=== PATIENT | female | born 1945 | race African-American/Black ===

== ENCOUNTER → 2016-11-14 | Outpatient (CLI) | payer MEDICARE, OTHER ==
--- NOTE | 2016-11-15 07:22 | MM ---
Reason for exam: screening (asymptomatic). Last mammogram was performed 7 years and 4 months ago. History: Patient is postmenopausal. Family history of breast cancer in paternal grandmother at age 30. Took estrogen for 3 months. Physical Findings: A clinical breast exam by your physician is recommended on an annual basis and results should be correlated with mammographic findings. MG 3D Screening Mammo W/Cad Bilateral CC and MLO view(s) were taken. Prior study comparison: July 24, 2009, bilateral digital screening mammogram. There is no discrete abnormality. No significant new findings when compared with previous films since 07/24/09. ASSESSMENT: Negative, BI-RAD 1 RECOMMENDATION: Routine screening mammogram of both breasts in 1 year.
== END | disposition home or self-care (01) ==
LOC: RADMAMWWP 16:46
PROVIDERS: ATTEND Family Medicine
DX: Z12.31 Encounter for screening mammogram for malignant neoplasm of breast (principal)
CPT/HCPCS: 77063; G0202

== ENCOUNTER 2017-01-18 22:24 | Inpatient (IN) | payer MEDICARE, OTHER ==
[2017-01-18] MEDS ORDERED: SODIUM CHLORIDE 0.9% 1,000 ML IV STA (22:46)
[2017-01-18] MEDS ORDERED: SODIUM CHLORIDE 0.9% 500 ML IV STA (22:46)
[2017-01-18] MEDS ORDERED: METOCLOPRAMIDE 5 MG/ML 2 ML VIAL IVP STA (22:47)
[2017-01-18 22:58] LABS: Glucose,Whole Blood 189 mg/dL (75-99)
--- NOTE | 2017-01-18 23:15 | ED ---
Dizziness HPI - General Chief Complaint: Dizziness Stated Complaint: Med reaction Time Seen by Provider: 01/18/17 22:38 Source: patient Mode of arrival: ambulatory Limitations: no limitations - History of Present Illness Initial Comments: Feeling dizzy since 10:30 AM also complaining about some chest floaters and her fever was noticed as well things are spinning around her and she has been nauseous and threw up quite a few times since morning or also complaining about the headache. Mesenteric has chest pain no shortness of breath no abdominal pain no diarrhea no constipation no UTI-like symptoms no symptoms like TIA or CVA - Related Data Home Medications Medication Instructions Recorded Confirmed Aspirin 81 mg PO DAILY 05/31/14 02/21/16 Triamterene-Hctz 37.5-25Mg 1 each PO DAILY 08/26/14 02/21/16 [Dyazide] Fenofibrate Nanocrystallized 145 mg PO DAILY 11/16/14 02/21/16 [Tricor] HYDROcodone/APAP 10-325MG [[place] 1 each PO Q8H PRN 11/16/14 02/21/16 10] glipiZIDE [Glucotrol] 5 mg PO BID 11/16/14 02/21/16 metFORMIN HCL [Glucophage] 500 mg PO BID 11/16/14 02/21/16 DULoxetine HCL [Cymbalta] 30 mg PO DAILY 02/20/16 02/21/16 Ferrous Sulfate [Feosol] 325 mg PO BID 02/20/16 02/21/16 Omeprazole [PriLOSEC] 20 mg PO BID 02/20/16 02/21/16 Promethazine 6.25MG/5Ml [Phenergan 2 tsp PO BID 02/20/16 02/21/16 Syrup] amLODIPine [Norvasc] 10 mg PO DAILY 02/20/16 02/21/16 Acetaminophen [Tylenol] 500 mg PO Q4-6H PRN 02/21/16 02/21/16 Previous Rx's Medication Instructions Recorded oxyCODONE-APAP 5-325MG [Percocet 1 tab PO Q6HR PRN #30 tab 02/21/16 5-325 mg] Allergies Allergy/AdvReac Type Severity Reaction Status Date / Time diflunisal [From Dolobid] Allergy Anaphylaxis Verified 02/21/16 06:25 hydrochlorothiazide Allergy Swelling Verified 02/21/16 06:25 [From Zestoretic] of face and throat ibuprofen [From Motrin] Allergy Rash/Hives Verified 02/21/16 06:25 Iodine and Iodide Containing Allergy Anaphylaxis Verified 02/21/16 06:25 Produc lisinopril Allergy Rash/Hives Verified 02/21/16 06:25 morphine Allergy Rash/Hives Verified 02/21/16 06:25 prednisone Allergy Rash/Hives Verified 02/21/16 06:25 sulfamethoxazole Allergy Anaphylaxis Verified 02/21/16 06:25 [From Bactrim] tramadol Allergy Rash/Hives Verified 02/21/16 06:25 trimethoprim [From Bactrim] Allergy Anaphylaxis Verified 02/21/16 06:25 ondansetron AdvReac Itching Verified 01/18/17 22:37 [From Zofran (as hydrochloride)] Review of Systems ROS Statement: Those systems with pertinent positive or pertinent negative responses have been documented in the HPI. ROS Other: All systems not noted in ROS Statement are negative. Past Medical History Past Medical History: Diabetes Mellitus, GERD/Reflux, Hyperlipidemia, Hypertension, Mitral Valve Prolapse (MVP) Additional Past Medical History / Comment(s): recent cough, hx migraines, varicose veins, History of Any Multi-Drug Resistant Organisms: None Reported Past Surgical History: Back Surgery, Hysterectomy, Tonsillectomy Additional Past Surgical History / Comment(s): 3 HERNIATED DISK REPAIRS, PLATE AT L4 AND L5, rt temporal artery removed, ovarian cysts removed, pilonidal cyst, Past Anesthesia/Blood Transfusion Reactions: Family Hisory of Malignant Hyperthermia Additional Past Anesthesia/Blood Transfusion Reaction / Comment(s): daughter had reaction to anesthesia age 7 with tonsilectomy called "chocolate anesthesia " per pt. "she had a rash and high fever of 105". daughter has had surgeries since with no problems. Past Psychological History: No Psychological Hx Reported Smoking Status: Former smoker Past Alcohol Use History: None Reported Past Drug Use History: None Reported - Past Family History Sister(s) Family Medical History: Deep Vein Thrombosis (DVT) Father Family Medical History: Cancer Additional Family Medical History / Comment(s): [employer]ADRUPLE [employer] Mother Family Medical History: Deep Vein Thrombosis (DVT) Additional Family Medical History / Comment(s): PACEMAKER General Exam - General Exam Comments Initial Comments: General: The patient is awake and alert, in no distress, and does not appear acutely ill. GCS is 15 Skin: Skin is warm and dry and no rashes or lesions are noted. Eye: Pupils are equal, round and reactive to light, extra-ocular movements are intact; there is normal conjunctiva bilaterally. Ears, nose, mouth and throat: There are moist mucous membranes and no oral lesions. Neck: The neck is supple, there is no tenderness or JVD. Cardiovascular: There is a regular rate and rhythm. No murmur, rub or gallop is appreciated. Respiratory: To auscultation bilateral, no wheezing no rhonchi no distress respiratory collado noticed Gastrointestinal: Soft, non-distended, non-tender abdomen without masses or organomegaly noted. There is no rebound or guarding present. Bowel sounds are unremarkable. Back: There is no tenderness to palpation in the midline. There is no obvious deformity. Musculoskeletal: Normal ROM, no tenderness, There is no pedal edema. There is no calf tenderness or swelling. No cords were appreciated. Neurological: CN II-XII intact, Cranial nerves III through XII are intact. There are no obvious motor or sensory deficits. Coordination appears grossly intact. Speech is normal. Psychiatric: Cooperative, appropriate mood & affect, normal judgment. Limitations: no limitations Course Vital Signs 01/18/17 01/18/17 01/19/17 22:34 23:53 00:51 Temperature 100.1 F H Pulse Rate 63 52 L Pulse Rate [ 84 Sitting] Pulse Rate [ 62 Standing] Pulse Rate [ 64 Supine] Respiratory 18 18 Rate Blood Pressure 170/74 188/90 Blood Pressure 171/74 [Sitting] Blood Pressure 188/77 [Standing] Blood Pressure 145/64 [Supine] O2 Sat by Pulse 100 99 Oximetry Was reassessed at 1 AM, she still dizzy, he reviewed her labs CBC, INR, creatinine, comprehensive metabolic panel urine and urinalysis were all within normal range creatinine is 1.[address] is pending at this point she will be admitted to Dr. Rod service EKG Findings - EKG Comments: EKG Findings:: EKG is sinus bradycardia ventricular rate is 59 WV interval is 140 QRS duration is 82 QT/QTc is 432/427 review of this EKG reveals T-wave inversion in lead [address] elevation or ST depression noticed any other EKG Medical Decision Making - Lab Data Result diagrams: 01/18/17 23:57 01/18/17 23:57 Lab Results 01/18/17 01/18/17 01/18/17 Range/Units 22:45 23:41 23:57 WBC 5.5 (3.8-10.6) k/uL RBC 3.42 L (3.80-5.40) m/uL Hgb 11.1 L (11.4-16.0) gm/dL Hct 34.8 (34.0-46.0) % MCV 101.7 H (80.0-100.0) fL MCH 32.5 (25.0-35.0) pg MCHC 32.0 (31.0-37.0) g/dL RDW 14.0 (11.5-15.5) % Plt Count 265 (150-450) k/uL Neutrophils % 63 % Lymphocytes % 26 % Monocytes % 6 % Eosinophils % 2 % Basophils % 0 % Neutrophils # 3.5 (1.3-7.7) k/uL Lymphocytes # 1.4 (1.0-4.8) k/uL Monocytes # 0.3 (0-1.0) k/uL Eosinophils # 0.1 (0-0.7) k/uL Basophils # 0.0 (0-0.2) k/uL Macrocytosis Slight PT (9.0-12.0) sec INR (<1.2) Sodium (137-145) mmol/L Potassium (3.5-5.1) mmol/L Chloride (98-107) mmol/L Carbon Dioxide (22-30) mmol/L Anion Gap mmol/L BUN (7-17) mg/dL Creatinine (0.52-1.04) mg/dL Est GFR (MDRD) Af Amer (>60 ml/min/1.73 sqM) Est GFR (MDRD) Non-Af (>60 ml/min/1.73 sqM) Glucose (74-99) mg/dL POC Glucose (mg/dL) 189 H (75-99) mg/dL POC Glu Lead Section Supervisor ID Antionette Carrillo Plasma Lactic Acid Epi (0.7-2.0) mmol/L Calcium (8.4-10.2) mg/dL Total Bilirubin (0.2-1.3) mg/dL AST (14-36) U/L ALT (9-52) U/L Alkaline Phosphatase (38-126) U/L Troponin I (0.000-0.034) ng/mL Total Protein (6.3-8.2) g/dL Albumin (3.5-5.0) g/dL Urine Color Light Yellow Urine Appearance Cloudy H (Clear) Urine pH 8.0 (5.0-8.0) Ur Specific [place] 1.010 (1.001-1.035) Urine Protein Negative (Negative) Urine Glucose (UA) Trace H (Negative) Urine Ketones Negative (Negative) Urine Blood Negative (Negative) Urine Nitrite Negative (Negative) Urine Bilirubin Negative (Negative) Urine Urobilinogen <2.0 (<2.0) mg/dL Ur Leukocyte Esterase Negative (Negative) Urine RBC 1 (0-5) /hpf Urine WBC 3 (0-5) /hpf Ur Squamous Epith Cells <1 (0-4) /hpf Urine Bacteria Rare H (None) /hpf Urine Mucus Rare H (None) /hpf 01/18/17 01/18/17 01/18/17 Range/Units 23:57 23:57 23:57 WBC (3.8-10.6) k/uL RBC (3.80-5.40) m/uL Hgb (11.4-16.0) gm/dL Hct (34.0-46.0) % MCV (80.0-100.0) fL MCH (25.0-35.0) pg MCHC (31.0-37.0) g/dL RDW (11.5-15.5) % Plt Count (150-450) k/uL Neutrophils % % Lymphocytes % % Monocytes % % Eosinophils % % Basophils % % Neutrophils # (1.3-7.7) k/uL Lymphocytes # (1.0-4.8) k/uL Monocytes # (0-1.0) k/uL Eosinophils # (0-0.7) k/uL Basophils # (0-0.2) k/uL Macrocytosis PT 10.3 (9.0-12.0) sec INR 1.0 (<1.2) Sodium 146 H (137-145) mmol/L Potassium 4.2 (3.5-5.1) mmol/L Chloride 110 H (98-107) mmol/L Carbon Dioxide 23 (22-30) mmol/L Anion Gap 13 mmol/L BUN 18 H (7-17) mg/dL Creatinine 1.40 H (0.52-1.04) mg/dL Est GFR (MDRD) Af Amer 45 (>60 ml/min/1.73 sqM) Est GFR (MDRD) Non-Af 37 (>60 ml/min/1.73 sqM) Glucose 161 H (74-99) mg/dL POC Glucose (mg/dL) (75-99) mg/dL POC Glu Lead Section Supervisor ID Plasma Lactic Acid Epi 1.2 (0.7-2.0) mmol/L Calcium 10.3 H (8.4-10.2) mg/dL Total Bilirubin 0.4 (0.2-1.3) mg/dL AST 22 (14-36) U/L ALT 38 (9-52) U/L Alkaline Phosphatase 59 (38-126) U/L Troponin I (0.000-0.034) ng/mL Total Protein 7.5 (6.3-8.2) g/dL Albumin 4.5 (3.5-5.0) g/dL Urine Color Urine Appearance (Clear) Urine pH (5.0-8.0) Ur Specific [place] (1.001-1.035) Urine Protein (Negative) Urine Glucose (UA) (Negative) Urine Ketones (Negative) Urine Blood (Negative) Urine Nitrite (Negative) Urine Bilirubin (Negative) Urine Urobilinogen (<2.0) mg/dL Ur Leukocyte Esterase (Negative) Urine RBC (0-5) /hpf Urine WBC (0-5) /hpf Ur Squamous Epith Cells (0-4) /hpf Urine Bacteria (None) /hpf Urine Mucus (None) /hpf 01/18/17 Range/Units 23:57 WBC (3.8-10.6) k/uL RBC (3.80-5.40) m/uL Hgb (11.4-16.0) gm/dL Hct (34.0-46.0) % MCV (80.0-100.0) fL MCH (25.0-35.0) pg MCHC (31.0-37.0) g/dL RDW (11.5-15.5) % Plt Count (150-450) k/uL Neutrophils % % Lymphocytes % % Monocytes % % Eosinophils % % Basophils % % Neutrophils # (1.3-7.7) k/uL Lymphocytes # (1.0-4.8) k/uL Monocytes # (0-1.0) k/uL Eosinophils # (0-0.7) k/uL Basophils # (0-0.2) k/uL Macrocytosis PT (9.0-12.0) sec INR (<1.2) Sodium (137-145) mmol/L Potassium (3.5-5.1) mmol/L Chloride (98-107) mmol/L Carbon Dioxide (22-30) mmol/L Anion Gap mmol/L BUN (7-17) mg/dL Creatinine (0.52-1.04) mg/dL Est GFR (MDRD) Af Amer (>60 ml/min/1.73 sqM) Est GFR (MDRD) Non-Af (>60 ml/min/1.73 sqM) Glucose (74-99) mg/dL POC Glucose (mg/dL) (75-99) mg/dL POC Glu Lead Section Supervisor ID Plasma Lactic Acid Epi (0.7-2.0) mmol/L Calcium (8.4-10.2) mg/dL Total Bilirubin (0.2-1.3) mg/dL AST (14-36) U/L ALT (9-52) U/L Alkaline Phosphatase (38-126) U/L Troponin I <0.012 (0.000-0.034) ng/mL Total Protein (6.3-8.2) g/dL Albumin (3.5-5.0) g/dL Urine Color Urine Appearance (Clear) Urine pH (5.0-8.0) Ur Specific [place] (1.001-1.035) Urine Protein (Negative) Urine Glucose (UA) (Negative) Urine Ketones (Negative) Urine Blood (Negative) Urine Nitrite (Negative) Urine Bilirubin (Negative) Urine Urobilinogen (<2.0) mg/dL Ur Leukocyte Esterase (Negative) Urine RBC (0-5) /hpf Urine WBC (0-5) /hpf Ur Squamous Epith Cells (0-4) /hpf Urine Bacteria (None) /hpf Urine Mucus (None) /hpf Disposition Clinical Impression: Chest pain, Dizziness, Headache Disposition: ADMITTED IP TO THIS [facility] Condition: Good Referrals: Sissy Starr DO [Primary Care Provider] - 1-2 days
[2017-01-19 00:05] LABS: Appearance,Urine Cloudy (Clear); Bacteria,Urine Rare /hpf; Bilirubin,Urine Negative (Negative); Glucose,Urine (UA) Trace (Negative); Ketones,Urine Negative (Negative); Leukocyte Esterase,Urine Negative (Negative); Mucus,Urine Rare /hpf; Nitrite,Urine Negative (Negative); Particle Count 6632; Protein,Urine Negative (Negative); RBC,Urine 1 /hpf (0-5); Squamous Epithelial Cell,Urine <1 /hpf (0-4); UA Billing (MACRO vs. MICRO) MICRO; Urobilinogen,Urine <2.0 mg/dL (<2.0); WBC,Urine 3 /hpf (0-5)
[2017-01-19 00:28] LABS: Basophils % (A) 0 %; CH 32.8; CHCM 32.5; Eosinophils # (A) 0.1 k/uL (0-0.7); Eosinophils % (A) 2 %; HCT 34.8 % (34.0-46.0); HDW 2.55; HGB 11.1 gm/dL (11.4-16.0); Luc # (Auto) 0.18; Luc % (Auto) 3; Lymphocytes # (A) 1.4 k/uL (1.0-4.8); Lymphocytes % (A) 26 %; MCH 32.5 pg (25.0-35.0); MCV 101.7 fL (80.0-100.0); Macrocytosis Slight; Mean Platelet Volume 8.2; Monocytes # (A) 0.3 k/uL (0-1.0); Monocytes % (A) 6 %; Neutrophils # (A) 3.5 k/uL (1.3-7.7); Neutrophils % (A) 63 %; RBC 3.42 m/uL (3.80-5.40); WBC 5.5 k/uL (3.8-10.6); WBC (Perox) 5.66
[2017-01-19 00:36] LABS: Prothrombin Time 10.3 sec (9.0-12.0)
[2017-01-19 00:39] LABS: Calcium 10.3 mg/dL (8.4-10.2); Potassium 4.2 mmol/L (3.5-5.1); Total Bilirubin 0.4 mg/dL (0.2-1.3); Total Protein 7.5 g/dL (6.3-8.2)
--- NOTE | 2017-01-19 01:03 | CT ---
EXAM: CT Head Without Intravenous Contrast CLINICAL HISTORY: Dizziness, nausea/vomiting TECHNIQUE: Axial computed tomography images of the head/brain without intravenous contrast. CTDI is 57.40 mGy and DLP is 961.00 mGy-cm. This CT exam was performed using one or more of the following dose reduction techniques: automated exposure control, adjustment of the mA and/or kV according to patient size, and/or use of iterative reconstruction technique. COMPARISON: CT of the head dated 08/26/2014. FINDINGS: Brain: No evidence of acute transcortical infarct or acute intracranial hemorrhage. Evidence of mild microangiopathy. No edema. Ventricles: Unremarkable. No ventriculomegaly. Bones/joints: Unremarkable. No acute fracture. Soft tissues: Unremarkable. Sinuses: Near complete opacification of the right sphenoid sinus. Partial opacification of the posterior bilateral ethmoid air cells, right greater the left. Findings are slightly more conspicuous on this study than the prior and are likely consistent with chronic sinusitis Mastoid air cells: Unremarkable as visualized. No mastoid effusion. IMPRESSION: 1. Near complete opacification of the right sphenoid sinus. Partial opacification of the posterior bilateral ethmoid air cells, right greater the left. Findings are slightly more conspicuous on this study than the prior and are likely consistent with chronic sinusitis. 2. Findings suggestive of mild microangiopathy.
--- NOTE | 2017-01-19 01:07 | XR ---
EXAM: XR Chest, 2 Views CLINICAL HISTORY: Reason: Fever TECHNIQUE: Frontal and lateral views of the chest. COMPARISON: 11/16/2014 FINDINGS: Lungs: Prominent lung volumes persist suggesting COPD. No evidence of consolidation.. Pleural space: Unremarkable. No pneumothorax. Heart: Unremarkable. No cardiomegaly. Mediastinum: Unremarkable. Bones/joints: Unremarkable. IMPRESSION: Stable exam suggesting COPD. No acute findings.
--- NOTE | 2017-01-19 01:10 | XR ---
EXAM: XR Abdomen, 1 View CLINICAL HISTORY: Reason: Pain TECHNIQUE: Frontal supine view of the abdomen/pelvis. COMPARISON: No relevant prior studies available. FINDINGS: Gastrointestinal tract: Stool seen throughout the proximal colon, which may represent constipation. No dilation. Bones/joints: Mild levoscoliosis of the lumbar spine. Degenerative changes are also noted. IMPRESSION: Normal abdominal x-ray.
[2017-01-19] MEDS ORDERED: ACETAMINOPHEN TAB 500 MG TAB PO PRN (01:15)
[2017-01-19] MEDS ORDERED: HYDROcodone/APAP 10-325MG 1 EACH TAB PO PRN (01:15)
[2017-01-19] MEDS: SODIUM CHLORIDE 0.9% 1,000 ML IV SCH ×3 (01:59→20:52)
[2017-01-19 02:19] VITALS: BMI 34.7
[2017-01-19] MEDS: PROMETHAZINE INJ 25 MG in SODIUM CHLORIDE 0.9% 50 ML IVPB PRN ×3 (02:39→18:51)
[2017-01-19 05:53] LABS: Glucose,Whole Blood 138 mg/dL (75-99)
[2017-01-19] MEDS: PANTOPRAZOLE 40 MG TABLET PO SCH ×2 (07:34→16:55)
[2017-01-19] MEDS: PROMETHAZINE 6.25MG/5ML 147.5 MG/118 ML BOTTLE PO SCH ×2 (07:43→23:14)
[2017-01-19] MEDS: FERROUS SULFATE 325 MG TAB PO SCH ×2 (07:46→20:51)
[2017-01-19] MEDS: FENOFIBRATE 160 MG TAB PO SCH (07:46)
[2017-01-19] MEDS: DULoxetine HCL 30 MG CAPSULE.DR PO SCH (07:47)
[2017-01-19] MEDS: ASPIRIN 81 MG CHEW PO SCH (07:47)
[2017-01-19] MEDS: amLODIPine 10 MG TAB PO SCH (07:47)
[2017-01-19] MEDS: TRIAMTERENE-HCTZ 37.5-25MG 1 EACH CAP PO SCH (07:47)
--- NOTE | 2017-01-19 09:04 | US ---
EXAMINATION TYPE: US carotid duplex BILAT DATE OF EXAM: 01/19/2017 COMPARISON: NONE CLINICAL HISTORY: 71-year-old female Stenosis. TECHNIQUE: Carotid duplex ultrasound examination. Indirect Doppler criteria was utilized. FINDINGS: Brooks scale images show tortuous bilateral ICAs. There are mild atherosclerotic changes at the right b ifurcation and moderate on the left. EXAM MEASUREMENTS: RIGHT: Peak Systolic Velocity (PSV) cm/sec ----- Right CCA: 70.3 ----- Right ICA: 79.4 ----- Right ECA: 86.0 ICA/CCA ratio: 1.1 RIGHT: End Diastole cm/sec ----- Right CCA: 11.6 ----- Right ICA: 24.7 ----- Right ECA: 10.3 LEFT: Peak Systolic Velocity (PSV) cm/sec ----- Left CCA: 65.8 ----- Left ICA: 99.1 ----- Left ECA: 65.8 ICA/CCA ratio: 1.5 LEFT: End Diastole cm/sec ----- Left CCA: 15.3 ----- Left ICA: 31.8 ----- Left ECA: 5.4 VERTEBRALS (direction of flow): Right Vertebral: antegrade Left Vertebral: antegrade IMPRESSION: No hemodynamically significant stenosis appreciated in either internal carotid artery. Criteria for Assigning % of Stenosis / Diameter reduction (Estimation based on the indirect measurements of the internal carotid artery velocities (ICA PSV). 1. Normal (no stenosis)=ICA PSV < 125 cm/s: ratio < 2.0: ICA EDV<40 cm/s. 2. Less than 50% stenosis=ICA PSV < 125 cm/s: ratio < 2.0: ICA EDV<40 cm/s. 3. 50 to 69% stenosis=ICA PSV of 125 to 230 cm/s: ration 2.0 ? 4.0: ICA EDV 40-100 cm/s. 4. Greater than 70% stenosis to near occlusion= ICA PSV > 230 cm/s: ratio > 4.0: ICA EDV > 100 cm/s. 5. Near occlusion= ICA PSV velocities may be low or undetectable: variable ratio and ICA EDV. 6. Total occlusion=unable to detect flow.
--- NOTE | 2017-01-19 11:25 | P.CRDCN ---
History of Present Illness Consult date: 01/19/17 Chief complaint: Presyncope History of present illness: This is a pleasant 71-year-old -F[place] female patient with diabetes, hypertension, and dyslipidemia, presented to the hospital with dizziness and lightheadedness. The patient was in her usual state of health until yesterday when she woke up from sleep not feeling well and experiencing the feeling of being dizzy and lightheaded. She did not have any syncope. She denies having any chest pain or discomfort. When she presented to the hospital she was in sinus bradycardia. The patient was not receiving any AV delmar kvng agents as an outpatient. She underwent carotid duplex study which showed no evidence of high-grade stenosis. She underwent one set of cardiac enzyme came in to be unremarkable. Past Medical History Past Medical History: Diabetes Mellitus, GERD/Reflux, Hyperlipidemia, Hypertension, Mitral Valve Prolapse (MVP) Additional Past Medical History / Comment(s): recent cough, hx migraines, varicose veins, History of Any Multi-Drug Resistant Organisms: None Reported Past Surgical History: Back Surgery, Hysterectomy, Tonsillectomy Additional Past Surgical History / Comment(s): 3 HERNIATED DISK REPAIRS, PLATE AT L4 AND L5, rt temporal artery removed, ovarian cysts removed, pilonidal cyst, Past Anesthesia/Blood Transfusion Reactions: Family Hisory of Malignant Hyperthermia Additional Past Anesthesia/Blood Transfusion Reaction / Comment(s): daughter had reaction to anesthesia age 7 with tonsilectomy called "chocolate anesthesia " per pt. "she had a rash and high fever of 105". daughter has had surgeries since with no problems. Past Psychological History: No Psychological Hx Reported Smoking Status: Former smoker Past Alcohol Use History: None Reported Additional Past Alcohol Use History / Comment(s): quit smoking 35 yrs ago, smoked for 3 yrs- < 1 PPD Past Drug Use History: None Reported - Past Family History Sister(s) Family Medical History: Deep Vein Thrombosis (DVT) Father Family Medical History: Cancer Additional Family Medical History / Comment(s): QUADRUPLE BYPASS Mother Family Medical History: Deep Vein Thrombosis (DVT) Additional Family Medical History / Comment(s): PACEMAKER Medications and Allergies Home Medications Medication Instructions Recorded Confirmed Type Triamterene-Hctz 37.5-25Mg 1 cap PO DAILY 08/26/14 01/19/17 History [Dyazide] Fenofibrate Nanocrystallized 145 mg PO DAILY 11/16/14 01/19/17 History [Tricor] HYDROcodone/APAP 10-325MG [[place] 1 tab PO TID PRN 11/16/14 01/19/17 History 10] metFORMIN HCL [Glucophage] 500 mg PO BID 11/16/14 01/19/17 History Ferrous Sulfate [Feosol] 325 mg PO DAILY 02/20/16 01/19/17 History amLODIPine [Norvasc] 10 mg PO DAILY 02/20/16 01/19/17 History Baclofen [Lioresal] 20 mg PO HS 01/19/17 01/19/17 History Cetirizine HCl [Zyrtec] 10 mg PO DAILY 01/19/17 01/19/17 History Famotidine [Pepcid] 40 mg PO HS 01/19/17 01/19/17 History glipiZIDE XL [Glucotrol Xl] 5 mg PO BID 01/19/17 01/19/17 History Allergies Allergy/AdvReac Type Severity Reaction Status Date / Time diflunisal [From Dolobid] Allergy Anaphylaxis Verified 01/19/17 10:36 hydrochlorothiazide Allergy Swelling Verified 01/19/17 10:36 [From Zestoretic] of face and throat ibuprofen [From Motrin] Allergy Rash/Hives Verified 01/19/17 10:36 Iodine and Iodide Containing Allergy Anaphylaxis Verified 01/19/17 10:36 Produc lisinopril Allergy Rash/Hives Verified 01/19/17 10:36 morphine Allergy Rash/Hives Verified 01/19/17 10:36 prednisone Allergy Rash/Hives Verified 01/19/17 10:36 sulfamethoxazole Allergy Anaphylaxis Verified 01/19/17 10:36 [From Bactrim] tramadol Allergy Rash/Hives Verified 01/19/17 10:36 trimethoprim [From Bactrim] Allergy Anaphylaxis Verified 01/19/17 10:36 ondansetron AdvReac Itching Verified 01/19/17 10:36 [From Zofran (as hydrochloride)] Physical Exam Vitals: Vital Signs Temp Pulse Pulse Pulse Pulse Pulse Resp 01/19/17 11:22 98.7 F 51 L 16 01/19/17 11:21 98.7 F 51 L 18 01/19/17 10:10 51 L 16 01/19/17 08:10 64 18 01/19/17 08:00 98.2 F 60 84 62 64 20 01/19/17 04:00 97.3 F L 51 L 18 01/19/17 01:50 97 F L 65 18 01/19/17 01:45 98.8 F 55 L 18 01/19/17 01:35 98.8 F 55 L 18 01/19/17 00:51 52 L 18 01/18/17 23:53 84 62 64 01/18/17 22:34 100.1 F H 63 18 BP BP BP BP Pulse Ox 01/19/17 11:22 138/73 96 01/19/17 11:21 138/73 96 01/19/17 10:10 138/73 96 01/19/17 08:10 130/80 95 01/19/17 08:00 129/82 96 01/19/17 04:00 116/67 98 01/19/17 01:50 161/68 98 01/19/17 01:45 157/70 98 01/19/17 01:35 157/70 98 01/19/17 00:51 188/90 99 01/18/17 23:53 171/74 188/77 145/64 01/18/17 22:34 170/74 100 Intake and Output 01/18/17 01/19/17 01/19/17 22:59 06:59 14:59 Intake Total 550 Balance 550 Intake: Intake, IV Titration 550 Amount Promethazine Inj 25 mg In 50 Sodium Chloride 0.9% 50 ml @ 200 mls/hr IVPB Q6HR PRN Rx#:[id number] Sodium Chloride 0.9% 1, 500 000 ml @ 100 mls/hr IV . Q10H JEANNA Rx#:[id number] Other: Weight 95.708 kg 94.6 kg - Constitutional General appearance: no acute distress - Respiratory Respiratory: bilateral: CTA - Cardiovascular Rhythm: regular Heart sounds: normal: S1, S2 Results 01/18/17 23:57 01/18/17 23:57 Cardiac Enzymes 01/18/17 01/18/17 Range/Units 23:57 23:57 AST 22 (14-36) U/L Troponin I <0.012 (0.000-0.034) ng/mL Coagulation 01/18/17 Range/Units 23:57 PT 10.3 (9.0-12.0) sec CBC 01/18/17 Range/Units 23:57 WBC 5.5 (3.8-10.6) k/uL RBC 3.42 L (3.80-5.40) m/uL Hgb 11.1 L (11.4-16.0) gm/dL Hct 34.8 (34.0-46.0) % Plt Count 265 (150-450) k/uL Comprehensive Metabolic Panel 01/18/17 Range/Units 23:57 Sodium 146 H (137-145) mmol/L Potassium 4.2 (3.5-5.1) mmol/L Chloride 110 H (98-107) mmol/L Carbon Dioxide 23 (22-30) mmol/L BUN 18 H (7-17) mg/dL Creatinine 1.40 H (0.52-1.04) mg/dL Glucose 161 H (74-99) mg/dL Calcium 10.3 H (8.4-10.2) mg/dL AST 22 (14-36) U/L ALT 38 (9-52) U/L Alkaline Phosphatase 59 (38-126) U/L Total Protein 7.5 (6.3-8.2) g/dL Albumin 4.5 (3.5-5.0) g/dL Current Medications Generic Name Dose Route Start Last Admin Trade Name Freq PRN Reason Stop Dose Admin Acetaminophen 500 mg 01/19/17 01:15 Tylenol Tab PO Q4-6H PRN Pain Hydrocodone Bitart/Acetaminophen 1 each 01/19/17 01:15 [place] 10 PO Q8H PRN Pain Amlodipine Besylate 10 mg 01/19/17 09:00 01/19/17 07:47 Norvasc PO 10 mg DAILY JEANNA Administration Aspirin 81 mg 01/19/17 09:00 01/19/17 07:47 Aspirin PO 81 mg DAILY JEANNA Administration Duloxetine HCl 30 mg 01/19/17 09:00 01/19/17 07:47 Cymbalta PO 30 mg DAILY JEANNA Administration Fenofibrate 160 mg 01/19/17 09:00 01/19/17 07:46 Lofibra PO 160 mg DAILY JEANNA Administration Ferrous Sulfate 325 mg 01/19/17 09:00 01/19/17 07:46 Feosol PO 325 mg BID JEANNA Administration Glipizide 5 mg 01/19/17 07:30 Glucotrol PO AC-BID JEANNA Sodium Chloride 1,000 mls @ 75 mls/hr 01/18/17 22:46 01/19/17 00:47 Saline 0.9% IV 01/19/17 12:05 75 mls/hr .[id number] STA Administration Sodium Chloride 1,000 mls @ 100 mls/hr 01/19/17 01:15 01/19/17 01:59 Saline 0.9% IV 100 mls/hr .Q10H JEANNA Administration Ceftriaxone Sodium 1,000 mg/ 50 mls @ 100 mls/hr 01/19/17 09:00 01/19/17 07: 43 Sodium Chloride IVPB 100 mls/hr Q24HR JEANNA Administration Promethazine HCl 25 mg/ Sodium 51 mls @ 200 mls/hr 01/19/17 01:17 01/19/17 02 :39 Chloride IVPB 200 mls/hr Q6HR PRN Administration Nausea Metformin HCl 500 mg 01/19/17 07:30 Glucophage PO AC-BID JEANNA Oxycodone/Acetaminophen 1 each 01/19/17 01:15 Percocet 5-325 PO Q6HR PRN Pain Pantoprazole Sodium 40 mg 01/19/17 07:30 01/19/17 07:34 Protonix PO 40 mg AC-BID JEANNA Administration Promethazine HCl 12.80102 mg 01/19/17 09:00 01/19/17 07:43 Phenergan Syrup PO 12.49 mg BID JEANNA Administration Triamterene/HCTZ 1 each 01/19/17 09:00 01/19/17 07:47 Dyazide PO 1 each DAILY JEANNA Administration Intake and Output 01/18/17 01/19/17 01/19/17 22:59 06:59 14:59 Intake Total 550 Balance 550 Intake: Intake, IV Titration 550 Amount Promethazine Inj 25 mg In 50 Sodium Chloride 0.9% 50 ml @ 200 mls/hr IVPB Q6HR PRN Rx#:[id number] Sodium Chloride 0.9% 1, 500 000 ml @ 100 mls/hr IV . Q10H JEANNA Rx#:[id number] Other: Weight 95.708 kg 94.6 kg 01/18/17 23:57 01/18/17 23:57 Assessment and Plan Plan: This is a pleasant 71-year-old -[place] female patient with diabetes, hypertension, and dyslipidemia who was admitted to the hospital was dizziness and lightheadedness and presyncope. Upon presenting to the hospital she was in sinus bradycardia but she was not receiving any AV delmar kvng agents. We will follow-up with the serial cardiac enzymes to rule out any acute coronary event. I will obtain a TSH as well as to rule out any hypothyroidism. I will obtain also an echocardiogram to evaluate the left ventricle systolic function. We'll continue following up with her.
[2017-01-19 11:51] LABS: Glucose,Whole Blood 138 mg/dL (75-99)
[2017-01-19] MEDS: glipiZIDE 5 MG TAB PO SCH ×2 (12:21→16:53)
[2017-01-19] MEDS: metFORMIN 500 MG TAB PO SCH ×2 (12:21→16:53)
--- NOTE | 2017-01-19 14:58 | P.HPIM ---
History of Present Illness H&P Date: 01/19/17 Chief Complaint: Dizziness and lightheadedness Gina Phan is a 71-year-old female patient with diabetes, hypertension, and hyperlipidemia, who presented to the hospital with dizziness and lightheadedness. The patient was in her usual state of health until yesterday when she woke up from sleep not feeling well and experiencing the feeling of being dizzy and lightheaded. She did not have any syncope. She denies having any chest pain or discomfort. When she presented to the hospital she was in sinus bradycardia. She underwent carotid duplex study on presentation She underwent one set of cardiac enzyme came in to be unremarkable. Echocardiogram was ordered results are still pending Patient states that she was recently started on baclofen a muscle relaxer by her primary care physician she took 1 pill on the day of admission and she slept till the afternoon she was feeling tired, she thinks that her symptoms may be related to baclofen. Past Medical History Past Medical History: Diabetes Mellitus, GERD/Reflux, Hyperlipidemia, Hypertension, Mitral Valve Prolapse (MVP) Additional Past Medical History / Comment(s): recent cough, hx migraines, varicose veins, History of Any Multi-Drug Resistant Organisms: None Reported Past Surgical History: Back Surgery, Hysterectomy, Tonsillectomy Additional Past Surgical History / Comment(s): 3 HERNIATED DISK REPAIRS, PLATE AT L4 AND L5, rt temporal artery removed, ovarian cysts removed, pilonidal cyst, Past Anesthesia/Blood Transfusion Reactions: Family Hisory of Malignant Hyperthermia Additional Past Anesthesia/Blood Transfusion Reaction / Comment(s): daughter had reaction to anesthesia age 7 with tonsilectomy called "chocolate anesthesia " per pt. "she had a rash and high fever of 105". daughter has had surgeries since with no problems. Past Psychological History: No Psychological Hx Reported Smoking Status: Former smoker Past Alcohol Use History: None Reported Additional Past Alcohol Use History / Comment(s): quit smoking 35 yrs ago, smoked for 3 yrs- < 1 PPD Past Drug Use History: None Reported - Past Family History Sister(s) Family Medical History: Deep Vein Thrombosis (DVT) Father Family Medical History: Cancer Additional Family Medical History / Comment(s): QUADRUPLE BYPASS Mother Family Medical History: Deep Vein Thrombosis (DVT) Additional Family Medical History / Comment(s): PACEMAKER Medications and Allergies Home Medications Medication Instructions Recorded Confirmed Type Triamterene-Hctz 37.5-25Mg 1 cap PO DAILY 08/26/14 01/19/17 History [Dyazide] Fenofibrate Nanocrystallized 145 mg PO DAILY 11/16/14 01/19/17 History [Tricor] HYDROcodone/APAP 10-325MG [[place] 1 tab PO TID PRN 11/16/14 01/19/17 History 10] metFORMIN HCL [Glucophage] 500 mg PO BID 11/16/14 01/19/17 History Ferrous Sulfate [Feosol] 325 mg PO DAILY 02/20/16 01/19/17 History amLODIPine [Norvasc] 10 mg PO DAILY 02/20/16 01/19/17 History Baclofen [Lioresal] 20 mg PO HS 01/19/17 01/19/17 History Cetirizine HCl [Zyrtec] 10 mg PO DAILY 01/19/17 01/19/17 History Famotidine [Pepcid] 40 mg PO HS 01/19/17 01/19/17 History glipiZIDE XL [Glucotrol Xl] 5 mg PO BID 01/19/17 01/19/17 History Allergies Allergy/AdvReac Type Severity Reaction Status Date / Time diflunisal [From Dolobid] Allergy Anaphylaxis Verified 01/19/17 10:36 hydrochlorothiazide Allergy Swelling Verified 01/19/17 10:36 [From Zestoretic] of face and throat ibuprofen [From Motrin] Allergy Rash/Hives Verified 01/19/17 10:36 Iodine and Iodide Containing Allergy Anaphylaxis Verified 01/19/17 10:36 Produc lisinopril Allergy Rash/Hives Verified 01/19/17 10:36 morphine Allergy Rash/Hives Verified 01/19/17 10:36 prednisone Allergy Rash/Hives Verified 01/19/17 10:36 sulfamethoxazole Allergy Anaphylaxis Verified 01/19/17 10:36 [From Bactrim] tramadol Allergy Rash/Hives Verified 01/19/17 10:36 trimethoprim [From Bactrim] Allergy Anaphylaxis Verified 01/19/17 10:36 ondansetron AdvReac Itching Verified 01/19/17 10:36 [From Zofran (as hydrochloride)] Physical Exam Vitals: Vital Signs Temp Pulse Pulse Pulse Pulse Pulse Resp 01/19/17 11:22 98.7 F 51 L 84 62 64 16 01/19/17 11:21 98.7 F 51 L 18 01/19/17 10:10 51 L 16 01/19/17 08:10 64 18 01/19/17 08:00 98.2 F 60 84 62 64 20 01/19/17 04:00 97.3 F L 51 L 18 01/19/17 01:50 97 F L 65 18 01/19/17 01:45 98.8 F 55 L 18 01/19/17 01:35 98.8 F 55 L 18 01/19/17 00:51 52 L 18 01/18/17 23:53 84 62 64 01/18/17 22:34 100.1 F H 63 18 BP BP BP BP Pulse Ox 01/19/17 11:22 138/73 96 01/19/17 11:21 138/73 96 01/19/17 10:10 138/73 96 01/19/17 08:10 130/80 95 01/19/17 08:00 129/82 96 01/19/17 04:00 116/67 98 01/19/17 01:50 161/68 98 01/19/17 01:45 157/70 98 01/19/17 01:35 157/70 98 01/19/17 00:51 188/90 99 01/18/17 23:53 171/74 188/77 145/64 01/18/17 22:34 170/74 100 Intake and Output 01/18/17 01/19/17 01/19/17 22:59 06:59 14:59 Intake Total 550 1000 Output Total 550 Balance 550 450 Intake: Intake, IV Titration 550 700 Amount Promethazine Inj 25 mg In 50 50 Sodium Chloride 0.9% 50 ml @ 200 mls/hr IVPB Q6HR PRN Rx#:[id number] Sodium Chloride 0.9% 1, 500 600 000 ml @ 100 mls/hr IV . Q10H JEANNA Rx#:[id number] cefTRIAXone 1,000 mg In 50 Sodium Chloride 0.9% 50 ml @ 100 mls/hr IVPB Q24HR JEANNA Rx#:[id number] Oral 300 Output: Urine 550 Other: # Voids 3 Weight 95.708 kg 94.6 kg In general patient is alert and oriented 3 in no apparent distress HEENT head normocephalic and atraumatic Neck is supple no JVD no goiter no lymphadenopathy Chest exam reveals a few scattered crackles no wheezing Cardiac exam reveals regular heart sounds S1 and S2 no gallops no murmurs Abdomen is soft nontender no organomegaly with normal bowel sounds Extremity exam reveals no edema no cyanosis or clubbing Results CBC & Chem 7: 01/18/17 23:57 01/18/17 23:57 Labs: Abnormal Lab Results - Last 24 Hours (Table) 01/18/17 01/18/17 01/18/17 Range/Units 22:45 23:41 23:57 RBC 3.42 L (3.80-5.40) m/uL Hgb 11.1 L (11.4-16.0) gm/dL MCV 101.7 H (80.0-100.0) fL Sodium (137-145) mmol/L Chloride (98-107) mmol/L BUN (7-17) mg/dL Creatinine (0.52-1.04) mg/dL Glucose (74-99) mg/dL POC Glucose (mg/dL) 189 H (75-99) mg/dL Calcium (8.4-10.2) mg/dL Urine Appearance Cloudy H (Clear) Urine Glucose (UA) Trace H (Negative) Urine Bacteria Rare H (None) /hpf Urine Mucus Rare H (None) /hpf 01/18/17 01/19/17 01/19/17 Range/Units 23:57 05:51 11:50 RBC (3.80-5.40) m/uL Hgb (11.4-16.0) gm/dL MCV (80.0-100.0) fL Sodium 146 H (137-145) mmol/L Chloride 110 H (98-107) mmol/L BUN 18 H (7-17) mg/dL Creatinine 1.40 H (0.52-1.04) mg/dL Glucose 161 H (74-99) mg/dL POC Glucose (mg/dL) 138 H 138 H (75-99) mg/dL Calcium 10.3 H (8.4-10.2) mg/dL Urine Appearance (Clear) Urine Glucose (UA) (Negative) Urine Bacteria (None) /hpf Urine Mucus (None) /hpf Thrombosis Risk Factor Assmnt - Choose All That Apply Any of the Below Risk Factors Present?: Yes Each Factor Represents 1 point: Obesity (BMI >25) Each Risk Factor Represents 2 Points: Age 61-74 years Each Risk Factor Represents 3 Points: Family history of DVT/PE Thrombosis Risk Factor Assessment Total Risk Factor Score: 6 Thrombosis Risk Factor Assessment Level: High Risk Assessment and Plan Plan: #1 dizziness and lightheadedness #2 underlying history of hypertension #3 underlying history of diabetes mellitus #4 underlying history of hyperlipidemia #5 no previous history of heart disease or seizure activity #6 bradycardia on presentation At this time will obtain echocardiogram and carotid Doppler will obtain thyroid function test Will monitor to rule out any cardiac arrhythmia Will follow in a.m. cardiology consult has been requested
--- NOTE | 2017-01-19 15:49 | P.CNNES ---
History of Present Illness Consult date: 01/19/17 Requesting physician: Nini Payton Reason for Consult: Dizziness History of Present Illness: Patient is a pleasant 71-year-old -Ang[place] female who is being evaluated by the neurology service on 01/19/2017 per the request of Dr. Payton for dizziness. Patient states she woke up yesterday feeling fine but as the day went on she felt more sleepy and dizzy. Patient does report having recently started baclofen and took a baclofen yesterday morning for the first time. Patient states he was placed on baclofen for muscle spasms in her back from prior back surgeries that she's had. Patient denies any syncopal episodes. She denies headache. Patient states dizziness is pretty much cleared but feels she is not quite back to baseline. Patient had carotid Dopplers done which showed no significant stenosis. CT of the brain showed no acute abnormality but did show small vessel ischemic disease. Cardiac enzymes were unremarkable. Her. Cardiology's been consulted for sinus bradycardia seen on the EKG strips. Vital signs on admission were temp 98.7, blood pressure 138/73, heart rate 51. Laboratory workup included hemoglobin of 11.1, RBCs 3.4, WBCs 5.5, platelets 265. Sodium is 146, potassium 4.2, chloride 110, carbon dioxide 23. BUN 18 with creatinine 1.4. At the time of my evaluation, patient's resting comfortably in bed and appears to be in no acute distress. Review of Systems REVIEW OF SYSTEMS: Otherwise unremarkable and noncontributory. Past Medical History Past Medical History: Diabetes Mellitus, GERD/Reflux, Hyperlipidemia, Hypertension, Mitral Valve Prolapse (MVP) Additional Past Medical History / Comment(s): recent cough, hx migraines, varicose veins, History of Any Multi-Drug Resistant Organisms: None Reported Past Surgical History: Back Surgery, Hysterectomy, Tonsillectomy Additional Past Surgical History / Comment(s): 3 HERNIATED DISK REPAIRS, PLATE AT L4 AND L5, rt temporal artery removed, ovarian cysts removed, pilonidal cyst, Past Anesthesia/Blood Transfusion Reactions: Family Hisory of Malignant Hyperthermia Additional Past Anesthesia/Blood Transfusion Reaction / Comment(s): daughter had reaction to anesthesia age 7 with tonsilectomy called "chocolate anesthesia " per pt. "she had a rash and high fever of 105". daughter has had surgeries since with no problems. Past Psychological History: No Psychological Hx Reported Smoking Status: Former smoker Past Alcohol Use History: None Reported Additional Past Alcohol Use History / Comment(s): quit smoking 35 yrs ago, smoked for 3 yrs- < 1 PPD Past Drug Use History: None Reported - Past Family History Sister(s) Family Medical History: Deep Vein Thrombosis (DVT) Father Family Medical History: Cancer Additional Family Medical History / Comment(s): QUADRUPLE BYPASS Mother Family Medical History: Deep Vein Thrombosis (DVT) Additional Family Medical History / Comment(s): PACEMAKER Medications and Allergies Home Medications Medication Instructions Recorded Confirmed Type Triamterene-Hctz 37.5-25Mg 1 cap PO DAILY 08/26/14 01/19/17 History [Dyazide] Fenofibrate Nanocrystallized 145 mg PO DAILY 11/16/14 01/19/17 History [Tricor] HYDROcodone/APAP 10-325MG [[place] 1 tab PO TID PRN 11/16/14 01/19/17 History 10] metFORMIN HCL [Glucophage] 500 mg PO BID 11/16/14 01/19/17 History Ferrous Sulfate [Feosol] 325 mg PO DAILY 02/20/16 01/19/17 History amLODIPine [Norvasc] 10 mg PO DAILY 02/20/16 01/19/17 History Baclofen [Lioresal] 20 mg PO HS 01/19/17 01/19/17 History Cetirizine HCl [Zyrtec] 10 mg PO DAILY 01/19/17 01/19/17 History Famotidine [Pepcid] 40 mg PO HS 01/19/17 01/19/17 History glipiZIDE XL [Glucotrol Xl] 5 mg PO BID 01/19/17 01/19/17 History Allergies Allergy/AdvReac Type Severity Reaction Status Date / Time diflunisal [From Dolobid] Allergy Anaphylaxis Verified 01/19/17 10:36 hydrochlorothiazide Allergy Swelling Verified 01/19/17 10:36 [From Zestoretic] of face and throat ibuprofen [From Motrin] Allergy Rash/Hives Verified 01/19/17 10:36 Iodine and Iodide Containing Allergy Anaphylaxis Verified 01/19/17 10:36 Produc lisinopril Allergy Rash/Hives Verified 01/19/17 10:36 morphine Allergy Rash/Hives Verified 01/19/17 10:36 prednisone Allergy Rash/Hives Verified 01/19/17 10:36 sulfamethoxazole Allergy Anaphylaxis Verified 01/19/17 10:36 [From Bactrim] tramadol Allergy Rash/Hives Verified 01/19/17 10:36 trimethoprim [From Bactrim] Allergy Anaphylaxis Verified 01/19/17 10:36 ondansetron AdvReac Itching Verified 01/19/17 10:36 [From Zofran (as hydrochloride)] Physical Examination - Vital Signs Vital Signs: Vital Signs Temp Pulse Pulse Pulse Pulse Pulse Resp 01/19/17 15:03 60 84 62 64 18 01/19/17 15:01 98.2 F 60 18 01/19/17 14:10 98.2 F 58 L 16 01/19/17 11:22 98.7 F 51 L 84 62 64 16 01/19/17 11:21 98.7 F 51 L 18 01/19/17 10:10 51 L 16 01/19/17 08:10 64 18 01/19/17 08:00 98.2 F 60 84 62 64 20 01/19/17 04:00 97.3 F L 51 L 18 01/19/17 01:50 97 F L 65 18 01/19/17 01:45 98.8 F 55 L 18 01/19/17 01:35 98.8 F 55 L 18 01/19/17 00:51 52 L 18 01/18/17 23:53 84 62 64 01/18/17 22:34 100.1 F H 63 18 BP BP BP BP Pulse Ox 01/19/17 15:03 01/19/17 15:01 126/70 96 01/19/17 14:10 121/63 96 01/19/17 11:22 138/73 96 01/19/17 11:21 138/73 96 01/19/17 10:10 138/73 96 01/19/17 08:10 130/80 95 01/19/17 08:00 129/82 96 01/19/17 04:00 116/67 98 01/19/17 01:50 161/68 98 01/19/17 01:45 157/70 98 01/19/17 01:35 157/70 98 01/19/17 00:51 188/90 99 01/18/17 23:53 171/74 188/77 145/64 01/18/17 22:34 170/74 100 Intake and Output 01/19/17 01/19/17 01/19/17 06:59 14:59 22:59 Intake Total 550 1000 Output Total 550 Balance 550 450 Intake: Intake, IV Titration 550 700 Amount Promethazine Inj 25 mg In 50 50 Sodium Chloride 0.9% 50 ml @ 200 mls/hr IVPB Q6HR PRN Rx#:[id number] Sodium Chloride 0.9% 1, 500 600 000 ml @ 100 mls/hr IV . Q10H JEANNA Rx#:[id number] cefTRIAXone 1,000 mg In 50 Sodium Chloride 0.9% 50 ml @ 100 mls/hr IVPB Q24HR JEANNA Rx#:[id number] Oral 300 Output: Urine 550 Other: # Voids 3 Weight 94.6 kg PHYSICAL EXAM: GENERAL APPEARANCE: Patient is a well-developed, -[place] female who appears to be in no acute distress. HEENT: Normocephalic, atraumatic, no facial asymmetry is seen. Neck is supple with no masses felt. CARDIOVASCULAR: Regular rate and rhythm. ABDOMEN: Nontender, nondistended. EXTREMITIES: Show no edema or clubbing. NEUROLOGICAL EXAM: Patient is awake, alert, and oriented 3. Speech and language are normal. Strength is full in all 4 extremities. Sensory exam to light touch is normal in all 4 extremities. No facial asymmetry is seen on cranial nerve testing. No tremors or seizure-like activity noted. Results - Laboratory Findings CBC and BMP: 01/18/17 23:57 01/18/17 23:57 Abnormal Lab Findings: Abnormal Labs 01/18/17 01/18/17 01/18/17 22:45 23:41 23:57 RBC 3.42 L Hgb 11.1 L MCV 101.7 H Sodium Chloride BUN Creatinine Glucose POC Glucose (mg/dL) 189 H Calcium Urine Appearance Cloudy H Urine Glucose (UA) Trace H Urine Bacteria Rare H Urine Mucus Rare H 01/18/17 01/19/17 01/19/17 23:57 05:51 11:50 RBC Hgb MCV Sodium 146 H Chloride 110 H BUN 18 H Creatinine 1.40 H Glucose 161 H POC Glucose (mg/dL) 138 H 138 H Calcium 10.3 H Urine Appearance Urine Glucose (UA) Urine Bacteria Urine Mucus Assessment and Plan Plan: Impression: 1. Dizziness, possibly medication reaction 2. Hypertension 3. History of lumbar surgery 4. Diabetes mellitus 5. History of CAD 6. Bradycardia Recommendation: Patient does describe episode of dizziness lasting all day yesterday. Patient states she took a baclofen in the morning and became dizzy and slept most of the day. I feel this is most likely a reaction to the baclofen. As you recall, carotid Doppler showed no hemodynamically significant stenosis. CT of the brain was negative for any acute abnormality. Cardiology is following for bradycardia. On exam, there are no neurological deficits. I feel there are no further neurological testings warranted. I will continue to follow with you on an as-needed basis. Feel free to call with any questions or concerns. Thank you for allowing me to participate in the care of your patient. Feel free to call with any questions or concerns. I performed an examination of the patient and discussed the management with the POSTAL SERVICE CLERK. I have reviewed the POSTAL SERVICE CLERK notes and agree with the findings and plan of care.
[2017-01-19 16:54] LABS: Glucose,Whole Blood 158 mg/dL (75-99)
[2017-01-19 21:15] LABS: Glucose,Whole Blood 185 mg/dL (75-99)
[2017-01-19] MEDS: oxyCODONE-APAP 5-325MG 1 EACH TAB PO PRN (23:20)
[2017-01-20 02:42] LABS: Cholesterol 191 mg/dL (<200); HDL Cholesterol 47 mg/dL (40-60)
[2017-01-20 05:43] LABS: Glucose,Whole Blood 100 mg/dL (75-99)
[2017-01-20] MEDS: PANTOPRAZOLE 40 MG TABLET PO SCH (06:39)
[2017-01-20] MEDS: glipiZIDE 5 MG TAB PO SCH (06:40)
[2017-01-20] MEDS: metFORMIN 500 MG TAB PO SCH (06:40)
[2017-01-20] MEDS: TRIAMTERENE-HCTZ 37.5-25MG 1 EACH CAP PO SCH (08:30)
[2017-01-20] MEDS: PROMETHAZINE 6.25MG/5ML 147.5 MG/118 ML BOTTLE PO SCH (08:30)
[2017-01-20] MEDS: amLODIPine 10 MG TAB PO SCH (08:30)
[2017-01-20] MEDS: FENOFIBRATE 160 MG TAB PO SCH (08:30)
[2017-01-20] MEDS: DULoxetine HCL 30 MG CAPSULE.DR PO SCH (08:30)
[2017-01-20] MEDS: ASPIRIN 81 MG CHEW PO SCH (08:30)
[2017-01-20] MEDS: FERROUS SULFATE 325 MG TAB PO SCH (08:30)
[2017-01-20] MEDS: SODIUM CHLORIDE 0.9% 1,000 ML IV SCH (08:34)
[2017-01-20] MEDS: oxyCODONE-APAP 5-325MG 1 EACH TAB PO PRN (08:45)
[2017-01-20 09:47] LABS: Basophils % (A) 0 %; CHCM 32.6; Eosinophils # (A) 0.2 k/uL (0-0.7); Eosinophils % (A) 3 %; HCT 34.4 % (34.0-46.0); HDW 2.66; HGB 11.6 gm/dL (11.4-16.0); Luc # (Auto) 0.21; Luc % (Auto) 4; Lymphocytes # (A) 2.4 k/uL (1.0-4.8); Lymphocytes % (A) 41 %; MCH 33.1 pg (25.0-35.0); MCHC 33.5 g/dL (31.0-37.0); MCV 98.5 fL (80.0-100.0); Mean Platelet Volume 8.5; Monocytes # (A) 0.3 k/uL (0-1.0); Monocytes % (A) 5 %; Neutrophils # (A) 2.8 k/uL (1.3-7.7); Neutrophils % (A) 47 %; RBC 3.49 m/uL (3.80-5.40); RDW 13.6 % (11.5-15.5); WBC 5.9 k/uL (3.8-10.6); WBC (Perox) 5.83
[2017-01-20 10:19] LABS: Calcium 9.4 mg/dL (8.4-10.2); Potassium 4.6 mmol/L (3.5-5.1); Total Bilirubin 0.4 mg/dL (0.2-1.3); Total Protein 7.1 g/dL (6.3-8.2)
[2017-01-20 11:19] LABS: Glucose,Whole Blood 149 mg/dL (75-99)
[2017-01-20 11:59] VITALS: BP 136/62; PULSE 50; RESP 16; TEMP 98.1
--- NOTE | 2017-01-20 12:32 | ECHOF ---
Referral Reason:syncope MEASUREMENTS -------- HEIGHT: 165.1 cm WEIGHT: 94.3 kg BP: 133/68 IVSd: 1.0 cm (0.6 - 1.1) LVIDd: 4.5 cm (3.9 - 5.3) LVPWd: 1.0 cm (0.6 - 1.1) IVSs: 1.5 cm LVIDs: 3.6 cm LVPWs: 1.0 cm LA Diam: 4.4 cm (2.7 - 3.8) LAESV Index (A-L): 47.68 ml/m Ao Diam: 3.1 cm (2.0 - 3.7) AV Cusp: 1.5 cm (1.5 - 2.6) LA Diam: 3.4 cm (2.7 - 3.8) MV EXCURSION: 16.659 mm (> 18.000) MV EF SLOPE: 95 mm/s (70 - 150) EPSS: 1.0 cm MV E Yvon: 0.96 m/s MV DecT: 393 ms MV A Yvon: 0.47 m/s MV E/A Ratio: 2.07 RAP: 5.00 mmHg RVSP: 30.25 mmHg FINDINGS -------- Sinus rhythm. This was a technically adequate study. There is mild concentric left ventricular hypertrophy. Overall left ventricular systolic function is normal with, an EF between 55 - 60 %. The right ventricle is normal in size. LA is severely dilated >40 ml/m2 The right atrial size is normal. The aortic valve is trileaflet, and appears structurally normal. No aortic stenosis or regurgitation. Mild mitral regurgitation is present. Mild tricuspid regurgitation present. There is no evidence of pulmonary hypertension. The right ventricular systolic pressure, as measured by Doppler, is 30.25mmHg. There is no pulmonic regurgitation present. The aortic root size is normal. There is no pericardial effusion. CONCLUSIONS -------- 1. There is mild concentric left ventricular hypertrophy. 2. Overall left ventricular systolic function is normal with, an EF between 55 - 60 %. 3. LA is severely dilated >40 ml/m2 4. Mild mitral regurgitation is present. 5. Mild tricuspid regurgitation present. 6. There is no evidence of pulmonary hypertension. 7. The right ventricular systolic pressure, as measured by Doppler, is 30.25mmHg. SCOW CAPTAIN: Ladan Justice RDCS
--- NOTE | 2017-01-20 13:27 | P.DS ---
Providers Date of admission: 01/19/17 01:20 Expected date of discharge: 01/20/17 Attending physician: Francisco Rod Consults: 01/19/17 01:11 Consult Physician Urgent Consulting Provider: Ovi Kaplan Consult Reason/Comments: Dizziness Do you want consulting provider notified?: Yes 01/19/17 07:12 Consult Physician Routine Consulting Provider: [facility] Consult Reason/Comments: Syncope Do you want consulting provider notified?: Yes, Notify in am Primary care physician: Sissy Satrr [facility] Course: Discharge diagnosis #1 dizziness and lightheadedness likely medication reaction from the baclofen. Symptoms have improved with the discontinuation of the baclofen. Carotid Doppler was negative for's any significant hemodynamic stenosis. Computed tomography scan of the brain showed no acute changes. Echocardiogram had shown an EF of 55-60% with no significant valvular abnormality. But did reveal a left atrium severely dilated. Orthostatics were negative. Patient seen evaluated by both cardiology and neurology. They have cleared patient for discharge. #2 underlying history of hypertension #3 underlying history of diabetes mellitus #4 underlying history of hyperlipidemia #5 no previous history of heart disease or seizure activity #6 bradycardia on presentation patient evaluated by cardiology. TSH within normal limits. Heart rate this morning was around 55. Cardiology has cleared patient for discharge. Hospital course Gina Phan is a 71-year-old female patient with diabetes, hypertension, and hyperlipidemia, who presented to the hospital with dizziness and lightheadedness. The patient was in her usual state of health until yesterday when she woke up from sleep not feeling well and experiencing the feeling of being dizzy and lightheaded. She did not have any syncope. She denies having any chest pain or discomfort. When she presented to the hospital she was in sinus bradycardia. She underwent carotid duplex study on presentation She underwent one set of cardiac enzyme came in to be unremarkable. Echocardiogram was ordered results are still pending Patient states that she was recently started on baclofen a muscle relaxer by her primary care physician she took 1 pill on the day of admission and she slept till the afternoon she was feeling tired, she thinks that her symptoms may be related to baclofen. It is felt likely patient's dizziness and lightheadedness were related to the baclofen. Ecotrin was discontinued during this admission and symptoms have improved. Orthostatics were negative. Carotid Dopplerand hemodynamic stenosis. Computed tomography scan of brain showed no acute changes. Patient was seen evaluated by cardiology and neurology. Patient will follow up with cardiology outpatient echo did show evidence of a left atrium severely dilated. Patient's symptoms have improved again it's likely medication induced baclofen discontinued. Heart rate is stable again may be medication induced. Patient is not on any beta blockers. Cardiology has cleared her for discharge and will follow-up with her in the office. Please refer to chart for any further details. I performed an examination of the patient and discussed their management with the physician Fha Underwriter. I have reviewed the Physician Fha Underwriter's notes and agree with the documented findings and plan of care Patient Condition at Discharge: Stable Plan - Discharge Summary New Discharge Prescriptions: New Aspirin 81 mg PO DAILY DULoxetine HCL [Cymbalta] 30 mg PO DAILY cap glipiZIDE [Glucotrol] 5 mg PO AC-BID tab oxyCODONE-APAP 5-325MG [Percocet 5-325 mg] 1 each PO Q6HR PRN tab PRN Reason: Pain Scale 6 To 10 Continue Triamterene-Hctz 37.5-25Mg [Dyazide 37.5-25 Capsule] 1 cap PO DAILY HYDROcodone/APAP 10-325MG [[place] 10-325] 1 tab PO TID PRN PRN Reason: Pain Fenofibrate Nanocrystallized [Tricor] 145 mg PO DAILY metFORMIN HCL [Glucophage] 500 mg PO BID amLODIPine [Norvasc] 10 mg PO DAILY Ferrous Sulfate [Feosol] 325 mg PO DAILY Famotidine [Pepcid] 40 mg PO HS Cetirizine HCl [Zyrtec] 10 mg PO DAILY Discontinued Baclofen [Lioresal] 20 mg PO HS glipiZIDE XL [Glucotrol Xl] 5 mg PO BID Discharge Medication List Triamterene-Hctz 37.5-25Mg [Dyazide 37.5-25 Capsule] 1 cap PO DAILY 08/26/14 [ History] Fenofibrate Nanocrystallized [Tricor] 145 mg PO DAILY 11/16/14 [History] HYDROcodone/APAP 10-325MG [[place] 10-325] 1 tab PO TID PRN 11/16/14 [History] metFORMIN HCL [Glucophage] 500 mg PO BID 11/16/14 [History] Ferrous Sulfate [Feosol] 325 mg PO DAILY 02/20/16 [History] amLODIPine [Norvasc] 10 mg PO DAILY 02/20/16 [History] Cetirizine HCl [Zyrtec] 10 mg PO DAILY 01/19/17 [History] Famotidine [Pepcid] 40 mg PO HS 01/19/17 [History] Aspirin 81 mg PO DAILY 01/20/17 [Rx] DULoxetine HCL [Cymbalta] 30 mg PO DAILY cap 01/20/17 [Rx] glipiZIDE [Glucotrol] 5 mg PO AC-BID tab 01/20/17 [Rx] oxyCODONE-APAP 5-325MG [Percocet 5-325 mg] 1 each PO Q6HR PRN tab 01/20/17 [Rx] Follow up Appointment(s)/Referral(s): Sissy Starr DO [Primary Care Provider] - 1 Week Noah Castillo MD [STAFF PHYSICIAN] - 1 Week Activity/Diet/Wound Care/Special Instructions: Diet: cardiac, diabetic Activity: as tolerated Discharge Disposition: HOME SELF-CARE
--- NOTE | 2017-01-20 14:49 | P.PN ---
Subjective Principal diagnosis: Dizziness This is a 71-year-old -Swedish female with history of hypertension, diabetes, hyperlipidemia, who initially presented to the hospital with symptoms of dizziness and lightheadedness. Patient was noted to be in sinus bradycardia on presentation here. She was not on any AV delmar blocking agents as an outpatient. Blood pressure this morning 136/60 with a heart rate high 50s to low 60s. Echocardiogram with Doppler study was performed which revealed an ejection fraction of 55-60% with a severely dilated left atrium. Patient did have one mild episode of dizziness earlier but at the time of my examination was feeling well. Objective - Vital Signs Vital signs: Vital Signs Temp 98.1 F 01/20/17 11:57 Pulse 61 01/20/17 11:57 Resp 16 01/20/17 11:57 BP 136/62 01/20/17 11:57 Pulse Ox 98 01/20/17 11:57 Intake & Output 01/19/17 01/20/17 01/20/17 18:59 06:59 18:59 Intake Total 1240 1050 240 Output Total 1250 850 Balance -10 200 240 Weight 94.5 kg Intake: Intake, IV Titration 700 750 Amount Promethazine Inj 25 mg In 50 50 Sodium Chloride 0.9% 50 ml @ 200 mls/hr IVPB Q6HR PRN Rx#:[id number] Sodium Chloride 0.9% 1, 600 700 000 ml @ 100 mls/hr IV . Q10H JEANNA Rx#:[id number] cefTRIAXone 1,000 mg In 50 Sodium Chloride 0.9% 50 ml @ 100 mls/hr IVPB Q24HR JEANNA Rx#:[id number] Oral 540 300 240 Output: Urine 1250 850 Other: # Voids 3 2 - Exam PHYSICAL EXAMINATION: HEENT: Head is atraumatic, normocephalic. Pupils equal, round. Neck is supple. There is no elevated jugular venous pressure. HEART EXAMINATION: Heart S1, S2 normal. No murmur or gallop heard. CHEST EXAMINATION: Lungs are clear to auscultation and precussion. No chest wall tenderness is noted on palpation or with deep breathing. ABDOMEN: Soft, nontender. Bowel sounds are heard. No organomegaly noted. EXTREMITIES: 2+ peripheral pulses with no evidence of peripheral edema and no calf tenderness noted. NEUROLOGIC patient is awake, alert and oriented -3. . - Labs CBC & Chem 7: 01/20/17 08:58 01/20/17 08:58 Labs: Abnormal Lab Results - Last 24 Hours (Table) 01/18/17 01/19/17 01/19/17 Range/Units 23:57 16:44 21:14 RBC (3.80-5.40) m/uL Chloride (98-107) mmol/L Carbon Dioxide (22-30) mmol/L Creatinine (0.52-1.04) mg/dL Glucose (74-99) mg/dL POC Glucose (mg/dL) 158 H 185 H (75-99) mg/dL Triglycerides 174 H (<150) mg/dL LDL Cholesterol, Calc 109 H (0-99) mg/dL 01/20/17 01/20/17 01/20/17 Range/Units 05:40 08:58 08:58 RBC 3.49 L (3.80-5.40) m/uL Chloride 115 H (98-107) mmol/L Carbon Dioxide 19 L (22-30) mmol/L Creatinine 1.19 H (0.52-1.04) mg/dL Glucose 171 H (74-99) mg/dL POC Glucose (mg/dL) 100 H (75-99) mg/dL Triglycerides (<150) mg/dL LDL Cholesterol, Calc (0-99) mg/dL 01/20/17 Range/Units 11:14 RBC (3.80-5.40) m/uL Chloride (98-107) mmol/L Carbon Dioxide (22-30) mmol/L Creatinine (0.52-1.04) mg/dL Glucose (74-99) mg/dL POC Glucose (mg/dL) 149 H (75-99) mg/dL Triglycerides (<150) mg/dL LDL Cholesterol, Calc (0-99) mg/dL Assessment and Plan (1) HTN (hypertension) Status: Acute (2) Diabetes Status: Acute (3) Hyperlipemia Status: Acute (4) Bradycardia Status: Acute (5) Dizziness Status: Acute Plan: From cardiology's perspective, patient may be able to be discharged home today. We will make her a follow-up appointment to see Dr. Mahmood in the office post discharge. DNP note has been reviewed, I agree with a documented findings and plan of care. Patient was seen and examined.
== END 2017-01-20 15:06 | disposition home or self-care (01) | DRG 149 ==
LOC: EC 22:24 → 6SEL 01-19 01:20
PROVIDERS: ADMIT Internal Medicine; ATTEND Internal Medicine
DX: R42 Dizziness and giddiness (principal); I11.9 Hypertensive heart disease without heart failure; R00.1 Bradycardia, unspecified; T42.8X5A Adverse effect of antiparkinsonism drugs and other central muscle-tone depressants, initial encounter; E11.9 Type 2 diabetes mellitus without complications; I25.10 Atherosclerotic heart disease of native coronary artery without angina pectoris; M62.838 Other muscle spasm; I34.1 Nonrheumatic mitral (valve) prolapse; R11.0 Nausea; R07.9 Chest pain, unspecified; E78.5 Hyperlipidemia, unspecified; K21.9 Gastro-esophageal reflux disease without esophagitis; R53.83 Other fatigue; G43.909 Migraine, unspecified, not intractable, without status migrainosus; E66.9 Obesity, unspecified; Z82.49 Family history of ischemic heart disease and other diseases of the circulatory system; Z80.9 Family history of malignant neoplasm, unspecified; Z84.89 Family history of other specified conditions; Z90.710 Acquired absence of both cervix and uterus; Z87.891 Personal history of nicotine dependence; Z79.891 Long term (current) use of opiate analgesic; Z79.84 Long term (current) use of oral hypoglycemic drugs; Z79.899 Other long term (current) drug therapy; Z86.79 Personal history of other diseases of the circulatory system; Z88.5 Allergy status to narcotic agent; Z88.2 Allergy status to sulfonamides; Z88.8 Allergy status to other drugs, medicaments and biological substances; Z86.19 Personal history of other infectious and parasitic diseases; Z88.6 Allergy status to analgesic agent; Z91.041 Radiographic dye allergy status; Z87.42 Personal history of other diseases of the female genital tract; Z98.1 Arthrodesis status
CPT/HCPCS: 36415; 70450; 71020; 74000; 80053; 80061; 81001; 83605; 84443; 84484; 85025; 85610; 93005; 93306; 93880

== ENCOUNTER 2017-06-09 23:49 | Emergency (ER) | payer MEDICARE, OTHER ==
[2017-06-10] MEDS ORDERED: ALBUTEROL NEBULIZED 2.5 MG/3 ML INHALATION STA (00:26)
[2017-06-10] MEDS ORDERED: IPRATROPIUM 0.5 MG/2.5 ML NEBU INHALATION STA (00:26)
[2017-06-10] MEDS ORDERED: ACETAMINOPHEN TAB 500 MG TAB PO STA (00:27)
--- NOTE | 2017-06-10 00:39 | ED ---
General Adult HPI - General Chief complaint: Shortness of Breath Stated complaint: cough/fever Time Seen by Provider: 06/10/17 00:12 Source: patient, RN notes reviewed Mode of arrival: ambulatory - History of Present Illness Initial comments: 71-year-old female with history of hypertension diabetes and hypercholesterolemia presenting with 2 days of worsening cough and dyspnea. Cough is productive of clear sputum. Patient is also had fever. Denies chest pain. Denies lower extremity swelling. Denies abdominal pain or nausea vomiting. Patient has no known sick contacts. She also complains of some nasal congestion. No history of CAD. No history of heart failure or COPD - Related Data Home Medications Medication Instructions Recorded Confirmed Triamterene-Hctz 37.5-25Mg 1 cap PO DAILY 08/26/14 06/06/17 [Dyazide 37.5-25 Capsule] Fenofibrate Nanocrystallized 145 mg PO DAILY 11/16/14 06/06/17 [Tricor] HYDROcodone/APAP 10-325MG [[place] 1 tab PO TID PRN 11/16/14 06/06/17 10-325] metFORMIN HCL [Glucophage] 500 mg PO BID 11/16/14 06/06/17 Ferrous Sulfate [Feosol] 325 mg PO Q48H 02/20/16 06/06/17 amLODIPine [Norvasc] 10 mg PO DAILY 02/20/16 06/06/17 Famotidine [Pepcid] 40 mg PO DAILY PRN 01/19/17 06/06/17 Aspirin/Sod Bicarb/Citric Acid 1 each PO DAILY PRN 06/06/17 06/06/17 [[place]y Original Tab Eff] Cyanocobalamin [Vitamin B-12] 500 mcg PO DAILY 06/06/17 06/06/17 Gabapentin [Neurontin] 100 mg PO BID 06/06/17 06/06/17 glipiZIDE [Glucotrol] 5 mg PO DAILY 06/06/17 06/06/17 Previous Rx's Medication Instructions Recorded Aspirin 81 mg PO DAILY 01/20/17 Albuterol Inhaler [Ventolin Hfa 1 - 2 puff INHALATION Q4HR PRN #1 06/10/17 Inhaler] inhaler Allergies Allergy/AdvReac Type Severity Reaction Status Date / Time diflunisal [From Dolobid] Allergy Anaphylaxis Verified 06/06/17 10:58 hydrochlorothiazide Allergy Swelling Verified 06/06/17 10:58 [From Zestoretic] of face and throat ibuprofen [From Motrin] Allergy Abdominal Verified 06/06/17 10:58 Pain Iodine and Iodide Containing Allergy Anaphylaxis Verified 06/06/17 10:58 Produc lisinopril Allergy Rash/Hives Verified 06/06/17 10:58 morphine Allergy Rash/Hives Verified 06/06/17 10:58 prednisone Allergy Rash/Hives Verified 06/06/17 10:58 sulfamethoxazole Allergy Anaphylaxis Verified 06/06/17 10:58 [From Bactrim] tramadol Allergy Rash/Hives Verified 06/06/17 10:58 trimethoprim [From Bactrim] Allergy Anaphylaxis Verified 06/06/17 10:58 baclofen AdvReac Unknown LOW HEART Verified 06/06/17 11:23 RATE NSAIDS (Non-Steroidal AdvReac Unknown TOLD TO Verified 06/06/17 11:24 Anti-Inflamma AVOID NSAIDS DUE TO ABDOMINAL PAIN ondansetron AdvReac Itching Verified 06/06/17 10:58 [From Zofran (as hydrochloride)] Review of Systems ROS Statement: Those systems with pertinent positive or pertinent negative responses have been documented in the HPI. ROS Other: All systems not noted in ROS Statement are negative. Past Medical History Past Medical History: Diabetes Mellitus, GERD/Reflux, Hyperlipidemia, Hypertension, Mitral Valve Prolapse (MVP), Osteoarthritis (OA) Additional Past Medical History / Comment(s): migraines, anemia, varicose veins , arthritis knees, back pain, recent blood in stool., States History of Any Multi-Drug Resistant Organisms: None Reported Past Surgical History: Back Surgery, Hysterectomy, Tonsillectomy Additional Past Surgical History / Comment(s): 3 HERNIATED DISK REPAIRS, PLATE AT L4 AND L5, rt temporal artery removed, ovarian cysts removed, pilonidal cyst, Past Anesthesia/Blood Transfusion Reactions: Family Hisory of Malignant Hyperthermia Additional Past Anesthesia/Blood Transfusion Reaction / Comment(s): daughter had reaction to anesthesia age 7 with tonsilectomy called "chocolate anesthesia " per pt. "she had a rash and high fever of 105". daughter has had surgeries since with no problems. Past Psychological History: No Psychological Hx Reported Smoking Status: Former smoker Past Alcohol Use History: None Reported Past Drug Use History: None Reported - Past Family History Sister(s) Family Medical History: Deep Vein Thrombosis (DVT) Brother(s) Family Medical History: Deep Vein Thrombosis (DVT) Father Family Medical History: Cancer, Deep Vein Thrombosis (DVT) Additional Family Medical History / Comment(s): QUADRUPLE BYPASS Mother Family Medical History: Deep Vein Thrombosis (DVT) Additional Family Medical History / Comment(s): PACEMAKER General Exam General appearance: alert, in no apparent distress Head exam: Present: atraumatic, normocephalic Eye exam: Present: normal appearance, PERRL ENT exam: Present: normal exam Neck exam: Present: normal inspection. Absent: tenderness, meningismus Respiratory exam: Present: respiratory distress, wheezes Cardiovascular Exam: Present: regular rate, normal rhythm GI/Abdominal exam: Present: soft. Absent: distended, tenderness Extremities exam: Present: normal inspection, normal capillary refill. Absent: pedal edema Back exam: Present: normal inspection. Absent: full ROM, tenderness Neurological exam: Present: alert, oriented X3, CN II-XII intact. Absent: motor sensory deficit Psychiatric exam: Present: normal affect, normal mood Skin exam: Present: warm, dry, intact. Absent: cyanosis, diaphoretic Course Vital Signs 06/09/17 06/10/17 06/10/17 23:54 00:24 00:29 Temperature 101.8 F H 102.1 F H Pulse Rate 90 98 Respiratory 20 30 H Rate Blood Pressure 217/95 207/94 O2 Sat by Pulse 100 98 Oximetry 06/10/17 06/10/17 06/10/17 00:58 01:05 01:19 Temperature Pulse Rate 104 H 120 H 135 H Respiratory Rate Blood Pressure O2 Sat by Pulse Oximetry 06/10/17 06/10/17 01:30 02:29 Temperature Pulse Rate 112 H 110 H Respiratory 20 22 Rate Blood Pressure 163/77 141/66 O2 Sat by Pulse 99 100 Oximetry EKG Findings - EKG Comments: EKG Findings:: EKG shows normal sinus rhythm ventricular rate 88, DE interval 138, castration 74, QTC 433 no signs of ischemia Medical Decision Making - Medical Decision Making 71-year-old female presenting with cough and dyspnea URI symptoms. No history of heart failure or COPD. Chest x-ray obtained, negative for focal pneumonia or edema. White blood cell count normal 5.9 hemoglobin stable at 10.9, creatinine 1.4 which is patient's baseline lactic acid 1.2, troponin negative, BNP negative. Influenza A positive. This is consistent with patient's symptoms. She is given albuterol in the emergency department as well as IV fluids on reevaluation she is feeling better. She would prefer to be discharged home. She will return with any worsening symptoms. Her sister is a nurse and she is at bedside. Patient does not live alone. She will return with any change or worsening of her symptoms. Patient and family members are agreeable. - Lab Data Result diagrams: 06/10/17 00:20 06/10/17 00:20 Lab Results 06/10/17 06/10/17 06/10/17 Range/Units 00:20 00:20 00:20 WBC 5.9 (3.8-10.6) k/uL RBC 3.47 L (3.80-5.40) m/uL Hgb 10.9 L (11.4-16.0) gm/dL Hct 35.2 (34.0-46.0) % MCV 101.5 H (80.0-100.0) fL MCH 31.4 (25.0-35.0) pg MCHC 30.9 L (31.0-37.0) g/dL RDW 14.4 (11.5-15.5) % Plt Count 205 (150-450) k/uL Neutrophils % 82 % Lymphocytes % 11 % Monocytes % 5 % Eosinophils % 1 % Basophils % 0 % Neutrophils # 4.8 (1.3-7.7) k/uL Lymphocytes # 0.7 L (1.0-4.8) k/uL Monocytes # 0.3 (0-1.0) k/uL Eosinophils # 0.0 (0-0.7) k/uL Basophils # 0.0 (0-0.2) k/uL Macrocytosis Slight PT (9.0-12.0) sec INR (<1.2) APTT (22.0-30.0) sec VBG pH (7.31-7.41) VBG pCO2 (37-51) mmHg VBG HCO3 (24-28) mmol/L Sodium 144 (137-145) mmol/L Potassium 4.5 (3.5-5.1) mmol/L Chloride 107 (98-107) mmol/L Carbon Dioxide 25 (22-30) mmol/L Anion Gap 12 mmol/L BUN 23 H (7-17) mg/dL Creatinine 1.40 H (0.52-1.04) mg/dL Est GFR (MDRD) Af Amer 45 (>60 ml/min/1.73 sqM) Est GFR (MDRD) Non-Af 37 (>60 ml/min/1.73 sqM) Glucose 186 H (74-99) mg/dL Plasma Lactic Acid Epi (0.7-2.0) mmol/L Calcium 10.3 H (8.4-10.2) mg/dL Magnesium 1.6 (1.6-2.3) mg/dL Total Bilirubin 0.3 (0.2-1.3) mg/dL AST 64 H (14-36) U/L ALT 54 H (9-52) U/L Alkaline Phosphatase 56 (38-126) U/L Total Creatine Kinase 92 (30-135) U/L CK-MB (CK-2) 0.5 (0.0-2.4) ng/mL CK-MB (CK-2) Rel Index 0.5 Troponin I <0.012 (0.000-0.034) ng/mL NT-Pro-B Natriuret Pep pg/mL Total Protein 7.9 (6.3-8.2) g/dL Albumin 4.5 (3.5-5.0) g/dL Influenza Type A RNA (Not Detectd) Influenza Type B (PCR) (Not Detectd) 06/10/17 06/10/17 06/10/17 Range/Units 00:20 00:20 00:20 WBC (3.8-10.6) k/uL RBC (3.80-5.40) m/uL Hgb (11.4-16.0) gm/dL Hct (34.0-46.0) % MCV (80.0-100.0) fL MCH (25.0-35.0) pg MCHC (31.0-37.0) g/dL RDW (11.5-15.5) % Plt Count (150-450) k/uL Neutrophils % % Lymphocytes % % Monocytes % % Eosinophils % % Basophils % % Neutrophils # (1.3-7.7) k/uL Lymphocytes # (1.0-4.8) k/uL Monocytes # (0-1.0) k/uL Eosinophils # (0-0.7) k/uL Basophils # (0-0.2) k/uL Macrocytosis PT (9.0-12.0) sec INR (<1.2) APTT (22.0-30.0) sec VBG pH (7.31-7.41) VBG pCO2 (37-51) mmHg VBG HCO3 (24-28) mmol/L Sodium (137-145) mmol/L Potassium (3.5-5.1) mmol/L Chloride (98-107) mmol/L Carbon Dioxide (22-30) mmol/L Anion Gap mmol/L BUN (7-17) mg/dL Creatinine (0.52-1.04) mg/dL Est GFR (MDRD) Af Amer (>60 ml/min/1.73 sqM) Est GFR (MDRD) Non-Af (>60 ml/min/1.73 sqM) Glucose (74-99) mg/dL Plasma Lactic Acid Epi 1.2 (0.7-2.0) mmol/L Calcium (8.4-10.2) mg/dL Magnesium (1.6-2.3) mg/dL Total Bilirubin (0.2-1.3) mg/dL AST (14-36) U/L ALT (9-52) U/L Alkaline Phosphatase (38-126) U/L Total Creatine Kinase (30-135) U/L CK-MB (CK-2) (0.0-2.4) ng/mL CK-MB (CK-2) Rel Index Troponin I (0.000-0.034) ng/mL NT-Pro-B Natriuret Pep 178 pg/mL Total Protein (6.3-8.2) g/dL Albumin (3.5-5.0) g/dL Influenza Type A RNA Detected H (Not Detectd) Influenza Type B (PCR) Not Detected (Not Detectd) 06/10/17 06/10/17 Range/Units 00:20 00:20 WBC (3.8-10.6) k/uL RBC (3.80-5.40) m/uL Hgb (11.4-16.0) gm/dL Hct (34.0-46.0) % MCV (80.0-100.0) fL MCH (25.0-35.0) pg MCHC (31.0-37.0) g/dL RDW (11.5-15.5) % Plt Count (150-450) k/uL Neutrophils % % Lymphocytes % % Monocytes % % Eosinophils % % Basophils % % Neutrophils # (1.3-7.7) k/uL Lymphocytes # (1.0-4.8) k/uL Monocytes # (0-1.0) k/uL Eosinophils # (0-0.7) k/uL Basophils # (0-0.2) k/uL Macrocytosis PT 10.0 (9.0-12.0) sec INR 1.0 (<1.2) APTT 21.4 L (22.0-30.0) sec VBG pH 7.33 (7.31-7.41) VBG pCO2 48 (37-51) mmHg VBG HCO3 24 (24-28) mmol/L Sodium (137-145) mmol/L Potassium (3.5-5.1) mmol/L Chloride (98-107) mmol/L Carbon Dioxide (22-30) mmol/L Anion Gap mmol/L BUN (7-17) mg/dL Creatinine (0.52-1.04) mg/dL Est GFR (MDRD) Af Amer (>60 ml/min/1.73 sqM) Est GFR (MDRD) Non-Af (>60 ml/min/1.73 sqM) Glucose (74-99) mg/dL Plasma Lactic Acid Epi (0.7-2.0) mmol/L Calcium (8.4-10.2) mg/dL Magnesium (1.6-2.3) mg/dL Total Bilirubin (0.2-1.3) mg/dL AST (14-36) U/L ALT (9-52) U/L Alkaline Phosphatase (38-126) U/L Total Creatine Kinase (30-135) U/L CK-MB (CK-2) (0.0-2.4) ng/mL CK-MB (CK-2) Rel Index Troponin I (0.000-0.034) ng/mL NT-Pro-B Natriuret Pep pg/mL Total Protein (6.3-8.2) g/dL Albumin (3.5-5.0) g/dL Influenza Type A RNA (Not Detectd) Influenza Type B (PCR) (Not Detectd) Disposition Clinical Impression: Influenza A Disposition: HOME SELF-CARE Condition: Good Instructions: Influenza (ED) Prescriptions: Albuterol Inhaler [Ventolin Hfa Inhaler] 1 - 2 puff INHALATION Q4HR PRN #1 inhaler PRN Reason: Shortness Of Breath Referrals: Sissy Starr DO [Primary Care Provider] - 1-2 days Decision to Admit Reason: Admit from EC Decision Date: 06/10/17 Decision Time: 03:08
[2017-06-10 01:04] LABS: Basophils % (A) 0 %; Eosinophils % (A) 1 %; HCT 35.2 % (34.0-46.0); HGB 10.9 gm/dL (11.4-16.0); Lymphocytes # (A) 0.7 k/uL (1.0-4.8); Lymphocytes % (A) 11 %; MCH 31.4 pg (25.0-35.0); MCHC 30.9 g/dL (31.0-37.0); MCV 101.5 fL (80.0-100.0); Macrocytosis Slight; Mean Platelet Volume 8.1; Monocytes # (A) 0.3 k/uL (0-1.0); Monocytes % (A) 5 %; Neutrophils # (A) 4.8 k/uL (1.3-7.7); Neutrophils % (A) 82 %; Platelet Count 205 k/uL (150-450); RBC 3.47 m/uL (3.80-5.40); RDW 14.4 % (11.5-15.5); WBC 5.9 k/uL (3.8-10.6)
[2017-06-10 01:05] LABS: VBG PH 7.33 (7.31-7.41)
[2017-06-10] MEDS ORDERED: HYDROmorphone 1 MG/ML 1 ML SYRINGE IVP STA ×2 (01:10→02:20)
[2017-06-10 01:14] LABS: Albumin 4.5 g/dL (3.5-5.0); Calcium 10.3 mg/dL (8.4-10.2); Magnesium 1.6 mg/dL (1.6-2.3); Potassium 4.5 mmol/L (3.5-5.1); Total Bilirubin 0.3 mg/dL (0.2-1.3); Total Protein 7.9 g/dL (6.3-8.2)
[2017-06-10 01:23] LABS: Creatine Kinase 92 U/L (30-135)
[2017-06-10 01:36] LABS: Creatine Kinase MB 0.5 ng/mL (0.0-2.4); Troponin I <0.012 ng/mL (0.000-0.034)
[2017-06-10 01:39] LABS: Partial Thromboplastin Time 21.4 sec (22.0-30.0)
--- NOTE | 2017-06-10 01:43 | XR ---
EXAM: XR Chest, 2 Views CLINICAL HISTORY: Reason: difficulty breathing TECHNIQUE: Frontal and lateral views of the chest. COMPARISON: 01/19/17 FINDINGS: Lungs: Low lung volume. No evidence for consolidation. Pleural space: Unremarkable. No pneumothorax. Heart: Borderline cardiomegaly. Mediastinum: Unremarkable. Bones/joints: Minimal degenerative disc changes of the thoracic spine. IMPRESSION: Borderline cardiomegaly.
[2017-06-11 22:53] VITALS: BP 143/73; PULSE 111; RESP 20; TEMP 101.4
== END 2017-06-10 03:35 | disposition home or self-care (01) ==
LOC: EC 23:49
DX: J10.1 Influenza due to other identified influenza virus with other respiratory manifestations (principal); E11.9 Type 2 diabetes mellitus without complications; I10 Essential (primary) hypertension; D64.9 Anemia, unspecified; Z90.89 Acquired absence of other organs; Z87.891 Personal history of nicotine dependence; Z88.6 Allergy status to analgesic agent; Z91.048 Other nonmedicinal substance allergy status; Z88.5 Allergy status to narcotic agent; Z88.2 Allergy status to sulfonamides; Z88.8 Allergy status to other drugs, medicaments and biological substances; Z79.84 Long term (current) use of oral hypoglycemic drugs; Z79.899 Other long term (current) drug therapy
CPT/HCPCS: 99285; 96374; 96376; 36415; 94640 ×2; 93005; 83880; 80053; 82550; 82553; 82803; 83605; 83735; 84484; 85025; 85610; 85730; 87502; 71046; J1170

== ENCOUNTER 2017-06-29 21:40 | Emergency (ER) | payer MEDICARE, OTHER ==
[2017-06-29 21:52] VITALS: RESP 18
[2017-06-29] MEDS ORDERED: SODIUM CHLORIDE 0.9% 1,000 ML IV STA (22:12)
[2017-06-29] MEDS ORDERED: HYDROmorphone 2 MG/ML 1 ML SYRINGE IVP STA (22:12)
--- NOTE | 2017-06-29 22:20 | ED ---
Abdominal Pain HPI - General Chief Complaint: Abdominal Pain Stated Complaint: Right flank pain Time Seen by Provider: 06/29/17 21:58 Source: patient, RN notes reviewed, old records reviewed Mode of arrival: wheelchair Limitations: no limitations - History of Present Illness Initial Comments: 71-year-old female presents with 2 days of right-sided flank pain radiating towards her groin and down her leg. She reports is worse with certain movements. She reports that occasionally will go towards his front of her abdomen. She denies any urinary symptoms. Said history of 3 back surgeries. She denies any specific chest pain or shortness of breath. Denies any fevers or chills nausea or vomiting. - Related Data Home Medications Medication Instructions Recorded Confirmed Triamterene-Hctz 37.5-25Mg 1 cap PO DAILY 08/26/14 06/29/17 [Dyazide 37.5-25 Capsule] Fenofibrate Nanocrystallized 145 mg PO DAILY 11/16/14 06/29/17 [Tricor] HYDROcodone/APAP 10-325MG [[place] 1 tab PO TID PRN 11/16/14 06/29/17 10-325] metFORMIN HCL [Glucophage] 500 mg PO BID 11/16/14 06/29/17 Ferrous Sulfate [Feosol] 325 mg PO BID 02/20/16 06/29/17 amLODIPine [Norvasc] 10 mg PO DAILY 02/20/16 06/29/17 glipiZIDE [Glucotrol] 5 mg PO BID 06/06/17 06/29/17 Famotidine [Pepcid] 20 mg PO DAILY 06/29/17 06/29/17 Previous Rx's Medication Instructions Recorded Aspirin 81 mg PO DAILY 01/20/17 Cyclobenzaprine [Flexeril] 10 mg PO TID #15 tab 06/30/17 Dexamethasone 0.75 mg PO DAILY #12 tab 06/30/17 Allergies Allergy/AdvReac Type Severity Reaction Status Date / Time diflunisal [From Dolobid] Allergy Anaphylaxis Verified 06/29/17 22:02 hydrochlorothiazide Allergy Swelling Verified 06/29/17 22:02 [From Zestoretic] of face and throat ibuprofen [From Motrin] Allergy Abdominal Verified 06/29/17 22:02 Pain Iodine and Iodide Containing Allergy Anaphylaxis Verified 06/29/17 22:02 Produc lisinopril Allergy Rash/Hives Verified 06/29/17 22:02 morphine Allergy Rash/Hives Verified 06/29/17 22:02 prednisone Allergy Rash/Hives Verified 06/29/17 22:02 sulfamethoxazole Allergy Anaphylaxis Verified 06/29/17 22:02 [From Bactrim] tramadol Allergy Rash/Hives Verified 06/29/17 22:02 trimethoprim [From Bactrim] Allergy Anaphylaxis Verified 06/29/17 22:02 baclofen AdvReac Unknown LOW HEART Verified 06/29/17 22:02 RATE NSAIDS (Non-Steroidal AdvReac Unknown TOLD TO Verified 06/29/17 22:02 Anti-Inflamma AVOID NSAIDS DUE TO ABDOMINAL PAIN ondansetron AdvReac Itching Verified 06/29/17 22:02 [From Zofran (as hydrochloride)] Review of Systems ROS Statement: Those systems with pertinent positive or pertinent negative responses have been documented in the HPI. ROS Other: All systems not noted in ROS Statement are negative. Past Medical History Past Medical History: Diabetes Mellitus, GERD/Reflux, Hyperlipidemia, Hypertension, Mitral Valve Prolapse (MVP), Osteoarthritis (OA) Additional Past Medical History / Comment(s): migraines, anemia, varicose veins , arthritis knees, back pain History of Any Multi-Drug Resistant Organisms: None Reported Past Surgical History: Back Surgery, Hysterectomy, Tonsillectomy Additional Past Surgical History / Comment(s): 3 HERNIATED DISK REPAIRS, PLATE AT L4 AND L5, rt temporal artery removed, ovarian cysts removed, pilonidal cyst, Past Anesthesia/Blood Transfusion Reactions: Family Hisory of Malignant Hyperthermia Additional Past Anesthesia/Blood Transfusion Reaction / Comment(s): daughter had reaction to anesthesia age 7 with tonsilectomy called "chocolate anesthesia " per pt. "she had a rash and high fever of 105". daughter has had surgeries since with no problems. Past Psychological History: No Psychological Hx Reported Smoking Status: Former smoker Past Alcohol Use History: None Reported Past Drug Use History: None Reported - Past Family History Sister(s) Family Medical History: Deep Vein Thrombosis (DVT) Brother(s) Family Medical History: Deep Vein Thrombosis (DVT) Father Family Medical History: Cancer, Deep Vein Thrombosis (DVT) Additional Family Medical History / Comment(s): QUADRUPLE BYPASS Mother Family Medical History: Deep Vein Thrombosis (DVT) Additional Family Medical History / Comment(s): PACEMAKER General Exam - General Exam Comments Initial Comments: 71-year-old female. Limitations: no limitations General appearance: alert, in no apparent distress Head exam: Present: atraumatic, normocephalic, normal inspection Eye exam: Present: normal appearance, PERRL, EOMI. Absent: scleral icterus, conjunctival injection, periorbital swelling ENT exam: Present: normal exam, mucous membranes moist Neck exam: Present: normal inspection. Absent: tenderness, meningismus, lymphadenopathy Respiratory exam: Present: normal lung sounds bilaterally. Absent: respiratory distress, wheezes, rales, rhonchi, stridor Cardiovascular Exam: Present: regular rate, normal rhythm, normal heart sounds. Absent: systolic murmur, diastolic murmur, rubs, gallop, clicks GI/Abdominal exam: Present: soft, tenderness (RLQ and pelvic pain. ), normal bowel sounds. Absent: distended, guarding, rebound, rigid Extremities exam: Present: normal inspection, full ROM, normal capillary refill. Absent: tenderness, pedal edema, joint swelling, calf tenderness Back exam: Present: normal inspection, tenderness, CVA tenderness (R) (Right lumbar paraspinal and verterbal tenderness. ), paraspinal tenderness Neurological exam: Present: alert, oriented X3, CN II-XII intact Psychiatric exam: Present: normal affect, normal mood Skin exam: Present: warm, dry, intact, normal color. Absent: rash Course Vital Signs 06/29/17 06/30/17 21:50 00:38 Temperature 98.5 F 98.9 F Pulse Rate 65 74 Respiratory 18 18 Rate Blood Pressure 128/59 166/74 O2 Sat by Pulse 100 100 Oximetry Medical Decision Making - Medical Decision Making This patient is a 71 year old female with severe back and right flank pain to groin for 2 days. Worsens with movement. No fever, chills, nausea, vomitng, or change in bowel habits. Patient does have tenderness within RLQ. Lab work obtained and CT abdomen and pelvis completed without contrast to check for kidney sotne. Patient Labs and urine are unremarkable. Ct shows no significant changes for patient symptoms. 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 She has had 3 disc herniation surgery in the past. Patient will be given referral to ortho unemployment specialist and muscle relaxer. She is on pain contract with pcp. Return parameters discussed. Discussed return for saddle anesthesias. - Lab Data Result diagrams: 06/29/17 22:30 06/29/17 22:30 Lab Results 06/29/17 06/29/17 06/29/17 Range/Units 22:30 22:30 22:43 WBC 6.4 (3.8-10.6) k/uL RBC 3.54 L (3.80-5.40) m/uL Hgb 11.3 L (11.4-16.0) gm/dL Hct 35.8 (34.0-46.0) % MCV 101.1 H (80.0-100.0) fL MCH 31.8 (25.0-35.0) pg MCHC 31.4 (31.0-37.0) g/dL RDW 14.9 (11.5-15.5) % Plt Count 252 (150-450) k/uL Neutrophils % 51 % Lymphocytes % 34 % Monocytes % 9 % Eosinophils % 2 % Basophils % 0 % Neutrophils # 3.3 (1.3-7.7) k/uL Lymphocytes # 2.2 (1.0-4.8) k/uL Monocytes # 0.6 (0-1.0) k/uL Eosinophils # 0.1 (0-0.7) k/uL Basophils # 0.0 (0-0.2) k/uL Manual Slide Review Performed Macrocytosis Slight Sodium 140 (137-145) mmol/L Potassium 4.2 (3.5-5.1) mmol/L Chloride 104 (98-107) mmol/L Carbon Dioxide 22 (22-30) mmol/L Anion Gap 14 mmol/L BUN 28 H (7-17) mg/dL Creatinine 1.40 H (0.52-1.04) mg/dL Est GFR (MDRD) Af Amer 45 (>60 ml/min/1.73 sqM) Est GFR (MDRD) Non-Af 37 (>60 ml/min/1.73 sqM) Glucose 211 H (74-99) mg/dL Calcium 10.2 (8.4-10.2) mg/dL Total Bilirubin 0.4 (0.2-1.3) mg/dL AST 23 (14-36) U/L ALT 29 (9-52) U/L Alkaline Phosphatase 63 (38-126) U/L Total Protein 8.1 (6.3-8.2) g/dL Albumin 4.5 (3.5-5.0) g/dL Amylase 87 (30-110) U/L Lipase 115 (23-300) U/L Urine Color Yellow Urine Appearance Clear (Clear) Urine pH 6.5 (5.0-8.0) Ur Specific [place] 1.020 (1.001-1.035) Urine Protein Negative (Negative) Urine Glucose (UA) Negative (Negative) Urine Ketones Negative (Negative) Urine Blood Negative (Negative) Urine Nitrite Negative (Negative) Urine Bilirubin Negative (Negative) Urine Urobilinogen 3.0 (<2.0) mg/dL Ur Leukocyte Esterase Moderate H (Negative) Urine RBC 1 (0-5) /hpf Urine WBC 3 (0-5) /hpf Ur Squamous Epith Cells 1 (0-4) /hpf Urine Bacteria Rare H (None) /hpf - Radiology Data Radiology results: report reviewed extensvie diverticulosis, no sign of diverticulitis. No renal stone or obstruction. Mulitlevlel spondylotiic changes noted. No acute abdomen or pelvis changes. Disposition Clinical Impression: Lumbar back pain, Radiculopathy, lumbar region Disposition: HOME SELF-CARE Condition: Good Instructions: Lumbar Radiculopathy (ED) Additional Instructions: Patient advised to take at home pain medication as well as muscle relaxers and anti-inflammatory medication. Patient should follow-up with primary care provider and orthopedic back specialist. Return to emergency department if any alarming signs or symptoms occur. Prescriptions: Cyclobenzaprine [Flexeril] 10 mg PO TID #15 tab Dexamethasone 0.75 mg PO DAILY #12 tab Referrals: Sissy Starr DO [Primary Care Provider] - 1-2 days Time of Disposition: 00:11
[2017-06-29 22:41] LABS: Basophils % (A) 0 %; Eosinophils # (A) 0.1 k/uL (0-0.7); Eosinophils % (A) 2 %; HCT 35.8 % (34.0-46.0); HGB 11.3 gm/dL (11.4-16.0); Lymphocytes # (A) 2.2 k/uL (1.0-4.8); Lymphocytes % (A) 34 %; MCH 31.8 pg (25.0-35.0); MCHC 31.4 g/dL (31.0-37.0); MCV 101.1 fL (80.0-100.0); Macrocytosis Slight; Mean Platelet Volume 8.7; Monocytes # (A) 0.6 k/uL (0-1.0); Monocytes % (A) 9 %; Neutrophils # (A) 3.3 k/uL (1.3-7.7); Neutrophils % (A) 51 %; Platelet Count 252 k/uL (150-450); RBC 3.54 m/uL (3.80-5.40); RDW 14.9 % (11.5-15.5); WBC 6.4 k/uL (3.8-10.6)
[2017-06-29 22:53] LABS: Albumin 4.5 g/dL (3.5-5.0); Calcium 10.2 mg/dL (8.4-10.2); Total Bilirubin 0.4 mg/dL (0.2-1.3); Total Protein 8.1 g/dL (6.3-8.2)
[2017-06-29 22:56] LABS: Potassium 4.2 mmol/L (3.5-5.1)
[2017-06-29 23:04] LABS: Appearance,Urine Clear (Clear); Bacteria,Urine Rare /hpf; Bilirubin,Urine Negative (Negative); Blood,Urine Negative (Negative); Color,Urine Yellow; Glucose,Urine (UA) Negative (Negative); Ketones,Urine Negative (Negative); Leukocyte Esterase,Urine Moderate (Negative); Nitrite,Urine Negative (Negative); PH, Urine 6.5 (5.0-8.0); Protein,Urine Negative (Negative); RBC,Urine 1 /hpf (0-5); Squamous Epithelial Cell,Urine 1 /hpf (0-4); WBC,Urine 3 /hpf (0-5)
--- NOTE | 2017-06-29 23:39 | CT ---
EXAMINATION TYPE: CT abdomen pelvis wo con DATE OF EXAM: 06/29/2017 COMPARISON: 06/01/2014 HISTORY: Right flank pain, back pain CT DLP: 917.50 mGycm Automated exposure control for dose reduction was used. TECHNIQUE: Helical acquisition of images was performed from the lung bases through the pelvis. FINDINGS: Lung bases are clear. There is no pleural effusion. There is no pericardial effusion. Liver spleen pancreas gallbladder appear normal. Bile ducts are not dilated. There is no adrenal mass . Kidneys show normal size and contour. There is no hydronephrosis. There is no retroperitoneal adenopa thy. There is no ascites. There is no intestinal wall thickening. There are no dilated loops. There a re numerous diverticula in the sigmoid colon. The bladder distends smoothly. There is no evidence of a pelvic mass. There is some fatty infiltration of the pancreas. There are spondylotic changes in the lumbar spine. Appendix is not seen. There is no sign of appendicitis. There is a 5 mm calcification in the retroperitoneum on axial image 91 that is unchanged compared to old exam and consistent with a phlebolith. This is adjacent or very close to the right ureter. The ri ght ureter is not dilated. IMPRESSION: THERE IS EXTENSIVE SIGMOID DIVERTICULOSIS WITHOUT SIGN OF DIVERTICULITIS. THIS IS SIMILAR TO OLD EXAM . NO EVIDENCE OF RENAL STONE OR OBSTRUCTION. MULTILEVEL LUMBAR SPONDYLOTIC CHANGES NOTED. NO SIGN OF ACUTE ABDOMEN AND PELVIS.
[2017-06-30] MEDS ORDERED: HYDROmorphone 2 MG/ML 1 ML SYRINGE IVP STA (00:11)
[2017-06-30] MEDS ORDERED: ORPHENADRINE 30 MG/ML 2 ML VIAL IVP STA (00:11)
[2017-06-30] MEDS ORDERED: CYCLOBENZAPRINE 10MG STARTER 3 TAB BTL PO STA (00:13)
[2017-06-30 00:39] VITALS: BP 166/74; PULSE 74; TEMP 98.9
== END 2017-06-30 01:02 | disposition home or self-care (01) ==
LOC: EC 21:40
DX: M54.16 Radiculopathy, lumbar region (principal); R10.31 Right lower quadrant pain; E11.9 Type 2 diabetes mellitus without complications; K21.9 Gastro-esophageal reflux disease without esophagitis; E78.5 Hyperlipidemia, unspecified; I10 Essential (primary) hypertension; Z86.2 Personal history of diseases of the blood and blood-forming organs and certain disorders involving the immune mechanism; Z87.891 Personal history of nicotine dependence; Z79.84 Long term (current) use of oral hypoglycemic drugs; Z79.899 Other long term (current) drug therapy; Z88.6 Allergy status to analgesic agent; Z88.8 Allergy status to other drugs, medicaments and biological substances; Z91.048 Other nonmedicinal substance allergy status; Z88.5 Allergy status to narcotic agent; Z88.2 Allergy status to sulfonamides
CPT/HCPCS: 36415; 80053; 82150; 83690; 85025; 81001; 74176; 99285; 96374; 96376; 96375; 96361; J1170 ×2; J2360

== ENCOUNTER 2017-09-16 21:33 | Emergency (ER) | payer MEDICARE, OTHER ==
[2017-09-16] MEDS ORDERED: HYDROcodone/APAP 5-325MG 1 EACH TAB PO STA (23:36)
--- NOTE | 2017-09-16 23:38 | ED ---
Lower Extremity Injury HPI - General Chief Complaint: Extremity Injury, Lower Stated Complaint: leg swelling Time Seen by Provider: 09/16/17 23:05 Source: patient, RN notes reviewed Mode of arrival: wheelchair Limitations: physical limitation - History of Present Illness Initial Comments: This a 71-year-old female presents emergency Department chief complaint of left leg pain. Patient states that she's been having some discomfort last couple weeks once orthopedic doctor told her that she has severe arthritis, bone-on- bone of her left knee. She states she is able to ambulate at time but now her leg is so painful and swollen that she hurts to ambulate. She did admit that she had to drive back and forth from [place] for emergency. Patient states that she has no history of blood clot she denies any chest pain or shortness of breath. - Related Data Home Medications Medication Instructions Recorded Confirmed Triamterene-Hctz 37.5-25Mg 1 cap PO DAILY 08/26/14 06/29/17 [Dyazide 37.5-25 Capsule] Fenofibrate Nanocrystallized 145 mg PO DAILY 11/16/14 06/29/17 [Tricor] HYDROcodone/APAP 10-325MG [[place] 1 tab PO TID PRN 11/16/14 06/29/17 10-325] metFORMIN HCL [Glucophage] 500 mg PO BID 11/16/14 06/29/17 Ferrous Sulfate [Feosol] 325 mg PO BID 02/20/16 06/29/17 amLODIPine [Norvasc] 10 mg PO DAILY 02/20/16 06/29/17 glipiZIDE [Glucotrol] 5 mg PO BID 06/06/17 06/29/17 Famotidine [Pepcid] 20 mg PO DAILY 06/29/17 06/29/17 Previous Rx's Medication Instructions Recorded Aspirin 81 mg PO DAILY 01/20/17 Cyclobenzaprine [Flexeril] 10 mg PO TID #15 tab 06/30/17 Dexamethasone 0.75 mg PO DAILY #12 tab 06/30/17 Hydrocodone/Acetaminophen [[place] 1 tab PO Q6HR PRN #20 tab 09/17/17 5-325] Allergies Allergy/AdvReac Type Severity Reaction Status Date / Time diflunisal [From Dolobid] Allergy Anaphylaxis Verified 09/16/17 22:06 hydrochlorothiazide Allergy Swelling Verified 09/16/17 22:06 [From Zestoretic] of face and throat ibuprofen [From Motrin] Allergy Abdominal Verified 09/16/17 22:06 Pain Iodine and Iodide Containing Allergy Anaphylaxis Verified 09/16/17 22:06 Produc lisinopril Allergy Rash/Hives Verified 09/16/17 22:06 morphine Allergy Rash/Hives Verified 09/16/17 22:06 prednisone Allergy Rash/Hives Verified 09/16/17 22:06 sulfamethoxazole Allergy Anaphylaxis Verified 09/16/17 22:06 [From Bactrim] tramadol Allergy Rash/Hives Verified 09/16/17 22:06 trimethoprim [From Bactrim] Allergy Anaphylaxis Verified 09/16/17 22:06 baclofen AdvReac Unknown LOW HEART Verified 09/16/17 22:06 RATE NSAIDS (Non-Steroidal AdvReac Unknown TOLD TO Verified 09/16/17 22:06 Anti-Inflamma AVOID NSAIDS DUE TO ABDOMINAL PAIN ondansetron AdvReac Itching Verified 09/16/17 22:06 [From Zofran (as hydrochloride)] Review of Systems ROS Statement: Those systems with pertinent positive or pertinent negative responses have been documented in the HPI. ROS Other: All systems not noted in ROS Statement are negative. Past Medical History Past Medical History: Diabetes Mellitus, GERD/Reflux, Hyperlipidemia, Hypertension, Mitral Valve Prolapse (MVP), Osteoarthritis (OA) Additional Past Medical History / Comment(s): migraines, anemia, varicose veins , arthritis knees, back pain History of Any Multi-Drug Resistant Organisms: None Reported Past Surgical History: Back Surgery, Hysterectomy, Tonsillectomy Additional Past Surgical History / Comment(s): 3 HERNIATED DISK REPAIRS, PLATE AT L4 AND L5, rt temporal artery removed, ovarian cysts removed, pilonidal cyst, Past Anesthesia/Blood Transfusion Reactions: Family Hisory of Malignant Hyperthermia Additional Past Anesthesia/Blood Transfusion Reaction / Comment(s): daughter had reaction to anesthesia age 7 with tonsilectomy called "chocolate anesthesia " per pt. "she had a rash and high fever of 105". daughter has had surgeries since with no problems. Past Psychological History: No Psychological Hx Reported Smoking Status: Former smoker Past Alcohol Use History: None Reported Past Drug Use History: None Reported - Past Family History Sister(s) Family Medical History: Deep Vein Thrombosis (DVT) Brother(s) Family Medical History: Deep Vein Thrombosis (DVT) Father Family Medical History: Cancer, Deep Vein Thrombosis (DVT) Additional Family Medical History / Comment(s): QUADRUPLE BYPASS Mother Family Medical History: Deep Vein Thrombosis (DVT) Additional Family Medical History / Comment(s): PACEMAKER General Exam Limitations: physical limitation General appearance: alert, in no apparent distress Head exam: Present: atraumatic, normocephalic, normal inspection Respiratory exam: Present: normal lung sounds bilaterally. Absent: respiratory distress, wheezes, rales, rhonchi, stridor Cardiovascular Exam: Present: regular rate, normal rhythm, normal heart sounds. Absent: systolic murmur, diastolic murmur, rubs, gallop, clicks Extremities exam: Present: other (Left leg there is moderate swelling no localized swelling there is no warmth over the joint of her left knee or left ankle. There is diffuse tenderness of the left calf and left thigh. Pedal pulses are equal bilaterally) Skin exam: Present: warm, dry, intact, normal color. Absent: rash Course Vital Signs 09/16/17 22:03 Temperature 97.6 F Pulse Rate 80 Respiratory 15 Rate Blood Pressure 157/75 O2 Sat by Pulse 99 Oximetry Medical Decision Making - Medical Decision Making 71-year-old female presented for left leg pain. Patient had an ultrasound concerns for DVT patient has a Tran's cyst. Patient has seen orthopedic doctor has been diagnosed with arthritic changes. Patient we treated for pain at this time. Patient we discharged. Return parameters were discussed. Disposition Clinical Impression: Bakers cyst, Left leg pain Disposition: HOME SELF-CARE Condition: Stable Instructions: Bakers Cyst (ED) Additional Instructions: Please return to the Emergency Department if symptoms worsen or any other concerns. Prescriptions: Hydrocodone/Acetaminophen [[place] 5-325] 1 tab PO Q6HR PRN #20 tab PRN Reason: Pain Referrals: Sissy Starr DO [REFERRING] - 1-2 days Time of Disposition: 00:06
--- NOTE | 2017-09-16 23:39 | US ---
EXAMINATION TYPE: US venous doppler duplex LE LT DATE OF EXAM: 09/16/2017 11:18 PM COMPARISON: NONE CLINICAL HISTORY: Pain. Left leg pain SIDE PERFORMED: Left TECHNIQUE: The lower extremity deep venous system is examined utilizing real time linear array sonog candida with graded compression, doppler sonography and color-flow sonography. VESSELS IMAGED: External Iliac Vein (EIV) Common Femoral Vein Deep Femoral Vein Greater Saphenous Vein * Femoral Vein Popliteal Vein Small Saphenous Vein * Proximal Calf Veins (* superficial vessels) Left Leg: Negative for DVT No evidence of DVT seen left leg. Suggestive of bakers cyst seen measuring 2.1 x .8 x 1.3cm. IMPRESSION: No evidence of deep venous thrombosis in the left leg. 2 x 1 cm popliteal cyst.
[2017-09-17 00:17] VITALS: BP 139/65; PULSE 63; RESP 18; TEMP 97.7
== END 2017-09-17 00:15 | disposition home or self-care (01) ==
LOC: EC 21:33
DX: M71.22 Synovial cyst of popliteal space [Baker], left knee (principal); I10 Essential (primary) hypertension; E11.9 Type 2 diabetes mellitus without complications; K21.9 Gastro-esophageal reflux disease without esophagitis; E78.5 Hyperlipidemia, unspecified; Z87.891 Personal history of nicotine dependence; Z98.890 Other specified postprocedural states; Z79.84 Long term (current) use of oral hypoglycemic drugs; Z79.899 Other long term (current) drug therapy; Z88.1 Allergy status to other antibiotic agents; Z88.2 Allergy status to sulfonamides; Z88.5 Allergy status to narcotic agent; Z88.6 Allergy status to analgesic agent; Z88.8 Allergy status to other drugs, medicaments and biological substances; Z91.048 Other nonmedicinal substance allergy status
CPT/HCPCS: 99284

== ENCOUNTER → 2018-02-05 | Outpatient (CLI) | payer MEDICARE, OTHER | END | disposition home or self-care (01) | LOC: LABPAT 06:36 | PROVIDERS: ATTEND Orthopaedic Surgery | DX: Z01.812 Encounter for preprocedural laboratory examination (principal) | CPT/HCPCS: 87070 ==

== ENCOUNTER 2018-02-16 05:33 | Inpatient (IN) | payer MEDICARE, OTHER ==
[2018-02-05 16:18] VITALS: BMI 39.6
--- NOTE | 2018-02-15 14:31 | HP ---
HISTORY AND PHYSICAL Surgery scheduled for 02/16/2018. Gina Phan is a 72-year-old patient seen with progressive left knee pain. Treatment options were discussed with her. She elected to proceed with left total knee arthroplasty. Consent regarding the procedure was obtained. Medical clearance was provided by Dr. Starr's office. PAST MEDICAL HISTORY: Hypertension, [id number] diabetes. SURGICAL HISTORY: Tonsillectomy. DAILY MEDICATIONS: Glipizide, metformin, triamterene, [place]. ALLERGIES: Iodine, prednisone, Lopid, Zestoretic, morphine sulfate. SOCIAL HISTORY: The patient denies current tobacco use. PHYSICAL EXAMINATION: Evaluation of the left knee: Range of motion is -1/2 to 120 degrees. Tenderness along the medial joint line with a positive medial Amy's. Crepitus medial patellofemoral compartments with range of motion. Pain with patellofemoral compression. Ligaments stable. Hip rotation without pain. Distal neurovascular exam intact. RADIOGRAPHS: Radiographs of the left knee reveal severe medial moderate to severe patellofemoral compartment osteoarthritis. IMPRESSION: 1. Left knee osteoarthritis. 2. Hypertension. 3. [id number] diabetes. PLAN: Left total knee arthroplasty. MMODL / IJN: [id number] /
[~2018-02-16 05:33] MED LIST: ACETAMINOPHEN TAB 500 MG TAB PO ONE; DEXAMETHASONE SOD PHOSPHATE 10 MG/ML 1 ML VIAL IV ONE; LIDOCAINE 1% 20 ML VIAL (10MG/ML) FOR IV START INTRADERMA PRN; MIDAZOLAM 2 MG/2 ML VIAL IV PRN; ONDANSETRON 4 MG/2 ML VIAL IVP ONE; SCOPOLAMINE 1.5MG/72HR PATCH TRANSDERM ONE; TRANEXAMIC ACID 1,000 MG in SODIUM CHLORIDE 0.9% 50 ML IVPB ONE; ceFAZolin IN SWFI 2 GM/20 ML SYRINGE IVP ONE
[2018-02-16] MEDS: LACTATED RINGERS 1,000 ML IV SCH (06:47)
[2018-02-16 07:01] LABS: Glucose,Whole Blood 100 mg/dL (75-99)
[2018-02-16] MEDS ORDERED: PROPOFOL 10 MG/ML 20 ML VIAL IV ONE (07:39)
[2018-02-16] MEDS ORDERED: MORPHINE SULFATE 10 MG/ML SYRINGE ONE (07:39)
[2018-02-16] MEDS ORDERED: HYDROmorphone (PF) 1 MG/ML ONE (07:39)
[2018-02-16] MEDS ORDERED: LIDOCAINE 1% INJ 10MG/ML (20 ML MDV) ONE (07:39)
[2018-02-16] MEDS ORDERED: fentaNYL (PF) 50 MCG/ML 2 ML AMP ONE (07:39)
[2018-02-16] MEDS ORDERED: NEOSTIGMINE 1 MG/ML 10 ML VIAL ONE (07:39)
[2018-02-16] MEDS ORDERED: SODIUM CHLORIDE 0.9% 100 ML BAG ONE (07:39)
[2018-02-16] MEDS ORDERED: MIDAZOLAM 2 MG/2 ML VIAL ONE (07:39)
[2018-02-16] MEDS ORDERED: GLYCOPYRROLATE 0.2 MG/ML 2 ML VIAL ONE (07:39)
[2018-02-16] MEDS ORDERED: ROCURONIUM BROMIDE 10 MG/ML 10 ML VIAL IV ONE (07:39)
[2018-02-16] MEDS ORDERED: TRANEXAMIC ACID 1,000 MG/10 ML VIAL ONE (07:39)
[2018-02-16] MEDS ORDERED: ROPIVACAINE 246.25 MG, EPINEPHrine 0.5 MG, KETOROLAC 30 MG, cloNIDine HCL/PF 80 MCG, WA... MISCELLANE ONE ×5 (07:45)
[2018-02-16] MEDS ORDERED: ceFAZolin 3,000 MG in SODIUM CHLORIDE 0.9% IRRIGATIO 3,000 ML IRRIGATION ONE (08:15)
[2018-02-16] MEDS ORDERED: ROPIVACAINE 246.25 MG, EPINEPHrine 0.5 MG, cloNIDine HCL/PF 80 MCG, WATER FOR INJECTION... MISCELLANE ONE ×4 (08:45)
[2018-02-16] MEDS ORDERED: HYDROmorphone 1 MG/ML 1 ML SYRINGE IVP PRN ×2 (09:45)
[2018-02-16] MEDS ORDERED: HYDROcodone/APAP 5-325MG 1 EACH TAB PO PRN (09:45)
[2018-02-16] MEDS ORDERED: LACTATED RINGERS 1,000 ML IV ONE (09:45)
[2018-02-16] MEDS ORDERED: NALOXONE 0.4 MG/ML 1 ML VIAL IV PRN (09:45)
--- NOTE | 2018-02-16 09:45 | P.OP ---
Date of Procedure: 02/16/18 Preoperative Diagnosis: Left knee osteoarthritis Postoperative Diagnosis: Left knee osteoarthritis Procedure(s) Performed: Left total knee arthroplasty Implants: 1. Microport evolution size 4 left CTS/CR cemented femur 2. Microport evolution size 4 left MP cemented tibial baseplate 3. Microport size 4 left CS 14 mm polyethylene tibial insert 4. Microport advanced all polyethylene 32 mm cemented patella Anesthesia: GETA, regional (Adductor canal block), local Surgeon: Zay Williamson Disability Specialist #1: John Rawls Estimated Blood Loss (ml): 50 Pathology: none sent (Bone) Condition: stable Disposition: PACU Indications for Procedure: 72-year-old patient seen with symptomatic left knee osteoarthritis. After having treatment options discussed, she elected to proceed with total knee arthroplasty. Operative Findings: See description of procedure Description of Procedure: Patient was taken to the operative suite after having an adductor canal catheter placed by the department of anesthesia for postoperative pain control. Patient underwent a spinal anesthetic by the department of anesthesia. Patient was given preoperative IV intake antibiotics and TXA. A well-padded tourniquet was placed about the left lower extremity. The lower extremity was then prepped and draped in the normal sterile orthopedic fashion. The extremity was elevated, a tourniquet was insufflated to 300. A standard anterior incision was made sharply through skin. Dissection was taken down through the subcutaneous soft tissues down to the extensor mechanism. A medial arthrotomy was performed, patella was everted and knee was flexed. There was advanced osteoarthritis noted. I introduced my distal intramedullary femoral drill. I then introduced the distal femoral cutting jig. Nate YI secured the cutting jig with 2 pins. I held retractors in position while Nate YI performed the distal femoral resection through the guide area we now removed her distal femoral cutting guide. We now placed our 4-in-1 femoral cutting block and positioned and it was secured with 2 pins by Nate YI while I held the block in position. The distal femoral finishing was now completed. A proximal tibial cutting guide was positioned. I held the guide in the appropriate position with both hands well Nate YI inserted stabilizing pins into the guide. Proximal tibial cut was made. We now placed a trial femoral component into position, along with an appropriate size tibial tray and insert. We now took the knee through range of motion and had full extension good flexion and good overall soft tissue balance noted. The patella was everted and stabilized with 2 towel clips held by Nate YI while I performed a flush with patellar quad tendon utilizing a fresh sawblade. We templated the patella, appropriate drill holes were made. An appropriate trial patella was positioned, knee was taken through full range of motion with the patella tracking very nicely. The trial patella was removed. Drill holes were made through the femoral component. All trial components were removed after marking off the appropriate rotation of the tibia. Retractors were now positioned along the proximal tibia. An appropriate keel punch was made with the appropriate size tibial guide by myself on Nate YI assisted by holding retractors. At this point appropriate size implants were chosen and opened. The joint was irrigated copiously with pulse lavage mechanical irrigation. The posterior capsule was infiltrated with local analgesic. The wound was irrigated with pulse lavage mechanical irrigation. We mixed antibiotic methylmethacrylate. We placed the knee into flexion. We placed multiple retractors assisted by Nate YI to expose the proximal tibia. Once the methyl methacrylate was ready, the tibial component was cemented into place removing any excess methylmethacrylate form by both myself and Nate YI. The femoral component was cemented into place removing the removing any excess methylmethacrylate performed by both myself and Nate YI. We then inserted the appropriate size polyethylene tibial insert. We made sure that it was locked into position. We took the knee into full extension, and then back in a flexion making sure we had removed any excess methylmethacrylate. The patellar component was then cemented down and secured with clamp. Excess methylmethacrylate removed. We kept the knee in full extension, patellar clamp in position until methylmethacrylate had hardened. Once it had hardened the patellar clamp was removed. The knee was taken through full range of motion. The patella tracked nicely. There was good soft tissue balancing. The tourniquet was now released. Additional hemostasis was achieved via electrocautery. A second gram of TXA was given. The wound again was irrigated with pulse lavage mechanical irrigation. The superficial soft tissues were infiltrated local analgesic. The extensor mechanism was repaired with Vicryl. We checked the repair with range of motion and it was stable. The subcutaneous soft tissues were repaired with Vicryl in layers. The skin was approximated with pernio/Dermabond. Sterile dressings were applied followed by loose web roll and Doron bandage. The patient was transferred to a bed, and taken to recovery in stable and satisfactory condition. Nate YI assisted with this complex procedure.
[2018-02-16] MEDS ORDERED: ROPIVACAINE 1,100 MG, SODIUM CHLORIDE 0.9% 330 ML MISCELLANE PRN ×2 (09:48)
--- NOTE | 2018-02-16 09:50 | P.ONQ ---
Anesthesiology Proc Note - PNB - Peripheral Nerve Block Performed Left Adductor Canal Procedure Start Time: 07:17 Procedure Stop Time: 07:31 Indication: Acute Post-Operative Pain, Requested by physician (Dr Williamson) Sedation Type: Sedate with meaningful contact maintained Preparation: Sterile Dressing Position: Supine Catheter: Indwelling Needle Types: Other (see comment) (Naldo) Needle Size: 50mm (2") Needle Gauge: 21 Technique: Ultrasound Injectate: 0.5% Ropivacaine (see comment for volume) (22cc) Blood Aspirated: No Pain Paresthesia on Injection Noted: No Resistance on Injection: Normal Events: Uneventful and Well Tolerated
[2018-02-16] MEDS: HYDROmorphone 0.5 MG/0.5 ML SYRINGE IVP PRN ×4 (10:03→10:45)
[2018-02-16 10:46] LABS: Glucose,Whole Blood 169 mg/dL (75-99)
[2018-02-16 11:30] LABS: Glucose,Whole Blood 182 mg/dL (75-99)
[2018-02-16] MEDS: HYDROmorphone 1 MG/ML 1 ML SYRINGE IVP PRN ×3 (12:09→23:41)
--- NOTE | 2018-02-16 13:49 | P.CONS ---
History of Present Illness - Reason for Consult Consult date: 02/16/18 Medical management Requesting physician: Zay Williamson - Chief Complaint Status post left total knee arthroplasty - History of Present Illness This is a 72-year-old female, patient of [facility]. She has a known past medical history of hypertension, diabetes mellitus, hyperlipidemia and iron deficiency anemia. Patient underwent a left total knee arthroplasty today for her left knee arthritis. Estimated blood loss 50 mL. No complications. She is reporting pain in that left knee. She just received pain medication and does have a pain pump. Prior to admission patient was treated for a small abscess on the right shoulder she been undergoing antibiotic treatment with Keflex. She had received 2 out of 10 days of the antibiotic. She is on here for postop antibiotics. We'll continue those and then restart Keflex by mouth tomorrow. Patient denies any chest pain or shortness of breath. Denies any nausea or vomiting. Denies any bowel movement changes or urinary symptoms. Review of Systems Please refer to HPI otherwise unremarkable Past Medical History Past Medical History: Blood Disorder, Diabetes Mellitus, GERD/Reflux, Hyperlipidemia, Hypertension, Mitral Valve Prolapse (MVP), Osteoarthritis (OA) Additional Past Medical History / Comment(s): Migraines. Anemia. Varicose Veins. CHRONIC Back Pain History of Any Multi-Drug Resistant Organisms: None Reported Past Surgical History: Appendectomy, Back Surgery, Hysterectomy, Tonsillectomy Additional Past Surgical History / Comment(s): 3 HERNIATED DISK REPAIRS, PLATE AT L4 AND L5. Rt temporal artery removed. Ovarian cysts removed, Pilonidal cyst X2. Past Anesthesia/Blood Transfusion Reactions: Family Hisory of Malignant Hyperthermia Additional Past Anesthesia/Blood Transfusion Reaction / Comm: Daughter had reaction to anesthesia age 7 with tonsilectomy called "chocolate anesthesia" per pt. "she had a rash and high fever of 105". daughter has had surgeries since with no problems. Past Psychological History: No Psychological Hx Reported Smoking Status: Former smoker Past Alcohol Use History: None Reported Additional Past Alcohol Use History / Comment(s): Quit smoking 1982, Smoked for 3 yrs, < 1 PPD Past Drug Use History: None Reported - Past Family History Sister(s) Family Medical History: Cancer, Deep Vein Thrombosis (DVT) Brother(s) Family Medical History: Deep Vein Thrombosis (DVT) Father Family Medical History: Cancer, Deep Vein Thrombosis (DVT) Additional Family Medical History / Comment(s): QUADRUPLE BYPASS Mother Family Medical History: Deep Vein Thrombosis (DVT) Additional Family Medical History / Comment(s): PACEMAKER Medications and Allergies Home Medications Medication Instructions Recorded Confirmed Type Fenofibrate Nanocrystallized 145 mg PO DAILY 11/16/14 02/16/18 History [Tricor] metFORMIN HCL [Glucophage] 500 mg PO BID 11/16/14 02/16/18 History Ferrous Sulfate [Feosol] 325 mg PO BID 02/20/16 02/16/18 History amLODIPine [Norvasc] 10 mg PO DAILY 02/20/16 02/16/18 History Aspirin 81 mg PO DAILY 01/20/17 02/16/18 Rx glipiZIDE [Glucotrol] 5 mg PO BID 06/06/17 02/16/18 History Hydrocodone/Acetaminophen [[place] 1 tab PO Q6HR PRN #20 tab 09/17/17 02/16/18 Rx 5-325] Acetaminophen [Tylenol] 650 mg PO Q4H PRN 02/05/18 02/16/18 History Cephalexin [Keflex] 1,000 mg PO Q12HR 02/16/18 02/16/18 History Famotidine 40 mg PO DAILY 02/16/18 02/16/18 History hydrALAZINE HCL 25 mg PO DAILY 02/16/18 02/16/18 History Allergies Allergy/AdvReac Type Severity Reaction Status Date / Time diflunisal [From Dolobid] Allergy Anaphylaxis Verified 02/16/18 12:24 hydrochlorothiazide Allergy Swelling Verified 02/16/18 12:24 [From Zestoretic] of face and throat ibuprofen [From Motrin] Allergy Abdominal Verified 02/16/18 12:24 Pain Iodine and Iodide Containing Allergy Anaphylaxis Verified 02/16/18 12:24 Produc lisinopril Allergy Rash/Hives Verified 02/16/18 12:24 morphine Allergy Rash/Hives Verified 02/16/18 12:24 prednisone Allergy Rash/Hives Verified 02/16/18 12:24 sulfamethoxazole Allergy Anaphylaxis Verified 02/16/18 12:24 [From Bactrim] tramadol Allergy Rash/Hives Verified 02/16/18 12:24 trimethoprim [From Bactrim] Allergy Anaphylaxis Verified 09/10/18 12:24 baclofen AdvReac Unknown LOW HEART Verified 02/16/18 12:24 RATE NSAIDS (Non-Steroidal AdvReac Unknown TOLD TO Verified 02/16/18 12:24 Anti-Inflamma AVOID NSAIDS DUE TO ABDOMINAL PAIN ondansetron AdvReac Itching Verified 02/16/18 12:24 [From Zofran (as hydrochloride)] Physical Exam Vitals: Vital Signs Temp Pulse Resp BP Pulse Ox 02/16/18 11:33 18 02/16/18 10:57 71 14 138/69 96 02/16/18 10:45 72 14 138/68 96 02/16/18 10:30 65 14 142/67 96 02/16/18 10:15 74 11 L 144/75 98 02/16/18 09:59 97.1 F L 81 11 L 116/55 98 02/16/18 06:47 97.3 F L 66 16 193/91 100 Intake and Output 02/15/18 02/16/18 02/16/18 22:59 06:59 14:59 Intake Total 1001 Output Total 50 Balance 951 Intake: IV 1001 Output: Estimated Blood Loss 50 Other: Voiding Method Bedpan Head normocephalic Neck supple Lungs clear to auscultation bilaterally no wheezing or crackles Heart regular rate and rhythm S1-S2, no rub or gallop Abdomen is soft nontender nondistended positive bowel sounds no hepatosplenomegaly Extremities no edema. Left knee Doron wrapped. Pain pump in place Neuro alert and orientated to 3 Results Labs: Abnormal Lab Results - Last 24 Hours (Table) 02/16/18 02/16/18 02/16/18 Range/Units 06:49 10:43 11:28 POC Glucose (mg/dL) 100 H 169 H 182 H (75-99) mg/dL Assessment and Plan Assessment: 1. Osteoarthritis of the left knee: Status post left total knee arthroplasty. Continue Lovenox for DVT prophylaxis. Continue pain medication per orthopedic protocol. She does have pain pump. 2. Small abscess right arm: Resume Keflex tomorrow. Patient is receiving Kefzol postop antibiotics for her knee. This will cover her small abscess. 3. Essential hypertension 4. Hyperlipidemia 5. Iron deficiency anemia continue iron supplement 6. Diabetes mellitus type 2 resume glipizide and metformin and sliding scale coverage. Check A1c GI prophylaxis Pepcid Thank you for this consultation. We will continue to follow along during patient's hospitalization. Check CBC and CMP in a.m. Time with Patient: Greater than 30 (Greater than 60% of the total time spent in counseling and coordination of care.I performed an examination of the patient and discussed their management with the physician [employer] [address] [employer]. I have reviewed the Physician [employer] [address] Vendor's notes and agree with the documented findings and plan of care)
[2018-02-16] MEDS: HYDROcodone/APAP 5-325MG 1 EACH TAB PO PRN ×2 (14:01→21:31)
--- NOTE | 2018-02-16 15:56 | XR ---
Left knee HISTORY: Postop 2 views of the left knee Patient is status post left knee arthroplasty. Lucency in the soft tissues compatible with postop sta te. 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 Ther e is anatomic alignment. IMPRESSION: Orthopedic follow-up.
[2018-02-16] MEDS: SODIUM CHLORIDE 0.9% 1,000 ML IV SCH ×2 (16:44→16:45)
[2018-02-16] MEDS: ceFAZolin IN SWFI 2 GM/20 ML SYRINGE IVP SCH ×2 (16:44→23:37)
[2018-02-16] MEDS: glipiZIDE 5 MG TAB PO SCH (16:47)
[2018-02-16] MEDS: metFORMIN 500 MG TAB PO SCH (16:47)
[2018-02-16 16:55] LABS: Glucose,Whole Blood 224 mg/dL (75-99)
[2018-02-16] MEDS: INSULIN ASPART 100 UNIT/ML 1 ML 10 ML VIAL SQ SCH ×2 (16:58→21:32)
[2018-02-16] MEDS: FERROUS SULFATE 325 MG TAB PO SCH (16:59)
[2018-02-16 20:03] LABS: Glucose,Whole Blood 143 mg/dL (75-99)
[2018-02-16] MEDS: SENNOSIDES-DOCUSATE SODIUM 1 EACH TAB PO SCH (21:31)
[2018-02-16] MEDS: ENOXAPARIN 30 MG/0.3 ML SYRINGE SQ SCH (23:38)
[2018-02-17] MEDS: HYDROcodone/APAP 5-325MG 1 EACH TAB PO PRN ×2 (03:24→09:51)
[2018-02-17] MEDS: HYDROmorphone 1 MG/ML 1 ML SYRINGE IVP PRN ×3 (05:17→12:50)
[2018-02-17] MEDS: ONDANSETRON 4 MG/2 ML VIAL IVP PRN (05:19)
[2018-02-17] MEDS: LACTATED RINGERS 1,000 ML IV SCH (05:51)
[2018-02-17 07:18] LABS: Glucose,Whole Blood 130 mg/dL (75-99)
[2018-02-17] MEDS: SODIUM CHLORIDE 0.9% 1,000 ML IV SCH ×2 (08:38→14:01)
[2018-02-17] MEDS: INSULIN ASPART 100 UNIT/ML 1 ML 10 ML VIAL SQ SCH ×4 (08:39→21:22)
[2018-02-17 08:50] LABS: Calcium 9.4 mg/dL (8.4-10.2); Total Bilirubin 0.7 mg/dL (0.2-1.3); Total Protein 7.3 g/dL (6.3-8.2)
[2018-02-17] MEDS: hydrALAZINE HCL 25 MG TAB PO SCH (08:50)
[2018-02-17] MEDS: FENOFIBRATE 160 MG TAB PO SCH (08:50)
[2018-02-17] MEDS: FERROUS SULFATE 325 MG TAB PO SCH ×2 (08:50→17:47)
[2018-02-17] MEDS: amLODIPine 10 MG TAB PO SCH (08:50)
[2018-02-17] MEDS: glipiZIDE 5 MG TAB PO SCH ×2 (08:50→17:47)
[2018-02-17] MEDS: metFORMIN 500 MG TAB PO SCH ×2 (08:50→17:47)
[2018-02-17] MEDS: ENOXAPARIN 30 MG/0.3 ML SYRINGE SQ SCH ×2 (08:52→21:27)
--- NOTE | 2018-02-17 08:53 | P.PN ---
Progress Note - Text The patient is status post left adductor canal catheter placement. The catheter was placed for postoperative pain control, status post total left arthroplasty. Ropivacaine 0.2% is infusing at 10 mLs per hour. The patient has no complaints of left lower extremity numbness or weakness. Patient's VAS score is 4 -10. Assessment: Patient's adductor canal catheter is in place and working appropriately. The patient is requiring some supplemental IV and oral pain medicine. Plan: continue infusion and adjust it as needed.
[2018-02-17 08:54] LABS: Basophils % (A) 0 %; Eosinophils # (A) 0.1 k/uL (0-0.7); Eosinophils % (A) 1 %; HCT 33.3 % (34.0-46.0); HGB 10.6 gm/dL (11.4-16.0); Lymphocytes # (A) 1.1 k/uL (1.0-4.8); Lymphocytes % (A) 12 %; MCH 31.8 pg (25.0-35.0); MCHC 31.7 g/dL (31.0-37.0); MCV 100.2 fL (80.0-100.0); Monocytes # (A) 0.6 k/uL (0-1.0); Monocytes % (A) 7 %; Neutrophils # (A) 6.9 k/uL (1.3-7.7); Neutrophils % (A) 79 %; Platelet Count 222 k/uL (150-450); RBC 3.33 m/uL (3.80-5.40); RDW 13.6 % (11.5-15.5); WBC 8.8 k/uL (3.8-10.6)
[2018-02-17] MEDS: CEPHALEXIN 500 MG CAP PO SCH ×2 (08:57→21:27)
[2018-02-17] MEDS: FAMOTIDINE 20 MG TAB PO SCH (08:57)
[2018-02-17] MEDS ORDERED: HYDROcodone/APAP 7.5-325MG 1 EACH TAB PO PRN (11:27)
--- NOTE | 2018-02-17 11:27 | P.PN ---
Subjective Progress Note Date: 02/17/18 Principal diagnosis: Status post left total knee arthroplasty Patient seen today resting in her hospital bed. She does note some increase in pain since yesterday. She has ambulated minimally. She denies any headaches, lightheadedness, chest pain or shortness of breath. Objective - Vital Signs Vital signs: Vital Signs Temp 99.6 F 02/17/18 07:15 Pulse 89 02/17/18 07:15 Resp 18 02/17/18 07:15 BP 150/74 02/17/18 07:15 Pulse Ox 95 02/17/18 09:01 Intake & Output 02/16/18 02/17/18 02/17/18 18:59 06:59 18:59 Intake Total 2701 800 Output Total 530 Balance 2171 800 Intake: IV 1001 Intake, IV Titration 500 800 Amount Lactated Ringers 1,000 ml 500 @ 0 mls/hr IV .STK-MED ONE Rx#:[id number] Sodium Chloride 0.9% 1, 800 000 ml @ 100 mls/hr IV . Q10H [facility], [facility]–1983 Rx#:[id number] Oral 1200 Output: Urine 480 Estimated Blood Loss 50 Other: Voiding Method Bedside Commode Bedside Commode Bedpan # Voids 3 2 # Bowel Movements 0 - Exam Left lower extremity: Incision is clean, dry, and intact. The prineo tape is in good condition. There is minimal soft tissue swelling and ecchymosis surrounding the medial and lateral aspects of the incision. Calf is soft, no tenderness with palpation. Plantar flexion, dorsiflexion, EHL, FHL are intact. Sensory exam to light touch throughout the extremity is intact, dorsal pedis pulses 2+. - Labs CBC & Chem 7: 02/17/18 07:40 02/17/18 07:40 Labs: Abnormal Lab Results - Last 24 Hours (Table) 02/16/18 02/16/18 02/16/18 Range/Units 11:28 16:53 20:00 RBC (3.80-5.40) m/uL Hgb (11.4-16.0) gm/dL Hct (34.0-46.0) % MCV (80.0-100.0) fL Chloride (98-107) mmol/L Creatinine (0.52-1.04) mg/dL Glucose (74-99) mg/dL POC Glucose (mg/dL) 182 H 224 H 143 H (75-99) mg/dL Alkaline Phosphatase (38-126) U/L 02/17/18 02/17/18 02/17/18 Range/Units 07:06 07:40 07:40 RBC 3.33 L (3.80-5.40) m/uL Hgb 10.6 L (11.4-16.0) gm/dL Hct 33.3 L (34.0-46.0) % MCV 100.2 H (80.0-100.0) fL Chloride 108 H (98-107) mmol/L Creatinine 1.06 H (0.52-1.04) mg/dL Glucose 131 H (74-99) mg/dL POC Glucose (mg/dL) 130 H (75-99) mg/dL Alkaline Phosphatase 35 L (38-126) U/L Assessment and Plan Plan: Assessment: Post op day #1 status post left total knee arthroplasty Plan: Pain control, will increase oral [place] dose at this time GI and DVT prophylaxis, continue current medication Daily dressing changes/ice and elevate Continue work with physical therapy and use of the CPM machine Medical recommendations Encouraged incentive spirometer Discharge planning: Patient likely will be discharged home tomorrow Time with Patient: Less than 30
[2018-02-17 11:45] LABS: Glucose,Whole Blood 153 mg/dL (75-99)
[2018-02-17] MEDS: MULTIVITAMINS, THERA 1 EACH TAB PO SCH (12:50)
--- NOTE | 2018-02-17 13:53 | P.PN ---
Subjective Progress Note Date: 02/17/18 This is a 72-year-old female, patient of [facility]. She has a known past medical history of hypertension, diabetes mellitus, hyperlipidemia and iron deficiency anemia. Patient underwent a left total knee arthroplasty today for her left knee arthritis. Estimated blood loss 50 mL. No complications. She is reporting pain in that left knee. She just received pain medication and does have a pain pump. Prior to admission patient was treated for a small abscess on the right shoulder she been undergoing antibiotic treatment with Keflex. She had received 2 out of 10 days of the antibiotic. She is on here for postop antibiotics. We'll continue those and then restart Keflex by mouth tomorrow. Patient denies any chest pain or shortness of breath. Denies any nausea or vomiting. Denies any bowel movement changes or urinary symptoms. 02/17/2018 patient reporting left knee pain. She has been receiving pain medication. The planning discharge home tomorrow. Hemoglobin 10.6. She denies any chest pain or shortness breath. Did report some nausea earlier this morning now resolved. Denies any bowel movement changes or urinary symptoms Objective - Vital Signs Vital signs: Vital Signs Temp 99.6 F 02/17/18 07:15 Pulse 89 02/17/18 07:15 Resp 18 02/17/18 07:15 BP 150/74 02/17/18 07:15 Pulse Ox 95 02/17/18 09:01 Intake & Output 02/16/18 02/17/18 02/17/18 18:59 06:59 18:59 Intake Total 2701 800 Output Total 530 Balance 2171 800 Intake: IV 1001 Intake, IV Titration 500 800 Amount Lactated Ringers 1,000 ml 500 @ 0 mls/hr IV .STK-MED ONE Rx#:[id number] Sodium Chloride 0.9% 1, 800 000 ml @ 100 mls/hr IV . Q10H [facility] Rx#:[id number] Oral 1200 Output: Urine 480 Estimated Blood Loss 50 Other: Voiding Method Bedside Commode Bedside Commode Bedpan # Voids 3 2 # Bowel Movements 0 - Exam Head normocephalic Neck supple Lungs clear to auscultation bilaterally no wheezing or crackles Heart regular rate and rhythm S1-S2, no rub or gallop Abdomen is soft nontender nondistended positive bowel sounds no hepatosplenomegaly Extremities no edema Neuro alert and orientated to 3 - Labs CBC & Chem 7: 02/17/18 07:40 02/17/18 07:40 Labs: Abnormal Lab Results - Last 24 Hours (Table) 02/16/18 02/16/18 02/17/18 Range/Units 16:53 20:00 07:06 RBC (3.80-5.40) m/uL Hgb (11.4-16.0) gm/dL Hct (34.0-46.0) % MCV (80.0-100.0) fL Chloride (98-107) mmol/L Creatinine (0.52-1.04) mg/dL Glucose (74-99) mg/dL POC Glucose (mg/dL) 224 H 143 H 130 H (75-99) mg/dL Alkaline Phosphatase (38-126) U/L 02/17/18 02/17/18 02/17/18 Range/Units 07:40 07:40 11:42 RBC 3.33 L (3.80-5.40) m/uL Hgb 10.6 L (11.4-16.0) gm/dL Hct 33.3 L (34.0-46.0) % MCV 100.2 H (80.0-100.0) fL Chloride 108 H (98-107) mmol/L Creatinine 1.06 H (0.52-1.04) mg/dL Glucose 131 H (74-99) mg/dL POC Glucose (mg/dL) 153 H (75-99) mg/dL Alkaline Phosphatase 35 L (38-126) U/L Assessment and Plan Assessment: 1. Osteoarthritis of the left knee: Status post left total knee arthroplasty. Continue Lovenox for DVT prophylaxis. Continue pain medication per orthopedic protocol. She does have pain pump. 2. Small abscess right arm: Continue Keflex. This was started outpatient.. 3. Essential hypertension 4. Hyperlipidemia 5. Iron deficiency anemia continue iron supplement. Possibly some expected acute blood loss anemia due to surgery. Hemoglobin 10.6 6. Diabetes mellitus type 2 resume glipizide and metformin and sliding scale coverage. A1c pending 7. Chronic kidney disease, stage II. Baseline creatinine 1.4 GI prophylaxis Pepcid Anticipate discharge home tomorrow I performed an examination of the patient and discussed their management with the physician Utility Tractor Operator. I have reviewed the Physician Utility Tractor Operator's notes and agree with the documented findings and plan of care
[2018-02-17 16:33] LABS: Glucose,Whole Blood 170 mg/dL (75-99)
[2018-02-17 17:15] LABS: Hemoglobin A1C 6.4 % (4.0-6.0)
[2018-02-17] MEDS: HYDROcodone/APAP 7.5-325MG 1 EACH TAB PO PRN (17:47)
[2018-02-17 19:39] LABS: Glucose,Whole Blood 131 mg/dL (75-99)
[2018-02-17] MEDS: SENNOSIDES-DOCUSATE SODIUM 1 EACH TAB PO SCH (21:27)
[2018-02-18] MEDS: HYDROcodone/APAP 7.5-325MG 1 EACH TAB PO PRN ×3 (00:07→14:16)
[2018-02-18] MEDS: SODIUM CHLORIDE 0.9% 1,000 ML IV SCH ×2 (02:37→09:41)
[2018-02-18] MEDS: HYDROmorphone 1 MG/ML 1 ML SYRINGE IVP PRN ×2 (03:54→10:43)
[2018-02-18] MEDS: LACTATED RINGERS 1,000 ML IV SCH (04:45)
--- NOTE | 2018-02-18 05:48 | P.PN ---
Progress Note - Text Progress Note Date: 02/18/18 The patient is doing well status post total knee replacement. Pain is well controlled by a combination of local anesthetic infusion through the adductor canal catheter and oral analgesics. There are no signs of infection around the catheter skin entry site. The local anesthetic infusion will be continued as per protocol.
[2018-02-18 07:09] LABS: Glucose,Whole Blood 70 mg/dL (75-99)
[2018-02-18 07:24] LABS: Glucose,Whole Blood 78 mg/dL (75-99)
[2018-02-18 07:38] VITALS: RESP 16
[2018-02-18] MEDS: INSULIN ASPART 100 UNIT/ML 1 ML 10 ML VIAL SQ SCH ×2 (07:38→13:12)
[2018-02-18] MEDS: glipiZIDE 5 MG TAB PO SCH (07:38)
[2018-02-18] MEDS: metFORMIN 500 MG TAB PO SCH (07:38)
[2018-02-18 07:45] LABS: Basophils % (A) 0 %; Eosinophils # (A) 0.1 k/uL (0-0.7); Eosinophils % (A) 1 %; HCT 33.6 % (34.0-46.0); HGB 10.3 gm/dL (11.4-16.0); Lymphocytes # (A) 1.4 k/uL (1.0-4.8); Lymphocytes % (A) 17 %; MCH 30.9 pg (25.0-35.0); MCHC 30.7 g/dL (31.0-37.0); MCV 100.7 fL (80.0-100.0); Mean Platelet Volume 7.2; Monocytes # (A) 0.6 k/uL (0-1.0); Monocytes % (A) 8 %; Neutrophils % (A) 73 %; Platelet Count 262 k/uL (150-450); RBC 3.34 m/uL (3.80-5.40); RDW 13.5 % (11.5-15.5); WBC 8.3 k/uL (3.8-10.6)
[2018-02-18 07:56] LABS: Albumin 3.8 g/dL (3.5-5.0); Calcium 9.8 mg/dL (8.4-10.2); Potassium 4.6 mmol/L (3.5-5.1); Total Bilirubin 0.8 mg/dL (0.2-1.3); Total Protein 6.9 g/dL (6.3-8.2)
[2018-02-18] MEDS: hydrALAZINE HCL 25 MG TAB PO SCH (08:04)
[2018-02-18] MEDS: FAMOTIDINE 20 MG TAB PO SCH (08:04)
[2018-02-18] MEDS: ENOXAPARIN 30 MG/0.3 ML SYRINGE SQ SCH (08:04)
[2018-02-18] MEDS: FERROUS SULFATE 325 MG TAB PO SCH (08:04)
[2018-02-18] MEDS: FENOFIBRATE 160 MG TAB PO SCH (08:05)
[2018-02-18] MEDS: amLODIPine 10 MG TAB PO SCH (08:05)
[2018-02-18] MEDS: CEPHALEXIN 500 MG CAP PO SCH (08:05)
--- NOTE | 2018-02-18 10:42 | P.PN ---
Subjective Progress Note Date: 02/18/18 Principal diagnosis: Status post left total knee arthroplasty Patient seen today resting in her hospital bed. Pain is improved with increasing oral pain medication. She is walking more therapy. She denies any headaches, lightheadedness, chest pain or shortness of breath. Objective - Vital Signs Vital signs: Vital Signs Temp 100 F H 02/18/18 07:00 Pulse 97 02/18/18 07:00 Resp 16 02/18/18 07:00 BP 157/83 02/18/18 07:00 Pulse Ox 97 02/18/18 07:00 Intake & Output 02/17/18 02/18/18 02/18/18 18:59 06:59 18:59 Intake Total 540 Balance 540 Intake: Oral 540 Other: Voiding Method Bedside Commode # Voids 2 2 # Bowel Movements 0 - Exam Left lower extremity: Incision is clean, dry, and intact. The prineo tape is in good condition. There is minimal soft tissue swelling and ecchymosis surrounding the medial and lateral aspects of the incision. Calf is soft, no tenderness with palpation. Plantar flexion, dorsiflexion, EHL, FHL are intact. Sensory exam to light touch throughout the extremity is intact, dorsal pedis pulses 2+. - Labs CBC & Chem 7: 02/18/18 07:05 02/18/18 07:05 Labs: Abnormal Lab Results - Last 24 Hours (Table) 02/17/18 02/17/18 02/17/18 Range/Units 07:40 11:42 16:28 RBC (3.80-5.40) m/uL Hgb (11.4-16.0) gm/dL Hct (34.0-46.0) % MCV (80.0-100.0) fL MCHC (31.0-37.0) g/dL POC Glucose (mg/dL) 153 H 170 H (75-99) mg/dL Hemoglobin A1c 6.4 H (4.0-6.0) % AST (14-36) U/L 02/17/18 02/18/18 02/18/18 Range/Units 19:37 07:05 07:05 RBC 3.34 L (3.80-5.40) m/uL Hgb 10.3 L (11.4-16.0) gm/dL Hct 33.6 L (34.0-46.0) % MCV 100.7 H (80.0-100.0) fL MCHC 30.7 L (31.0-37.0) g/dL POC Glucose (mg/dL) 131 H (75-99) mg/dL Hemoglobin A1c (4.0-6.0) % AST 37 H (14-36) U/L 02/18/18 Range/Units 07:05 RBC (3.80-5.40) m/uL Hgb (11.4-16.0) gm/dL Hct (34.0-46.0) % MCV (80.0-100.0) fL MCHC (31.0-37.0) g/dL POC Glucose (mg/dL) 70 L (75-99) mg/dL Hemoglobin A1c (4.0-6.0) % AST (14-36) U/L Assessment and Plan Plan: Assessment: Post op day #2 status post left total knee arthroplasty Plan: Pain control, plan for discharge on [place] 7.5 mg/325 mg GI and DVT prophylaxis, aspirin 325 mg twice a day at discharge Daily dressing changes/ice and elevate Continue work with physical therapy and use of the CPM machine Medical recommendations Encouraged incentive spirometer Discharge planning: Discharged home today Time with Patient: Less than 30
--- NOTE | 2018-02-18 10:46 | P.DS ---
Providers Date of admission: 02/16/18 05:33 Expected date of discharge: 02/18/18 Attending physician: Zay Williamson Consults: 02/16/18 09:45 Consult Physician Routine Consulting Provider: Nini Payton Consult Reason/Comments: Medical management Do you want consulting provider notified?: Yes Primary care physician: Sissy Starr Hospital Course: Date of admission: 02/16/2018 Date of discharge: 02/18/2018 Admission diagnosis: Status post left total knee arthroplasty Discharge diagnosis: Same Attending physician: Dr. Williamson Surgical procedures: Left total knee arthroplasty Brief history: Patient is a 72-year-old female with a history of progressive primary left knee osteoarthritis. At this point patient has failed conservative treatment measures and has opted to proceed with a elective left total knee arthroplasty. Hospital course: Details of patient's surgery can be found in operative report. Patient tolerated the procedure well and was subsequently transported to orthopedic floor. Patient's orthopeidc and medical care was provided daily. Patient had daily laboratory tests performed for evaluation of overall blood counts. Patient had daily physical therapy to include strengthening range of motion as well as education with walker ambulation. Patient had daily CPM usage as part of their physical therapy program. Patient was treated with Lovenox for their postoperative DVT prophylaxis during their inpatient stay. Patient was noted to have a relatively uneventful postoperative course. Patient reported satisfactory pain control with oral pain medications by postoperative day 0. Patient showed satisfactory progress with physical therapy. Patient moved steadily through the program and had no difficulty meeting the goals by postoperative day 2. Given patient's otherwise satisfactory course and having met physical therapy goals, plan is to discharge patient home on postoperative day 2. Discharge condition/disposition: Patient will be discharged home in stable condition. Discharge medications: Instructions are given on resumption of patient's normal daily medications per primary care recommendation, in addition patient will be prescribed [place] 7.5 mg/325 mg, aspirin 325 mg. Discharge instructions: 1. Wound care and infection precautions, keep incision dry and covered while showering, no lotions, creams, moisturizers. No soaking, tubs, pools, hottubs. Do not scrub over the incision. 2. Weight-bear as tolerated with walker / cane until follow-up. 3. Ice and elevate when necessary. Do not exceed 20 minutes per hour with ice pack. 4. Utilize compression sleeve until seen at first follow up appointment. 5. Visiting nursing care. 6. Home physical therapy including home CPM. 7. Pain meds and anticoagulants per prescription. 8. Pain medication has potential to cause constipation. Increase oral fluid and fiber intake. Contact primary care provider if you have not had a bowel movement within 48 hours after discharge 9. No anti-inflammatory medication until discussed at first post operative visit, this including Motrin, Aleve, Mobic, Diclofenac. 10. Follow up in office at 2 weeks postop with Nate Rawls PA-C 11. Follow up with your primary care doctor 7-10 days after discharge. 12. Contact [facility] with any questions, . Procedures: Left total knee arthroplasty Patient Condition at Discharge: Good Plan - Discharge Summary Discharge Rx Participant: Yes New Discharge Prescriptions: New Aspirin 325 mg PO BID #60 tab HYDROcodone/APAP 7.5-325MG [[place] 7.5] 1 - 2 each PO Q6HR PRN #56 tab PRN Reason: Pain No Action Fenofibrate Nanocrystallized [Tricor] 145 mg PO DAILY metFORMIN HCL [Glucophage] 500 mg PO BID amLODIPine [Norvasc] 10 mg PO DAILY Ferrous Sulfate [Feosol] 325 mg PO BID glipiZIDE [Glucotrol] 5 mg PO BID Acetaminophen [Tylenol] 650 mg PO Q4H PRN PRN Reason: Pain Cephalexin [Keflex] 1,000 mg PO Q12HR hydrALAZINE HCL 25 mg PO DAILY Famotidine 40 mg PO DAILY Discharge Medication List Fenofibrate Nanocrystallized [Tricor] 145 mg PO DAILY 11/16/14 [History] metFORMIN HCL [Glucophage] 500 mg PO BID 11/16/14 [History] Ferrous Sulfate [Feosol] 325 mg PO BID 02/20/16 [History] amLODIPine [Norvasc] 10 mg PO DAILY 02/20/16 [History] glipiZIDE [Glucotrol] 5 mg PO BID 06/06/17 [History] Acetaminophen [Tylenol] 650 mg PO Q4H PRN 02/05/18 [History] Cephalexin [Keflex] 1,000 mg PO Q12HR 02/16/18 [History] Famotidine 40 mg PO DAILY 02/16/18 [History] hydrALAZINE HCL 25 mg PO DAILY 02/16/18 [History] Aspirin 325 mg PO BID #60 tab 02/18/18 [Rx] HYDROcodone/APAP 7.5-325MG [[place] 7.5] 1 - 2 each PO Q6HR PRN #56 tab 02/18/18 [ Rx] Follow up Appointment(s)/Referral(s): [facility], [NON-STAFF] - John Rawls PAC [PHYSICIAN SCIENTIFIC RESEARCH ASSOCIATE] - 2 Weeks Activity/Diet/Wound Care/Special Instructions: Orthopedic Discharge Instructions: 1. Wound care and infection precautions, keep incision dry and covered while showering, no lotions, creams, moisturizers. No soaking, pools, hot tubs. Do not scrub over incision. 2. Weight-bear as tolerated with walker / cane until follow-up. 3. Ice and elevate when necessary. Do not exceed 20 minutes per hour with ice pack. 4. Utilize compression sleeve until seen at first follow up appointment. 5. Pain meds and anticoagulants per prescription. 6. Pain medication has potential to cause constipation. Increase oral fluid and fiber intake. Contact primary care provider if you have not had a bowel movement within 48 hours after discharge. 7. No anti-inflammatory medication until discussed at first post operative visit, this including Motrin, Aleve, Mobic, Diclofenac. 8. Follow up in office at 2 weeks postop with Nate Rawls PA-C 9. Follow up with your primary care doctor 7-10 days after discharge. 10. Contact [facility] with any questions, [phone]. 11. Please call [facility] once home to arrange delivery of CPM and commode: [phone], walker will be delivered to bedside. Discharge Disposition: HOME WITH HOME HEALTH SERVICES
[2018-02-18 11:38] LABS: Glucose,Whole Blood 157 mg/dL (75-99)
[2018-02-18] MEDS: MULTIVITAMINS, THERA 1 EACH TAB PO SCH (13:12)
[2018-02-18] MEDS ORDERED: HYDROmorphone 2 MG TAB PO PRN ×3 (13:24→13:25)
[2018-02-18 14:26] VITALS: BP 146/75; PULSE 94; TEMP 99.4
--- NOTE | 2018-02-18 14:32 | P.PN ---
Subjective Progress Note Date: 02/18/18 This is a 72-year-old female, patient of [facility]. She has a known past medical history of hypertension, diabetes mellitus, hyperlipidemia and iron deficiency anemia. Patient underwent a left total knee arthroplasty today for her left knee arthritis. Estimated blood loss 50 mL. No complications. She is reporting pain in that left knee. She just received pain medication and does have a pain pump. Prior to admission patient was treated for a small abscess on the right shoulder she been undergoing antibiotic treatment with Keflex. She had received 2 out of 10 days of the antibiotic. She is on here for postop antibiotics. We'll continue those and then restart Keflex by mouth tomorrow. Patient denies any chest pain or shortness of breath. Denies any nausea or vomiting. Denies any bowel movement changes or urinary symptoms. 02/17/2018 patient reporting left knee pain. She has been receiving pain medication. The planning discharge home tomorrow. Hemoglobin 10.6. She denies any chest pain or shortness breath. Did report some nausea earlier this morning now resolved. Denies any bowel movement changes or urinary symptoms On 02/18/2018 patient states pain is improving. Patient planning to be discharged home today. Patient has been cleared for discharge from orthopedic services. Patient having temperature of 100.2 this a.m. Patient was getting treated outpatient for small abscess on right upper arm . Left knee incision site is clean dry and intact with no signs of infection. Patient denies any shortness of breath or cough. Patient denies any upper respiratory symptoms. Patient denies nausea vomiting or diarrhea. Patient denies any urinary burning or frequency. Will obtain urinary analysis prior to discharge. We'll give patient 1 dose of Rocephin prior to discharge patient to finish home Keflex antibiotic. Patient instructed to check temperature at home and is elevated to notify primary care provider immediately. Objective - Vital Signs Vital signs: Vital Signs Temp 100 F H 02/18/18 07:00 Pulse 97 02/18/18 07:00 Resp 16 02/18/18 07:00 BP 157/83 02/18/18 07:00 Pulse Ox 97 02/18/18 07:00 Intake & Output 02/17/18 02/18/18 02/18/18 18:59 06:59 18:59 Intake Total 540 540 Balance 540 540 Intake: Oral 540 540 Other: Voiding Method Bedside Commode # Voids 2 2 2 # Bowel Movements 0 - Exam Head normocephalic Neck supple Lungs clear to auscultation bilaterally no wheezing or crackles Heart regular rate and rhythm S1-S2, no rub or gallop Abdomen is soft nontender nondistended positive bowel sounds no hepatosplenomegaly Extremities no edema Neuro alert and orientated to 3 - Labs CBC & Chem 7: 02/18/18 07:05 02/18/18 07:05 Labs: Abnormal Lab Results - Last 24 Hours (Table) 02/17/18 02/17/18 02/17/18 Range/Units 07:40 16:28 19:37 RBC (3.80-5.40) m/uL Hgb (11.4-16.0) gm/dL Hct (34.0-46.0) % MCV (80.0-100.0) fL MCHC (31.0-37.0) g/dL POC Glucose (mg/dL) 170 H 131 H (75-99) mg/dL Hemoglobin A1c 6.4 H (4.0-6.0) % AST (14-36) U/L 02/18/18 02/18/18 02/18/18 Range/Units 07:05 07:05 07:05 RBC 3.34 L (3.80-5.40) m/uL Hgb 10.3 L (11.4-16.0) gm/dL Hct 33.6 L (34.0-46.0) % MCV 100.7 H (80.0-100.0) fL MCHC 30.7 L (31.0-37.0) g/dL POC Glucose (mg/dL) 70 L (75-99) mg/dL Hemoglobin A1c (4.0-6.0) % AST 37 H (14-36) U/L 02/18/18 Range/Units 11:36 RBC (3.80-5.40) m/uL Hgb (11.4-16.0) gm/dL Hct (34.0-46.0) % MCV (80.0-100.0) fL MCHC (31.0-37.0) g/dL POC Glucose (mg/dL) 157 H (75-99) mg/dL Hemoglobin A1c (4.0-6.0) % AST (14-36) U/L Assessment and Plan Assessment: 1. Osteoarthritis of the left knee: Status post left total knee arthroplasty. Continue Lovenox for DVT prophylaxis. Continue pain medication per orthopedic protocol. She does have pain pump. 2. Small abscess right arm: Continue Keflex. This was started outpatient.. 3. Essential hypertension 4. Hyperlipidemia 5. Iron deficiency anemia continue iron supplement. Possibly some expected acute blood loss anemia due to surgery. Hemoglobin 10.6. Continue for ferrous sulfate 6. Diabetes mellitus type 2 resume glipizide and metformin and sliding scale coverage. A1c pending 7. Chronic kidney disease, stage II. Baseline creatinine 1.4 8. Febrile. Patient having temp 100.2. White Blood cell 8.3 Left knee incision site is clean dry and intact with no signs of infection. Patient reports no other complaints at this time. Will administer 1 dose of Rocephin prior to discharge. We'll obtain urinary analysis. Patient educated on checking temp and if temp is elevated patient to report to primary care provider immediately. Patient will have ELIE visiting nurses to monitor temp and incision site I performed an examination of the patient and discussed their management with the Nurse Practitioner. I have reviewed the Nurse Practitioner's notes and agree with the documented findings and plan of care
[2018-02-18] MEDS: ONDANSETRON 4 MG/2 ML VIAL IVP PRN (15:29)
[2018-02-18 16:19] LABS: Appearance,Urine Clear (Clear); Bilirubin,Urine Negative (Negative); Blood,Urine Negative (Negative); Color,Urine Yellow; Glucose,Urine (UA) Negative (Negative); Ketones,Urine Trace (Negative); Leukocyte Esterase,Urine Negative (Negative); Nitrite,Urine Negative (Negative); PH, Urine 5.5 (5.0-8.0); Protein,Urine Trace (Negative); Specific Gravity,Urine 1.017 (1.001-1.035)
== END 2018-02-18 16:48 | disposition home health service (06) | DRG 470 ==
LOC: 2ORMAIN 05:33 → 3SUR 09:59
PROVIDERS: ADMIT Orthopaedic Surgery; ATTEND Orthopaedic Surgery
PROC: 0SRD0J9 Replacement of Left Knee Joint with Synthetic Substitute, Cemented, Open Approach (ICD-10-PCS; principal; 2018-02-16 07:30)
DX: M17.12 Unilateral primary osteoarthritis, left knee (principal); E11.22 Type 2 diabetes mellitus with diabetic chronic kidney disease; I34.1 Nonrheumatic mitral (valve) prolapse; I12.9 Hypertensive chronic kidney disease with stage 1 through stage 4 chronic kidney disease, or unspecified chronic kidney disease; N18.2 Chronic kidney disease, stage 2 (mild); E78.5 Hyperlipidemia, unspecified; D50.9 Iron deficiency anemia, unspecified; K21.9 Gastro-esophageal reflux disease without esophagitis; G43.909 Migraine, unspecified, not intractable, without status migrainosus; I83.90 Asymptomatic varicose veins of unspecified lower extremity; M54.9 Dorsalgia, unspecified; G89.29 Other chronic pain; Z79.82 Long term (current) use of aspirin; Z79.84 Long term (current) use of oral hypoglycemic drugs; Z79.899 Other long term (current) drug therapy; Z90.710 Acquired absence of both cervix and uterus; Z87.891 Personal history of nicotine dependence; Z88.5 Allergy status to narcotic agent; Z88.8 Allergy status to other drugs, medicaments and biological substances; Z84.89 Family history of other specified conditions; Z83.2 Family history of diseases of the blood and blood-forming organs and certain disorders involving the immune mechanism; Z82.49 Family history of ischemic heart disease and other diseases of the circulatory system; Z80.9 Family history of malignant neoplasm, unspecified
CPT/HCPCS: 80053; 81003; 83036; 85025; 88300; 94760

== ENCOUNTER → 2018-02-25 | Outpatient (CLI) | payer MEDICARE, OTHER ==
--- NOTE | 2018-02-25 12:04 | US ---
EXAMINATION TYPE: US venous doppler duplex LE LT DATE OF EXAM: 02/25/2018 11:16 AM COMPARISON: US 09/16/2017 CLINICAL HISTORY: R60.9 edema of left lower extremity. Hx left knee surgery 2 weeks ago. SIDE PERFORMED: Left TECHNIQUE: The lower extremity deep venous system is examined utilizing real time linear array sonog candida with graded compression, doppler sonography and color-flow sonography. VESSELS IMAGED: External Iliac Vein (EIV) Common Femoral Vein Deep Femoral Vein Greater Saphenous Vein * Femoral Vein Popliteal Vein Small Saphenous Vein * Proximal Calf Veins (* superficial vessels) Left Leg: Negative for DVT Left popliteal space shows complex fluid collection = 2.2 x 1.3 x 1.3 cm. May be previous bakers cyst . This appears complex which appeared more simple on previous exam IMPRESSION: 1. Left lower extremity ultrasound negative for deep venous thrombosis. 2. Left popliteal cyst complex appears currently but similar in size to previous exam.
== END | disposition home or self-care (01) ==
LOC: RADUSWWP 10:46
PROVIDERS: ATTEND Family Medicine
DX: M71.22 Synovial cyst of popliteal space [Baker], left knee (principal); M79.89 Other specified soft tissue disorders

== ENCOUNTER 2018-07-12 11:05 | Inpatient (IN) | payer MEDICARE, OTHER ==
[2018-07-12] MEDS ORDERED: SODIUM CHLORIDE 0.9% 1,000 ML IV ONE (11:14)
[2018-07-12] MEDS ORDERED: ACETAMINOPHEN TAB 500 MG TAB PO STA (11:23)
[2018-07-12] MEDS ORDERED: IPRATROPIUM-ALBUTEROL 3 ML NEB INHALATION STA ×2 (11:25→13:13)
[2018-07-12 12:44] LABS: Basophils % (A) 0 %; Eosinophils # (A) 0.1 k/uL (0-0.7); Eosinophils % (A) 2 %; HCT 33.9 % (34.0-46.0); HGB 11.1 gm/dL (11.4-16.0); Lymphocytes # (A) 0.9 k/uL (1.0-4.8); Lymphocytes % (A) 14 %; MCHC 32.8 g/dL (31.0-37.0); MCV 94.3 fL (80.0-100.0); Mean Platelet Volume 7.2; Monocytes # (A) 0.3 k/uL (0-1.0); Monocytes % (A) 5 %; Neutrophils # (A) 4.7 k/uL (1.3-7.7); Neutrophils % (A) 76 %; Platelet Count 253 k/uL (150-450); RBC 3.59 m/uL (3.80-5.40); WBC 6.1 k/uL (3.8-10.6)
--- NOTE | 2018-07-12 12:50 | XR ---
EXAMINATION TYPE: XR chest 2V DATE OF EXAM: 07/12/2018 COMPARISON: 06/10/2017 HISTORY: Shortness of breath TECHNIQUE: Frontal and lateral views of the chest are obtained. FINDINGS: Scattered senescent parenchymal changes noted. Hyperinflation compatible with COPD. There is peribronchial cuffing which can be seen in patients with asthma. Mild patchy density right i nfrahilar region may reflect developing infiltrate. Correlate clinically. Heart size is stable. Mediastinal structures are stable and grossly unremarkable. No evidence for hilar prominence. Degenerative changes dorsal spine. IMPRESSION: 1. There is peribronchial cuffing which can be seen in patients with asthma. Mild patchy density righ t infrahilar region may reflect developing infiltrate. Correlate clinically.
[2018-07-12 12:55] LABS: Albumin 4.5 g/dL (3.5-5.0); Calcium 9.9 mg/dL (8.4-10.2); Potassium 4.8 mmol/L (3.5-5.1); Total Bilirubin 0.6 mg/dL (0.2-1.3); Total Protein 7.9 g/dL (6.3-8.2)
--- NOTE | 2018-07-12 13:02 | ED ---
General Adult HPI - General Chief complaint: Shortness of Breath Stated complaint: Cough,vomiting Time Seen by Provider: 07/12/18 11:13 Source: patient Mode of arrival: wheelchair Limitations: no limitations - History of Present Illness Initial comments: 72-year-old female past medical history of hypertension hyperlipidemia presenting today for chief complaint of cough, fever, shortness of breath. Patient states the past week she has had a dry cough and some mild shortness of breath. She states she began to develop a fever over the past week and has been taking Tylenol for treatment. Patient states she is also had chills and rigors. She states she has increased phlegm production for the past week that is white. Patient states she has pain in the center her chest that increases with cough, or deep breaths. Patient denies hemoptysis. Pt does admit to left LE edema, that seems to have increased over the past few weeks, but was present after her left knee surgery 5 months ago. Patient states that she was seen by her primary care provider last week and was prescribed monteleukast as well as Tessalon Perles. Patient states this has not helped alleviate symptoms. Patient states when symptoms persisted today she presented for evaluation, including worsening SOB. Patient denies any recent back pain, abdominal pain, nausea , numbness or tingling, dysuria or hematuria, constipation or diarrhea, headaches or visual changes, or any other complaints. - Related Data Home Medications Medication Instructions Recorded Confirmed Fenofibrate Nanocrystallized 145 mg PO DAILY 11/16/14 07/12/18 [Tricor] metFORMIN HCL [Glucophage] 500 mg PO BID 11/16/14 07/12/18 Ferrous Sulfate [Feosol] 325 mg PO BID 02/20/16 07/12/18 amLODIPine [Norvasc] 10 mg PO DAILY 02/20/16 07/12/18 glipiZIDE [Glucotrol] 5 mg PO BID 06/06/17 07/12/18 Famotidine 40 mg PO DAILY 02/16/18 07/12/18 hydrALAZINE HCL 25 mg PO DAILY 02/16/18 07/12/18 Aspirin EC [Ecotrin Low Dose] 81 mg PO DAILY 07/12/18 07/12/18 Benzonatate [Tessalon Perles] 100 mg PO Q6H PRN 07/12/18 07/12/18 Montelukast [Singulair] 10 mg PO HS 07/12/18 07/12/18 Allergies Allergy/AdvReac Type Severity Reaction Status Date / Time diflunisal [From Dolobid] Allergy Anaphylaxis Verified 07/12/18 11:29 hydrochlorothiazide Allergy Swelling Verified 07/12/18 11:29 [From Zestoretic] of face and throat ibuprofen [From Motrin] Allergy Abdominal Verified 07/12/18 11:29 Pain Iodine and Iodide Containing Allergy Anaphylaxis Verified 07/12/18 11:29 Produc lisinopril Allergy Rash/Hives Verified 07/12/18 11:29 morphine Allergy Rash/Hives Verified 07/12/18 11:29 prednisone Allergy Rash/Hives Verified 07/12/18 11:29 sulfamethoxazole Allergy Anaphylaxis Verified 07/12/18 11:29 [From Bactrim] tramadol Allergy Rash/Hives Verified 07/12/18 11:29 trimethoprim [From Bactrim] Allergy Anaphylaxis Verified 07/12/18 11:29 baclofen AdvReac Unknown LOW HEART Verified 07/12/18 11:29 RATE NSAIDS (Non-Steroidal AdvReac Unknown TOLD TO Verified 07/12/18 11:29 Anti-Inflamma AVOID NSAIDS DUE TO ABDOMINAL PAIN ondansetron AdvReac Itching Verified 07/12/18 11:29 [From Zofran (as hydrochloride)] Review of Systems ROS Statement: Those systems with pertinent positive or pertinent negative responses have been documented in the HPI. ROS Other: All systems not noted in ROS Statement are negative. Past Medical History Past Medical History: Diabetes Mellitus, GERD/Reflux, Hyperlipidemia, Hypertension, Mitral Valve Prolapse (MVP), Osteoarthritis (OA) Additional Past Medical History / Comment(s): Migraines. Anemia. Varicose Veins. CHRONIC Back Pain History of Any Multi-Drug Resistant Organisms: None Reported Past Surgical History: Back Surgery, Hysterectomy, Tonsillectomy Additional Past Surgical History / Comment(s): 3 HERNIATED DISK REPAIRS, PLATE AT L4 AND L5, rt temporal artery removed, ovarian cysts removed, pilonidal cyst, Past Anesthesia/Blood Transfusion Reactions: Family Hisory of Malignant Hyperthermia Additional Past Anesthesia/Blood Transfusion Reaction / Comment(s): daughter had reaction to anesthesia age 7 with tonsilectomy called "chocolate anesthesia " per pt. "she had a rash and high fever of 105". daughter has had surgeries since with no problems. Past Psychological History: No Psychological Hx Reported Smoking Status: Former smoker Past Alcohol Use History: None Reported Past Drug Use History: None Reported - Past Family History Sister(s) Family Medical History: Cancer, Deep Vein Thrombosis (DVT) Brother(s) Family Medical History: Deep Vein Thrombosis (DVT) Father Family Medical History: Cancer, Deep Vein Thrombosis (DVT) Additional Family Medical History / Comment(s): [employer] Mother Family Medical History: Deep Vein Thrombosis (DVT) Additional Family Medical History / Comment(s): PACEMAKER General Exam - General Exam Comments Initial Comments: General: The patient is awake and alert, in no distress. Pt appears mildly SOB , no respiratory distress. Eye: Pupils are equal, round and reactive to light, extra-ocular movements are intact. No nystagmus. There is normal conjunctiva bilaterally. No signs of icterus. Ears, nose, mouth and throat: There are moist mucous membranes and no oral lesions. Neck: The neck is supple, there is no tenderness or JVD. Cardiovascular: There is a regular rate and rhythm. No murmur, rub or gallop is appreciated. Respiratory: Respirations are non-labored, breath sounds are equal. Moderate wheeze, some rhonchi. Clear lung bases. Cough on exam. Gastrointestinal: Soft, non-distended, non-tender abdomen without masses or organomegaly noted. There is no rebound or guarding present. No CVA tenderness. Bowel sounds are unremarkable. Musculoskeletal: Normal ROM, no tenderness. Strength 5/5. Sensation intact. DP and radial pulses equal bilaterally 2+. Neurological: A&O x 3. CN II-XII intact, There are no obvious motor or sensory deficits. Coordination appears grossly intact. Speech is normal. Skin: Skin is warm and dry and no rashes or lesions are noted. LE edema L>R. Tenderness to palpation of left calf. Incisional scar left anterior knee midline , healed. (-) Homans right. Psychiatric: Cooperative, appropriate mood & affect, normal judgment. Limitations: no limitations Course Vital Signs 07/12/18 07/12/18 07/12/18 11:09 11:53 11:57 Temperature 101.1 F H Pulse Rate 71 77 81 Respiratory 22 22 Rate Blood Pressure 144/71 O2 Sat by Pulse 98 98 Oximetry 07/12/18 07/12/18 07/12/18 12:00 12:08 12:14 Temperature Pulse Rate 72 89 98 Respiratory 11 L 20 Rate Blood Pressure 156/75 156/75 O2 Sat by Pulse 100 98 Oximetry 07/12/18 07/12/18 07/12/18 12:30 13:00 13:11 Temperature 99.6 F Pulse Rate 92 86 93 Respiratory 27 H 20 20 Rate Blood Pressure 156/75 156/75 139/78 O2 Sat by Pulse 99 94 L 98 Oximetry 07/12/18 07/12/18 07/12/18 13:30 14:00 14:09 Temperature Pulse Rate 96 85 87 Respiratory 18 20 Rate Blood Pressure 139/78 133/74 O2 Sat by Pulse 94 L 100 Oximetry 07/12/18 07/12/18 07/12/18 14:30 15:00 16:09 Temperature Pulse Rate 100 105 H 105 H Respiratory 19 22 20 Rate Blood Pressure 142/65 166/83 152/86 O2 Sat by Pulse 96 96 99 Oximetry - Reevaluation(s) Reevaluation #1: Continued wheeze following initial duoneb will repeat Reevaluation #2: Pt complaining of chest pressure, EKG repeats, redrawn Troponin, occult blood obtained. Discussed case with attending provider. 07/12/18 14:30 Reevaluation #3: Pt evaluated by attending provider Dr. French. Pt given morphine, placed on maintenance fluids. 07/12/18 15:20 EKG Findings - EKG Comments: EKG Findings:: Initial EKG: A 12-lead EKG was performed and shows the following : Rate is 65bpm, and rhythm is normal sinus. There are normal QRS complexes and normal R-wave progression. ST segments have no elevation or depression, and OK segments appear normal. Repeat EKG 14:44 Revaled rate 110bpm, OK 152, QRS 76, with normal QT/QTc. Nonspecfic T wave abnormalties noted. Both EKG reviewed by attending Dr. French and compared. Medical Decision Making - Medical Decision Making 72yo female presenting for fever, cough, chest pain with inspiration. CXR revealed infiltrates concerning for pneumonia. Pt lung defect of her wheezing and rhonchi on examination. Pt complaining of chest pain. Given RF ACS w/u initiated denied back pain. Pulses equal. No acute distress. Initial EKG nonspp EKG changes. Pt Troponin (-), symptoms ongoing for 2 week, do no appear consistent with typical angina. Pt did have some noted LE edema, awaiting duplex US. Dimer elevated, although low suspicion for PE. Pt VS remain stable. Pt heme occult blood (+) awaiting VQ scan, as pt has low GFR. Will hold high dose for VQ scan with heme occult (+) and more likely source of SOB being CAP. Pt has received 1g ceftriaxone. IV fluid bolus and began on maintenance fluids. 2nd troponin pending. Pt admitted to [facility] for SOB, CAP, chest pain. No further orders at this time. Pt sent to the floor VQ scan was pending, I did review results. Will continue treatment of CAP, most likely pt source of SOB. - Lab Data Result diagrams: 07/12/18 12:15 07/12/18 12:15 Lab Results 07/12/18 07/12/18 07/12/18 Range/Units 12:15 12:15 12:15 WBC 6.1 (3.8-10.6) k/uL RBC 3.59 L (3.80-5.40) m/uL Hgb 11.1 L (11.4-16.0) gm/dL Hct 33.9 L (34.0-46.0) % MCV 94.3 (80.0-100.0) fL MCH 31.0 (25.0-35.0) pg MCHC 32.8 (31.0-37.0) g/dL RDW 15.0 (11.5-15.5) % Plt Count 253 (150-450) k/uL Neutrophils % 76 % Lymphocytes % 14 % Monocytes % 5 % Eosinophils % 2 % Basophils % 0 % Neutrophils # 4.7 (1.3-7.7) k/uL Lymphocytes # 0.9 L (1.0-4.8) k/uL Monocytes # 0.3 (0-1.0) k/uL Eosinophils # 0.1 (0-0.7) k/uL Basophils # 0.0 (0-0.2) k/uL PT (9.0-12.0) sec INR (<1.2) APTT (22.0-30.0) sec D-Dimer (<0.60) mg/L FEU Sodium 140 (137-145) mmol/L Potassium 4.8 (3.5-5.1) mmol/L Chloride 109 H (98-107) mmol/L Carbon Dioxide 21 L (22-30) mmol/L Anion Gap 10 mmol/L BUN 25 H (7-17) mg/dL Creatinine 1.32 H (0.52-1.04) mg/dL Est GFR (CKD-EPI)AfAm 47 (>60 ml/min/1.73 sqM) Est GFR (CKD-EPI)NonAf 40 (>60 ml/min/1.73 sqM) Glucose 119 H (74-99) mg/dL Plasma Lactic Acid Epi (0.7-2.0) mmol/L Calcium 9.9 (8.4-10.2) mg/dL Total Bilirubin 0.6 (0.2-1.3) mg/dL AST 23 (14-36) U/L ALT 28 (9-52) U/L Alkaline Phosphatase 57 (38-126) U/L Troponin I (0.000-0.034) ng/mL NT-Pro-B Natriuret Pep pg/mL Total Protein 7.9 (6.3-8.2) g/dL Albumin 4.5 (3.5-5.0) g/dL Stool Occult Blood (Negative) Influenza Type A RNA Not Detected (Not Detectd) Influenza Type B (PCR) Not Detected (Not Detectd) 07/12/18 07/12/18 07/12/18 Range/Units 12:15 12:15 12:15 WBC (3.8-10.6) k/uL RBC (3.80-5.40) m/uL Hgb (11.4-16.0) gm/dL Hct (34.0-46.0) % MCV (80.0-100.0) fL MCH (25.0-35.0) pg MCHC (31.0-37.0) g/dL RDW (11.5-15.5) % Plt Count (150-450) k/uL Neutrophils % % Lymphocytes % % Monocytes % % Eosinophils % % Basophils % % Neutrophils # (1.3-7.7) k/uL Lymphocytes # (1.0-4.8) k/uL Monocytes # (0-1.0) k/uL Eosinophils # (0-0.7) k/uL Basophils # (0-0.2) k/uL PT (9.0-12.0) sec INR (<1.2) APTT (22.0-30.0) sec D-Dimer 2.29 H (<0.60) mg/L FEU Sodium (137-145) mmol/L Potassium (3.5-5.1) mmol/L Chloride (98-107) mmol/L Carbon Dioxide (22-30) mmol/L Anion Gap mmol/L BUN (7-17) mg/dL Creatinine (0.52-1.04) mg/dL Est GFR (CKD-EPI)AfAm (>60 ml/min/1.73 sqM) Est GFR (CKD-EPI)NonAf (>60 ml/min/1.73 sqM) Glucose (74-99) mg/dL Plasma Lactic Acid Epi 1.2 (0.7-2.0) mmol/L Calcium (8.4-10.2) mg/dL Total Bilirubin (0.2-1.3) mg/dL AST (14-36) U/L ALT (9-52) U/L Alkaline Phosphatase (38-126) U/L Troponin I <0.012 (0.000-0.034) ng/mL NT-Pro-B Natriuret Pep pg/mL Total Protein (6.3-8.2) g/dL Albumin (3.5-5.0) g/dL Stool Occult Blood (Negative) Influenza Type A RNA (Not Detectd) Influenza Type B (PCR) (Not Detectd) 07/12/18 07/12/18 07/12/18 Range/Units 12:15 12:15 15:00 WBC (3.8-10.6) k/uL RBC (3.80-5.40) m/uL Hgb (11.4-16.0) gm/dL Hct (34.0-46.0) % MCV (80.0-100.0) fL MCH (25.0-35.0) pg MCHC (31.0-37.0) g/dL RDW (11.5-15.5) % Plt Count (150-450) k/uL Neutrophils % % Lymphocytes % % Monocytes % % Eosinophils % % Basophils % % Neutrophils # (1.3-7.7) k/uL Lymphocytes # (1.0-4.8) k/uL Monocytes # (0-1.0) k/uL Eosinophils # (0-0.7) k/uL Basophils # (0-0.2) k/uL PT 9.8 (9.0-12.0) sec INR 0.9 (<1.2) APTT 22.2 (22.0-30.0) sec D-Dimer (<0.60) mg/L FEU Sodium (137-145) mmol/L Potassium (3.5-5.1) mmol/L Chloride (98-107) mmol/L Carbon Dioxide (22-30) mmol/L Anion Gap mmol/L BUN (7-17) mg/dL Creatinine (0.52-1.04) mg/dL Est GFR (CKD-EPI)AfAm (>60 ml/min/1.73 sqM) Est GFR (CKD-EPI)NonAf (>60 ml/min/1.73 sqM) Glucose (74-99) mg/dL Plasma Lactic Acid Epi (0.7-2.0) mmol/L Calcium (8.4-10.2) mg/dL Total Bilirubin (0.2-1.3) mg/dL AST (14-36) U/L ALT (9-52) U/L Alkaline Phosphatase (38-126) U/L Troponin I (0.000-0.034) ng/mL NT-Pro-B Natriuret Pep 238 pg/mL Total Protein (6.3-8.2) g/dL Albumin (3.5-5.0) g/dL Stool Occult Blood Positive H (Negative) Influenza Type A RNA (Not Detectd) Influenza Type B (PCR) (Not Detectd) 07/12/18 Range/Units 15:05 WBC (3.8-10.6) k/uL RBC (3.80-5.40) m/uL Hgb (11.4-16.0) gm/dL Hct (34.0-46.0) % MCV (80.0-100.0) fL MCH (25.0-35.0) pg MCHC (31.0-37.0) g/dL RDW (11.5-15.5) % Plt Count (150-450) k/uL Neutrophils % % Lymphocytes % % Monocytes % % Eosinophils % % Basophils % % Neutrophils # (1.3-7.7) k/uL Lymphocytes # (1.0-4.8) k/uL Monocytes # (0-1.0) k/uL Eosinophils # (0-0.7) k/uL Basophils # (0-0.2) k/uL PT (9.0-12.0) sec INR (<1.2) APTT (22.0-30.0) sec D-Dimer (<0.60) mg/L FEU Sodium (137-145) mmol/L Potassium (3.5-5.1) mmol/L Chloride (98-107) mmol/L Carbon Dioxide (22-30) mmol/L Anion Gap mmol/L BUN (7-17) mg/dL Creatinine (0.52-1.04) mg/dL Est GFR (CKD-EPI)AfAm (>60 ml/min/1.73 sqM) Est GFR (CKD-EPI)NonAf (>60 ml/min/1.73 sqM) Glucose (74-99) mg/dL Plasma Lactic Acid Epi (0.7-2.0) mmol/L Calcium (8.4-10.2) mg/dL Total Bilirubin (0.2-1.3) mg/dL AST (14-36) U/L ALT (9-52) U/L Alkaline Phosphatase (38-126) U/L Troponin I <0.012 (0.000-0.034) ng/mL NT-Pro-B Natriuret Pep pg/mL Total Protein (6.3-8.2) g/dL Albumin (3.5-5.0) g/dL Stool Occult Blood (Negative) Influenza Type A RNA (Not Detectd) Influenza Type B (PCR) (Not Detectd) Disposition Clinical Impression: Shortness of breath, Elevated d-dimer, Pneumonia, Chest pain Disposition: ADMITTED IP TO THIS [facility] Condition: Stable Is patient prescribed a controlled substance at d/c from ED?: No Time of Disposition: 15:06 Decision to Admit Reason: Admit from EC Decision Date: 07/12/18 Decision Time: 15:06
[2018-07-12] MEDS ORDERED: FAMOTIDINE 20 MG/2 ML VIAL IV STA (13:25)
[2018-07-12] MEDS ORDERED: diphenhydrAMINE 50 MG/ML 1 ML VIAL IVP STA (13:25)
[2018-07-12] MEDS ORDERED: methylPREDNISolone SOD SUCCI 125 MG/2 ML VIAL IV STA (13:32)
[2018-07-12 15:14] LABS: INR 0.9 (<1.2); Partial Thromboplastin Time 22.2 sec (22.0-30.0); Prothrombin Time 9.8 sec (9.0-12.0)
[2018-07-12] MEDS ORDERED: MORPHINE SULFATE 4 MG/ML SYRINGE IVP STA (15:19)
[2018-07-12] MEDS ORDERED: HYDROcodone/APAP 7.5-325MG 1 EACH TAB PO ONE (15:30)
[2018-07-12] MEDS: SODIUM CHLORIDE 0.9% 1,000 ML IV SCH (15:37)
--- NOTE | 2018-07-12 15:41 | US ---
EXAMINATION TYPE: US venous doppler duplex LE LT DATE OF EXAM: 07/12/2018 2:45 PM COMPARISON: US's CLINICAL HISTORY: Pain. left leg pain and swelling SIDE PERFORMED: Left TECHNIQUE: The lower extremity deep venous system is examined utilizing real time linear array sonog candida with graded compression, doppler sonography and color-flow sonography. VESSELS IMAGED: External Iliac Vein (EIV) Common Femoral Vein Deep Femoral Vein Greater Saphenous Vein * Femoral Vein Popliteal Vein Small Saphenous Vein * Proximal Calf Veins (* superficial vessels) Left Leg: Negative for DVT IMPRESSION: Normal exam.
--- NOTE | 2018-07-12 17:10 | NM ---
EXAMINATION TYPE: NM pul vent and perfuse DATE OF EXAM: 07/12/2018 COMPARISON: NONE HISTORY: TECHNIQUE: Utilizing inhalation of 65.5 mCi Tc 99m DTPA aerosol and intravenous injection of 4.89 mC i of Tc 99m MAA, ventilation and perfusion images are acquired post injection in multiple projections . FINDINGS: There is fairly uniform normal ventilation and perfusion of both lungs. There is no segmental or subs egmental defect. IMPRESSION: Normal exam. There is a very low probability of pulmonary embolism.
[2018-07-12 17:12] LABS: Glucose,Whole Blood 203 mg/dL (75-99)
[2018-07-12] MEDS: BENZONATATE 100 MG CAP PO PRN (18:07)
[2018-07-12] MEDS: FERROUS SULFATE 325 MG TAB PO SCH (18:08)
[2018-07-12] MEDS: metFORMIN 500 MG TAB PO SCH (18:08)
[2018-07-12] MEDS: glipiZIDE 5 MG TAB PO SCH (18:08)
[2018-07-12] MEDS: AZITHROMYCIN 500 MG in SODIUM CHLORIDE 0.9% 250 ML IVPB SCH (18:24)
[2018-07-12 20:54] LABS: Glucose,Whole Blood 311 mg/dL (75-99)
[2018-07-13] MEDS: MONTELUKAST 10 MG TAB PO SCH ×2 (00:28→20:01)
[2018-07-13] MEDS: BENZONATATE 100 MG CAP PO PRN ×2 (00:28→20:00)
[2018-07-13] MEDS: HEPARIN SODIUM,PORCINE 5,000 UNIT/ML 1 ML VIAL SQ SCH ×3 (00:29→20:01)
[2018-07-13] MEDS: hydrALAZINE HCL 25 MG TAB PO SCH (05:20)
[2018-07-13] MEDS ORDERED: SODIUM CHLORIDE 0.65% NASAL SPRAY 44 ML BTL NASAL PRN (05:54)
[2018-07-13] MEDS: HYDROmorphone 0.5 MG/0.5 ML SYRINGE IVP PRN ×3 (06:42→16:41)
[2018-07-13] MEDS: METOPROLOL TARTRATE 25 MG TAB PO SCH (06:43)
[2018-07-13] MEDS: SODIUM CHLORIDE 0.9% 1,000 ML IV SCH ×2 (07:16→17:54)
--- NOTE | 2018-07-13 07:18 | XR ---
EXAMINATION TYPE: XR chest 2V DATE OF EXAM: 07/13/2018 COMPARISON: Chest x-ray from yesterday. HISTORY: Cough and shortness of breath. TECHNIQUE: Frontal and lateral views of the chest are obtained. FINDINGS: There is chronic parenchymal change without suspicious focal air space opacity, pleural ef fusion, or pneumothorax seen. The cardiac silhouette size is stable and enlarged with atherotic aort a. The osseous structures are intact. IMPRESSION: Chronic changes and cardiomegaly without suspicious acute infiltrate on current study.
[2018-07-13 07:20] LABS: Glucose,Whole Blood 144 mg/dL (75-99)
[2018-07-13] MEDS: IPRATROPIUM-ALBUTEROL 3 ML NEB INHALATION PRN ×3 (07:32→15:20)
[2018-07-13] MEDS: glipiZIDE 5 MG TAB PO SCH ×2 (08:04→17:53)
[2018-07-13] MEDS: FERROUS SULFATE 325 MG TAB PO SCH ×2 (08:04→17:53)
[2018-07-13] MEDS: FENOFIBRATE 160 MG TAB PO SCH (08:04)
[2018-07-13] MEDS: ASPIRIN 81 MG PO SCH (08:04)
[2018-07-13] MEDS: metFORMIN 500 MG TAB PO SCH ×2 (08:04→17:53)
[2018-07-13] MEDS: amLODIPine 10 MG TAB PO SCH (08:04)
[2018-07-13] MEDS ORDERED: FAMOTIDINE 20 MG TAB PO SCH (09:00)
[2018-07-13 10:11] LABS: Basophils % (A) 0 %; Eosinophils # (A) 0.1 k/uL (0-0.7); Eosinophils % (A) 1 %; HCT 35.2 % (34.0-46.0); Hypochromasia Slight; Lymphocytes # (A) 0.8 k/uL (1.0-4.8); Lymphocytes % (A) 10 %; MCH 30.5 pg (25.0-35.0); MCHC 31.3 g/dL (31.0-37.0); MCV 97.4 fL (80.0-100.0); Mean Platelet Volume 8.3; Monocytes # (A) 0.4 k/uL (0-1.0); Monocytes % (A) 5 %; Neutrophils # (A) 6.5 k/uL (1.3-7.7); Neutrophils % (A) 83 %; Platelet Count 230 k/uL (150-450); RBC 3.61 m/uL (3.80-5.40); RDW 15.2 % (11.5-15.5); WBC 7.9 k/uL (3.8-10.6)
[2018-07-13 10:14] LABS: Albumin 4.7 g/dL (3.5-5.0); Calcium 10.4 mg/dL (8.4-10.2); Potassium 4.3 mmol/L (3.5-5.1); Total Bilirubin 0.5 mg/dL (0.2-1.3); Total Protein 8.1 g/dL (6.3-8.2)
[2018-07-13 12:14] LABS: Glucose,Whole Blood 302 mg/dL (75-99)
--- NOTE | 2018-07-13 12:28 | P.HPIM ---
History of Present Illness H&P Date: 07/13/18 Chief Complaint: Cough with shortness of breath This is a 72-year-old female with a known past medical history of hypertension, hyperlipidemia, diabetes, chronic kidney disease stage II, iron deficiency anemia and mitral valve prolapse. Patient presents to the emergency room with complaints of productive cough, shortness of breath and fever. Cough that started about 2 weeks ago. Patient reports less couple a days she had increase in chills sweats and fevers. She had a temp of 101.1 on admission. Their concerns of possible pneumonia on chest x-ray she was started on Rocephin and azithromycin. Started on DuoNeb updrafts for wheezing and shortness of breath. Patient does report a prior history of smoking during college. Patient also is having chest pains. Troponins are negative 3. Patient had EKG showing a normal sinus rhythm with sinus arrhythmia and also 1 sinus tachycardia heart rate of 110 and PACs. Patient has been seen evaluated by cardiology. D-dimer was elevated at 2.29. Doppler of the left lower leg was negative for DVT and VQ scan was normal with a low probability of PE. Influenza screen was negative lactic acid is 1.2 and WBC is within normal range. She did have a stool positive for occult blood she is on iron supplements at home. She is had no recent blood in her stools. Last colonoscopy was 3 years ago was reported normal she does report having a history of diverticulosis and peptic ulcer disease. Patient denies any significant bowel movement changes urinary symptoms. She did have one episode of vomiting with her significant cough. She is complaining of a frontal headache and sinus pressure. Review of Systems Please refer to HPI otherwise unremarkable Past Medical History Past Medical History: Diabetes Mellitus, GERD/Reflux, Hyperlipidemia, Hypertension, Mitral Valve Prolapse (MVP), Osteoarthritis (OA) Additional Past Medical History / Comment(s): Migraines. Anemia. Varicose Veins. Chronic Back Pain History of Any Multi-Drug Resistant Organisms: None Reported Past Surgical History: Back Surgery, Hysterectomy, Tonsillectomy Additional Past Surgical History / Comment(s): 3 HERNIATED DISK REPAIRS, PLATE AT L4 AND L5, rt temporal artery removed, ovarian cysts removed, pilonidal cyst , left knee replacement Past Anesthesia/Blood Transfusion Reactions: Family Hisory of Malignant Hyperthermia Additional Past Anesthesia/Blood Transfusion Reaction / Comment(s): daughter had reaction to anesthesia age 7 with tonsilectomy called "chocolate anesthesia " per pt. "she had a rash and high fever of 105". daughter has had surgeries since with no problems. Past Psychological History: No Psychological Hx Reported Smoking Status: Former smoker Past Alcohol Use History: None Reported Additional Past Alcohol Use History / Comment(s): quit smoking 35 yrs ago, smoked for 3 yrs- < 1 PPD Past Drug Use History: None Reported - Past Family History Sister(s) Family Medical History: Cancer, Deep Vein Thrombosis (DVT) Brother(s) Family Medical History: Deep Vein Thrombosis (DVT) Father Family Medical History: Cancer, Deep Vein Thrombosis (DVT) Additional Family Medical History / Comment(s): [employer] Mother Family Medical History: Deep Vein Thrombosis (DVT) Additional Family Medical History / Comment(s): PACEMAKER Medications and Allergies Home Medications Medication Instructions Recorded Confirmed Type Fenofibrate Nanocrystallized 145 mg PO DAILY 11/16/14 07/12/18 History [Tricor] metFORMIN HCL [Glucophage] 500 mg PO BID 11/16/14 07/12/18 History Ferrous Sulfate [Feosol] 325 mg PO BID 02/20/16 07/12/18 History amLODIPine [Norvasc] 10 mg PO DAILY 02/20/16 07/12/18 History glipiZIDE [Glucotrol] 5 mg PO BID 06/06/17 07/12/18 History Famotidine 40 mg PO DAILY 02/16/18 07/12/18 History hydrALAZINE HCL 25 mg PO DAILY 02/16/18 07/12/18 History Aspirin EC [Ecotrin Low Dose] 81 mg PO DAILY 07/12/18 07/12/18 History Benzonatate [Tessalon Perles] 100 mg PO Q6H PRN 07/12/18 07/12/18 History Montelukast [Singulair] 10 mg PO HS 07/12/18 07/12/18 History Allergies Allergy/AdvReac Type Severity Reaction Status Date / Time diflunisal [From Dolobid] Allergy Anaphylaxis Verified 07/12/18 11:29 hydrochlorothiazide Allergy Swelling Verified 07/12/18 11:29 [From Zestoretic] of face and throat ibuprofen [From Motrin] Allergy Abdominal Verified 07/12/18 11:29 Pain Iodine and Iodide Containing Allergy Anaphylaxis Verified 07/12/18 11:29 Produc lisinopril Allergy Rash/Hives Verified 07/12/18 11:29 morphine Allergy Rash/Hives Verified 07/12/18 11:29 prednisone Allergy Rash/Hives Verified 07/12/18 11:29 sulfamethoxazole Allergy Anaphylaxis Verified 07/12/18 11:29 [From Bactrim] tramadol Allergy Rash/Hives Verified 07/12/18 11:29 trimethoprim [From Bactrim] Allergy Anaphylaxis Verified 07/12/18 11:29 baclofen AdvReac Unknown LOW HEART Verified 07/12/18 11:29 RATE NSAIDS (Non-Steroidal AdvReac Unknown TOLD TO Verified 07/12/18 11:29 Anti-Inflamma AVOID NSAIDS DUE TO ABDOMINAL PAIN ondansetron AdvReac Itching Verified 07/12/18 11:29 [From Zofran (as hydrochloride)] Physical Exam Vitals: Vital Signs Temp Pulse Pulse Resp BP BP Pulse Ox 07/13/18 11:48 82 07/13/18 11:36 82 07/13/18 08:00 20 07/13/18 07:46 81 07/13/18 07:36 81 98 07/13/18 06:10 98.7 F 107 H 24 157/83 99 07/13/18 05:30 99.2 F 97 24 194/89 97 07/13/18 00:00 107 H 24 07/12/18 22:54 99.2 F 98 24 161/80 98 07/12/18 17:33 18 97 07/12/18 17:22 18 07/12/18 16:09 105 H 20 152/86 99 07/12/18 15:00 105 H 22 166/83 96 07/12/18 14:30 100 19 142/65 96 07/12/18 14:09 87 07/12/18 14:00 85 20 133/74 100 07/12/18 13:30 96 18 139/78 94 L 07/12/18 13:11 99.6 F 93 20 139/78 98 07/12/18 13:00 86 20 156/75 94 L 07/12/18 12:30 92 27 H 156/75 99 Intake and Output 07/12/18 07/13/18 07/13/18 22:59 06:59 14:59 Other: Voiding Method Toilet Toilet # Voids 1 2 Head normocephalic Neck supple Lungs few coarse breath sounds with expiratory wheezing noted on the left and anteriorly Heart regular rate and rhythm S1-S2, no rub or gallop Abdomen is soft nontender nondistended positive bowel sounds no hepatosplenomegaly Extremities no edema Neuro alert and orientated to 3 Results CBC & Chem 7: 07/13/18 06:52 07/13/18 06:52 Labs: Abnormal Lab Results - Last 24 Hours (Table) 07/12/18 07/12/18 07/12/18 Range/Units 12:15 12:15 12:15 RBC 3.59 L (3.80-5.40) m/uL Hgb 11.1 L (11.4-16.0) gm/dL Hct 33.9 L (34.0-46.0) % Lymphocytes # 0.9 L (1.0-4.8) k/uL D-Dimer 2.29 H (<0.60) mg/L FEU Chloride 109 H (98-107) mmol/L Carbon Dioxide 21 L (22-30) mmol/L BUN 25 H (7-17) mg/dL Creatinine 1.32 H (0.52-1.04) mg/dL Glucose 119 H (74-99) mg/dL POC Glucose (mg/dL) (75-99) mg/dL Calcium (8.4-10.2) mg/dL Stool Occult Blood (Negative) 07/12/18 07/12/18 07/12/18 Range/Units 15:00 17:11 20:53 RBC (3.80-5.40) m/uL Hgb (11.4-16.0) gm/dL Hct (34.0-46.0) % Lymphocytes # (1.0-4.8) k/uL D-Dimer (<0.60) mg/L FEU Chloride (98-107) mmol/L Carbon Dioxide (22-30) mmol/L BUN (7-17) mg/dL Creatinine (0.52-1.04) mg/dL Glucose (74-99) mg/dL POC Glucose (mg/dL) 203 H 311 H (75-99) mg/dL Calcium (8.4-10.2) mg/dL Stool Occult Blood Positive H (Negative) 07/13/18 07/13/18 07/13/18 Range/Units 06:52 06:52 07:16 RBC 3.61 L (3.80-5.40) m/uL Hgb 11.0 L (11.4-16.0) gm/dL Hct (34.0-46.0) % Lymphocytes # 0.8 L (1.0-4.8) k/uL D-Dimer (<0.60) mg/L FEU Chloride 112 H (98-107) mmol/L Carbon Dioxide 19 L (22-30) mmol/L BUN 18 H (7-17) mg/dL Creatinine 1.09 H (0.52-1.04) mg/dL Glucose 153 H (74-99) mg/dL POC Glucose (mg/dL) 144 H (75-99) mg/dL Calcium 10.4 H (8.4-10.2) mg/dL Stool Occult Blood (Negative) 07/13/18 Range/Units 12:11 RBC (3.80-5.40) m/uL Hgb (11.4-16.0) gm/dL Hct (34.0-46.0) % Lymphocytes # (1.0-4.8) k/uL D-Dimer (<0.60) mg/L FEU Chloride (98-107) mmol/L Carbon Dioxide (22-30) mmol/L BUN (7-17) mg/dL Creatinine (0.52-1.04) mg/dL Glucose (74-99) mg/dL POC Glucose (mg/dL) 302 H (75-99) mg/dL Calcium (8.4-10.2) mg/dL Stool Occult Blood (Negative) Thrombosis Risk Factor Assmnt - Choose All That Apply Each Risk Factor Represents 2 Points: Age 61-74 years Each Risk Factor Represents 3 Points: Family history of DVT/PE Thrombosis Risk Factor Assessment Total Risk Factor Score: 5 Thrombosis Risk Factor Assessment Level: High Risk Assessment and Plan Assessment: 1. Possible pneumonia: Check sputum culture. Continue Rocephin and azithromycin. Influenza screen negative. 2. Chest pain: Troponins 3 sets. Patient has been seen and evaluated by cardiology. 3. Elevated d-dimer VQ scan low probability of PE venous Doppler of the left leg negative for DVT 4. Stool positive for occult blood possibly related to patient's iron supplement. Hemoglobin is stable at 11. Per patient last colonoscopy 3 years ago and was normal she does report history of diverticulosis. Last EGD was over 20 years ago at that time was diagnosed with peptic ulcer disease. Patient denies any abdominal pain 5. Chronic kidney disease stage II. Creatinine 1.32 on admission down to 1.09 6. Diabetes mellitus type 2 resume metformin and glipizide. Add sliding scale coverage 7. Essential hypertension 8. Possible mild COPD exacerbation: Continue nebulizer treatment. Patient does report a prior history of smoking during her college years 9. Recent left total knee arthroplasty about 5 months ago GI prophylaxis Pepcid and DVT prophylaxis subcu heparin Time with Patient: Greater than 30 (Greater than 50% of the total time spent in counseling and coordination of care.I performed an examination of the patient and discussed their management with the physician [employer] Instructor. I have reviewed the Physician A[employer] Instructor's notes and agree with the documented findings and plan of care)
--- NOTE | 2018-07-13 12:37 | ECHOF ---
Referral Reason:cp MEASUREMENTS -------- HEIGHT: 165.1 cm WEIGHT: 98.4 kg BP: 157/83 RVIDd: 3.0 cm (< 3.3) IVSd: 1.1 cm (0.6 - 1.1) LVIDd: 4.3 cm (3.9 - 5.3) LVPWd: 1.3 cm (0.6 - 1.1) IVSs: 1.7 cm LVIDs: 1.6 cm LVPWs: 1.8 cm LAESV Index (A-L): 22.81 ml/m Ao Diam: 2.6 cm (2.0 - 3.7) AV Cusp: 2.0 cm (1.5 - 2.6) LA Diam: 3.5 cm (2.7 - 3.8) MV EXCURSION: 16.659 mm (> 18.000) MV EF SLOPE: 69 mm/s (70 - 150) EPSS: 1.1 cm MV E Yvon: 1.02 m/s MV DecT: 194 ms MV A Yvon: 1.15 m/s MV E/A Ratio: 0.89 AV maxP.70 mmHg AV meanP.06 mmHg RAP: 15.00 mmHg RVSP: 45.91 mmHg FINDINGS -------- Sinus rhythm. This was a technically good study. The left ventricular size is normal. Left ventricular wall thickness is normal. Overall left vent ricular systolic function is normal with, an EF between 55 - 60 %. The right ventricle is normal in size and function. Normal LA size by volume 22+/-6 ml/m2. The right atrium is normal in size. Aortic valve is trileaflet and is mildly thickened. There is mild aortic valve sclerosis. Peak/me an gradient across the Aortic Valve is 19.70mmHg / 11.06mmHg. Mild mitral regurgitation is present. Mild tricuspid regurgitation present. There is mild pulmonary hypertension. The right ventricular systolic pressure, as measured by Doppler, is 45.91mmHg. Pulmonic valve appears structurally normal. The aortic root size is normal. The inferior vena cava is mildly dilated but does collapse. The pericardium is normal. CONCLUSIONS -------- 1. Sinus rhythm. 2. This was a technically good study. 3. The left ventricular size is normal. 4. Left ventricular wall thickness is normal. 5. Overall left ventricular systolic function is normal with, an EF between 55 - 60 %. 6. The right ventricle is normal in size and function. 7. Normal LA size by volume 22+/-6 ml/m2. 8. The right atrium is normal in size. 9. Aortic valve is trileaflet and is mildly thickened. 10. There is mild aortic valve sclerosis. 11. Peak/mean gradient across the Aortic Valve is 19.70mmHg / 11.06mmHg. 12. Mild mitral regurgitation is present. 13. Mild tricuspid regurgitation present. 14. There is mild pulmonary hypertension. 15. The right ventricular systolic pressure, as measured by Doppler, is 45.91mmHg. 16. Pulmonic valve appears structurally normal. 17. The aortic root size is normal. 18. The inferior vena cava is mildly dilated but does collapse. 19. The pericardium is normal. MANAGER ANALYTICAL: Maria E Fry RDCS
[2018-07-13] MEDS: INSULIN ASPART 100 UNIT/ML 1 ML 10 ML VIAL SQ SCH ×3 (12:56→21:45)
[2018-07-13] MEDS: FLUTICASONE 50MCG/SPRAY NASAL 16GM EA NOSTRIL SCH (13:32)
[2018-07-13] MEDS: guaiFENesin 600 MG TABLET.ER PO SCH ×2 (13:32→21:44)
[2018-07-13] MEDS: HYDROcodone/APAP 7.5-325MG 1 EACH TAB PO PRN ×2 (13:35→20:01)
[2018-07-13 13:49] LABS: Hemoglobin A1C 6.6 % (4.0-6.0)
--- NOTE | 2018-07-13 14:16 | P.CRDCN ---
History of Present Illness History of present illness: This is a pleasant 72-year-old female past medical history significant for hypertension, dyslipidemia, diabetes mellitus, mitral valve prolapse and chronic kidney disease. She denies prior history of coronary artery disease. She states she has been coughing for the last 2 weeks. The first week it was dry nagging cough with no other associated symptoms. The second week she started producing a white thick phlegm and was developing pain in her chest whenever she coughed or tried taking a deep breath. She has been diagnosed with pneumonia and started on antibiotics. She continues to cough and feel pain in her chest with cough or deep inspiration. Initial EKG on admit reveals sinus mechanism with no acute ST or T-wave abnormalities. Repeat EKG reveals minimal ST depression laterally suggestive of LVH. Third EKG is sinus mechanism with no ST changes. She is seen and examined laying flat in bed in no acute distress. Chest x-ray on admission reveals peribronchial cuffing, mild patchy density right infrahilar region suggestive of developing infiltrate. Repeat chest x- ray today with no suspicious infiltrate. VQ scan revealed low probability of PE. Left lower extremity Doppler negative for DVT. Laboratory data reviewed, WBC 7.9, hemoglobin 11, platelets 2:30, d-dimer 2.29, sodium 143, potassium 4.3, creatinine 1.09, cardiac enzymes negative 3, occult blood positive in the stool. Current cardiac medications include amlodipine 10 mg daily, aspirin 81 mg daily , fenofibrate 160 mg daily, hydralazine 25 mg daily, Lopressor 25 mg daily. Most recent echocardiogram obtained 2017 reveals preserved left ventricular systolic function with ejection fraction 55-60%, severely dilated left atrium, mild MR, mild TR. At the time of my exam: CONSTITUTIONAL: Denies fever. Denies chills. EYES: Denies blurred vision. Denies vision changes. Denies eye pain. EARS, NOSE, MOUTH & THROAT: Denies headache. Denies sore throat. Denies ear pain. CARDIOVASCULAR: Denies chest pain. Denies shortness of breath. Denies orthopnea. Denies PND. Denies palpitations. RESPIRATORY: Denies cough. GASTROINTESTINAL: Denies abdominal pain. Denies diarrhea. Denies constipation. Denies nausea. Denies vomiting. MUSCULOSKELETAL: Denies myalgias. INTEGUMENTARY: Denies pruitis. Denies rash. NEUROLOGIC: Denies numbness. Denies tingling. Denies weakness. PSYCHIATRIC: Denies anxiety. Denies depression. ENDOCRINE: Denies fatigue. Denies weight change. Denies polydipsia. Denies polyurina. GENITOURINARY: Denies burning, hematuria or urgency with micturation. HEMATOLOGIC: Denies history of anemia. Denies bleeding. Blood pressure 157/83 heart rate 107 afebrile maintaining oxygen saturation on nasal cannula GENERAL: This is a 72-year-old -Turkmen female in no apparent distress at the time of my examination. HEENT: Head is atraumatic, normocephalic. Pupils are equal, round. Sclerae anicteric. Conjunctivae are clear. Mucous membranes of the mouth are moist. Neck is supple. There is no jugular venous distention. No carotid bruit is heard. LUNGS: Clear to auscultation no wheezes, rales or rhonchi. No chest wall tenderness is noted on palpation or with deep breathing. HEART: Regular rate and rhythm with systolic ejection murmur at the base, no rubs or gallops. S1 and S2 heard. ABDOMEN: Soft, nontender. Bowel sounds are heard. No organomegaly noted. EXTREMITIES: Trace edema to left lower extremity, non-pitting. No swelling to the right. No calf tenderness noted. VASCULAR: Radial and dorsalis pedis pulses palpated, no evidence of clubbing. NEUROLOGIC: Patient is awake, alert and oriented x3. ASSESSMENT Pleuritic chest pain, atypical for angina. Acute coronary event has been ruled out. Pneumonia on IV antibiotics Febrile illness Hypertension Dyslipidemia Diabetes mellitus Chronic kidney disease PLAN An acute coronary event has been ruled out. Obtain 2D echocardiogram and doppler study to assess cardiac structure and function. Obtain report of heart catheterization performed in the last 5-6 years. Chest pain is pleuritc in nature and likely related to underlying pneumonia. Ongoing medical management. Thank you kindly for this consultation. Nurse Practitioner note has been reviewed, I agree with a documented findings and plan of care. Patient was seen and examined. Past Medical History Past Medical History: Diabetes Mellitus, GERD/Reflux, Hyperlipidemia, Hypertension, Mitral Valve Prolapse (MVP), Osteoarthritis (OA) Additional Past Medical History / Comment(s): Migraines. Anemia. Varicose Veins. Chronic Back Pain History of Any Multi-Drug Resistant Organisms: None Reported Past Surgical History: Back Surgery, Hysterectomy, Tonsillectomy Additional Past Surgical History / Comment(s): 3 HERNIATED DISK REPAIRS, PLATE AT L4 AND L5, rt temporal artery removed, ovarian cysts removed, pilonidal cyst , left knee replacement Past Anesthesia/Blood Transfusion Reactions: Family Hisory of Malignant Hyperthermia Additional Past Anesthesia/Blood Transfusion Reaction / Comment(s): daughter had reaction to anesthesia age 7 with tonsilectomy called "chocolate anesthesia " per pt. "she had a rash and high fever of 105". daughter has had surgeries since with no problems. Past Psychological History: No Psychological Hx Reported Smoking Status: Former smoker Past Alcohol Use History: None Reported Additional Past Alcohol Use History / Comment(s): quit smoking 35 yrs ago, smoked for 3 yrs- < 1 PPD Past Drug Use History: None Reported - Past Family History Sister(s) Family Medical History: Cancer, Deep Vein Thrombosis (DVT) Brother(s) Family Medical History: Deep Vein Thrombosis (DVT) Father Family Medical History: Cancer, Deep Vein Thrombosis (DVT) Additional Family Medical History / Comment(s): QUADRUPLE BYPASS Mother Family Medical History: Deep Vein Thrombosis (DVT) Additional Family Medical History / Comment(s): PACEMAKER Medications and Allergies Home Medications Medication Instructions Recorded Confirmed Type Fenofibrate Nanocrystallized 145 mg PO DAILY 11/16/14 07/12/18 History [Tricor] metFORMIN HCL [Glucophage] 500 mg PO BID 11/16/14 07/12/18 History Ferrous Sulfate [Feosol] 325 mg PO BID 02/20/16 07/12/18 History amLODIPine [Norvasc] 10 mg PO DAILY 02/20/16 07/12/18 History glipiZIDE [Glucotrol] 5 mg PO BID 06/06/17 07/12/18 History Famotidine 40 mg PO DAILY 02/16/18 07/12/18 History hydrALAZINE HCL 25 mg PO DAILY 02/16/18 07/12/18 History Aspirin EC [Ecotrin Low Dose] 81 mg PO DAILY 07/12/18 07/12/18 History Benzonatate [Tessalon Perles] 100 mg PO Q6H PRN 07/12/18 07/12/18 History Montelukast [Singulair] 10 mg PO HS 07/12/18 07/12/18 History Allergies Allergy/AdvReac Type Severity Reaction Status Date / Time diflunisal [From Dolobid] Allergy Anaphylaxis Verified 07/12/18 11:29 hydrochlorothiazide Allergy Swelling Verified 07/12/18 11:29 [From Zestoretic] of face and throat ibuprofen [From Motrin] Allergy Abdominal Verified 07/12/18 11:29 Pain Iodine and Iodide Containing Allergy Anaphylaxis Verified 07/12/18 11:29 Produc lisinopril Allergy Rash/Hives Verified 07/12/18 11:29 morphine Allergy Rash/Hives Verified 07/12/18 11:29 prednisone Allergy Rash/Hives Verified 07/12/18 11:29 sulfamethoxazole Allergy Anaphylaxis Verified 07/12/18 11:29 [From Bactrim] tramadol Allergy Rash/Hives Verified 07/12/18 11:29 trimethoprim [From Bactrim] Allergy Anaphylaxis Verified 07/12/18 11:29 baclofen AdvReac Unknown LOW HEART Verified 07/12/18 11:29 RATE NSAIDS (Non-Steroidal AdvReac Unknown TOLD TO Verified 07/12/18 11:29 Anti-Inflamma AVOID NSAIDS DUE TO ABDOMINAL PAIN ondansetron AdvReac Itching Verified 07/12/18 11:29 [From Zofran (as hydrochloride)] Physical Exam Vitals: Vital Signs Temp Pulse Pulse Resp BP BP Pulse Ox 07/13/18 11:48 82 07/13/18 11:36 82 07/13/18 08:00 20 07/13/18 07:46 81 07/13/18 07:36 81 98 07/13/18 06:10 98.7 F 107 H 24 157/83 99 07/13/18 05:30 99.2 F 97 24 194/89 97 07/13/18 00:00 107 H 24 07/12/18 22:54 99.2 F 98 24 161/80 98 07/12/18 17:33 18 97 07/12/18 17:22 18 07/12/18 16:09 105 H 20 152/86 99 07/12/18 15:00 105 H 22 166/83 96 07/12/18 14:30 100 19 142/65 96 07/12/18 14:09 87 07/12/18 14:00 85 20 133/74 100 07/12/18 13:30 96 18 139/78 94 L 07/12/18 13:11 99.6 F 93 20 139/78 98 07/12/18 13:00 86 20 156/75 94 L Intake and Output 07/12/18 07/13/18 07/13/18 22:59 06:59 14:59 Other: Voiding Method Toilet Toilet # Voids 1 2 Results 07/13/18 06:52 07/13/18 06:52 Cardiac Enzymes 07/12/18 07/12/18 07/12/18 Range/Units 12:15 12:15 15:05 AST 23 (14-36) U/L Troponin I <0.012 <0.012 (0.000-0.034) ng/mL 07/13/18 07/13/18 Range/Units 06:52 06:52 AST 24 (14-36) U/L Troponin I <0.012 (0.000-0.034) ng/mL Coagulation 07/12/18 Range/Units 12:15 PT 9.8 (9.0-12.0) sec APTT 22.2 (22.0-30.0) sec CBC 07/12/18 07/13/18 Range/Units 12:15 06:52 WBC 6.1 7.9 (3.8-10.6) k/uL RBC 3.59 L 3.61 L (3.80-5.40) m/uL Hgb 11.1 L 11.0 L (11.4-16.0) gm/dL Hct 33.9 L 35.2 (34.0-46.0) % Plt Count 253 230 (150-450) k/uL Comprehensive Metabolic Panel 07/12/18 07/13/18 Range/Units 12:15 06:52 Sodium 140 143 (137-145) mmol/L Potassium 4.8 4.3 (3.5-5.1) mmol/L Chloride 109 H 112 H (98-107) mmol/L Carbon Dioxide 21 L 19 L (22-30) mmol/L BUN 25 H 18 H (7-17) mg/dL Creatinine 1.32 H 1.09 H (0.52-1.04) mg/dL Glucose 119 H 153 H (74-99) mg/dL Calcium 9.9 10.4 H (8.4-10.2) mg/dL AST 23 24 (14-36) U/L ALT 28 17 (9-52) U/L Alkaline Phosphatase 57 61 (38-126) U/L Total Protein 7.9 8.1 (6.3-8.2) g/dL Albumin 4.5 4.7 (3.5-5.0) g/dL Current Medications Generic Name Dose Route Start Last Admin Trade Name Freq PRN Reason Stop Dose Admin Hydrocodone Bitart/Acetaminophen 1 each 07/13/18 12:16 [place] 7.5-325 PO Q6H PRN Pain Albuterol/Ipratropium 3 ml 07/13/18 06:28 07/13/18 11:36 Duoneb 0.5 Mg-3 Mg/3 Ml Soln INHALATION 3 ml RT-Q4H PRN Administration Shortness Of Breath Amlodipine Besylate 10 mg 07/13/18 09:00 07/13/18 08:04 Norvasc PO 10 mg DAILY JEANNA Administration Aspirin 81 mg 07/13/18 09:00 07/13/18 08:04 Aspirin PO 81 mg DAILY [facility] Administration Benzonatate 100 mg 07/12/18 17:30 07/13/18 00:28 Tessalon Perles PO 100 mg Q6H PRN Administration Cough Famotidine 20 mg 07/14/18 09:00 Pepcid PO DAILY [facility] Fenofibrate 160 mg 07/13/18 09:00 07/13/18 08:04 Lofibra PO 160 mg DAILY [facility] Administration Ferrous Sulfate 325 mg 07/12/18 18:00 07/13/18 08:04 Feosol PO 325 mg BID-W/MEALS [facility] Administration Fluticasone Propionate 2 spray 07/13/18 12:30 Flonase Nasal Morning Sun EA NOSTRIL DAILY [facility] Glipizide 5 mg 07/12/18 18:00 07/13/18 08:04 Glucotrol PO 5 mg BID-W/MEALS JEANNA Administration Guaifenesin 1,200 mg 07/13/18 12:30 Mucinex PO Q12HR [facility] Heparin Sodium (Porcine) 5,000 unit 07/12/18 21:00 07/13/18 08:04 Heparin SQ 5,000 unit Q12HR JEANNA Administration Hydralazine HCl 25 mg 07/13/18 09:00 07/13/18 05:20 Apresoline PO 25 mg DAILY JEANNA Administration Hydromorphone HCl 0.5 mg 07/13/18 06:14 07/13/18 10:00 Dilaudid IVP 0.5 mg Q3HR PRN Administration Pain Sodium Chloride 1,000 mls @ 75 mls/hr 07/12/18 15:30 07/13/18 07:16 Saline 0.9% IV Not Given .[id number] JEANNA Azithromycin 500 mg/ Sodium 250 mls @ 250 mls/hr 07/12/18 18:00 07/12/18 18: 24 Chloride IVPB 250 mls/hr Q24H JEANNA Administration Ceftriaxone Sodium 1,000 mg/ 50 mls @ 100 mls/hr 07/13/18 09:00 07/13/18 07: 27 Sodium Chloride IVPB 100 mls/hr Q24HR JEANNA Administration Insulin Aspart 0 unit 07/13/18 12:30 Novolog SQ ACHS JEANNA Protocol Metformin HCl 500 mg 07/12/18 18:00 07/13/18 08:04 Glucophage PO 500 mg BID-W/MEALS JEANNA Administration Metoprolol Tartrate 25 mg 07/13/18 09:00 07/13/18 06:43 Lopressor PO 25 mg DAILY JEANNA Administration Montelukast Sodium 10 mg 07/12/18 21:00 07/13/18 00:28 Singulair PO 10 mg HS JEANNA Administration Sodium Chloride 2 spray 07/13/18 05:54 [place] NASAL QID PRN Congestion Intake and Output 07/12/18 07/13/18 07/13/18 22:59 06:59 14:59 Other: Voiding Method Toilet Toilet # Voids 1 2 07/13/18 06:52 07/13/18 06:52
[2018-07-13 17:02] LABS: Glucose,Whole Blood 205 mg/dL (75-99)
[2018-07-13] MEDS: AZITHROMYCIN 500 MG in SODIUM CHLORIDE 0.9% 250 ML IVPB SCH (17:54)
--- NOTE | 2018-07-13 18:25 | P.CNPUL ---
History of Present Illness Consult date: 07/13/18 Reason for consult: dyspnea History of present illness: 70-year-old female patient presented emergency department because of increased cough chest congestion and shortness of breath and fever. Her symptoms started approximately 2 weeks ago. Patient reported that her symptoms got worse and she was having increased chills and sweats. She came with a temperature of 11.1 on admission. Chest x-ray was done and the patient was started on empiric antibiotic coverage with a combination of Rocephin and Zithromax. She was also started on DuoNeb nebulized treatments around the clock. D-dimer was at 2.29. Doppler of the lower extremity was negative. VQ scan was of a low probability. Influenza screen was negative. Lactic acid level was at 1.2. White cell count was nonelevated. The chest x-ray showed chronic changes and cardiac megaly without any suspicious acute pulmonary infiltrates. The echocardiac Dennis showed a preserved LV function with an ejection fraction of 55-60%. There was mild to moderate pulmonary hypertension with a PA pressure of 45. Rest of the Structures were all within normal limits. Review of Systems Constitutional: Reports fatigue, Reports fever Eyes: denies as per HPI, denies blurred vision, denies bulging eye, denies decreased vision, denies diplopia, denies discharge, denies dry eye, denies irritation, denies itching, denies pain, denies photophobia, denies loss of peripheral vision, denies loss of vision, denies tunnel vision/blind spots Ears: deny: decreased hearing, ear discharge, earache, tinnitus Ears, nose, mouth and throat: Denies headache, Denies sore throat Cardiovascular: Reports decreased exercise tolerance, Reports dyspnea on exertion Respiratory: Reports cough, Reports cough with sputum, Reports dyspnea Gastrointestinal: Denies abdominal pain, Denies diarrhea, Denies nausea, Denies vomiting Genitourinary: Reports as per HPI Menstruation: Reports as per HPI Musculoskeletal: Reports as per HPI Musculoskeletal: absent: ankle pain, ankle stiffness, ankle swelling, as per HPI , elbow pain, elbow stiffness, elbow swelling, foot pain, foot stiffness, foot swelling, hand pain, hand stiffness, hand swelling, hip pain, hip stiffness, hip swelling, knee pain, knee stiffness, knee swelling, shoulder pain, shoulder stiffness, shoulder swelling, wrist pain, wrist stiffness, wrist swelling Integumentary: Denies pruritus, Denies rash Neurological: Reports as per HPI Psychiatric: Reports as per HPI Endocrine: Reports as per HPI Hematologic/Lymphatic: Reports as per HPI Allergic/Immunologic: Reports as per HPI Past Medical History Past Medical History: Diabetes Mellitus, GERD/Reflux, Hyperlipidemia, Hypertension, Mitral Valve Prolapse (MVP), Osteoarthritis (OA) Additional Past Medical History / Comment(s): Hypertension, hyperlipidemia, diabetes mellitus, mitral valve prolapse, chronic back pain, varicose veins, migraines, chronic stage II kidney disease, iron deficiency anemia, lumbar disc disease with previous history of L4-L5 degenerative disc disease of the lumbar spine, osteoarthritis History of Any Multi-Drug Resistant Organisms: None Reported Past Surgical History: Back Surgery, Hysterectomy, Tonsillectomy Additional Past Surgical History / Comment(s): Spine surgery involving the lumbar spine related to herniated disc at the level of L4-L5, right temporal artery biopsy, ovarian cyst removal, pilonidal cyst, left knee replacement, tonsillectomy, hysterectomy Past Anesthesia/Blood Transfusion Reactions: Family Hisory of Malignant Hyperthermia Additional Past Anesthesia/Blood Transfusion Reaction / Comment(s): daughter had reaction to anesthesia age 7 with tonsilectomy called "chocolate anesthesia " per pt. "she had a rash and high fever of 105". daughter has had surgeries since with no problems. Past Psychological History: No Psychological Hx Reported Smoking Status: Former smoker Past Alcohol Use History: None Reported Additional Past Alcohol Use History / Comment(s): quit smoking 35 yrs ago, smoked for 3 yrs- < 1 PPD Past Drug Use History: None Reported - Past Family History Sister(s) Family Medical History: Cancer, Deep Vein Thrombosis (DVT) Brother(s) Family Medical History: Deep Vein Thrombosis (DVT) Father Family Medical History: Cancer, Deep Vein Thrombosis (DVT) Additional Family Medical History / Comment(s): QUADRUPLE BYPASS Mother Family Medical History: Deep Vein Thrombosis (DVT) Additional Family Medical History / Comment(s): PACEMAKER Medications and Allergies Home Medications Medication Instructions Recorded Confirmed Type Fenofibrate Nanocrystallized 145 mg PO DAILY 11/16/14 07/12/18 History [Tricor] metFORMIN HCL [Glucophage] 500 mg PO BID 11/16/14 07/12/18 History Ferrous Sulfate [Feosol] 325 mg PO BID 02/20/16 07/12/18 History amLODIPine [Norvasc] 10 mg PO DAILY 02/20/16 07/12/18 History glipiZIDE [Glucotrol] 5 mg PO BID 06/06/17 07/12/18 History Famotidine 40 mg PO DAILY 02/16/18 07/12/18 History hydrALAZINE HCL 25 mg PO DAILY 02/16/18 07/12/18 History Aspirin EC [Ecotrin Low Dose] 81 mg PO DAILY 07/12/18 07/12/18 History Benzonatate [Tessalon Perles] 100 mg PO Q6H PRN 07/12/18 07/12/18 History Montelukast [Singulair] 10 mg PO HS 07/12/18 07/12/18 History Allergies Allergy/AdvReac Type Severity Reaction Status Date / Time diflunisal [From Dolobid] Allergy Anaphylaxis Verified 07/12/18 11:29 hydrochlorothiazide Allergy Swelling Verified 07/12/18 11:29 [From Zestoretic] of face and throat ibuprofen [From Motrin] Allergy Abdominal Verified 07/12/18 11:29 Pain Iodine and Iodide Containing Allergy Anaphylaxis Verified 07/12/18 11:29 Produc lisinopril Allergy Rash/Hives Verified 07/12/18 11:29 morphine Allergy Rash/Hives Verified 07/12/18 11:29 prednisone Allergy Rash/Hives Verified 07/12/18 11:29 sulfamethoxazole Allergy Anaphylaxis Verified 07/12/18 11:29 [From Bactrim] tramadol Allergy Rash/Hives Verified 07/12/18 11:29 trimethoprim [From Bactrim] Allergy Anaphylaxis Verified 07/12/18 11:29 baclofen AdvReac Unknown LOW HEART Verified 07/12/18 11:29 RATE NSAIDS (Non-Steroidal AdvReac Unknown TOLD TO Verified 07/12/18 11:29 Anti-Inflamma AVOID NSAIDS DUE TO ABDOMINAL PAIN ondansetron AdvReac Itching Verified 07/12/18 11:29 [From Zofran (as hydrochloride)] Physical Exam Vitals: Vital Signs Temp Pulse Pulse Resp BP Pulse Ox 07/13/18 15:30 98 07/13/18 15:20 98 07/13/18 14:51 98.8 F 107 H 16 152/76 97 07/13/18 11:48 82 07/13/18 11:36 82 07/13/18 08:00 20 07/13/18 07:46 81 07/13/18 07:36 81 98 07/13/18 06:10 98.7 F 107 H 24 157/83 99 07/13/18 05:30 99.2 F 97 24 194/89 97 07/13/18 00:00 107 H 24 07/12/18 22:54 99.2 F 98 24 161/80 98 07/12/18 17:33 18 97 07/12/18 17:22 18 Intake and Output 07/13/18 07/13/18 07/13/18 06:59 14:59 22:59 Other: Voiding Method Toilet # Voids 2 2 Blood pressure 157/83 heart rate 107 afebrile maintaining oxygen saturation on nasal cannula GENERAL: This is a 72-year-old -English female in no apparent distress at the time of my examination. HEENT: Head is atraumatic, normocephalic. Pupils are equal, round. Sclerae anicteric. Conjunctivae are clear. Mucous membranes of the mouth are moist. Neck is supple. There is no jugular venous distention. No carotid bruit is heard. LUNGS: Clear to auscultation wheezes bilaterally , rales or rhonchi. No chest wall tenderness is noted on palpation or with deep breathing. HEART: Regular rate and rhythm with systolic ejection murmur at the base, no rubs or gallops. S1 and S2 heard. ABDOMEN: Soft, nontender. Bowel sounds are heard. No organomegaly noted. EXTREMITIES: Trace edema to left lower extremity, non-pitting. No swelling to the right. No calf tenderness noted. VASCULAR: Radial and dorsalis pedis pulses palpated, no evidence of clubbing. NEUROLOGIC: Patient is awake, alert and oriented x3. Results - Laboratory Findings CBC and BMP: 07/13/18 06:52 07/13/18 06:52 PT/INR, D-dimer PT 9.8 sec (9.0-12.0) 07/12/18 12:15 INR 0.9 (<1.2) 07/12/18 12:15 D-Dimer 2.29 mg/L FEU (<0.60) H 07/12/18 12:15 Abnormal lab findings: Abnormal Labs 07/12/18 07/12/18 07/12/18 12:15 12:15 12:15 RBC 3.59 L Hgb 11.1 L Hct 33.9 L Lymphocytes # 0.9 L D-Dimer 2.29 H Chloride 109 H Carbon Dioxide 21 L BUN 25 H Creatinine 1.32 H Glucose 119 H POC Glucose (mg/dL) Hemoglobin A1c Calcium Stool Occult Blood 07/12/18 07/12/18 07/12/18 12:15 15:00 17:11 RBC Hgb Hct Lymphocytes # D-Dimer Chloride Carbon Dioxide BUN Creatinine Glucose POC Glucose (mg/dL) 203 H Hemoglobin A1c 6.6 H Calcium Stool Occult Blood Positive H 07/12/18 07/13/18 07/13/18 20:53 06:52 06:52 RBC 3.61 L Hgb 11.0 L Hct Lymphocytes # 0.8 L D-Dimer Chloride 112 H Carbon Dioxide 19 L BUN 18 H Creatinine 1.09 H Glucose 153 H POC Glucose (mg/dL) 311 H Hemoglobin A1c Calcium 10.4 H Stool Occult Blood 07/13/18 07/13/18 07/13/18 07:16 12:11 16:57 RBC Hgb Hct Lymphocytes # D-Dimer Chloride Carbon Dioxide BUN Creatinine Glucose POC Glucose (mg/dL) 144 H 302 H 205 H Hemoglobin A1c Calcium Stool Occult Blood - Diagnostic Findings Chest x-ray: image reviewed Assessment and Plan Plan: Assessment 1 acute bronchitis/early pneumonia, influenza screen is negative and the patient is currently covered with broad-spectrum antibiotics, the patient is bronchospastic and wheezy for now. 2 chest pain with negative cardiac enzymes and normal echocardiogram, cardiology is on the case 3 diabetes mellitus type 2 4 chronic stage II kidney disease, creatinine is improved since admission 5 hypertension 6 osteoarthritis 7 chronic back pain 8 chronic migraines 9 positive Hemoccult stool Plan Continue current antibiotic coverage with a combination of Rocephin and Zithromax. Continue bronchodilators [id number] with DuoNeb nebulized treatments. Start the patient IV Solu-Medrol. Mucinex for cough and congestion. Outpatient medication of been ordered resume. We'll continue to follow.
[2018-07-13] MEDS: methylPREDNISolone SOD SUCCI 125 MG/2 ML VIAL IV SCH ×2 (18:41→23:22)
[2018-07-13 21:17] LABS: Glucose,Whole Blood 137 mg/dL (75-99)
[2018-07-14] MEDS: HYDROmorphone 0.5 MG/0.5 ML SYRINGE IVP PRN ×3 (03:29→23:03)
[2018-07-14] MEDS: BENZONATATE 100 MG CAP PO PRN ×2 (05:52→17:18)
[2018-07-14] MEDS: methylPREDNISolone SOD SUCCI 125 MG/2 ML VIAL IV SCH ×4 (05:52→23:00)
[2018-07-14 07:20] LABS: Glucose,Whole Blood 188 mg/dL (75-99)
[2018-07-14] MEDS: FERROUS SULFATE 325 MG TAB PO SCH ×2 (07:50→17:17)
[2018-07-14] MEDS: glipiZIDE 5 MG TAB PO SCH ×2 (07:51→17:17)
[2018-07-14] MEDS: metFORMIN 500 MG TAB PO SCH ×2 (07:51→17:17)
[2018-07-14] MEDS: INSULIN ASPART 100 UNIT/ML 1 ML 10 ML VIAL SQ SCH ×4 (07:51→21:42)
[2018-07-14] MEDS: amLODIPine 10 MG TAB PO SCH (07:52)
[2018-07-14] MEDS: ASPIRIN 81 MG PO SCH (07:52)
[2018-07-14] MEDS: FENOFIBRATE 160 MG TAB PO SCH (07:53)
[2018-07-14] MEDS: HEPARIN SODIUM,PORCINE 5,000 UNIT/ML 1 ML VIAL SQ SCH ×2 (07:53→20:17)
[2018-07-14] MEDS: FLUTICASONE 50MCG/SPRAY NASAL 16GM EA NOSTRIL SCH (07:53)
[2018-07-14] MEDS: FAMOTIDINE 20 MG TAB PO SCH (07:53)
[2018-07-14] MEDS: guaiFENesin 600 MG TABLET.ER PO SCH ×2 (07:53→20:16)
[2018-07-14] MEDS: hydrALAZINE HCL 25 MG TAB PO SCH (07:54)
[2018-07-14] MEDS: METOPROLOL TARTRATE 25 MG TAB PO SCH (07:54)
[2018-07-14] MEDS: IPRATROPIUM-ALBUTEROL 3 ML NEB INHALATION PRN ×3 (08:38→16:48)
[2018-07-14 09:55] LABS: Basophils % (A) 0 %; Eosinophils # (A) 0.1 k/uL (0-0.7); Eosinophils % (A) 1 %; HCT 32.9 % (34.0-46.0); HGB 10.2 gm/dL (11.4-16.0); Hypochromasia Slight; Lymphocytes # (A) 0.9 k/uL (1.0-4.8); Lymphocytes % (A) 15 %; MCH 30.4 pg (25.0-35.0); MCV 98.2 fL (80.0-100.0); Mean Platelet Volume 7.7; Monocytes # (A) 0.2 k/uL (0-1.0); Monocytes % (A) 3 %; Neutrophils # (A) 4.7 k/uL (1.3-7.7); Neutrophils % (A) 80 %; Platelet Count 237 k/uL (150-450); RBC 3.35 m/uL (3.80-5.40); RDW 15.1 % (11.5-15.5); WBC 5.9 k/uL (3.8-10.6)
[2018-07-14 10:09] LABS: Albumin 4.3 g/dL (3.5-5.0); Calcium 10.2 mg/dL (8.4-10.2); Potassium 4.9 mmol/L (3.5-5.1); Total Bilirubin 0.4 mg/dL (0.2-1.3); Total Protein 7.7 g/dL (6.3-8.2)
[2018-07-14 11:28] LABS: Glucose,Whole Blood 198 mg/dL (75-99)
--- NOTE | 2018-07-14 11:52 | P.PN ---
Subjective Progress Note Date: 07/14/18 This is a 72-year-old female with a known past medical history of hypertension, hyperlipidemia, diabetes, chronic kidney disease stage II, iron deficiency anemia and mitral valve prolapse. Patient presents to the emergency room with complaints of productive cough, shortness of breath and fever. Cough that started about 2 weeks ago. Patient reports less couple a days she had increase in chills sweats and fevers. She had a temp of 101.1 on admission. Their concerns of possible pneumonia on chest x-ray she was started on Rocephin and azithromycin. Started on DuoNeb updrafts for wheezing and shortness of breath. Patient does report a prior history of smoking during college. Patient also is having chest pains. Troponins are negative 3. Patient had EKG showing a normal sinus rhythm with sinus arrhythmia and also 1 sinus tachycardia heart rate of 110 and PACs. Patient has been seen evaluated by cardiology. D-dimer was elevated at 2.29. Doppler of the left lower leg was negative for DVT and VQ scan was normal with a low probability of PE. Influenza screen was negative lactic acid is 1.2 and WBC is within normal range. She did have a stool positive for occult blood she is on iron supplements at home. She is had no recent blood in her stools. Last colonoscopy was 3 years ago was reported normal she does report having a history of diverticulosis and peptic ulcer disease. Patient denies any significant bowel movement changes urinary symptoms. She did have one episode of vomiting with her significant cough. She is complaining of a frontal headache and sinus pressure. 07/14/2018 patient still reporting cough that is more productive today. Son some shortness of breath and chest pains. She is evaluated by cardiology 0 point chest pain is pleuritic in nature from her pneumonia. She remains on antibiotics. Pulmonary service evaluated patient and added Solu-Medrol. Echo completed showing an EF of 55-60% with mild mitral regurgitation and mild tricuspid regurgitation and mild pulmonary hypertension. Patient denies any nausea or vomiting. Reports having bowel movements. Denies any difficulty urinating. She is still complaining of some headache. She has required IV Dilaudid for her chest discomfort and headache. Reporting that the [place] is not strong enough for lasting long enough. The [place] be increased to 10 mg every 6 hours for pain Objective - Vital Signs Vital signs: Vital Signs Temp 98.3 F 07/14/18 05:25 Pulse 96 07/14/18 08:49 Resp 18 07/14/18 05:25 BP 158/73 07/14/18 05:25 Pulse Ox 95 07/14/18 05:25 Intake & Output 07/13/18 07/14/18 07/14/18 18:59 06:59 18:59 Other: Voiding Method Toilet # Voids 2 1 - Exam Head normocephalic Neck supple Lungs diminished with a few expiratory wheezes Heart regular rate and rhythm S1-S2, no rub or gallop Abdomen is soft nontender nondistended positive bowel sounds no hepatosplenomegaly Extremities no edema Neuro alert and orientated to 3 - Labs CBC & Chem 7: 07/14/18 09:24 07/14/18 09:24 Labs: Abnormal Lab Results - Last 24 Hours (Table) 07/12/18 07/13/18 07/13/18 Range/Units 12:15 12:11 16:57 RBC (3.80-5.40) m/uL Hgb (11.4-16.0) gm/dL Hct (34.0-46.0) % Lymphocytes # (1.0-4.8) k/uL Chloride (98-107) mmol/L Carbon Dioxide (22-30) mmol/L BUN (7-17) mg/dL Creatinine (0.52-1.04) mg/dL Glucose (74-99) mg/dL POC Glucose (mg/dL) 302 H 205 H (75-99) mg/dL Hemoglobin A1c 6.6 H (4.0-6.0) % 07/13/18 07/14/18 07/14/18 Range/Units 21:09 07:16 09:24 RBC 3.35 L (3.80-5.40) m/uL Hgb 10.2 L (11.4-16.0) gm/dL Hct 32.9 L (34.0-46.0) % Lymphocytes # 0.9 L (1.0-4.8) k/uL Chloride (98-107) mmol/L Carbon Dioxide (22-30) mmol/L BUN (7-17) mg/dL Creatinine (0.52-1.04) mg/dL Glucose (74-99) mg/dL POC Glucose (mg/dL) 137 H 188 H (75-99) mg/dL Hemoglobin A1c (4.0-6.0) % 07/14/18 07/14/18 Range/Units 09:24 11:19 RBC (3.80-5.40) m/uL Hgb (11.4-16.0) gm/dL Hct (34.0-46.0) % Lymphocytes # (1.0-4.8) k/uL Chloride 110 H (98-107) mmol/L Carbon Dioxide 21 L (22-30) mmol/L BUN 26 H (7-17) mg/dL Creatinine 1.07 H (0.52-1.04) mg/dL Glucose 212 H (74-99) mg/dL POC Glucose (mg/dL) 198 H (75-99) mg/dL Hemoglobin A1c (4.0-6.0) % Microbiology - Last 24 Hours (Table) 07/12/18 12:15 Blood Culture - Preliminary Blood No Growth after 24 hours Assessment and Plan Assessment: 1. Acute tracheobronchitis or possible early pneumonia. Continue Rocephin and azithromycin. Influenza screen negative. Chest x-ray from yesterday was negative for infiltrate. Continue Mucinex for cough and congestion. 2. Pleuritic Chest pain secondary to patient's cough from her possible pneumonia. Troponins 3 sets. Patient has been seen and evaluated by cardiology. Acute coronary syndrome ruled out 3. Elevated d-dimer VQ scan low probability of PE venous Doppler of the left leg negative for DVT 4. Stool positive for occult blood possibly related to patient's iron supplement. Hemoglobin is stable at 11. Per patient last colonoscopy 3 years ago and was normal she does report history of diverticulosis. Last EGD was over 20 years ago at that time was diagnosed with peptic ulcer disease. Patient denies any abdominal pain 5. Chronic kidney disease stage II. Creatinine 1.32 on admission down to 1.09 6. Diabetes mellitus type 2 resume metformin and glipizide. Add sliding scale coverage 7. Essential hypertension 8. Bronchospasm from her bronchitis and possible pneumonia. Seen by pulmonary service. They've added IV Solu-Medrol. Continue bronchodilators. Patient does report a prior history of smoking during her college years 9. Recent left total knee arthroplasty about 5 months ago. Patient still reporting some pain and requiring her [place]. The pain is not new. Also will consult physical therapy. 10. Sinus congestion and headache. Continue Flonase, Mucinex and [place] for pain GI prophylaxis Pepcid and DVT prophylaxis subcu heparin I performed an examination of the patient and discussed their management with the physician Cut Pressman. I have reviewed the Physician Cut Pressman's notes and agree with the documented findings and plan of care
[2018-07-14] MEDS: HYDROcodone/APAP 10-325MG 1 EACH TAB PO PRN ×2 (12:56→20:17)
[2018-07-14] MEDS: SODIUM CHLORIDE 0.9% 1,000 ML IV SCH (12:57)
--- NOTE | 2018-07-14 13:05 | P.PN ---
Subjective This is a pleasant 72-year-old female past medical history significant for hypertension, dyslipidemia, diabetes mellitus, mitral valve prolapse and chronic kidney disease. Cath report was obtained and reviewed. Revealed that in 2009 she had a 60% lesion in the proximal LAD and no disease in any other arteries. Echo obtained reveals preserved LV systolic function with EF 55-60%, mild aortic valve stenosis with mean gradient 11 mmHg, mild MR, mild TR and mild pulmonary hypertension with RVSP 45 mmHg. She is seen and examined laying flat in bed in no acute distress. She states she is not feeling any better and thinks her breathing is becoming worse. Lungs do sound worse than yesterday and she is actively wheezing during my exam. She continues with pleuritic chest pain with deep inspiration and cough which is persistent. She denies exertional chest pain. Blood pressure 158/73 herat rate 94 afebrile maintaining oxygen saturation on room air. GENERAL: This is a 72-year-old -[place] female in no apparent distress at the time of my examination. HEENT: Head is atraumatic, normocephalic. Pupils are equal, round. Sclerae anicteric. Conjunctivae are clear. Mucous membranes of the mouth are moist. Neck is supple. There is no jugular venous distention. No carotid bruit is heard. LUNGS: Course rhonchi and wheezeing. No rales. No chest wall tenderness is noted on palpation or with deep breathing. HEART: Regular rate and rhythm with systolic ejection murmur at the base, no rubs or gallops. S1 and S2 heard. EXTREMITIES: Trace edema to left lower extremity, non-pitting. No swelling to the right. No calf tenderness noted. ASSESSMENT Pleuritic chest pain, atypical for angina. Acute coronary event has been ruled out. Pneumonia on IV antibiotics Febrile illness Hypertension Dyslipidemia Diabetes mellitus Chronic kidney disease PLAN An acute coronary event has been ruled out. Stable from a cardiac perspective. Follow up with Dr. Palmer upon discharge for outpatient stress testing once her respiratory status has improved. We will continue to follow as needed. Nurse Practitioner note has been reviewed, I agree with a documented findings and plan of care. Patient was seen and examined. Objective - Vital Signs Vital signs: Vital Signs Temp 98.3 F 07/14/18 05:25 Pulse 94 07/14/18 12:16 Resp 18 07/14/18 05:25 BP 158/73 07/14/18 05:25 Pulse Ox 95 07/14/18 05:25 Intake & Output 07/13/18 07/14/18 07/14/18 18:59 06:59 18:59 Other: Voiding Method Toilet # Voids 2 1 - Labs CBC & Chem 7: 07/14/18 09:24 07/14/18 09:24 Labs: Abnormal Lab Results - Last 24 Hours (Table) 07/12/18 07/13/18 07/13/18 Range/Units 12:15 16:57 21:09 RBC (3.80-5.40) m/uL Hgb (11.4-16.0) gm/dL Hct (34.0-46.0) % Lymphocytes # (1.0-4.8) k/uL Chloride (98-107) mmol/L Carbon Dioxide (22-30) mmol/L BUN (7-17) mg/dL Creatinine (0.52-1.04) mg/dL Glucose (74-99) mg/dL POC Glucose (mg/dL) 205 H 137 H (75-99) mg/dL Hemoglobin A1c 6.6 H (4.0-6.0) % 07/14/18 07/14/18 07/14/18 Range/Units 07:16 09:24 09:24 RBC 3.35 L (3.80-5.40) m/uL Hgb 10.2 L (11.4-16.0) gm/dL Hct 32.9 L (34.0-46.0) % Lymphocytes # 0.9 L (1.0-4.8) k/uL Chloride 110 H (98-107) mmol/L Carbon Dioxide 21 L (22-30) mmol/L BUN 26 H (7-17) mg/dL Creatinine 1.07 H (0.52-1.04) mg/dL Glucose 212 H (74-99) mg/dL POC Glucose (mg/dL) 188 H (75-99) mg/dL Hemoglobin A1c (4.0-6.0) % 07/14/18 Range/Units 11:19 RBC (3.80-5.40) m/uL Hgb (11.4-16.0) gm/dL Hct (34.0-46.0) % Lymphocytes # (1.0-4.8) k/uL Chloride (98-107) mmol/L Carbon Dioxide (22-30) mmol/L BUN (7-17) mg/dL Creatinine (0.52-1.04) mg/dL Glucose (74-99) mg/dL POC Glucose (mg/dL) 198 H (75-99) mg/dL Hemoglobin A1c (4.0-6.0) % Microbiology - Last 24 Hours (Table) 07/12/18 12:15 Blood Culture - Preliminary Blood No Growth after 24 hours
[2018-07-14 17:06] LABS: Glucose,Whole Blood 274 mg/dL (75-99)
[2018-07-14] MEDS: AZITHROMYCIN 500 MG TAB PO SCH (17:17)
[2018-07-14] MEDS: MONTELUKAST 10 MG TAB PO SCH (20:17)
[2018-07-14 20:28] LABS: Glucose,Whole Blood 256 mg/dL (75-99)
[2018-07-14] MEDS ORDERED: IPRATROPIUM 0.5 MG/2.5 ML NEBU INHALATION PRN (21:31)
--- NOTE | 2018-07-14 21:41 | P.PN ---
Subjective Progress Note Date: 07/14/18 Principal diagnosis: Acute bronchitis/early pneumonia 70-year-old female patient presented emergency department because of increased cough chest congestion and shortness of breath and fever. Her symptoms started approximately 2 weeks ago. Patient reported that her symptoms got worse and she was having increased chills and sweats. She came with a temperature of 11.1 on admission. Chest x-ray was done and the patient was started on empiric antibiotic coverage with a combination of Rocephin and Zithromax. She was also started on DuoNeb nebulized treatments around the clock. D-dimer was at 2.29. Doppler of the lower extremity was negative. VQ scan was of a low probability. Influenza screen was negative. Lactic acid level was at 1.2. White cell count was nonelevated. The chest x-ray showed chronic changes and cardiac megaly without any suspicious acute pulmonary infiltrates. The echocardiac Dennis showed a preserved LV function with an ejection fraction of 55-60%. There was mild to moderate pulmonary hypertension with a PA pressure of 45. Rest of the Structures were all within normal limits. The patient is seen today 07/14/2018 in follow-up on the regular medical floor. She is awake and alert in no acute distress. She is improved today as compared to yesterday but not still back to her baseline. Still somewhat bronchospastic and wheezy. She had been refusing some of her breathing treatments due to tremors and palpitations. She is currently maintaining good O2 saturations in the 90s on room air. She's been afebrile. Hemodynamically stable. Blood culture reveals no growth. White count 5.9. Hemoglobin 10.2. Creatinine 1.07. Pro-calcitonin 0.16. Objective - Vital Signs Vital signs: Vital Signs Temp 97.5 F L 07/14/18 15:00 Pulse 96 07/14/18 15:00 Resp 20 07/14/18 15:00 BP 151/53 07/14/18 15:00 Pulse Ox 97 07/14/18 15:00 Intake & Output 07/14/18 07/14/18 07/15/18 06:59 18:59 06:59 Other: Voiding Method Toilet # Voids 1 3 # Bowel Movements 1 - Exam GENERAL EXAM: Alert, active, comfortable in no apparent distress. On room air. HEAD: Normocephalic. EYES: Normal reaction of pupils, equal size. NOSE: Clear with pink turbinates. THROAT: No erythema or exudates. NECK: No masses, no JVD. CHEST: No chest wall deformity. LUNGS: Equal air entry with bilateral end expiratory wheeze. CVS: S1 and S2 normal with no audible murmur, regular rhythm. ABDOMEN: No hepatosplenomegaly, normal bowel sounds, no guarding or rigidity. SPINE: No scoliosis or deformity SKIN: No rashes CENTRAL NERVOUS SYSTEM: No focal deficits, tone is normal in all 4 extremities. EXTREMITIES: There is no peripheral edema. No clubbing, no cyanosis. Peripheral pulses are intact. - Labs CBC & Chem 7: 07/14/18 09:24 07/14/18 09:24 Labs: Abnormal Lab Results - Last 24 Hours (Table) 07/14/18 07/14/18 07/14/18 Range/Units 07:16 09:24 09:24 RBC 3.35 L (3.80-5.40) m/uL Hgb 10.2 L (11.4-16.0) gm/dL Hct 32.9 L (34.0-46.0) % Lymphocytes # 0.9 L (1.0-4.8) k/uL Chloride 110 H (98-107) mmol/L Carbon Dioxide 21 L (22-30) mmol/L BUN 26 H (7-17) mg/dL Creatinine 1.07 H (0.52-1.04) mg/dL Glucose 212 H (74-99) mg/dL POC Glucose (mg/dL) 188 H (75-99) mg/dL Procalcitonin (0.02-0.09) ng/mL 07/14/18 07/14/18 07/14/18 Range/Units 09:24 11:19 17:04 RBC (3.80-5.40) m/uL Hgb (11.4-16.0) gm/dL Hct (34.0-46.0) % Lymphocytes # (1.0-4.8) k/uL Chloride (98-107) mmol/L Carbon Dioxide (22-30) mmol/L BUN (7-17) mg/dL Creatinine (0.52-1.04) mg/dL Glucose (74-99) mg/dL POC Glucose (mg/dL) 198 H 274 H (75-99) mg/dL Procalcitonin 0.16 H (0.02-0.09) ng/mL 07/14/18 Range/Units 20:27 RBC (3.80-5.40) m/uL Hgb (11.4-16.0) gm/dL Hct (34.0-46.0) % Lymphocytes # (1.0-4.8) k/uL Chloride (98-107) mmol/L Carbon Dioxide (22-30) mmol/L BUN (7-17) mg/dL Creatinine (0.52-1.04) mg/dL Glucose (74-99) mg/dL POC Glucose (mg/dL) 256 H (75-99) mg/dL Procalcitonin (0.02-0.09) ng/mL Microbiology - Last 24 Hours (Table) 07/12/18 12:15 Blood Culture - Preliminary Blood No Growth after 48 hours Assessment and Plan Assessment: Assessment 1 acute bronchitis/early pneumonia, influenza screen is negative and the patient is currently covered with broad-spectrum antibiotics, the patient is bronchospastic and wheezy for now. 2 chest pain with negative cardiac enzymes and normal echocardiogram, cardiology is on the case 3 diabetes mellitus type 2 4 chronic stage II kidney disease, creatinine is improved since admission 5 hypertension 6 osteoarthritis 7 chronic back pain 8 chronic migraines 9 positive Hemoccult stool Plan The patient was seen and evaluated by Dr. Reddy. She is improved today as compared to yesterday but not quite back to her baseline. We'll discontinue her DuoNeb inhalations and use just ipratropium. We'll add Pulmicort and Perforomist. Continue IV Solu-Medrol. Continue Mucinex. Will increase activity as tolerated. We'll continue to follow. I, the cosigning physician, performed a history & physical examination of the patient. Lungs sounds have bilateral end expiratory wheeze. Maintaining good O2 saturations in the 90s on room air. I discussed the assessment and plan of care with my nurse practitioner, Rae Danielson. I attest to the above note as dictated by her.
[2018-07-15] MEDS: HYDROcodone/APAP 10-325MG 1 EACH TAB PO PRN ×3 (02:31→14:22)
[2018-07-15] MEDS: methylPREDNISolone SOD SUCCI 125 MG/2 ML VIAL IV SCH ×5 (05:24→23:47)
[2018-07-15 07:06] LABS: Glucose,Whole Blood 227 mg/dL (75-99)
[2018-07-15] MEDS: FORMOTEROL FUMARATE 20 MCG/2 ML NEBU INHALATION SCH ×2 (07:26→19:29)
[2018-07-15] MEDS: BUDESONIDE 1 MG/2 ML NEBU INHALATION SCH ×2 (07:26→19:29)
[2018-07-15] MEDS: IPRATROPIUM 0.5 MG/2.5 ML NEBU INHALATION SCH ×4 (07:26→19:30)
[2018-07-15] MEDS: INSULIN ASPART 100 UNIT/ML 1 ML 10 ML VIAL SQ SCH ×4 (07:45→21:54)
[2018-07-15] MEDS: FERROUS SULFATE 325 MG TAB PO SCH ×2 (07:45→17:51)
[2018-07-15] MEDS: glipiZIDE 5 MG TAB PO SCH ×2 (07:45→17:51)
[2018-07-15] MEDS: metFORMIN 500 MG TAB PO SCH ×2 (07:46→17:52)
[2018-07-15] MEDS: ASPIRIN 81 MG PO SCH (07:46)
[2018-07-15] MEDS: amLODIPine 10 MG TAB PO SCH (07:46)
[2018-07-15] MEDS: HEPARIN SODIUM,PORCINE 5,000 UNIT/ML 1 ML VIAL SQ SCH ×2 (07:47→21:55)
[2018-07-15] MEDS: FENOFIBRATE 160 MG TAB PO SCH (07:47)
[2018-07-15] MEDS: FAMOTIDINE 20 MG TAB PO SCH (07:47)
[2018-07-15] MEDS: FLUTICASONE 50MCG/SPRAY NASAL 16GM EA NOSTRIL SCH (07:47)
[2018-07-15] MEDS: guaiFENesin 600 MG TABLET.ER PO SCH ×2 (07:47→21:53)
[2018-07-15] MEDS: METOPROLOL TARTRATE 25 MG TAB PO SCH (07:48)
[2018-07-15] MEDS: hydrALAZINE HCL 25 MG TAB PO SCH (07:48)
[2018-07-15] MEDS: BENZONATATE 100 MG CAP PO PRN (07:50)
[2018-07-15 08:21] LABS: Basophils % (A) 0 %; Eosinophils # (A) 0.1 k/uL (0-0.7); Eosinophils % (A) 2 %; HCT 31.9 % (34.0-46.0); HGB 10.6 gm/dL (11.4-16.0); Lymphocytes % (A) 15 %; MCH 31.5 pg (25.0-35.0); MCHC 33.2 g/dL (31.0-37.0); Mean Platelet Volume 7.6; Monocytes # (A) 0.1 k/uL (0-1.0); Monocytes % (A) 2 %; Neutrophils # (A) 5.1 k/uL (1.3-7.7); Neutrophils % (A) 79 %; Platelet Count 248 k/uL (150-450); RBC 3.36 m/uL (3.80-5.40); RDW 15.1 % (11.5-15.5); WBC 6.5 k/uL (3.8-10.6)
[2018-07-15] MEDS: SODIUM CHLORIDE 0.9% 1,000 ML IV SCH (09:07)
[2018-07-15 09:14] LABS: Albumin 4.1 g/dL (3.5-5.0); Calcium 10.3 mg/dL (8.4-10.2); Potassium 5.3 mmol/L (3.5-5.1); Total Bilirubin 0.4 mg/dL (0.2-1.3); Total Protein 7.2 g/dL (6.3-8.2)
[2018-07-15 11:42] LABS: Glucose,Whole Blood 379 mg/dL (75-99)
[2018-07-15] MEDS ORDERED: SODIUM POLYSTYRENE SULFONATE 15 GM/60 ML BOTTLE PO STA (15:03)
--- NOTE | 2018-07-15 15:05 | P.PN ---
Subjective Progress Note Date: 07/15/18 This is a 72-year-old female with a known past medical history of hypertension, hyperlipidemia, diabetes, chronic kidney disease stage II, iron deficiency anemia and mitral valve prolapse. Patient presents to the emergency room with complaints of productive cough, shortness of breath and fever. Cough that started about 2 weeks ago. Patient reports less couple a days she had increase in chills sweats and fevers. She had a temp of 101.1 on admission. Their concerns of possible pneumonia on chest x-ray she was started on Rocephin and azithromycin. Started on DuoNeb updrafts for wheezing and shortness of breath. Patient does report a prior history of smoking during college. Patient also is having chest pains. Troponins are negative 3. Patient had EKG showing a normal sinus rhythm with sinus arrhythmia and also 1 sinus tachycardia heart rate of 110 and PACs. Patient has been seen evaluated by cardiology. D-dimer was elevated at 2.29. Doppler of the left lower leg was negative for DVT and VQ scan was normal with a low probability of PE. Influenza screen was negative lactic acid is 1.2 and WBC is within normal range. She did have a stool positive for occult blood she is on iron supplements at home. She is had no recent blood in her stools. Last colonoscopy was 3 years ago was reported normal she does report having a history of diverticulosis and peptic ulcer disease. Patient denies any significant bowel movement changes urinary symptoms. She did have one episode of vomiting with her significant cough. She is complaining of a frontal headache and sinus pressure. 07/14/2018 patient still reporting cough that is more productive today. Son some shortness of breath and chest pains. She is evaluated by cardiology 0 point chest pain is pleuritic in nature from her pneumonia. She remains on antibiotics. Pulmonary service evaluated patient and added Solu-Medrol. Echo completed showing an EF of 55-60% with mild mitral regurgitation and mild tricuspid regurgitation and mild pulmonary hypertension. Patient denies any nausea or vomiting. Reports having bowel movements. Denies any difficulty urinating. She is still complaining of some headache. She has required IV Dilaudid for her chest discomfort and headache. Reporting that the [place] is not strong enough for lasting long enough. The [place] be increased to 10 mg every 6 hours for pain On 07/15/2018 patient is alert and oriented 3. Patient has been up ambulating more frequently today. Patient also worked with physical therapy. Patient remains on IV Solu-Medrol along with antibiotics and DuoNeb breathing treatments. Discussed with pulmonary service is likely to be discharged safely 24-48 hours. At this time patient denies chest pain or shortness of breath. Patient denies nausea vomiting or diarrhea. Patient denies any urinary burning or frequency Objective - Vital Signs Vital signs: Vital Signs Temp 97.0 F L 07/15/18 06:05 Pulse 79 07/15/18 12:00 Resp 18 07/15/18 06:05 BP 185/70 07/15/18 06:05 Pulse Ox 97 07/15/18 06:05 Intake & Output 07/14/18 07/15/18 07/15/18 18:59 06:59 18:59 Other: Voiding Method Toilet # Voids 3 2 # Bowel Movements 1 - Exam Head normocephalic Neck supple Lungs diminished with a few expiratory wheezes Heart regular rate and rhythm S1-S2, no rub or gallop Abdomen is soft nontender nondistended positive bowel sounds no hepatosplenomegaly Extremities no edema Neuro alert and orientated to 3 - Labs CBC & Chem 7: 07/15/18 07:54 07/15/18 07:54 Labs: Abnormal Lab Results - Last 24 Hours (Table) 07/14/18 07/14/18 07/14/18 Range/Units 09:24 17:04 20:27 RBC (3.80-5.40) m/uL Hgb (11.4-16.0) gm/dL Hct (34.0-46.0) % Potassium (3.5-5.1) mmol/L Chloride (98-107) mmol/L Carbon Dioxide (22-30) mmol/L BUN (7-17) mg/dL Glucose (74-99) mg/dL POC Glucose (mg/dL) 274 H 256 H (75-99) mg/dL Calcium (8.4-10.2) mg/dL Procalcitonin 0.16 H (0.02-0.09) ng/mL 07/15/18 07/15/18 07/15/18 Range/Units 06:58 07:54 07:54 RBC 3.36 L (3.80-5.40) m/uL Hgb 10.6 L (11.4-16.0) gm/dL Hct 31.9 L (34.0-46.0) % Potassium 5.3 H (3.5-5.1) mmol/L Chloride 111 H (98-107) mmol/L Carbon Dioxide 20 L (22-30) mmol/L BUN 32 H (7-17) mg/dL Glucose 236 H (74-99) mg/dL POC Glucose (mg/dL) 227 H (75-99) mg/dL Calcium 10.3 H (8.4-10.2) mg/dL Procalcitonin (0.02-0.09) ng/mL 07/15/18 Range/Units 11:39 RBC (3.80-5.40) m/uL Hgb (11.4-16.0) gm/dL Hct (34.0-46.0) % Potassium (3.5-5.1) mmol/L Chloride (98-107) mmol/L Carbon Dioxide (22-30) mmol/L BUN (7-17) mg/dL Glucose (74-99) mg/dL POC Glucose (mg/dL) 379 H (75-99) mg/dL Calcium (8.4-10.2) mg/dL Procalcitonin (0.02-0.09) ng/mL Microbiology - Last 24 Hours (Table) 07/12/18 12:15 Blood Culture - Preliminary Blood No Growth after 72 hours Assessment and Plan Assessment: 1. Acute tracheobronchitis or possible early pneumonia. Continue Rocephin and azithromycin. Influenza screen negative. Chest x-ray from yesterday was negative for infiltrate. Continue Mucinex for cough and congestion. Per pulmonary services continue current treatment anticipate possible discharge in the next 24-48 hours 2. Pleuritic Chest pain secondary to patient's cough from her possible pneumonia. Troponins 3 sets. Patient has been seen and evaluated by cardiology. Acute coronary syndrome ruled out 3. Elevated d-dimer VQ scan low probability of PE venous Doppler of the left leg negative for DVT 4. Stool positive for occult blood possibly related to patient's iron supplement. Hemoglobin is stable at 11. Per patient last colonoscopy 3 years ago and was normal she does report history of diverticulosis. Last EGD was over 20 years ago at that time was diagnosed with peptic ulcer disease. Patient denies any abdominal pain 5. Chronic kidney disease stage II. Creatinine 1.32 on admission down to 1.09 6. Diabetes mellitus type 2 resume metformin and glipizide. Add sliding scale coverage 7. Essential hypertension 8. Bronchospasm from her bronchitis and possible pneumonia. Seen by pulmonary service. They've added IV Solu-Medrol. Continue bronchodilators. Patient does report a prior history of smoking during her college years 9. Recent left total knee arthroplasty about 5 months ago. Patient still reporting some pain and requiring her [place]. The pain is not new. Also will consult physical therapy. Patient states some improvement with left knee pain with working with physical therapy 10. Sinus congestion and headache. Continue Flonase, Mucinex and [place] for pain 11. Hyperkalemia. Potassium 5.3. We'll give 1 dose of Kayexalate and patient to be placed on low potassium diet will recheck in a.m. DVT prophylaxis heparin. GI prophylaxis Protonix I performed an examination of the patient and discussed their management with the Nurse Practitioner. I have reviewed the Nurse Practitioner's notes and agree with the documented findings and plan of care
[2018-07-15 17:16] LABS: Glucose,Whole Blood 129 mg/dL (75-99)
[2018-07-15] MEDS: AZITHROMYCIN 500 MG TAB PO SCH (17:52)
--- NOTE | 2018-07-15 18:11 | P.PN ---
Subjective Progress Note Date: 07/15/18 Principal diagnosis: Acute bronchitis/early pneumonia 70-year-old female patient presented emergency department because of increased cough chest congestion and shortness of breath and fever. Her symptoms started approximately 2 weeks ago. Patient reported that her symptoms got worse and she was having increased chills and sweats. She came with a temperature of 11.1 on admission. Chest x-ray was done and the patient was started on empiric antibiotic coverage with a combination of Rocephin and Zithromax. She was also started on DuoNeb nebulized treatments around the clock. D-dimer was at 2.29. Doppler of the lower extremity was negative. VQ scan was of a low probability. Influenza screen was negative. Lactic acid level was at 1.2. White cell count was nonelevated. The chest x-ray showed chronic changes and cardiac megaly without any suspicious acute pulmonary infiltrates. The echocardiac Dennis showed a preserved LV function with an ejection fraction of 55-60%. There was mild to moderate pulmonary hypertension with a PA pressure of 45. Rest of the Structures were all within normal limits. The patient is seen today 07/14/2018 in follow-up on the regular medical floor. She is awake and alert in no acute distress. She is improved today as compared to yesterday but not still back to her baseline. Still somewhat bronchospastic and wheezy. She had been refusing some of her breathing treatments due to tremors and palpitations. She is currently maintaining good O2 saturations in the 90s on room air. She's been afebrile. Hemodynamically stable. Blood culture reveals no growth. White count 5.9. Hemoglobin 10.2. Creatinine 1.07. Pro-calcitonin 0.16. On 07/15/2018 patient seen in follow-up on medical surgical floor. She is sitting up on the edge of the bed, in no acute distress, her breathing is improving, room air pulse ox is 98%, patient is afebrile, influenza screen was negative, chest x-ray did not show any evidence of infiltrate. Lung sounds are diminished with few expiratory wheezes, overall patient is improving, less congested, denies any chest pain or shortness of breath, no nausea, vomiting or diarrhea. She is on antibiotics and IV steroids along with breathing treatments. His labs have been reviewed, white blood cell count 6.5, hemoglobin is 10.6, sodium is 139, potassium is 5.3, chloride is 111, CO2 is 20 , B1 is 32 and creatinine 0.96. Continue current medical treatment. Objective - Vital Signs Vital signs: Vital Signs Temp 98.2 F 07/15/18 13:57 Pulse 78 07/15/18 15:58 Resp 16 07/15/18 13:57 BP 132/69 07/15/18 13:57 Pulse Ox 98 07/15/18 13:57 Intake & Output 07/14/18 07/15/18 07/15/18 18:59 06:59 18:59 Intake Total 600 Balance 600 Intake: Oral 600 Other: Voiding Method Toilet # Voids 3 2 3 # Bowel Movements 1 - Exam GENERAL EXAM: Alert, pleasant, 72-year-old female, comfortable in no apparent distress. HEAD: Normocephalic/atraumatic. EYES: Normal reaction of pupils, equal size. Conjunctiva pink, sclera white. NOSE: Clear with pink turbinates. THROAT: No erythema or exudates. NECK: No masses, no JVD, no thyroid enlargement, no adenopathy. CHEST: No chest wall deformity. Symmetrical expansion. LUNGS: Equal air entry scattered wheezes CVS: Regular rate and rhythm, normal S1 and S2, no gallops, no murmurs, no rubs ABDOMEN: Soft, nontender. No hepatosplenomegaly, normal bowel sounds, no guarding or rigidity. EXTREMITIES: No clubbing, no edema, no cyanosis, 2+ pulses and upper and lower extremities. MUSCULOSKELETAL: Muscle strength and tone normal. SPINE: No scoliosis or deformity SKIN: No rashes CENTRAL NERVOUS SYSTEM: Alert and oriented -3. No focal deficits, tone is normal in all 4 extremities. PSYCHIATRIC: Alert and oriented -3. Appropriate affect. Intact judgment and insight. - Labs CBC & Chem 7: 07/15/18 07:54 07/15/18 07:54 Labs: Abnormal Lab Results - Last 24 Hours (Table) 07/14/18 07/15/18 07/15/18 Range/Units 20:27 06:58 07:54 RBC 3.36 L (3.80-5.40) m/uL Hgb 10.6 L (11.4-16.0) gm/dL Hct 31.9 L (34.0-46.0) % Potassium (3.5-5.1) mmol/L Chloride (98-107) mmol/L Carbon Dioxide (22-30) mmol/L BUN (7-17) mg/dL Glucose (74-99) mg/dL POC Glucose (mg/dL) 256 H 227 H (75-99) mg/dL Calcium (8.4-10.2) mg/dL 07/15/18 07/15/18 07/15/18 Range/Units 07:54 11:39 17:12 RBC (3.80-5.40) m/uL Hgb (11.4-16.0) gm/dL Hct (34.0-46.0) % Potassium 5.3 H (3.5-5.1) mmol/L Chloride 111 H (98-107) mmol/L Carbon Dioxide 20 L (22-30) mmol/L BUN 32 H (7-17) mg/dL Glucose 236 H (74-99) mg/dL POC Glucose (mg/dL) 379 H 129 H (75-99) mg/dL Calcium 10.3 H (8.4-10.2) mg/dL Microbiology - Last 24 Hours (Table) 07/12/18 12:15 Blood Culture - Preliminary Blood No Growth after 72 hours Assessment and Plan Plan: 1 acute bronchitis/early pneumonia, influenza screen is negative and the patient is currently covered with broad-spectrum antibiotics, the patient is bronchospastic and wheezy for now. 2 chest pain with negative cardiac enzymes and normal echocardiogram, cardiology is on the case 3 diabetes mellitus type 2 4 chronic stage II kidney disease, creatinine is improved since admission 5 hypertension 6 osteoarthritis 7 chronic back pain 8 chronic migraines 9 positive Hemoccult stool Plan: We'll continue current medical treatment, antibiotics, IV steroids, nebulized bronchodilators, continue Pulmicort and Perforomist, patient is improving, less dyspneic, less congested and wheezy. Dyspneic discharge in next 24 hours if patient continues to improve I performed a history & physical examination of the patient and discussed their management with my nurse practitioner, Kaylah Collins. I reviewed the nurse practitioner's note and agree with the documented findings and plan of care. Lung sounds are positive for diminished breath sounds with end expiratory wheezes. The findings and the impression was discussed with the patient. I attest to the documentation by the nurse practitioner. Time with Patient: Less than 30
[2018-07-15 19:51] LABS: Glucose,Whole Blood 229 mg/dL (75-99)
[2018-07-15] MEDS: HYDROmorphone 0.5 MG/0.5 ML SYRINGE IVP PRN (21:52)
[2018-07-15] MEDS: MONTELUKAST 10 MG TAB PO SCH (21:54)
[2018-07-16] MEDS ORDERED: hydrALAZINE HCL 20 MG/ML 1 ML VIAL IVP PRN (04:40)
[2018-07-16 04:48] LABS: Basophils % (A) 0 %; Eosinophils % (A) 1 %; HCT 33.5 % (34.0-46.0); HGB 10.2 gm/dL (11.4-16.0); Lymphocytes # (A) 0.8 k/uL (1.0-4.8); Lymphocytes % (A) 14 %; MCH 29.8 pg (25.0-35.0); MCHC 30.5 g/dL (31.0-37.0); MCV 97.7 fL (80.0-100.0); Monocytes # (A) 0.2 k/uL (0-1.0); Monocytes % (A) 3 %; Neutrophils # (A) 4.4 k/uL (1.3-7.7); Neutrophils % (A) 79 %; Platelet Count 249 k/uL (150-450); RBC 3.43 m/uL (3.80-5.40); RDW 14.8 % (11.5-15.5); WBC 5.6 k/uL (3.8-10.6)
[2018-07-16 05:04] LABS: Albumin 3.9 g/dL (3.5-5.0); Calcium 10.1 mg/dL (8.4-10.2); Potassium 4.6 mmol/L (3.5-5.1); Total Bilirubin 0.4 mg/dL (0.2-1.3)
[2018-07-16] MEDS: SODIUM CHLORIDE 0.9% 1,000 ML IV SCH (05:51)
[2018-07-16 05:55] LABS: Glucose,Whole Blood 211 mg/dL (75-99)
[2018-07-16] MEDS: HYDROcodone/APAP 10-325MG 1 EACH TAB PO PRN ×2 (05:55→15:57)
[2018-07-16] MEDS: INSULIN ASPART 100 UNIT/ML 1 ML 10 ML VIAL SQ SCH ×4 (06:00→22:10)
[2018-07-16] MEDS: FORMOTEROL FUMARATE 20 MCG/2 ML NEBU INHALATION SCH ×2 (08:15→20:17)
[2018-07-16] MEDS: IPRATROPIUM 0.5 MG/2.5 ML NEBU INHALATION SCH ×4 (08:15→20:17)
[2018-07-16] MEDS: BUDESONIDE 1 MG/2 ML NEBU INHALATION SCH ×2 (08:15→20:17)
[2018-07-16] MEDS: ASPIRIN 81 MG PO SCH (08:54)
[2018-07-16] MEDS: FAMOTIDINE 20 MG TAB PO SCH (08:54)
[2018-07-16] MEDS: amLODIPine 10 MG TAB PO SCH (08:54)
[2018-07-16] MEDS: FENOFIBRATE 160 MG TAB PO SCH (08:54)
[2018-07-16] MEDS: hydrALAZINE HCL 25 MG TAB PO SCH (08:55)
[2018-07-16] MEDS: METOPROLOL TARTRATE 25 MG TAB PO SCH (08:55)
[2018-07-16] MEDS: HEPARIN SODIUM,PORCINE 5,000 UNIT/ML 1 ML VIAL SQ SCH ×2 (08:55→21:33)
[2018-07-16] MEDS: guaiFENesin 600 MG TABLET.ER PO SCH ×2 (08:55→21:33)
[2018-07-16] MEDS: FLUTICASONE 50MCG/SPRAY NASAL 16GM EA NOSTRIL SCH (08:55)
[2018-07-16] MEDS: FERROUS SULFATE 325 MG TAB PO SCH ×2 (08:56→18:23)
[2018-07-16] MEDS: glipiZIDE 5 MG TAB PO SCH ×2 (10:23→18:23)
[2018-07-16] MEDS: BENZONATATE 100 MG CAP PO PRN (10:23)
[2018-07-16] MEDS: metFORMIN 500 MG TAB PO SCH ×2 (10:23→18:23)
[2018-07-16] MEDS: HYDROmorphone 0.5 MG/0.5 ML SYRINGE IVP PRN ×2 (10:23→19:54)
[2018-07-16] MEDS ORDERED: SODIUM CHLORIDE 0.9% 50 ML BAG ONE (10:29)
[2018-07-16] MEDS ORDERED: cefTRIAXone 1 GM VIAL ONE (10:29)
[2018-07-16 12:26] LABS: Glucose,Whole Blood 178 mg/dL (75-99)
[2018-07-16] MEDS: methylPREDNISolone SOD SUCCI 125 MG/2 ML VIAL IV SCH ×3 (12:30→23:10)
--- NOTE | 2018-07-16 12:41 | P.PN ---
Subjective Progress Note Date: 07/16/18 This is a pleasant 72-year-old female past medical history significant for hypertension, dyslipidemia, diabetes mellitus, mitral valve prolapse and chronic kidney disease. She denies prior history of coronary artery disease. She states she has been coughing for the last 2 weeks. The first week it was dry nagging cough with no other associated symptoms. The second week she started producing a white thick phlegm and was developing pain in her chest whenever she coughed or tried taking a deep breath. She has been diagnosed with pneumonia and started on antibiotics. She continues to cough and feel pain in her chest with cough or deep inspiration. Initial EKG on admit reveals sinus mechanism with no acute ST or T-wave abnormalities. Repeat EKG reveals minimal ST depression laterally suggestive of LVH. Third EKG is sinus mechanism with no ST changes. She is seen and examined laying flat in bed in no acute distress. 07/16/2018 Patient had an episode of chest discomfort through the night last night, blood pressure was also elevated and for this reason she was transferred to the cardiac unit and every visit from cardiology was requested. Patient's pain is very pleuritic in nature, worse with coughing and deep breathing. She does have pneumonia for which she is being treated. Let pressure today 128/60, heart rate in the 60s. Objective - Vital Signs Vital signs: Vital Signs Temp 98.0 F 07/16/18 08:00 Pulse 64 07/16/18 11:32 Resp 18 07/16/18 11:32 BP 128/60 07/16/18 11:23 Pulse Ox 98 07/16/18 11:23 Intake & Output 07/15/18 07/16/18 07/16/18 18:59 06:59 18:59 Intake Total 1200 0 Balance 1200 0 Intake: Oral 1200 0 Other: Voiding Method Toilet # Voids 3 1 - Exam GENERAL: This is a 72-year-old -[place] female in no apparent distress at the time of my examination. HEENT: Head is atraumatic, normocephalic. Pupils are equal, round. Sclerae anicteric. Conjunctivae are clear. Mucous membranes of the mouth are moist. Neck is supple. There is no jugular venous distention. No carotid bruit is heard. LUNGS: Clear to auscultation with fine crackles to the bases , chest wall tenderness is noted on palpation and with deep breathing. HEART: Regular rate and rhythm with systolic ejection murmur at the base, no rubs or gallops. S1 and S2 heard. ABDOMEN: Soft, nontender. Bowel sounds are heard. No organomegaly noted. EXTREMITIES: Trace edema to left lower extremity, non-pitting. No swelling to the right. No calf tenderness noted. VASCULAR: Radial and dorsalis pedis pulses palpated, no evidence of clubbing. NEUROLOGIC: Patient is awake, alert and oriented x3. - Labs CBC & Chem 7: 07/16/18 04:37 07/16/18 04:37 Labs: Abnormal Lab Results - Last 24 Hours (Table) 07/15/18 07/15/18 07/16/18 Range/Units 17:12 19:49 04:37 RBC 3.43 L (3.80-5.40) m/uL Hgb 10.2 L (11.4-16.0) gm/dL Hct 33.5 L (34.0-46.0) % MCHC 30.5 L (31.0-37.0) g/dL Lymphocytes # 0.8 L (1.0-4.8) k/uL Chloride (98-107) mmol/L Carbon Dioxide (22-30) mmol/L BUN (7-17) mg/dL Glucose (74-99) mg/dL POC Glucose (mg/dL) 129 H 229 H (75-99) mg/dL 07/16/18 07/16/18 07/16/18 Range/Units 04:37 05:53 12:24 RBC (3.80-5.40) m/uL Hgb (11.4-16.0) gm/dL Hct (34.0-46.0) % MCHC (31.0-37.0) g/dL Lymphocytes # (1.0-4.8) k/uL Chloride 109 H (98-107) mmol/L Carbon Dioxide 21 L (22-30) mmol/L BUN 31 H (7-17) mg/dL Glucose 212 H (74-99) mg/dL POC Glucose (mg/dL) 211 H 178 H (75-99) mg/dL Microbiology - Last 24 Hours (Table) 07/12/18 12:15 Blood Culture - Preliminary Blood No Growth after 72 hours Assessment and Plan Plan: ASSESSMENT and plan #1 Pleuritic chest pain, atypical for angina. Acute coronary event has been ruled out. #2 Pneumonia on IV antibiotics #3 Febrile illness #4 Hypertension #5 Dyslipidemia #6 Diabetes mellitus #7 Chronic kidney disease Plan From cardiology's perspective, patient may be able to be discharged home once cleared by primary. We will schedule her for an office visit with Dr. VC Palmer , outpatient stress test will be performed once the pneumonia clears. Discussed with the patient in detail as well. DNP note has been reviewed, I agree with a documented findings and plan of care. Patient was seen and examined.
--- NOTE | 2018-07-16 13:27 | P.PN ---
Subjective Progress Note Date: 07/16/18 This is a 72-year-old female with a known past medical history of hypertension, hyperlipidemia, diabetes, chronic kidney disease stage II, iron deficiency anemia and mitral valve prolapse. Patient presents to the emergency room with complaints of productive cough, shortness of breath and fever. Cough that started about 2 weeks ago. Patient reports less couple a days she had increase in chills sweats and fevers. She had a temp of 101.1 on admission. Their concerns of possible pneumonia on chest x-ray she was started on Rocephin and azithromycin. Started on DuoNeb updrafts for wheezing and shortness of breath. Patient does report a prior history of smoking during college. Patient also is having chest pains. Troponins are negative 3. Patient had EKG showing a normal sinus rhythm with sinus arrhythmia and also 1 sinus tachycardia heart rate of 110 and PACs. Patient has been seen evaluated by cardiology. D-dimer was elevated at 2.29. Doppler of the left lower leg was negative for DVT and VQ scan was normal with a low probability of PE. Influenza screen was negative lactic acid is 1.2 and WBC is within normal range. She did have a stool positive for occult blood she is on iron supplements at home. She is had no recent blood in her stools. Last colonoscopy was 3 years ago was reported normal she does report having a history of diverticulosis and peptic ulcer disease. Patient denies any significant bowel movement changes urinary symptoms. She did have one episode of vomiting with her significant cough. She is complaining of a frontal headache and sinus pressure. 07/14/2018 patient still reporting cough that is more productive today. Son some shortness of breath and chest pains. She is evaluated by cardiology 0 point chest pain is pleuritic in nature from her pneumonia. She remains on antibiotics. Pulmonary service evaluated patient and added Solu-Medrol. Echo completed showing an EF of 55-60% with mild mitral regurgitation and mild tricuspid regurgitation and mild pulmonary hypertension. Patient denies any nausea or vomiting. Reports having bowel movements. Denies any difficulty urinating. She is still complaining of some headache. She has required IV Dilaudid for her chest discomfort and headache. Reporting that the L[place]leton is not strong enough for lasting long enough. The L[place]leton be increased to 10 mg every 6 hours for pain On 07/15/2018 patient is alert and oriented 3. Patient has been up ambulating more frequently today. Patient also worked with physical therapy. Patient remains on IV Solu-Medrol along with antibiotics and DuoNeb breathing treatments. Discussed with pulmonary service is likely to be discharged safely 24-48 hours. At this time patient denies chest pain or shortness of breath. Patient denies nausea vomiting or diarrhea. Patient denies any urinary burning or frequency 07/16/2018 last night patient had chest pain and elevated blood pressure in the 200s. IV hydralazine ordered. Troponin negative. Cardiology on consult she was transferred to the telemetry floor. Patient currently chest pain-free. She has been evaluated by cardiology. Pickrell that her symptoms were due to pleuritic chest pain due to her cough and pneumonia. The recommending stress test as outpatient. Patient is hesitant for discharge. She is still feel slightly short of breath with congested cough and wheeze. Objective - Vital Signs Vital signs: Vital Signs Temp 98.0 F 07/16/18 08:00 Pulse 64 07/16/18 11:32 Resp 18 07/16/18 11:32 BP 128/60 07/16/18 11:23 Pulse Ox 98 07/16/18 11:23 Intake & Output 07/15/18 07/16/18 07/16/18 18:59 06:59 18:59 Intake Total 1200 0 Balance 1200 0 Intake: Oral 1200 0 Other: Voiding Method Toilet # Voids 3 1 - Exam Head normocephalic Neck supple Lungs diminished with a few expiratory wheezes Heart regular rate and rhythm S1-S2, no rub or gallop Abdomen is soft nontender nondistended positive bowel sounds no hepatosplenomegaly Extremities no edema Neuro alert and orientated to 3 - Labs CBC & Chem 7: 07/16/18 04:37 07/16/18 04:37 Labs: Abnormal Lab Results - Last 24 Hours (Table) 07/15/18 07/15/18 07/16/18 Range/Units 17:12 19:49 04:37 RBC 3.43 L (3.80-5.40) m/uL Hgb 10.2 L (11.4-16.0) gm/dL Hct 33.5 L (34.0-46.0) % MCHC 30.5 L (31.0-37.0) g/dL Lymphocytes # 0.8 L (1.0-4.8) k/uL Chloride (98-107) mmol/L Carbon Dioxide (22-30) mmol/L BUN (7-17) mg/dL Glucose (74-99) mg/dL POC Glucose (mg/dL) 129 H 229 H (75-99) mg/dL 07/16/18 07/16/18 07/16/18 Range/Units 04:37 05:53 12:24 RBC (3.80-5.40) m/uL Hgb (11.4-16.0) gm/dL Hct (34.0-46.0) % MCHC (31.0-37.0) g/dL Lymphocytes # (1.0-4.8) k/uL Chloride 109 H (98-107) mmol/L Carbon Dioxide 21 L (22-30) mmol/L BUN 31 H (7-17) mg/dL Glucose 212 H (74-99) mg/dL POC Glucose (mg/dL) 211 H 178 H (75-99) mg/dL Microbiology - Last 24 Hours (Table) 07/12/18 12:15 Blood Culture - Preliminary Blood No Growth after 72 hours Assessment and Plan Assessment: 1. Acute tracheobronchitis or possible early pneumonia. Continue Rocephin and azithromycin. Influenza screen negative. Chest x-ray from yesterday was negative for infiltrate. Continue Mucinex for cough and congestion. 2. Pleuritic Chest pain secondary to patient's cough from her possible pneumonia. Troponins 3 sets. Patient has been seen and evaluated by cardiology. Acute coronary syndrome ruled out. Patient seen evaluated by cardiology again for recurrent chest pain. Troponin negative. Recommending stress test outpatient 3. Elevated d-dimer VQ scan low probability of PE venous Doppler of the left leg negative for DVT 4. Stool positive for occult blood possibly related to patient's iron supplement. Hemoglobin is stable at 11. Per patient last colonoscopy 3 years ago and was normal she does report history of diverticulosis. Last EGD was over 20 years ago at that time was diagnosed with peptic ulcer disease. Patient denies any abdominal pain 5. Chronic kidney disease stage II. Creatinine 1.32 on admission down to 1.09 6. Diabetes mellitus type 2 resume metformin and glipizide. Add sliding scale coverage 7. Essential hypertension 8. Bronchospasm from her bronchitis and possible pneumonia. Seen by pulmonary service. They've added IV Solu-Medrol. Continue bronchodilators. Patient does report a prior history of smoking during her college years 9. Recent left total knee arthroplasty about 5 months ago. Patient still reporting some pain and requiring her L[place]. The pain is not new. Also will consult physical therapy. 10. Sinus congestion and headache. Continue Flonase, Mucinex and L[place] for pain Encouraged patient to increase activity. Anticipate discharge possibly tomorrow GI prophylaxis Pepcid and DVT prophylaxis subcu heparin I performed an examination of the patient and discussed their management with the physician Venereal Disease Investigator. I have reviewed the Physician Venereal Disease Investigator's notes and agree with the documented findings and plan of care
--- NOTE | 2018-07-16 15:09 | XR ---
EXAMINATION TYPE: XR chest 2V DATE OF EXAM: 07/16/2018 COMPARISON: 07/13/2018 TECHNIQUE: PA and lateral views submitted. HISTORY: Shortness of breath FINDINGS: Heart is enlarged. No pleural effusion or pneumothorax. There is a coarsened interstitium. Arthropath y of the shoulders. No consolidation. Hypertrophic and degenerative change of the spine. IMPRESSION: 1. Cardiomegaly with coarsened interstitium correlate for chronic interstitial lung disease or conges tion.
--- NOTE | 2018-07-16 15:49 | P.PN ---
Subjective Progress Note Date: 07/16/18 Principal diagnosis: Acute bronchitis/early pneumonia 70-year-old female patient presented emergency department because of increased cough chest congestion and shortness of breath and fever. Her symptoms started approximately 2 weeks ago. Patient reported that her symptoms got worse and she was having increased chills and sweats. She came with a temperature of 11.1 on admission. Chest x-ray was done and the patient was started on empiric antibiotic coverage with a combination of Rocephin and Zithromax. She was also started on DuoNeb nebulized treatments around the clock. D-dimer was at 2.29. Doppler of the lower extremity was negative. VQ scan was of a low probability. Influenza screen was negative. Lactic acid level was at 1.2. White cell count was nonelevated. The chest x-ray showed chronic changes and cardiac megaly without any suspicious acute pulmonary infiltrates. The echocardiac Dennis showed a preserved LV function with an ejection fraction of 55-60%. There was mild to moderate pulmonary hypertension with a PA pressure of 45. Rest of the Structures were all within normal limits. The patient is seen today 07/14/2018 in follow-up on the regular medical floor. She is awake and alert in no acute distress. She is improved today as compared to yesterday but not still back to her baseline. Still somewhat bronchospastic and wheezy. She had been refusing some of her breathing treatments due to tremors and palpitations. She is currently maintaining good O2 saturations in the 90s on room air. She's been afebrile. Hemodynamically stable. Blood culture reveals no growth. White count 5.9. Hemoglobin 10.2. Creatinine 1.07. Pro-calcitonin 0.16. On 07/15/2018 patient seen in follow-up on medical surgical floor. She is sitting up on the edge of the bed, in no acute distress, her breathing is improving, room air pulse ox is 98%, patient is afebrile, influenza screen was negative, chest x-ray did not show any evidence of infiltrate. Lung sounds are diminished with few expiratory wheezes, overall patient is improving, less congested, denies any chest pain or shortness of breath, no nausea, vomiting or diarrhea. She is on antibiotics and IV steroids along with breathing treatments. His labs have been reviewed, white blood cell count 6.5, hemoglobin is 10.6, sodium is 139, potassium is 5.3, chloride is 111, CO2 is 20 , B1 is 32 and creatinine 0.96. Continue current medical treatment. On 07/16/2018 patient seen in follow-up on selective care unit. Currently early this morning patient is up to the bathroom, had a severe coughing spell and then developed some chest wall pain anteriorly and posteriorly. Patient thinks it was related to the coughing, the pain is worse with taking deep breaths and coughing. She was transferred to selective care unit. No diaphoresis, no nausea, no vomiting. She had additional 2 sets of troponins this morning and again at 11:00 today, and both were negative. Chest x-ray showed cardiomegaly with coarsened interstitium, mild fluid overload. Patient has been getting IV hydration her renal profile has been improving. Blood pressure was elevated as well last night with systolic in the 200s. Patient is currently chest pain-free. On sounds are diminished with a few expiratory wheezes. No fever or chills. She is on empiric antibiotics in the form of Zithromax and Rocephin, today's labs have been reviewed, showed white blood cell count of 5.6, hemoglobin of 10.2, sodium is 138, potassium is 4.6, chloride is 109, CO2 is 21, BUN is 31 and creatinine is 1.02. Objective - Vital Signs Vital signs: Vital Signs Temp 97.2 F L 07/16/18 15:25 Pulse 68 07/16/18 15:29 Resp 16 07/16/18 15:29 BP 143/70 07/16/18 15:25 Pulse Ox 98 07/16/18 15:25 Intake & Output 07/15/18 07/16/18 07/16/18 18:59 06:59 18:59 Intake Total 1200 0 Balance 1200 0 Intake: Oral 1200 0 Other: Voiding Method Toilet # Voids 3 1 1 - Exam GENERAL EXAM: Alert, pleasant, 72-year-old female, comfortable in no apparent distress. HEAD: Normocephalic/atraumatic. EYES: Normal reaction of pupils, equal size. Conjunctiva pink, sclera white. NOSE: Clear with pink turbinates. THROAT: No erythema or exudates. NECK: No masses, no JVD, no thyroid enlargement, no adenopathy. CHEST: No chest wall deformity. Symmetrical expansion. LUNGS: Equal air entry with minimal expiratory wheezing CVS: Regular rate and rhythm, normal S1 and S2, no gallops, no murmurs, no rubs ABDOMEN: Soft, nontender. No hepatosplenomegaly, normal bowel sounds, no guarding or rigidity. EXTREMITIES: No clubbing, no edema, no cyanosis, 2+ pulses and upper and lower extremities. MUSCULOSKELETAL: Muscle strength and tone normal. SPINE: No scoliosis or deformity SKIN: No rashes CENTRAL NERVOUS SYSTEM: Alert and oriented -3. No focal deficits, tone is normal in all 4 extremities. PSYCHIATRIC: Alert and oriented -3. Appropriate affect. Intact judgment and insight. - Labs CBC & Chem 7: 07/16/18 04:37 07/16/18 04:37 Labs: Abnormal Lab Results - Last 24 Hours (Table) 07/15/18 07/15/18 07/16/18 Range/Units 17:12 19:49 04:37 RBC 3.43 L (3.80-5.40) m/uL Hgb 10.2 L (11.4-16.0) gm/dL Hct 33.5 L (34.0-46.0) % MCHC 30.5 L (31.0-37.0) g/dL Lymphocytes # 0.8 L (1.0-4.8) k/uL Chloride (98-107) mmol/L Carbon Dioxide (22-30) mmol/L BUN (7-17) mg/dL Glucose (74-99) mg/dL POC Glucose (mg/dL) 129 H 229 H (75-99) mg/dL 07/16/18 07/16/18 07/16/18 Range/Units 04:37 05:53 12:24 RBC (3.80-5.40) m/uL Hgb (11.4-16.0) gm/dL Hct (34.0-46.0) % MCHC (31.0-37.0) g/dL Lymphocytes # (1.0-4.8) k/uL Chloride 109 H (98-107) mmol/L Carbon Dioxide 21 L (22-30) mmol/L BUN 31 H (7-17) mg/dL Glucose 212 H (74-99) mg/dL POC Glucose (mg/dL) 211 H 178 H (75-99) mg/dL Microbiology - Last 24 Hours (Table) 07/12/18 12:15 Blood Culture - Preliminary Blood No Growth after 96 hours Assessment and Plan Plan: 1 acute bronchitis/early pneumonia, influenza screen is negative and the patient is currently covered with broad-spectrum antibiotics, the patient is bronchospastic and wheezy for now. 2 chest pain with negative cardiac enzymes and normal echocardiogram, cardiology is on the case 3 diabetes mellitus type 2 4 chronic stage II kidney disease, creatinine is improved since admission 5 hypertension 6 osteoarthritis 7 chronic back pain 8 chronic migraines 9 positive Hemoccult stool Plan: Continue IV steroids, nebulized bronchodilators, patient has been unable to tolerate Pulmicort and Perforomist related to palpitations, but overall patient is improving from pulmonary perspective, less bronchospastic and congested. No fever or chills, continue with current antibiotic coverage, patient has been treated for influenza infection. Chest x-ray has been reviewed with Dr. Reddy, and suggest mild fluid overload with mild interstitial prominence. We 'll discontinue the IV fluids. Her renal profile has improved. We'll continue to follow, patient should be able to discharge home in the next 24 hours. I performed a history & physical examination of the patient and discussed their management with my nurse practitioner, Kaylah Collins. I reviewed the nurse practitioner's note and agree with the documented findings and plan of care. Lung sounds are positive for diminished breath sounds with end expiratory wheezes. The findings and the impression was discussed with the patient. I attest to the documentation by the nurse practitioner. Time with Patient: Less than 30
[2018-07-16 16:39] LABS: Glucose,Whole Blood 247 mg/dL (75-99)
[2018-07-16] MEDS: AZITHROMYCIN 500 MG TAB PO SCH (18:23)
[2018-07-16 20:29] LABS: Glucose,Whole Blood 233 mg/dL (75-99)
[2018-07-16] MEDS: MONTELUKAST 10 MG TAB PO SCH (21:33)
[2018-07-17 05:55] LABS: Glucose,Whole Blood 235 mg/dL (75-99)
[2018-07-17] MEDS: HYDROcodone/APAP 10-325MG 1 EACH TAB PO PRN ×2 (06:01→13:18)
[2018-07-17 06:40] LABS: Basophils % (A) 0 %; Eosinophils % (A) 1 %; HCT 33.8 % (34.0-46.0); HGB 10.8 gm/dL (11.4-16.0); Lymphocytes # (A) 1.2 k/uL (1.0-4.8); Lymphocytes % (A) 19 %; MCH 30.4 pg (25.0-35.0); MCHC 31.9 g/dL (31.0-37.0); MCV 95.2 fL (80.0-100.0); Mean Platelet Volume 7.2; Monocytes # (A) 0.2 k/uL (0-1.0); Monocytes % (A) 4 %; Neutrophils # (A) 4.6 k/uL (1.3-7.7); Neutrophils % (A) 75 %; Platelet Count 277 k/uL (150-450); RBC 3.56 m/uL (3.80-5.40); RDW 14.8 % (11.5-15.5); WBC 6.1 k/uL (3.8-10.6)
[2018-07-17] MEDS: glipiZIDE 5 MG TAB PO SCH (06:41)
[2018-07-17] MEDS: metFORMIN 500 MG TAB PO SCH (06:41)
[2018-07-17] MEDS: FERROUS SULFATE 325 MG TAB PO SCH (06:41)
[2018-07-17] MEDS: methylPREDNISolone SOD SUCCI 125 MG/2 ML VIAL IV SCH ×2 (06:41→12:16)
[2018-07-17] MEDS: INSULIN ASPART 100 UNIT/ML 1 ML 10 ML VIAL SQ SCH ×2 (06:43→12:07)
[2018-07-17 07:08] LABS: Calcium 10.1 mg/dL (8.4-10.2); Potassium 4.4 mmol/L (3.5-5.1); Total Bilirubin 0.4 mg/dL (0.2-1.3); Total Protein 7.1 g/dL (6.3-8.2)
[2018-07-17] MEDS: BUDESONIDE 1 MG/2 ML NEBU INHALATION SCH (08:10)
[2018-07-17] MEDS: FORMOTEROL FUMARATE 20 MCG/2 ML NEBU INHALATION SCH (08:10)
[2018-07-17] MEDS: IPRATROPIUM 0.5 MG/2.5 ML NEBU INHALATION SCH ×2 (08:11→12:10)
[2018-07-17 09:11] VITALS: RESP 16; TEMP 97.5
[2018-07-17] MEDS: guaiFENesin 600 MG TABLET.ER PO SCH (09:18)
[2018-07-17] MEDS: amLODIPine 10 MG TAB PO SCH (09:18)
[2018-07-17] MEDS: ASPIRIN 81 MG PO SCH (09:18)
[2018-07-17] MEDS: METOPROLOL TARTRATE 25 MG TAB PO SCH (09:18)
[2018-07-17] MEDS: FENOFIBRATE 160 MG TAB PO SCH (09:18)
[2018-07-17] MEDS: FAMOTIDINE 20 MG TAB PO SCH (09:18)
[2018-07-17] MEDS: FLUTICASONE 50MCG/SPRAY NASAL 16GM EA NOSTRIL SCH (09:19)
[2018-07-17] MEDS: HEPARIN SODIUM,PORCINE 5,000 UNIT/ML 1 ML VIAL SQ SCH (09:19)
[2018-07-17] MEDS: hydrALAZINE HCL 25 MG TAB PO SCH (09:20)
[2018-07-17] MEDS ORDERED: cefTRIAXone 1 GM VIAL ONE (09:20)
[2018-07-17] MEDS ORDERED: SODIUM CHLORIDE 0.9% 50 ML BAG ONE (09:20)
[2018-07-17] MEDS: BENZONATATE 100 MG CAP PO PRN (09:24)
[2018-07-17 11:24] VITALS: BP 155/93
[2018-07-17 12:05] LABS: Glucose,Whole Blood 99 mg/dL (75-99)
[2018-07-17 12:23] VITALS: PULSE 68
--- NOTE | 2018-07-17 12:38 | P.DS ---
Providers Date of admission: 07/12/18 15:32 Expected date of discharge: 07/17/18 Attending physician: Nini Payton Consults: 07/13/18 06:19 Consult Physician Routine Consulting Provider: Arabella Palmer Consult Reason/Comments: chest pain & sob Do you want consulting provider notified?: Yes, Notify in am 07/13/18 14:40 Consult Physician Routine Consulting Provider: Tom Reddy Consult Reason/Comments: COPD exacerbation, pneumonia Do you want consulting provider notified?: Yes 07/16/18 04:03 Consult Physician Routine Consulting Provider: Sofía Martinez Consult Reason/Comments: chest pain elevated blood pressure Do you want consulting provider notified?: Yes, Notify in am Primary care physician: Sissy Starr Hospital Course: Discharge diagnosis 1. Acute tracheobronchitis or possible early pneumonia. Influenza screen negative. Continue Mucinex for cough and congestion. 2. Pleuritic Chest pain secondary to patient's cough from her possible pneumonia. Troponins 3 sets. Patient has been seen and evaluated by cardiology. Acute coronary syndrome ruled out. Patient seen evaluated by cardiology again for recurrent chest pain. Troponin negative. Recommending stress test outpatient 3. Elevated d-dimer VQ scan low probability of PE venous Doppler of the left leg negative for DVT 4. Stool positive for occult blood possibly related to patient's iron supplement. Hemoglobin is stable at 11. Per patient last colonoscopy 3 years ago and was normal she does report history of diverticulosis. Last EGD was over 20 years ago at that time was diagnosed with peptic ulcer disease. Patient denies any abdominal pain 5. Chronic kidney disease stage II. Creatinine 1.32 on admission down to 0.96 6. Diabetes mellitus type 2 resume metformin and glipizide. Add sliding scale coverage 7. Essential hypertension 8. Bronchospasm from her bronchitis and possible pneumonia. Continue prednisone taper. We'll discharge patient home with an albuterol inhaler 9. Recent left total knee arthroplasty about 5 months ago. Patient still reporting some pain and requiring her Doss. The pain is not new. Also will consult physical therapy. 10. Sinus congestion and headache. Improved Hospital course This is a 72-year-old female with a known past medical history of hypertension, hyperlipidemia, diabetes, chronic kidney disease stage II, iron deficiency anemia and mitral valve prolapse. Patient presents to the emergency room with complaints of productive cough, shortness of breath and fever. Cough that started about 2 weeks ago. Patient reports less couple a days she had increase in chills sweats and fevers. She had a temp of 101.1 on admission. Their concerns of possible pneumonia on chest x-ray she was started on Rocephin and azithromycin. Started on DuoNeb updrafts for wheezing and shortness of breath. Patient does report a prior history of smoking during college. Patient also is having chest pains. Troponins are negative 3. Patient had EKG showing a normal sinus rhythm with sinus arrhythmia and also 1 sinus tachycardia heart rate of 110 and PACs. Patient has been seen evaluated by cardiology. D-dimer was elevated at 2.29. Doppler of the left lower leg was negative for DVT and VQ scan was normal with a low probability of PE. Influenza screen was negative lactic acid is 1.2 and WBC is within normal range. She did have a stool positive for occult blood she is on iron supplements at home. She is had no recent blood in her stools. Last colonoscopy was 3 years ago was reported normal she does report having a history of diverticulosis and peptic ulcer disease. Patient denies any significant bowel movement changes urinary symptoms. She did have one episode of vomiting with her significant cough. She is complaining of a frontal headache and sinus pressure. 07/14/2018 patient still reporting cough that is more productive today. Son some shortness of breath and chest pains. She is evaluated by cardiology 0 point chest pain is pleuritic in nature from her pneumonia. She remains on antibiotics. Pulmonary service evaluated patient and added Solu-Medrol. Echo completed showing an EF of 55-60% with mild mitral regurgitation and mild tricuspid regurgitation and mild pulmonary hypertension. Patient denies any nausea or vomiting. Reports having bowel movements. Denies any difficulty urinating. She is still complaining of some headache. She has required IV Dilaudid for her chest discomfort and headache. Reporting that the Doss is not strong enough for lasting long enough. The Doss be increased to 10 mg every 6 hours for pain On 07/15/2018 patient is alert and oriented 3. Patient has been up ambulating more frequently today. Patient also worked with physical therapy. Patient remains on IV Solu-Medrol along with antibiotics and DuoNeb breathing treatments. Discussed with pulmonary service is likely to be discharged safely 24-48 hours. At this time patient denies chest pain or shortness of breath. Patient denies nausea vomiting or diarrhea. Patient denies any urinary burning or frequency 07/16/2018 last night patient had chest pain and elevated blood pressure in the 200s. IV hydralazine ordered. Troponin negative. Cardiology on consult she was transferred to the telemetry floor. Patient currently chest pain-free. She has been evaluated by cardiology. Jesse that her symptoms were due to pleuritic chest pain due to her cough and pneumonia. The recommending stress test as outpatient. Patient is hesitant for discharge. She is still feel slightly short of breath with congested cough and wheeze. 07/17/2018 patient reporting improvement in her breathing and cough. She does state she feels ready for discharge. She has been cleared by cardiology and pulmonary services. We'll continue 5 more days of Ceftin and prednisone taper and Mucinex for her pneumonia and bronchospasm. Patient also be given albuterol inhaler to use as needed for shortness of breath and wheezing. Patient has had no further episodes of chest pain. She was seen evaluated by cardiology during this admission troponins have remained negative. They are recommending a stress test outpatient setting when the pneumonia has cleared. Patient has been up and ambulating without shortness of breath or chest pain. Patient is medical stable for discharge. Please refer to chart for any further details. Also note that during this admission patient did have some elevated blood pressures again they have improved. Metoprolol was added during this admission. Patient will follow-up with her PCP in 1 week and cardiology as scheduled. I performed an examination of the patient and discussed their management with the physician Diagnostic Radiologist. I have reviewed the Physician Diagnostic Radiologist's notes and agree with the documented findings and plan of care Patient Condition at Discharge: Stable Plan - Discharge Summary Discharge Rx Participant: Yes New Discharge Prescriptions: New Albuterol Inhaler [Ventolin Hfa Inhaler] 2 puff INHALATION RT-Q6H PRN #1 inhaler PRN Reason: Shortness Of Breath Cefuroxime Axetil [Ceftin] 500 mg PO BID #10 tab guaiFENesin [Mucinex] 1,200 mg PO Q12HR #10 tablet.er Metoprolol Tartrate [Lopressor] 25 mg PO DAILY #30 tab predniSONE 10 mg PO DIRECTED #30 tab HYDROcodone/APAP 10-325MG [Doss 10-325] 1 each PO Q8H PRN #9 tab PRN Reason: Moderate Pain Continue Fenofibrate Nanocrystallized [Tricor] 145 mg PO DAILY metFORMIN HCL [Glucophage] 500 mg PO BID amLODIPine [Norvasc] 10 mg PO DAILY Ferrous Sulfate [Feosol] 325 mg PO BID glipiZIDE [Glucotrol] 5 mg PO BID hydrALAZINE HCL 25 mg PO DAILY Famotidine 40 mg PO DAILY Montelukast [Singulair] 10 mg PO HS Benzonatate [Tessalon Perles] 100 mg PO Q6H PRN PRN Reason: Cough Aspirin EC [Ecotrin Low Dose] 81 mg PO DAILY Discharge Medication List Fenofibrate Nanocrystallized [Tricor] 145 mg PO DAILY 11/16/14 [History] metFORMIN HCL [Glucophage] 500 mg PO BID 11/16/14 [History] Ferrous Sulfate [Feosol] 325 mg PO BID 02/20/16 [History] amLODIPine [Norvasc] 10 mg PO DAILY 02/20/16 [History] glipiZIDE [Glucotrol] 5 mg PO BID 06/06/17 [History] Famotidine 40 mg PO DAILY 02/16/18 [History] hydrALAZINE HCL 25 mg PO DAILY 02/16/18 [History] Aspirin EC [Ecotrin Low Dose] 81 mg PO DAILY 07/12/18 [History] Benzonatate [Tessalon Perles] 100 mg PO Q6H PRN 07/12/18 [History] Montelukast [Singulair] 10 mg PO HS 07/12/18 [History] Albuterol Inhaler [Ventolin Hfa Inhaler] 2 puff INHALATION RT-Q6H PRN #1 inhaler 07/17/18 [Rx] Cefuroxime Axetil [Ceftin] 500 mg PO BID #10 tab 07/17/18 [Rx] HYDROcodone/APAP 10-325MG [Doss 10-325] 1 each PO Q8H PRN #9 tab 07/17/18 [Rx] Metoprolol Tartrate [Lopressor] 25 mg PO DAILY #30 tab 07/17/18 [Rx] guaiFENesin [Mucinex] 1,200 mg PO Q12HR #10 tablet.er 07/17/18 [Rx] predniSONE 10 mg PO DIRECTED #30 tab 07/17/18 [Rx] Follow up Appointment(s)/Referral(s): Sofía Martinez MD [STAFF PHYSICIAN] - 2 Weeks Sissy Starr DO [Primary Care Provider] - 07/24/18 11:00 am (Friday) Activity/Diet/Wound Care/Special Instructions: Wants D/C Rx. Diet: cardiac Activity: as tolerated Discharge Disposition: HOME SELF-CARE
--- NOTE | 2018-07-17 17:10 | P.PN ---
Subjective Progress Note Date: 07/17/18 Principal diagnosis: Acute bronchitis/early pneumonia 70-year-old female patient presented emergency department because of increased cough chest congestion and shortness of breath and fever. Her symptoms started approximately 2 weeks ago. Patient reported that her symptoms got worse and she was having increased chills and sweats. She came with a temperature of 11.1 on admission. Chest x-ray was done and the patient was started on empiric antibiotic coverage with a combination of Rocephin and Zithromax. She was also started on DuoNeb nebulized treatments around the clock. D-dimer was at 2.29. Doppler of the lower extremity was negative. VQ scan was of a low probability. Influenza screen was negative. Lactic acid level was at 1.2. White cell count was nonelevated. The chest x-ray showed chronic changes and cardiac megaly without any suspicious acute pulmonary infiltrates. The echocardiac Dennis showed a preserved LV function with an ejection fraction of 55-60%. There was mild to moderate pulmonary hypertension with a PA pressure of 45. Rest of the Structures were all within normal limits. The patient is seen today 07/14/2018 in follow-up on the regular medical floor. She is awake and alert in no acute distress. She is improved today as compared to yesterday but not still back to her baseline. Still somewhat bronchospastic and wheezy. She had been refusing some of her breathing treatments due to tremors and palpitations. She is currently maintaining good O2 saturations in the 90s on room air. She's been afebrile. Hemodynamically stable. Blood culture reveals no growth. White count 5.9. Hemoglobin 10.2. Creatinine 1.07. Pro-calcitonin 0.16. On 07/16/2018 patient seen in follow-up on selective care unit. Currently early this morning patient is up to the bathroom, had a severe coughing spell and then developed some chest wall pain anteriorly and posteriorly. Patient thinks it was related to the coughing, the pain is worse with taking deep breaths and coughing. She was transferred to selective care unit. No diaphoresis, no nausea, no vomiting. She had additional 2 sets of troponins this morning and again at 11:00 today, and both were negative. Chest x-ray showed cardiomegaly with coarsened interstitium, mild fluid overload. Patient has been getting IV hydration her renal profile has been improving. Blood pressure was elevated as well last night with systolic in the 200s. Patient is currently chest pain-free. On sounds are diminished with a few expiratory wheezes. No fever or chills. She is on empiric antibiotics in the form of Zithromax and Rocephin, today's labs have been reviewed, showed white blood cell count of 5.6, hemoglobin of 10.2, sodium is 138, potassium is 4.6, chloride is 109, CO2 is 21, BUN is 31 and creatinine is 1.02. Patient is seen today 07/17/2017 in follow-up on the selective care unit. She is awake and alert in no acute distress. Maintaining good O2 saturations up to 100% on room air. She's been afebrile. Hemodynamically stable. Culture reveals no growth. Count 6.1. Hemoglobin 10.8. Creatinine 0.96. Objective - Vital Signs Vital signs: Vital Signs Temp 97.5 F L 07/17/18 08:00 Pulse 68 07/17/18 12:22 Resp 16 07/17/18 11:24 BP 155/93 07/17/18 11:24 Pulse Ox 100 07/17/18 11:24 Intake & Output 07/16/18 07/17/18 07/17/18 18:59 06:59 18:59 Intake Total 180 230 Balance 180 230 Weight 97.7 kg Intake: Oral 180 230 Other: Voiding Method Toilet # Voids 1 1 1 - Exam GENERAL EXAM: Alert, active, comfortable in no apparent distress. On room air. HEAD: Normocephalic. EYES: Normal reaction of pupils, equal size. NOSE: Clear with pink turbinates. THROAT: No erythema or exudates. NECK: No masses, no JVD. CHEST: No chest wall deformity. LUNGS: Equal air entry with bilateral end expiratory wheeze. CVS: S1 and S2 normal with no audible murmur, regular rhythm. ABDOMEN: No hepatosplenomegaly, normal bowel sounds, no guarding or rigidity. SPINE: No scoliosis or deformity SKIN: No rashes CENTRAL NERVOUS SYSTEM: No focal deficits, tone is normal in all 4 extremities. EXTREMITIES: There is no peripheral edema. No clubbing, no cyanosis. Peripheral pulses are intact. - Labs CBC & Chem 7: 07/17/18 05:45 07/17/18 05:45 Labs: Abnormal Lab Results - Last 24 Hours (Table) 07/16/18 07/17/18 07/17/18 Range/Units 20:27 05:45 05:45 RBC 3.56 L (3.80-5.40) m/uL Hgb 10.8 L (11.4-16.0) gm/dL Hct 33.8 L (34.0-46.0) % BUN 29 H (7-17) mg/dL Glucose 234 H (74-99) mg/dL POC Glucose (mg/dL) 233 H (75-99) mg/dL AST 13 L (14-36) U/L 07/17/18 Range/Units 05:53 RBC (3.80-5.40) m/uL Hgb (11.4-16.0) gm/dL Hct (34.0-46.0) % BUN (7-17) mg/dL Glucose (74-99) mg/dL POC Glucose (mg/dL) 235 H (75-99) mg/dL AST (14-36) U/L Microbiology - Last 24 Hours (Table) 07/12/18 12:15 Blood Culture - Preliminary Blood No Growth after 120 hours Assessment and Plan Assessment: Assessment 1 acute bronchitis/early pneumonia, influenza screen is negative and the patient is currently covered with broad-spectrum antibiotics, Recovered and on room air. 2 chest pain with negative cardiac enzymes and normal echocardiogram, cardiology is on the case 3 diabetes mellitus type 2 4 chronic stage II kidney disease, creatinine is improved since admission 5 hypertension 6 osteoarthritis 7 chronic back pain 8 chronic migraines 9 positive Hemoccult stool Plan The patient was seen and evaluated by Dr. Reddy. She is stable from the pulmonary standpoint. Complete her course of antibiotics. Complete a prednisone taper. Follow-up in our office in 1-2 weeks' time. She is encouraged to call sooner with any recurrence of symptoms or other questions or concerns. I, the cosigning physician, performed a history & physical examination of the patient. Lungs sounds have bilateral end expiratory wheeze. Maintaining good O2 saturations in the 90s on room air. I discussed the assessment and plan of care with my nurse practitioner, aRe Danielson. I attest to the above note as dictated by her.
== END 2018-07-17 14:59 | disposition home or self-care (01) | DRG 195 ==
LOC: EC 11:05 → 4MS4W 15:32 → 3SCARD 07-16 04:59
PROVIDERS: ADMIT Internal Medicine; ATTEND Internal Medicine
DX: J18.9 Pneumonia, unspecified organism (principal); E11.22 Type 2 diabetes mellitus with diabetic chronic kidney disease; E87.5 Hyperkalemia; E87.70 Fluid overload, unspecified; I27.20 Pulmonary hypertension, unspecified; I08.1 Rheumatic disorders of both mitral and tricuspid valves; I13.10 Hypertensive heart and chronic kidney disease without heart failure, with stage 1 through stage 4 chronic kidney disease, or unspecified chronic kidney disease; J20.9 Acute bronchitis, unspecified; E78.5 Hyperlipidemia, unspecified; N18.2 Chronic kidney disease, stage 2 (mild); G43.909 Migraine, unspecified, not intractable, without status migrainosus; G89.29 Other chronic pain; I25.10 Atherosclerotic heart disease of native coronary artery without angina pectoris; K21.9 Gastro-esophageal reflux disease without esophagitis; M19.90 Unspecified osteoarthritis, unspecified site; R79.1 Abnormal coagulation profile; D50.9 Iron deficiency anemia, unspecified; I83.90 Asymptomatic varicose veins of unspecified lower extremity; K57.90 Diverticulosis of intestine, part unspecified, without perforation or abscess without bleeding; R09.81 Nasal congestion; M54.9 Dorsalgia, unspecified; R07.89 Other chest pain; Z79.82 Long term (current) use of aspirin; Z79.84 Long term (current) use of oral hypoglycemic drugs; Z79.899 Other long term (current) drug therapy; Z88.8 Allergy status to other drugs, medicaments and biological substances; Z88.6 Allergy status to analgesic agent; Z88.1 Allergy status to other antibiotic agents; Z91.041 Radiographic dye allergy status; Z96.652 Presence of left artificial knee joint; Z90.710 Acquired absence of both cervix and uterus; Z87.891 Personal history of nicotine dependence; Z87.11 Personal history of peptic ulcer disease; Z80.9 Family history of malignant neoplasm, unspecified; Z82.49 Family history of ischemic heart disease and other diseases of the circulatory system
CPT/HCPCS: 36415; 71046; 78582; 80053; 82272; 83036; 83605; 83880; 84145; 84484; 85025; 85379; 85610; 85730; 87040; 87449; 87502; 93005; 93306; 94640; 94760; 96361; 96365; 96375; 99285

== ENCOUNTER 2018-12-04 00:01 | Emergency (ER) | payer MEDICARE, OTHER ==
[2018-12-04 00:14] VITALS: BP 154/89; PULSE 84; RESP 16; TEMP 98.4
[2018-12-04] MEDS ORDERED: ACET/COD 300 MG/30 MG STARTER PACK 6 TAB BTL PO STA (00:32)
[2018-12-04] MEDS ORDERED: KETOROLAC 30 MG/ML 1 ML VIAL IM STA (00:32)
[2018-12-04] MEDS ORDERED: PENICILLIN VK 500MG STARTER 4 TAB BTL PO STA (00:32)
--- NOTE | 2018-12-04 00:34 | ED ---
ENT HPI - General Chief complaint: Dental/Oral Stated complaint: Dental Abscess Time Seen by Provider: 12/04/18 00:16 Source: patient Mode of arrival: ambulatory Limitations: no limitations - History of Present Illness Initial comments: 73-year-old female patient presented to the emergency department today for evaluation of dental pain and facial swelling to the right upper dentition. Patient states that she started having discomfort 2-3 days ago but noticed the swelling tonight. Patient denies any drainage inside the mouth. States she has taken Tylenol for discomfort but has not helped. She denies any fever or chills. Denies any nausea or vomiting. Denies any trismus or difficulty swallowing. Patient states that she does have dental insurance but does not have a dentist. Patient denies any recent rash, shortness breath, chest pain, abdominal pain, diarrhea, constipation, back pain, numbness, tingling, dizziness, weakness, hematuria, dysuria, urinary urgency, urinary frequency, headache, visual changes, or any other complaints. - Related Data Home Medications Medication Instructions Recorded Confirmed Fenofibrate Nanocrystallized 145 mg PO DAILY 11/16/14 07/12/18 [Tricor] metFORMIN HCL [Glucophage] 500 mg PO BID 11/16/14 07/12/18 Ferrous Sulfate [Feosol] 325 mg PO BID 02/20/16 07/12/18 amLODIPine [Norvasc] 10 mg PO DAILY 02/20/16 07/12/18 glipiZIDE [Glucotrol] 5 mg PO BID 06/06/17 07/12/18 Famotidine 40 mg PO DAILY 02/16/18 07/12/18 hydrALAZINE HCL 25 mg PO DAILY 02/16/18 07/12/18 Aspirin EC [Ecotrin Low Dose] 81 mg PO DAILY 07/12/18 07/12/18 Benzonatate [Tessalon Perles] 100 mg PO Q6H PRN 07/12/18 07/12/18 Montelukast [Singulair] 10 mg PO HS 07/12/18 07/12/18 Previous Rx's Medication Instructions Recorded Albuterol Inhaler [Ventolin Hfa 2 puff INHALATION RT-Q6H PRN #1 07/17/18 Inhaler] inhaler Cefuroxime Axetil [Ceftin] 500 mg PO BID #10 tab 07/17/18 HYDROcodone/APAP 10-325MG [Mason 1 each PO Q8H PRN #9 tab 07/17/18 10-325] Metoprolol Tartrate [Lopressor] 25 mg PO DAILY #30 tab 07/17/18 guaiFENesin [Mucinex] 1,200 mg PO Q12HR #10 tablet.er 07/17/18 predniSONE 10 mg PO DIRECTED #30 tab 07/17/18 Acetaminophen-Codeine 300-30mg 1 tab PO Q6H PRN #12 tablet 12/04/18 [Tylenol #3] Penicillin V Potassium [Pen Vee K] 500 mg PO Q6H #40 tablet 12/04/18 Allergies Allergy/AdvReac Type Severity Reaction Status Date / Time diflunisal [From Dolobid] Allergy Anaphylaxis Verified 12/04/18 00:15 hydrochlorothiazide Allergy Swelling Verified 12/04/18 00:15 [From Zestoretic] of face and throat ibuprofen [From Motrin] Allergy Abdominal Verified 12/04/18 00:15 Pain Iodine and Iodide Containing Allergy Anaphylaxis Verified 12/04/18 00:15 Produc lisinopril Allergy Rash/Hives Verified 12/04/18 00:15 morphine Allergy Rash/Hives Verified 12/04/18 00:15 prednisone Allergy Rash/Hives Verified 12/04/18 00:15 sulfamethoxazole Allergy Anaphylaxis Verified 12/04/18 00:15 [From Bactrim] tramadol Allergy Rash/Hives Verified 12/04/18 00:15 trimethoprim [From Bactrim] Allergy Anaphylaxis Verified 12/04/18 00:15 baclofen AdvReac Unknown LOW HEART Verified 12/04/18 00:15 RATE NSAIDS (Non-Steroidal AdvReac Unknown TOLD TO Verified 12/04/18 00:15 Anti-Inflamma AVOID NSAIDS DUE TO ABDOMINAL PAIN ondansetron AdvReac Itching Verified 12/04/18 00:15 [From Zofran (as hydrochloride)] Review of Systems ROS Statement: Those systems with pertinent positive or pertinent negative responses have been documented in the HPI. ROS Other: All systems not noted in ROS Statement are negative. Past Medical History Past Medical History: Diabetes Mellitus, GERD/Reflux, Hyperlipidemia, Hypertension, Mitral Valve Prolapse (MVP), Osteoarthritis (OA) Additional Past Medical History / Comment(s): Hypertension, hyperlipidemia, diabetes mellitus, mitral valve prolapse, chronic back pain, varicose veins, migraines, chronic stage II kidney disease, iron deficiency anemia, lumbar disc disease with previous history of L4-L5 degenerative disc disease of the lumbar spine, osteoarthritis History of Any Multi-Drug Resistant Organisms: None Reported Past Surgical History: Back Surgery, Hysterectomy, Tonsillectomy Additional Past Surgical History / Comment(s): Spine surgery involving the lumbar spine related to herniated disc at the level of L4-L5, right temporal artery biopsy, ovarian cyst removal, pilonidal cyst, left knee replacement, tonsillectomy, hysterectomy Past Anesthesia/Blood Transfusion Reactions: Family Hisory of Malignant Hyperthermia Additional Past Anesthesia/Blood Transfusion Reaction / Comment(s): daughter had reaction to anesthesia age 7 with tonsilectomy called "chocolate anesthesia" per pt. "she had a rash and high fever of 105". daughter has had surgeries since with no problems. Past Psychological History: No Psychological Hx Reported Smoking Status: Former smoker Past Alcohol Use History: None Reported Past Drug Use History: None Reported - Past Family History Sister(s) Family Medical History: Cancer, Deep Vein Thrombosis (DVT) Brother(s) Family Medical History: Deep Vein Thrombosis (DVT) Father Family Medical History: Cancer, Deep Vein Thrombosis (DVT) Additional Family Medical History / Comment(s): QUADRUPLE BYPASS Mother Family Medical History: Deep Vein Thrombosis (DVT) Additional Family Medical History / Comment(s): PACEMAKER General Exam Limitations: no limitations General appearance: alert, in no apparent distress, other (This is a well- developed, well-nourished elderly female patient in no acute distress. Vital signs upon presentation are temperature 98.4F, pulse 84, respirations 16, blood pressure 154/89, pulse ox 97% on room air.) Eye exam: Present: normal appearance, PERRL, EOMI. Absent: scleral icterus, conjunctival injection, periorbital swelling ENT exam: Present: normal oropharynx, mucous membranes moist, other (Physical examination does reveal right facial swelling. Patient does have gingival erythema and hyperplasia. No evidence of drainable abscess. She has multiple broken teeth and poor dentition.). Absent: normal exam Neck exam: Present: normal inspection. Absent: tenderness, meningismus, lymphadenopathy Respiratory exam: Present: normal lung sounds bilaterally. Absent: respiratory distress, wheezes, rales, rhonchi, stridor Cardiovascular Exam: Present: regular rate, normal rhythm, normal heart sounds. Absent: systolic murmur, diastolic murmur, rubs, gallop, clicks GI/Abdominal exam: Present: soft, normal bowel sounds. Absent: distended, tenderness, guarding, rebound, rigid Neurological exam: Present: alert, oriented X3, CN II-XII intact Psychiatric exam: Present: normal affect, normal mood Skin exam: Present: warm, dry, intact, normal color. Absent: rash Course Vital Signs 12/04/18 00:11 Temperature 98.4 F Pulse Rate 84 Respiratory 16 Rate Blood Pressure 154/89 O2 Sat by Pulse 97 Oximetry Medical Decision Making - Medical Decision Making 73-year-old female patient presented to the emergency department today for evaluation of right facial swelling, right upper dental pain. Physical examination did reveal gingival erythema and hyperplasia. No evidence of intraoral drainable abscess. Patient does have facial swelling on the right side of the right maxillary sinus. No maxillary tenderness. She is afebrile. Vital signs within normal range. She'll be discharged home with prescription for penicillin. Given a starter pack of Tylenol with codeine. She is instructed to follow-up with the primary care physician for recheck in 1-2 days. She is instructed follow up with dentistry as soon as possible. Return parameters were discussed in detail. She verbalizes understanding and agrees with this plan. Disposition Clinical Impression: Dental abscess Disposition: HOME SELF-CARE Condition: Good Instructions (If sedation given, give patient instructions): Dental Abscess (ED) Additional Instructions: Take medications as directed. Complete antibiotic prescription in full. Follow-up with dentistry for recheck as soon as possible. Return to the emergen cy department immediately for any new, worsening, or concerning symptoms. Prescriptions: Penicillin V Potassium [Pen Vee K] 500 mg PO Q6H #40 tablet Acetaminophen-Codeine 300-30mg [Tylenol #3] 1 tab PO Q6H PRN #12 tablet PRN Reason: Pain Is patient prescribed a controlled substance at d/c from ED?: No Referrals: Sissy Starr DO [Primary Care Provider] - 1-2 days Time of Disposition: 00:33
== END 2018-12-04 00:45 | disposition home or self-care (01) ==
LOC: EC 00:01
DX: K04.7 Periapical abscess without sinus (principal); I13.0 Hypertensive heart and chronic kidney disease with heart failure and stage 1 through stage 4 chronic kidney disease, or unspecified chronic kidney disease; E11.22 Type 2 diabetes mellitus with diabetic chronic kidney disease; N18.2 Chronic kidney disease, stage 2 (mild); I50.9 Heart failure, unspecified; K21.9 Gastro-esophageal reflux disease without esophagitis; E78.5 Hyperlipidemia, unspecified; I34.1 Nonrheumatic mitral (valve) prolapse; D50.9 Iron deficiency anemia, unspecified; M19.90 Unspecified osteoarthritis, unspecified site; Z96.652 Presence of left artificial knee joint; Z87.891 Personal history of nicotine dependence; Z79.82 Long term (current) use of aspirin; Z79.84 Long term (current) use of oral hypoglycemic drugs; Z79.899 Other long term (current) drug therapy; Z88.8 Allergy status to other drugs, medicaments and biological substances; Z88.6 Allergy status to analgesic agent; Z91.048 Other nonmedicinal substance allergy status; Z88.5 Allergy status to narcotic agent; Z88.2 Allergy status to sulfonamides
CPT/HCPCS: 99282

== ENCOUNTER 2019-06-02 14:01 | Emergency (ER) | payer MEDICARE, OTHER ==
[2019-06-02 14:31] VITALS: RESP 18; TEMP 98
[2019-06-02] MEDS ORDERED: LIDOCAINE 1%-EPI 1:100,000 20 ML VIAL SQ STA (14:45)
--- NOTE | 2019-06-02 14:52 | ED ---
Skin/Abscess/FB HPI - General Source: patient Mode of arrival: ambulatory Limitations: no limitations <Pete Bailey - Last Filed: 06/02/19 15:30> <Lucio Bender - Last Filed: 06/02/19 15:36> - General Chief complaint: Skin/Abscess/Foreign Body Stated complaint: Abscess Time Seen by Provider: 06/02/19 14:34 - History of Present Illness Initial comments: Patient is 73-year-old female with history of axillary abscess presenting to emergency Department with a chief complaint of abscess to the left axilla. Queenie ent states that she had one about one year ago that was much bigger, it was I&D and packed. Patient reports the abscess started over the last 2-3 days. Patient reports today in the shower she noticed it was draining however does not anymore. Patient denies any surrounding erythema states the abscess is very painful. She reports taking leftover amoxicillin from another illness with minimal improvement. Denies night sweats fevers or chills. (Pete Bailey) - Related Data Home Medications Medication Instructions Recorded Confirmed Fenofibrate Nanocrystallized 145 mg PO DAILY 11/16/14 07/12/18 [Tricor] metFORMIN HCL [Glucophage] 500 mg PO BID 11/16/14 07/12/18 Ferrous Sulfate [Feosol] 325 mg PO BID 02/20/16 07/12/18 amLODIPine [Norvasc] 10 mg PO DAILY 02/20/16 07/12/18 glipiZIDE [Glucotrol] 5 mg PO BID 06/06/17 07/12/18 Famotidine 40 mg PO DAILY 02/16/18 07/12/18 hydrALAZINE HCL 25 mg PO DAILY 02/16/18 07/12/18 Aspirin EC [Ecotrin Low Dose] 81 mg PO DAILY 07/12/18 07/12/18 Benzonatate [Tessalon Perles] 100 mg PO Q6H PRN 07/12/18 07/12/18 Montelukast [Singulair] 10 mg PO HS 07/12/18 07/12/18 Previous Rx's Medication Instructions Recorded Albuterol Inhaler [Ventolin Hfa 2 puff INHALATION RT-Q6H PRN #1 07/17/18 Inhaler] inhaler Cefuroxime Axetil [Ceftin] 500 mg PO BID #10 tab 07/17/18 HYDROcodone/APAP 10-325MG [Tony 1 each PO Q8H PRN #9 tab 07/17/18 10-325] Metoprolol Tartrate [Lopressor] 25 mg PO DAILY #30 tab 07/17/18 guaiFENesin [Mucinex] 1,200 mg PO Q12HR #10 tablet.er 07/17/18 predniSONE 10 mg PO DIRECTED #30 tab 07/17/18 Acetaminophen-Codeine 300-30mg 1 tab PO Q6H PRN #12 tablet 12/04/18 [Tylenol #3] Penicillin V Potassium [Pen Vee K] 500 mg PO Q6H #40 tablet 12/04/18 Doxycycline Monohydrate [Monodox] 100 mg PO Q12HR #20 cap 06/02/19 Hydrocodone/Acetaminophen [Tony 1 tab PO Q6HR PRN #8 tab 06/02/19 5-325] Allergies Allergy/AdvReac Type Severity Reaction Status Date / Time diflunisal [From Dolobid] Allergy Anaphylaxis Verified 06/02/19 14:31 hydrochlorothiazide Allergy Swelling Verified 06/02/19 14:31 [From Zestoretic] of face and throat ibuprofen [From Motrin] Allergy Abdominal Verified 06/02/19 14:31 Pain Iodine and Iodide Containing Allergy Anaphylaxis Verified 06/02/19 14:31 Produc lisinopril Allergy Rash/Hives Verified 06/02/19 14:31 morphine Allergy Rash/Hives Verified 06/02/19 14:31 prednisone Allergy Rash/Hives Verified 06/02/19 14:31 sulfamethoxazole Allergy Anaphylaxis Verified 06/02/19 14:31 [From Bactrim] tramadol Allergy Rash/Hives Verified 06/02/19 14:31 trimethoprim [From Bactrim] Allergy Anaphylaxis Verified 06/02/19 14:31 baclofen AdvReac Unknown LOW HEART Verified 06/02/19 14:31 RATE NSAIDS (Non-Steroidal AdvReac Unknown TOLD TO Verified 06/02/19 14:31 Anti-Inflamma AVOID NSAIDS DUE TO ABDOMINAL PAIN ondansetron AdvReac Itching Verified 06/02/19 14:31 [From Zofran (as hydrochloride)] Review of Systems ROS Other: All systems not noted in ROS Statement are negative. <Pete Bailey - Last Filed: 06/02/19 15:30> ROS Other: All systems not noted in ROS Statement are negative. <Lucio Bender - Last Filed: 06/02/19 15:36> ROS Statement: Those systems with pertinent positive or pertinent negative responses have been documented in the HPI. Past Medical History Past Medical History: Diabetes Mellitus, GERD/Reflux, Hyperlipidemia, Hypertension, Mitral Valve Prolapse (MVP), Osteoarthritis (OA) Additional Past Medical History / Comment(s): Hypertension, hyperlipidemia, diabetes mellitus, mitral valve prolapse, chronic back pain, varicose veins, migraines, chronic stage II kidney disease, iron deficiency anemia, lumbar disc disease with previous history of L4-L5 degenerative disc disease of the lumbar spine, osteoarthritis History of Any Multi-Drug Resistant Organisms: None Reported Past Surgical History: Back Surgery, Hysterectomy, Joint Replacement, Tonsillectomy Additional Past Surgical History / Comment(s): Spine surgery involving the lumbar spine related to herniated disc at the level of L4-L5, right temporal artery biopsy, ovarian cyst removal, pilonidal cyst, left knee replacement, tonsillectomy, hysterectomy Past Anesthesia/Blood Transfusion Reactions: Family Hisory of Malignant Hyperthermia Additional Past Anesthesia/Blood Transfusion Reaction / Comment(s): daughter had reaction to anesthesia age 7 with tonsilectomy called "chocolate anesthesia" per pt. "she had a rash and high fever of 105". daughter has had surgeries since with no problems. Past Psychological History: No Psychological Hx Reported Smoking Status: Former smoker Past Alcohol Use History: None Reported Past Drug Use History: None Reported - Past Family History Sister(s) Family Medical History: Cancer, Deep Vein Thrombosis (DVT) Brother(s) Family Medical History: Deep Vein Thrombosis (DVT) Father Family Medical History: Cancer, Deep Vein Thrombosis (DVT) Additional Family Medical History / Comment(s): QUADRUPLE BYPASS Mother Family Medical History: Deep Vein Thrombosis (DVT) Additional Family Medical History / Comment(s): PACEMAKER <Pete Bailey - Last Filed: 06/02/19 15:30> General Exam Limitations: no limitations General appearance: alert, in no apparent distress Head exam: Present: atraumatic, normocephalic, normal inspection Eye exam: Present: normal appearance, PERRL, EOMI Pupils: Present: normal accommodation ENT exam: Present: normal exam, mucous membranes moist Neck exam: Present: normal inspection, full ROM Respiratory exam: Present: normal lung sounds bilaterally Cardiovascular Exam: Present: regular rate, normal rhythm, normal heart sounds Extremities exam: Absent: normal inspection (Abscess measuring 1 cm x 1.5 cm on the left axilla. Induration with a mild flatulence. No surrounding erythema. No drainage at this time.) Back exam: Present: normal inspection, full ROM Neurological exam: Present: alert, oriented X3 Psychiatric exam: Present: normal affect, normal mood Skin exam: Present: warm, dry, intact, normal color <Pete Bailey - Last Filed: 06/02/19 15:30> Course <Lucio Bender - Last Filed: 06/02/19 15:36> Vital Signs 06/02/19 14:28 Temperature 98.0 F Pulse Rate 56 L Respiratory 18 Rate Blood Pressure 161/72 O2 Sat by Pulse 100 Oximetry - Reevaluation(s) Reevaluation #1: 06/02/19 15:36 PA supervision: I proceeded [id number] evaluation the patient did present with axillary abscess was drained by the physician visitor information assistant. Patient is feeling much improved this time he has no other complaints at this time I do agree with the assessment and plan. (Lucio Bender) Procedures - Incision & Drainage Consent Obtained: verbal consent Indication: Abscess Site: other (Left axilla) Size (cm): 5 Anesthetic Used: lidocaine 1%, with epi Amount (mLs): 5 I&D Cleaning Method: Betadine Sterile Field Used?: No Scalpel Used: #11 Needle Aspiration Performed?: No Irrigation Performed?: No I&D Drainage Obtained: Pus, Blood Culture Obtained?: Yes Complications: pain, bleeding Patient Tolerated Procedure: well, no complications <Pete Bailey - Last Filed: 06/02/19 15:30> Medical Decision Making <Pete Bailey - Last Filed: 06/02/19 15:30> - Medical Decision Making Patient is 73-year-old female presenting to emergency department with a chief complaint of an abscess. On exam patient has a 1 cm 1.5 cm abscess with induration of fluctuance in the left axilla. I&D performed with some blood and pus removed. No packing. Wound culture obtained. Patient ALLERGIC to Bactrim. I'm going to cover for MRSA with doxycycline. Patient advised on proper wound care. Strict return parameters were thoroughly discussed with patient was understanding and agreeable. Patient was to follow with primary care. Case discussed with physician. (Pete Bailey) Disposition Is patient prescribed a controlled substance at d/c from ED?: No Time of Disposition: 15:34 <Pete Bailey - Last Filed: 06/02/19 15:30> <Lucio Bender - Last Filed: 06/02/19 15:36> Clinical Impression: Abscess of axilla, left Disposition: HOME SELF-CARE Condition: Stable Instructions (If sedation given, give patient instructions): Abscess (ED) Additional Instructions: Please follow with primary care. Please follow proper wound care instructions. Take prescribed medication as directed. Return to emergency department if symptoms worsen. Prescriptions: Doxycycline Monohydrate [Monodox] 100 mg PO Q12HR #20 cap Hydrocodone/Acetaminophen [Tony 5-325] 1 tab PO Q6HR PRN #8 tab PRN Reason: Pain Referrals: Sissy Starr DO [Primary Care Provider] - 1-2 days
[2019-06-02 16:05] VITALS: BP 160/70; PULSE 60
== END 2019-06-02 16:01 | disposition home or self-care (01) ==
LOC: EC 14:01
DX: L02.412 Cutaneous abscess of left axilla (principal); K21.9 Gastro-esophageal reflux disease without esophagitis; E78.5 Hyperlipidemia, unspecified; E11.42 Type 2 diabetes mellitus with diabetic polyneuropathy; I12.9 Hypertensive chronic kidney disease with stage 1 through stage 4 chronic kidney disease, or unspecified chronic kidney disease; N18.2 Chronic kidney disease, stage 2 (mild); M19.90 Unspecified osteoarthritis, unspecified site; Z79.84 Long term (current) use of oral hypoglycemic drugs; Z79.82 Long term (current) use of aspirin; Z79.899 Other long term (current) drug therapy; Z88.8 Allergy status to other drugs, medicaments and biological substances; Z88.6 Allergy status to analgesic agent; Z88.5 Allergy status to narcotic agent; Z91.048 Other nonmedicinal substance allergy status; Z88.1 Allergy status to other antibiotic agents; Z88.2 Allergy status to sulfonamides; Z87.891 Personal history of nicotine dependence; Z96.652 Presence of left artificial knee joint
CPT/HCPCS: 10060; 87070; 87205; 99283

== ENCOUNTER 2019-06-11 19:15 | Emergency (ER) | payer MEDICARE, OTHER ==
[2019-06-11 19:19] VITALS: BP 192/104; PULSE 89; RESP 20; TEMP 98
--- NOTE | 2019-06-11 20:41 | ED ---
Skin/Abscess/FB HPI - General Chief complaint: Skin/Abscess/Foreign Body Stated complaint: abscess-revisit Source: patient Mode of arrival: ambulatory Limitations: no limitations - History of Present Illness Initial comments: 73yo with history of hidradenitis suppurative presented to the emergency department today for chief complaint of abnormal culture findings Patient has lesion from left axilla drained a week ago. She states after drainage it went away. She states she received a phone call that the abx written did not cover the bacteria. Patient states she has zero symptoms, no fevers, no swelling, no pain and does not know why her PC instructed her to come to the ER. Patient appears well on arrival. - Related Data Home Medications Medication Instructions Recorded Confirmed Fenofibrate Nanocrystallized 145 mg PO DAILY 11/16/14 07/12/18 [Tricor] metFORMIN HCL [Glucophage] 500 mg PO BID 11/16/14 07/12/18 Ferrous Sulfate [Feosol] 325 mg PO BID 02/20/16 07/12/18 amLODIPine [Norvasc] 10 mg PO DAILY 02/20/16 07/12/18 glipiZIDE [Glucotrol] 5 mg PO BID 06/06/17 07/12/18 Famotidine 40 mg PO DAILY 02/16/18 07/12/18 hydrALAZINE HCL 25 mg PO DAILY 02/16/18 07/12/18 Aspirin EC [Ecotrin Low Dose] 81 mg PO DAILY 07/12/18 07/12/18 Benzonatate [Tessalon Perles] 100 mg PO Q6H PRN 07/12/18 07/12/18 Montelukast [Singulair] 10 mg PO HS 07/12/18 07/12/18 Previous Rx's Medication Instructions Recorded Albuterol Inhaler [Ventolin Hfa 2 puff INHALATION RT-Q6H PRN #1 07/17/18 Inhaler] inhaler Cefuroxime Axetil [Ceftin] 500 mg PO BID #10 tab 07/17/18 HYDROcodone/APAP 10-325MG [[place] 1 each PO Q8H PRN #9 tab 07/17/18 10-325] Metoprolol Tartrate [Lopressor] 25 mg PO DAILY #30 tab 07/17/18 guaiFENesin [Mucinex] 1,200 mg PO Q12HR #10 tablet.er 07/17/18 predniSONE 10 mg PO DIRECTED #30 tab 07/17/18 Acetaminophen-Codeine 300-30mg 1 tab PO Q6H PRN #12 tablet 12/04/18 [Tylenol #3] Penicillin V Potassium [Pen Vee K] 500 mg PO Q6H #40 tablet 12/04/18 Doxycycline Monohydrate [Monodox] 100 mg PO Q12HR #20 cap 06/02/19 Hydrocodone/Acetaminophen [[place] 1 tab PO Q6HR PRN #8 tab 06/02/19 5-325] Allergies Allergy/AdvReac Type Severity Reaction Status Date / Time diflunisal [From Dolobid] Allergy Anaphylaxis Verified 06/11/19 19:20 hydrochlorothiazide Allergy Swelling Verified 06/11/19 19:20 [From Zestoretic] of face and throat ibuprofen [From Motrin] Allergy Abdominal Verified 06/11/19 19:20 Pain Iodine and Iodide Containing Allergy Anaphylaxis Verified 06/11/19 19:20 Produc lisinopril Allergy Rash/Hives Verified 06/11/19 19:20 morphine Allergy Rash/Hives Verified 06/11/19 19:20 prednisone Allergy Rash/Hives Verified 06/11/19 19:20 sulfamethoxazole Allergy Anaphylaxis Verified 06/11/19 19:20 [From Bactrim] tramadol Allergy Rash/Hives Verified 06/11/19 19:20 trimethoprim [From Bactrim] Allergy Anaphylaxis Verified 06/11/19 19:20 baclofen AdvReac Unknown LOW HEART Verified 06/11/19 19:20 RATE NSAIDS (Non-Steroidal AdvReac Unknown TOLD TO Verified 06/11/19 19:20 Anti-Inflamma AVOID NSAIDS DUE TO ABDOMINAL PAIN ondansetron AdvReac Itching Verified 06/11/19 19:20 [From Zofran (as hydrochloride)] Review of Systems ROS Statement: Those systems with pertinent positive or pertinent negative responses have been documented in the HPI. ROS Other: All systems not noted in ROS Statement are negative. Past Medical History Past Medical History: Diabetes Mellitus, GERD/Reflux, Hyperlipidemia, H ypertension, Mitral Valve Prolapse (MVP), Osteoarthritis (OA) Additional Past Medical History / Comment(s): Hypertension, hyperlipidemia, diabetes mellitus, mitral valve prolapse, chronic back pain, varicose veins, migraines, chronic stage II kidney disease, iron deficiency anemia, lumbar disc disease with previous history of L4-L5 degenerative disc disease of the lumbar s pine, osteoarthritis History of Any Multi-Drug Resistant Organisms: None Reported Past Surgical History: Back Surgery, Hysterectomy, Joint Replacement, Tonsillectomy Additional Past Surgical History / Comment(s): Spine surgery involving the lumbar spine related to herniated disc at the level of L4-L5, right temporal artery biopsy, ovarian cyst removal, pilonidal cyst, left knee replacement, tonsillectomy, hysterectomy Past Anesthesia/Blood Transfusion Reactions: Family Hisory of Malignant Hypert hermia Additional Past Anesthesia/Blood Transfusion Reaction / Comment(s): daughter had reaction to anesthesia age 7 with tonsilectomy called "chocolate anesthesia" per pt. "she had a rash and high fever of 105". daughter has had surgeries since with no problems. Past Psychological History: No Psychological Hx Reported Smoking Status: Former smoker Past Alcohol Use History: None Reported Past Drug Use History: None Reported - Past Family History Sister(s) Family Medical History: Cancer, Deep Vein Thrombosis (DVT) Brother(s) Family Medical History: Deep Vein Thrombosis (DVT) Father Family Medical History: Cancer, Deep Vein Thrombosis (DVT) Additional Family Medical History / Comment(s): QUADRUPLE [employer]PASS Mother Family Medical History: Deep Vein Thrombosis (DVT) Additional Family Medical History / Comment(s): PACEMAKER General Exam - General Exam Comments Initial Comments: General: The patient is awake and alert, in no distress, and does not appear acutely ill. Eye: Pupils are equal, round and reactive to light, extra-ocular movements are intact. No nystagmus. There is normal conjunctiva bilaterally. No signs of icterus. Ears, nose, mouth and throat: There are moist mucous membranes and no oral lesions. Neck: The neck is supple, there is no tenderness or JVD. Cardiovascular: There is a regular rate and rhythm. No murmur, rub or gallop is appreciated. Respiratory: Lungs are clear to auscultation, respirations are non-labored, breath sounds are equal. No wheezes, stridor, rales, or rhonchi. Musculoskeletal: Normal ROM, no tenderness. Strength 5/5. Sensation intact. Radial pulses equal bilaterally 2+. Neurological: A&O x 3. CN II-XII intact, There are no obvious motor or sensory deficits. Coordination appears grossly intact. Speech is normal. Skin: Skin is warm and dry and no rashes or lesions are noted. Normal exam of left axilla no swelling or lesions noted. Psychiatric: Cooperative, appropriate mood & affect, normal judgment. Limitations: no limitations Course Vital Signs 06/11/19 19:17 Temperature 98 F Pulse Rate 89 Respiratory 20 Rate Blood Pressure 192/104 O2 Sat by Pulse 99 Oximetry Medical Decision Making - Medical Decision Making No sxs no complaints. I feel I&D was successful in treatment of abscess. Patient appears well, exam no findings. Patient discharge with no abx and pcp f/u. Dr. Hanks is agreeable to this care plan and discharge. patient is as well, she appears pleased. Disposition Clinical Impression: Normal axillary exam Disposition: HOME SELF-CARE Condition: Good Instructions (If sedation given, give patient instructions): Incision and Drainage (ED) Additional Instructions: Please use medication as discussed. Please follow-up with family doctor in the next 2 days. Please return to emergency room if the symptoms increase or worsen or for any other concerns. Is patient prescribed a controlled substance at d/c from ED?: No Referrals: Sissy Starr DO [Primary Care Provider] - 1-2 days Time of Disposition: 20:40
== END 2019-06-11 20:58 | disposition home or self-care (01) ==
LOC: EC 19:15
DX: Z09 Encounter for follow-up examination after completed treatment for conditions other than malignant neoplasm (principal); Z87.2 Personal history of diseases of the skin and subcutaneous tissue; N18.2 Chronic kidney disease, stage 2 (mild); E11.22 Type 2 diabetes mellitus with diabetic chronic kidney disease; K21.9 Gastro-esophageal reflux disease without esophagitis; E78.5 Hyperlipidemia, unspecified; I12.9 Hypertensive chronic kidney disease with stage 1 through stage 4 chronic kidney disease, or unspecified chronic kidney disease; M19.90 Unspecified osteoarthritis, unspecified site; D63.1 Anemia in chronic kidney disease; D50.9 Iron deficiency anemia, unspecified; Z87.891 Personal history of nicotine dependence; Z88.2 Allergy status to sulfonamides; Z88.5 Allergy status to narcotic agent; Z88.6 Allergy status to analgesic agent; Z88.8 Allergy status to other drugs, medicaments and biological substances; Z91.048 Other nonmedicinal substance allergy status; Z79.82 Long term (current) use of aspirin; Z79.84 Long term (current) use of oral hypoglycemic drugs; Z79.899 Other long term (current) drug therapy; Z96.652 Presence of left artificial knee joint; Z98.890 Other specified postprocedural states
CPT/HCPCS: 99282

== ENCOUNTER 2019-07-29 19:09 | Observation (INO) | payer MEDICARE, OTHER ==
--- NOTE | 2019-07-29 19:43 | ED ---
Neck Injury/Pain HPI - General Chief Complaint: Neck Pain/Injury Stated Complaint: Should/neck pain,SOB Time Seen by Provider: 07/29/19 19:21 Source: RN notes reviewed Mode of arrival: ambulatory - History of Present Illness Initial Comments: This is a 73-year-old female DF for evaluation of neck pain left-sided jaw pain chest pain and tightness. Patient states she's having some difficulty swallowing no neurological complaints otherwise no headaches. No trauma no shortness breath or cough or congestion. Patient does have history of high blood pressure cholesterol diabetes denies prior history of heart attack MD Complaint: neck pain -: days(s) Place: home Radiation: chest Severity: moderate Severity scale (1-10): 3 Quality: aching Consistency: constant Improves With: none Worsens With: none Context: unknown Associated Symptoms: none - Related Data Home Medications Medication Instructions Recorded Confirmed Fenofibrate Nanocrystallized 145 mg PO DAILY 11/16/14 07/12/18 [Tricor] metFORMIN HCL [Glucophage] 500 mg PO BID 11/16/14 07/12/18 Ferrous Sulfate [Feosol] 325 mg PO BID 02/20/16 07/12/18 amLODIPine [Norvasc] 10 mg PO DAILY 02/20/16 07/12/18 glipiZIDE [Glucotrol] 5 mg PO BID 06/06/17 07/12/18 Famotidine 40 mg PO DAILY 02/16/18 07/12/18 hydrALAZINE HCL 25 mg PO DAILY 02/16/18 07/12/18 Aspirin EC [Ecotrin Low Dose] 81 mg PO DAILY 07/12/18 07/12/18 Benzonatate [Tessalon Perles] 100 mg PO Q6H PRN 07/12/18 07/12/18 Montelukast [Singulair] 10 mg PO HS 07/12/18 07/12/18 Previous Rx's Medication Instructions Recorded Albuterol Inhaler [Ventolin Hfa 2 puff INHALATION RT-Q6H PRN #1 07/17/18 Inhaler] inhaler Cefuroxime Axetil [Ceftin] 500 mg PO BID #10 tab 07/17/18 HYDROcodone/APAP 10-325MG [[place] 1 each PO Q8H PRN #9 tab 07/17/18 10-325] Metoprolol Tartrate [Lopressor] 25 mg PO DAILY #30 tab 07/17/18 guaiFENesin [Mucinex] 1,200 mg PO Q12HR #10 tablet.er 07/17/18 predniSONE 10 mg PO DIRECTED #30 tab 07/17/18 Acetaminophen-Codeine 300-30mg 1 tab PO Q6H PRN #12 tablet 12/04/18 [Tylenol #3] Penicillin V Potassium [Pen Vee K] 500 mg PO Q6H #40 tablet 12/04/18 Doxycycline Monohydrate [Monodox] 100 mg PO Q12HR #20 cap 06/02/19 Hydrocodone/Acetaminophen [[place] 1 tab PO Q6HR PRN #8 tab 06/02/19 5-325] Allergies Allergy/AdvReac Type Severity Reaction Status Date / Time diflunisal [From Dolobid] Allergy Anaphylaxis Verified 07/29/19 19:17 hydrochlorothiazide Allergy Swelling Verified 07/29/19 19:17 [From Zestoretic] of face and throat ibuprofen [From Motrin] Allergy Abdominal Verified 07/29/19 19:17 Pain Iodine and Iodide Containing Allergy Anaphylaxis Verified 07/29/19 19:17 Produc lisinopril Allergy Rash/Hives Verified 07/29/19 19:17 morphine Allergy Rash/Hives Verified 07/29/19 19:17 prednisone Allergy Rash/Hives Verified 07/29/19 19:17 sulfamethoxazole Allergy Anaphylaxis Verified 07/29/19 19:17 [From Bactrim] tramadol Allergy Rash/Hives Verified 07/29/19 19:17 trimethoprim [From Bactrim] Allergy Anaphylaxis Verified 07/29/19 19:17 baclofen AdvReac Unknown LOW HEART Verified 07/29/19 19:17 RATE NSAIDS (Non-Steroidal AdvReac Unknown TOLD TO Verified 07/29/19 19:17 Anti-Inflamma AVOID NSAIDS DUE TO ABDOMINAL PAIN ondansetron AdvReac Itching Verified 07/29/19 19:17 [From Zofran (as hydrochloride)] Review of Systems ROS Statement: Those systems with pertinent positive or pertinent negative responses have been documented in the HPI. ROS Other: All systems not noted in ROS Statement are negative. Past Medical History Past Medical History: Diabetes Mellitus, GERD/Reflux, Hyperlipidemia, Hypertension, Mitral Valve Prolapse (MVP), Osteoarthritis (OA) Additional Past Medical History / Comment(s): Hypertension, hyperlipidemia, kobe betes mellitus, mitral valve prolapse, chronic back pain, varicose veins, migraines, chronic stage II kidney disease, iron deficiency anemia, lumbar disc disease with previous history of L4-L5 degenerative disc disease of the lumbar spine, osteoarthritis History of Any Multi-Drug Resistant Organisms: None Reported Past Surgical History: Back Surgery, Hysterectomy, Joint Replacement, Tonsillectomy Additional Past Surgical History / Comment(s): Spine surgery involving the lumbar spine related to herniated disc at the level of L4-L5, right temporal artery biopsy, ovarian cyst removal, pilonidal cyst, left knee replacement, tonsillectomy, hysterectomy Past Anesthesia/Blood Transfusion Reactions: Family Hisory of Malignant Hyperthermia Additional Past Anesthesia/Blood Transfusion Reaction / Comment(s): daughter had reaction to anesthesia age 7 with tonsilectomy called "chocolate anesthesia" per pt. "she had a rash and high fever of 105". daughter has had surgeries since with no problems. Past Psychological History: No Psychological Hx Reported Smoking Status: Former smoker Past Alcohol Use History: None Reported Past Drug Use History: None Reported - Past Family History Sister(s) Family Medical History: Cancer, Deep Vein Thrombosis (DVT) Brother(s) Family Medical History: Deep Vein Thrombosis (DVT) Father Family Medical History: Cancer, Deep Vein Thrombosis (DVT) Additional Family Medical History / Comment(s): QUADRUPLE BYPASS Mother Family Medical History: Deep Vein Thrombosis (DVT) Additional Family Medical History / Comment(s): PACEMAKER General Exam General appearance: alert, in no apparent distress Head exam: Present: atraumatic, normocephalic, normal inspection Eye exam: Present: normal appearance, PERRL, EOMI. Absent: scleral icterus, conjunctival injection, periorbital swelling ENT exam: Present: normal exam, mucous membranes moist Neck exam: Present: normal inspection. Absent: tenderness, meningismus, lymphadenopathy Respiratory exam: Present: normal lung sounds bilaterally. Absent: respiratory distress, wheezes, rales, rhonchi, stridor Cardiovascular Exam: Present: regular rate, normal rhythm, normal heart sounds. Absent: systolic murmur, diastolic murmur, rubs, gallop, clicks GI/Abdominal exam: Present: soft, normal bowel sounds. Absent: distended, tenderness, guarding, rebound, rigid Extremities exam: Present: normal inspection, full ROM, normal capillary refill. Absent: tenderness, pedal edema, joint swelling, calf tenderness Back exam: Present: normal inspection Neurological exam: Present: alert, oriented X3, CN II-XII intact Psychiatric exam: Present: normal affect, normal mood Skin exam: Present: warm, dry, intact, normal color. Absent: rash Course Vital Signs 07/29/19 07/29/19 19:14 22:00 Temperature 98.4 F Pulse Rate 55 L 79 Respiratory 18 18 Rate Blood Pressure 192/79 157/73 O2 Sat by Pulse 100 97 Oximetry - Reevaluation(s) Reevaluation #1: 07/30/19 00:11 Records reviewed Reevaluation #2: 07/30/19 00:11 Patient does have nonsignificantly elevated troponin still having chest pain family informed of results patient would like to be seen by cardiology - Consultations Consultation #1: Spoke with Dr. Bravo agreeable for admission Medical Decision Making - Medical Decision Making 73 female DF for evaluation for chest pain. Patient will be admitted for chest pain observation, patient has had continued chest pain here in the ER - Lab Data Result diagrams: 07/29/19 21:25 07/29/19 21:25 Lab Results 07/29/19 07/29/19 07/29/19 Range/Units 20:37 21:25 21:25 WBC 4.8 (3.8-10.6) k/uL RBC 3.63 L (3.80-5.40) m/uL Hgb 11.5 (11.4-16.0) gm/dL Hct 35.7 (34.0-46.0) % MCV 98.3 (80.0-100.0) fL MCH 31.6 (25.0-35.0) pg MCHC 32.2 (31.0-37.0) g/dL RDW 13.3 (11.5-15.5) % Plt Count 249 (150-450) k/uL Neutrophils % 63 % Lymphocytes % 28 % Monocytes % 3 % Eosinophils % 2 % Basophils % 0 % Neutrophils # 3.0 (1.3-7.7) k/uL Lymphocytes # 1.4 (1.0-4.8) k/uL Monocytes # 0.2 (0-1.0) k/uL Eosinophils # 0.1 (0-0.7) k/uL Basophils # 0.0 (0-0.2) k/uL PT 10.0 (9.0-12.0) sec INR 1.0 (<1.2) APTT 21.0 L (22.0-30.0) sec D-Dimer 0.93 H (<0.60) mg/L FEU Sodium (137-145) mmol/L Potassium (3.5-5.1) mmol/L Chloride (98-107) mmol/L Carbon Dioxide (22-30) mmol/L Anion Gap mmol/L BUN (7-17) mg/dL Creatinine (0.52-1.04) mg/dL Est GFR (CKD-EPI)AfAm (>60 ml/min/1.73 sqM) Est GFR (CKD-EPI)NonAf (>60 ml/min/1.73 sqM) Glucose (74-99) mg/dL Plasma Lactic Acid Epi (0.7-2.0) mmol/L Calcium (8.4-10.2) mg/dL Phosphorus (2.5-4.5) mg/dL Magnesium (1.6-2.3) mg/dL Total Bilirubin (0.2-1.3) mg/dL AST (14-36) U/L ALT (4-34) U/L Alkaline Phosphatase (38-126) U/L Troponin I 0.017 (0.000-0.034) ng/mL Total Protein (6.3-8.2) g/dL Albumin (3.5-5.0) g/dL 07/29/19 07/29/19 Range/Units 21:25 21:25 WBC (3.8-10.6) k/uL RBC (3.80-5.40) m/uL Hgb (11.4-16.0) gm/dL Hct (34.0-46.0) % MCV (80.0-100.0) fL MCH (25.0-35.0) pg MCHC (31.0-37.0) g/dL RDW (11.5-15.5) % Plt Count (150-450) k/uL Neutrophils % % Lymphocytes % % Monocytes % % Eosinophils % % Basophils % % Neutrophils # (1.3-7.7) k/uL Lymphocytes # (1.0-4.8) k/uL Monocytes # (0-1.0) k/uL Eosinophils # (0-0.7) k/uL Basophils # (0-0.2) k/uL PT (9.0-12.0) sec INR (<1.2) APTT (22.0-30.0) sec D-Dimer (<0.60) mg/L FEU Sodium 140 (137-145) mmol/L Potassium 4.9 (3.5-5.1) mmol/L Chloride 108 H (98-107) mmol/L Carbon Dioxide 26 (22-30) mmol/L Anion Gap 6 mmol/L BUN 18 H (7-17) mg/dL Creatinine 1.15 H (0.52-1.04) mg/dL Est GFR (CKD-EPI)AfAm 55 (>60 ml/min/1.73 sqM) Est GFR (CKD-EPI)NonAf 47 (>60 ml/min/1.73 sqM) Glucose 112 H (74-99) mg/dL Plasma Lactic Acid Epi 1.2 (0.7-2.0) mmol/L Calcium 10.3 H (8.4-10.2) mg/dL Phosphorus 3.3 (2.5-4.5) mg/dL Magnesium 1.8 (1.6-2.3) mg/dL Total Bilirubin 0.5 (0.2-1.3) mg/dL AST 22 (14-36) U/L ALT 18 (4-34) U/L Alkaline Phosphatase 64 (38-126) U/L Troponin I (0.000-0.034) ng/mL Total Protein 7.7 (6.3-8.2) g/dL Albumin 4.7 (3.5-5.0) g/dL - EKG Data -: EKG Interpreted by Me (EKG shows sinus bradycardia rate of 53, RI 142, QRS 76, QTC 397) Disposition Clinical Impression: Chest pain Disposition: ADMITTED IP TO THIS [facility] Condition: Good Is patient prescribed a controlled substance at d/c from ED?: No Referrals: Sissy Starr DO [Primary Care Provider] - 1-2 days
[2019-07-29] MEDS ORDERED: SODIUM CHLORIDE 0.9% 500 ML 500 ML IV STA (19:44)
[2019-07-29] MEDS ORDERED: SODIUM CHLORIDE 0.9% 1,000 ML IV STA (19:44)
--- NOTE | 2019-07-29 21:15 | XR ---
EXAMINATION: XR chest 2V DATE AND TIME: 07/29/2019 8:57 PM CLINICAL INDICATION: PHH; Weakness TECHNIQUE: Departmental protocol COMPARISON: 07/16/2018 FINDINGS: The overlying soft tissues are prominent. There is mild silhouetting of the pulmonary vascu lature by a fine reticular pattern of increased attenuation, a nonspecific subtle finding which can c orrelate with a clinical diagnosis of mild interstitial phase pulmonary edema. Otherwise, the lungs a ppear to be clear as seen. The pleural spaces are negative. The cardiac silhouette is mildly enlarged, and the remainder of the mediastinal silhouette is unremarkable. The skeletal structures and soft tissues are negative for acu te findings. IMPRESSION: No definite acute radiographic process, as discussed.
--- NOTE | 2019-07-29 21:19 | XR ---
EXAMINATION TYPE: XR soft tissue neck 2 views DATE OF EXAM: 07/29/2019 COMPARISON: None HISTORY: Pain TECHNIQUE: AP and lateral FINDINGS: The airway has normal appearance. The epiglottis and aryepiglottic folds have normal appear ance. No radiopaque foreign bodies. No soft tissue emphysema. The soft tissues and skeletal structures are negative for acute findings. IMPRESSION: NEGATIVE EXAMINATION.
[2019-07-29 21:35] LABS: Basophils % (A) 0 %; Eosinophils # (A) 0.1 k/uL (0-0.7); Eosinophils % (A) 2 %; HCT 35.7 % (34.0-46.0); HGB 11.5 gm/dL (11.4-16.0); Lymphocytes # (A) 1.4 k/uL (1.0-4.8); Lymphocytes % (A) 28 %; MCH 31.6 pg (25.0-35.0); MCHC 32.2 g/dL (31.0-37.0); MCV 98.3 fL (80.0-100.0); Mean Platelet Volume 8.2; Monocytes # (A) 0.2 k/uL (0-1.0); Monocytes % (A) 3 %; Neutrophils % (A) 63 %; Platelet Count 249 k/uL (150-450); RBC 3.63 m/uL (3.80-5.40); RDW 13.3 % (11.5-15.5); WBC 4.8 k/uL (3.8-10.6)
[2019-07-29 21:50] LABS: Albumin 4.7 g/dL (3.5-5.0); Calcium 10.3 mg/dL (8.4-10.2); Magnesium 1.8 mg/dL (1.6-2.3); Phosphorus 3.3 mg/dL (2.5-4.5); Potassium 4.9 mmol/L (3.5-5.1); Total Bilirubin 0.5 mg/dL (0.2-1.3); Total Protein 7.7 g/dL (6.3-8.2)
[2019-07-29 22:06] LABS: D-Dimer 0.93 mg/L FEU (<0.60)
[2019-07-29] MEDS ORDERED: methylPREDNISolone SOD SUCCI 125 MG/2 ML VIAL IV STA (22:27)
[2019-07-29] MEDS ORDERED: diphenhydrAMINE 50 MG/ML 1 ML VIAL IVP STA (22:27)
[2019-07-29] MEDS ORDERED: FAMOTIDINE 20 MG/2 ML VIAL IV STA (22:27)
[2019-07-29] MEDS ORDERED: HYDROmorphone 1 MG/ML 1 ML SYRINGE IVP STA (22:37)
--- NOTE | 2019-07-29 23:35 | CT ---
EXAMINATION TYPE: CT angio chest DATE OF EXAM: 07/29/2019 COMPARISON: HISTORY: Chest pain CT DLP: 539.1 mGycm Automated exposure control for dose reduction was used. CONTRAST: Performed with IV Contrast, patient injected with 80 mL of Isovue 370. There are 3-D post processed images. The lungs are clear of infiltrate. There is no evidence of a pulmonary mass. Heart is slightly enlarg ed. There is no pericardial effusion. There are no hilar masses. There is no mediastinal adenopathy. Thoracic aorta is intact. There is no aneurysm or dissection. There is normal contrast opacification of the pulmonary arteries. I see no filling defect. The thorac ic spine is intact. Upper abdominal soft tissues are intact. IMPRESSION: No evidence of pulmonary embolism. Mild cardiomegaly.
[2019-07-30] MEDS ORDERED: ASPIRIN 81 MG PO STA (00:13)
[2019-07-30] MEDS ORDERED: MORPHINE SULFATE 4 MG/ML SYRINGE IV PRN (00:13)
[2019-07-30] MEDS ORDERED: NITROGLYCERIN SL TABS 0.4 MG TAB SUBLINGUAL PRN (00:13)
[2019-07-30] MEDS ORDERED: HYDROmorphone 1 MG/ML 1 ML SYRINGE IVP STA (03:49)
[2019-07-30 06:43] LABS: Glucose,Whole Blood 305 mg/dL (75-99)
[2019-07-30] MEDS ORDERED: glipiZIDE 5 MG TAB PO SCH (07:30)
[2019-07-30 07:48] VITALS: RESP 18
[2019-07-30] MEDS: HYDROmorphone 0.5 MG/0.5 ML SYRINGE IVP PRN ×2 (08:56→11:56)
[2019-07-30] MEDS ORDERED: DULoxetine HCL 20 MG CAPSULE.DR PO SCH (09:00)
[2019-07-30] MEDS ORDERED: METOPROLOL SUCCINATE (ER) 25 MG TAB.ER.24H PO SCH (09:00)
[2019-07-30] MEDS ORDERED: ATORVASTATIN 80 MG TAB PO SCH (09:00)
[2019-07-30] MEDS ORDERED: TRIAMTERENE-HCTZ 37.5-25MG 1 EACH TAB PO SCH (09:00)
[2019-07-30 09:25] LABS: Calcium 10.1 mg/dL (8.4-10.2); Potassium 5.6 mmol/L (3.5-5.1)
[2019-07-30] MEDS ORDERED: DOBUTamine DRIP for NUC MED 500 MG in DEXTROSE/WATER 1 250ML.BAG IV ONE (10:30)
[2019-07-30] MEDS ORDERED: amLODIPine 10 MG TAB PO SCH (11:15)
[2019-07-30 11:30] VITALS: BP 147/64; PULSE 65; TEMP 98
[2019-07-30 11:36] LABS: Glucose,Whole Blood 251 mg/dL (75-99)
[2019-07-30 12:12] LABS: Cholesterol 189 mg/dL (<200); HDL Cholesterol 56 mg/dL (40-60); LDL Cholesterol,Calculated 117 mg/dL (0-99); Triglycerides 82 mg/dL (<150)
[2019-07-30] MEDS ORDERED: METOPROLOL SUCCINATE (ER) 25 MG TAB.ER.24H PO STA (12:18)
[2019-07-30] MEDS ORDERED: INSULIN ASPART (NovoLOG) 100 UNIT/ML VIAL SQ SCH (12:30)
--- NOTE | 2019-07-30 12:54 | P.CRDCN ---
History of Present Illness History of present illness: HISTORY OF PRESENTING ILLNESS This is a pleasant 73-year-old -[place] female past medical history significant for hypertension, diabetes mellitus, dyslipidemia and obesity. She follows in the office with Dr. Martinez. We have been asked to see in consultation for chest pain. She states approximately one week ago she was sleeping and she turned over aggressively in bed and felt something pull in her neck on the left side. Since that time she has been experiencing discomfort in the left neck with radiation into the left posterior shoulder and a full tight sensation in the left precordial region. She has also been coughing and feels as though her pain is intensified by cough. The discomfort in her chest, shoulder and neck is reproducible with palpation and with movement of her upper body. She denies palpitations, shortness of breath, nausea, vomiting or diaphoresis. She describes that she has been urinating much more frequently. She states overnight while sleeping she gets up at least 7 times used bathroom. Per the patient she underwent cardiac catheterization at [facility] approximately 6 years ago that was normal. DIAGNOSTICS EKG reveals sinus bradycardia heart rate of 53. Chest xray negative for an acute cardiopulmonary process. Laboratory reviewed, WBC 4.8, hemoglobin 11.5, platelets 249, d-dimer 0.93, sodium 139, potassium 5.6, creatinine 1.28, magnesium 1.8, cardiac enzymes negative 3, LDL 117. Current cardiac medications include amlodipine 10 mg daily, fenofibrate 145 mg daily, aspirin 81 mg daily, Toprol 25 mg daily and hydralazine 50 mg twice a day. REVIEW OF SYSTEMS At the time of my exam: CONSTITUTIONAL: Denies fever or chills. CARDIOVASCULAR: Denies chest pain, shortness of breath, orthopnea, PND or palpitations. RESPIRATORY: Denies cough. GASTROINTESTINAL: Denies abdominal pain, diarrhea, constipation, nausea or vomiting. MUSCULOSKELETAL: Denies myalgias. NEUROLOGIC: Denies numbness, tingling or weakness. ENDOCRINE: Denies fatigue, weight change, polydipsia or polyurina. GENITOURINARY: Denies burning, hematuria or urgency with micturation. HEMATOLOGIC: Denies history of anemia or bleeding. PHYSICAL EXAMINATION Blood pressure 147/64 heart rate 65 afebrile and maintaining oxygen saturation on room air. CONSTITUTIONAL: No apparent distress. HEENT: Head is normocephalic. Pupils are equal, round. Sclerae anicteric. Mucous membranes of the mouth are moist. No JVD. No carotid bruit. CHEST EXAMINATION: Lungs are clear to auscultation. No chest wall tenderness is noted on palpation or with deep breathing. HEART EXAMINATION: Regular rate and rhythm. S1, S2 heard. No murmurs, gallops or rub. ABDOMEN: Soft, nontender. Positive bowel sounds. EXTREMITIES: 2+ peripheral pulses, no lower extremity edema and no calf tenderness. NEUROLOGIC EXAMINATION: Patient is awake, alert and oriented x3. ASSESSMENT Chest pain, atypical and pleuritic. Likely related to an underlying musculoskeletal strain. Acute kidney injury Hypertension Diabetes mellitus Dyslipidemia Obesity, BMI 37 PLAN An acute coronary event has been ruled out. Obtain copy of previous heart catheterization. Obtain 2-D echocardiogram and Doppler study to assess cardiac structure and function. Perform dobutamine stress echocardiogram to assess for stress-induced cardiac ischemia. Increase Toprol to 50 mg daily. Check a hemoglobin A1c. Agree with initiation of statin given her history of diabetes and elevated LDL. If stress test is normal she may be discharged from a cardiac perspective. Follow-up in the office with Dr. Martinez. Thank you kindly for this consultation. Nurse Practitioner note has been reviewed, I agree with a documented findings and plan of care. Patient was seen and examined. Past Medical History Past Medical History: Diabetes Mellitus, GERD/Reflux, Hyperlipidemia, Hypertension, Mitral Valve Prolapse (MVP), Osteoarthritis (OA) Additional Past Medical History / Comment(s): Hypertension, hyperlipidemia, diabetes mellitus, mitral valve prolapse, chronic back pain, varicose veins, migraines, chronic stage II kidney disease, iron deficiency anemia, lumbar disc disease with previous history of L4-L5 degenerative disc disease of the lumbar spine, osteoarthritis History of Any Multi-Drug Resistant Organisms: None Reported Past Surgical History: Back Surgery, Hysterectomy, Joint Replacement, Tonsillectomy Additional Past Surgical History / Comment(s): Spine surgery involving the lumbar spine related to herniated disc at the level of L4-L5, right temporal artery biopsy, ovarian cyst removal, pilonidal cyst, left knee replacement, tonsillectomy, hysterectomy Past Anesthesia/Blood Transfusion Reactions: Family Hisory of Malignant Hyp erthermia Additional Past Anesthesia/Blood Transfusion Reaction / Comment(s): daughter had reaction to anesthesia age 7 with tonsilectomy called "chocolate anesthesia" per pt. "she had a rash and high fever of 105". daughter has had surgeries since with no problems. Past Psychological History: No Psychological Hx Reported Smoking Status: Former smoker Past Alcohol Use History: None Reported Past Drug Use History: None Reported - Past Family History Sister(s) Family Medical History: Cancer, Deep Vein Thrombosis (DVT) Brother(s) Family Medical History: Deep Vein Thrombosis (DVT) Father Family Medical History: Cancer, Deep Vein Thrombosis (DVT) Additional Family Medical History / Comment(s): QUADRUPLE BYPASS Mother Family Medical History: Deep Vein Thrombosis (DVT) Additional Family Medical History / Comment(s): PACEMAKER Medications and Allergies Home Medications Medication Instructions Recorded Confirmed Type Fenofibrate Nanocrystallized 145 mg PO DAILY 11/16/14 07/30/19 History [Tricor] metFORMIN HCL [Glucophage] 500 mg PO BID 11/16/14 07/30/19 History Ferrous Sulfate [Feosol] 325 mg PO DAILY 02/20/16 07/30/19 History amLODIPine [Norvasc] 10 mg PO DAILY 02/20/16 07/30/19 History Aspirin EC [Ecotrin Low Dose] 81 mg PO DAILY 07/12/18 07/30/19 History Cholecalciferol [Vitamin D3 (25 1,000 unit PO DAILY 07/30/19 07/30/19 History Mcg = 1000 Iu)] Cyanocobalamin (Vitamin B-12) 1 tab PO DAILY 07/30/19 07/30/19 History [Vitamin B-12] DULoxetine HCL [Cymbalta] 20 mg PO DAILY 07/30/19 07/30/19 History Famotidine 40 mg PO DAILY 07/30/19 07/30/19 History Metoprolol Succinate (ER) [Toprol 25 mg PO DAILY 07/30/19 07/30/19 History XL] glipiZIDE XL [Glucotrol XL] 5 mg PO BID 07/30/19 07/30/19 History hydrALAZINE HCL 50 mg PO BID 07/30/19 07/30/19 History Allergies Allergy/AdvReac Type Severity Reaction Status Date / Time diflunisal [From Dolobid] Allergy Anaphylaxis Verified 07/30/19 08:36 hydrochlorothiazide Allergy Swelling Verified 07/30/19 08:36 [From Zestoretic] of face and throat ibuprofen [From Motrin] Allergy Abdominal Verified 07/30/19 08:36 Pain Iodine and Iodide Containing Allergy Anaphylaxis Verified 07/30/19 08:36 Produc lisinopril Allergy Rash/Hives Verified 07/30/19 08:36 morphine Allergy Rash/Hives Verified 07/30/19 08:36 prednisone Allergy Rash/Hives Verified 07/30/19 08:36 sulfamethoxazole Allergy Anaphylaxis Verified 07/30/19 08:36 [From Bactrim] tramadol Allergy Rash/Hives Verified 07/30/19 08:36 trimethoprim [From Bactrim] Allergy Anaphylaxis Verified 07/30/19 08:36 baclofen AdvReac Unknown LOW HEART Verified 07/30/19 08:36 RATE NSAIDS (Non-Steroidal AdvReac Unknown TOLD TO Verified 07/30/19 08:36 Anti-Inflamma AVOID NSAIDS DUE TO ABDOMINAL PAIN ondansetron AdvReac Itching Verified 07/30/19 08:36 [From Zofran (as hydrochloride)] Physical Exam Vitals: Vital Signs Temp Pulse Pulse Pulse Resp BP BP 07/30/19 07:20 97.9 F 52 L 18 116/75 07/30/19 04:53 98.0 F 99 17 141/76 07/30/19 01:27 98.5 F 76 17 144/62 07/30/19 00:30 68 18 169/74 07/29/19 22:00 79 18 157/73 07/29/19 19:14 98.4 F 55 L 18 192/79 Pulse Ox 07/30/19 07:20 99 07/30/19 04:53 98 07/30/19 01:27 98 07/30/19 00:30 96 07/29/19 22:00 97 07/29/19 19:14 100 Intake and Output 07/29/19 07/30/19 07/30/19 22:59 06:59 14:59 Other: Voiding Method Toilet # Voids 1 Weight 102.194 kg 101.9 kg Results 07/29/19 21:25 07/30/19 08:41 Cardiac Enzymes 07/29/19 07/29/19 07/30/19 Range/Units 20:37 21:25 02:23 AST 22 (14-36) U/L Troponin I 0.017 <0.012 (0.000-0.034) ng/mL Coagulation 07/29/19 Range/Units 21:25 PT 10.0 (9.0-12.0) sec APTT 21.0 L (22.0-30.0) sec CBC 07/29/19 Range/Units 21:25 WBC 4.8 (3.8-10.6) k/uL RBC 3.63 L (3.80-5.40) m/uL Hgb 11.5 (11.4-16.0) gm/dL Hct 35.7 (34.0-46.0) % Plt Count 249 (150-450) k/uL Comprehensive Metabolic Panel 07/29/19 Range/Units 21:25 Sodium 140 (137-145) mmol/L Potassium 4.9 (3.5-5.1) mmol/L Chloride 108 H (98-107) mmol/L Carbon Dioxide 26 (22-30) mmol/L BUN 18 H (7-17) mg/dL Creatinine 1.15 H (0.52-1.04) mg/dL Glucose 112 H (74-99) mg/dL Calcium 10.3 H (8.4-10.2) mg/dL AST 22 (14-36) U/L ALT 18 (4-34) U/L Alkaline Phosphatase 64 (38-126) U/L Total Protein 7.7 (6.3-8.2) g/dL Albumin 4.7 (3.5-5.0) g/dL Current Medications Generic Name Dose Route Start Last Admin Trade Name Freq PRN Reason Stop Dose Admin Aspirin 325 mg 07/31/19 09:00 Aspirin PO DAILY [facility] Atorvastatin Calcium 80 mg 07/30/19 09:00 Lipitor PO DAILY [facility] Duloxetine HCl 20 mg 07/30/19 09:00 Cymbalta PO DAILY [facility] Glipizide 5 mg 07/30/19 07:30 Glucotrol PO AC-BID JEANNA Hydromorphone HCl 0.5 mg 07/30/19 03:49 Dilaudid IVP Q4HR PRN Pain Metoprolol Succinate 25 mg 07/30/19 09:00 Toprol Xl PO DAILY [facility] Nitroglycerin 0.4 mg 07/30/19 00:13 Nitrostat SUBLINGUAL Q5M PRN Chest Pain Triamterene/HCTZ 1 each 07/30/19 09:00 Maxzide-25 PO DAILY JEANNA Intake and Output 07/29/19 07/30/19 07/30/19 22:59 06:59 14:59 Other: Voiding Method Toilet # Voids 1 Weight 102.194 kg 101.9 kg 07/29/19 21:25 07/29/19 21:25
[2019-07-30] MEDS ORDERED: methylPREDNISolone ACETATE 80 MG/ML 1 ML VIAL IM STA (13:06)
--- NOTE | 2019-07-30 13:16 | ECHOS ---
STRESS ECHOCARDIOGRAM DATE OF SERVICE: 07/30/2019 INDICATIONS: Chest pain. MEDICATIONS: BASELINE HEART RATE: 69 BASELINE BLOOD PRESSURE: 143/62 MAXIMUM HEART RATE: 149 MAXIMUM BLOOD PRESSURE: 217/74 85% MPHR: 125 100% MPHR: 149 METS: MAXIMUM STAGE REACHED: TOTAL EXERCISE TIME: CLINICAL INFORMATION: Dobutamine stress echocardiographic study was performed. Peak heart rate of 149 was achieved. Maximum blood pressure of 217/74 mmHg was noted. The patient did not complain of any chest pain during the test. Resting EKG shows normal sinus rhythm with normal [place] interval and QRS duration and normal ST-T waves. There was an episode of nonsustained ventricular tachycardia consisting of 5 PVCs in a row in the resting stage. During dobutamine infusion, no ST-segment depression suggestive of ischemia was noted. Occasional PVCs were noted in recovery period. Baseline echocardiographic images reveal a normal left ventricular chamber size with normal left ventricular systolic function. At the peak dose of dobutamine infusion, normal increase in the wall thickness and contractility is noted. FINAL IMPRESSION: 1. This dobutamine stress echocardiographic study is negative for stress-induced ischemia. 2. There was one episode of short run of nonsustained ventricular tachycardia in the resting stage and intermittent PVCs were noted in the postexercise period. 3. The patient would be treated with increased dose of beta kvng. MMODL / IJN: [id number] /
[2019-07-30 18:54] LABS: Hemoglobin A1C 7.1 % (4.0-6.0)
[2019-07-30] MEDS ORDERED: NON FORMULARY DRUG (Glipizide Xl 5 MG) PO SCH (21:00)
[2019-07-30] MEDS ORDERED: hydrALAZINE HCL 50 MG TAB PO SCH (21:00)
[2019-07-31] MEDS ORDERED: FAMOTIDINE 20 MG TAB PO SCH (09:00)
[2019-07-31] MEDS ORDERED: ASPIRIN 81 MG PO SCH (09:00)
[2019-07-31] MEDS ORDERED: METOPROLOL SUCCINATE (ER) 50 MG TAB.ER.24H PO SCH (09:00)
[2019-07-31] MEDS ORDERED: ASPIRIN 325 MG TAB PO SCH (09:00)
[2019-07-31] MEDS ORDERED: amLODIPine 10 MG TAB PO SCH (11:15)
--- NOTE | 2019-07-31 15:35 | ECHOF ---
Referral Reason: MEASUREMENTS -------- HEIGHT: 165.1 cm WEIGHT: 101.6 kg BP: 116/75 RVIDd: 3.2 cm (< 3.3) IVSd: 1.3 cm (0.6 - 1.1) LVIDd: 4.2 cm (3.9 - 5.3) LVPWd: 1.3 cm (0.6 - 1.1) IVSs: 1.7 cm LVIDs: 2.6 cm LVPWs: 1.7 cm LA Diam: 3.8 cm (2.7 - 3.8) LAESV Index (A-L): 27.62 ml/m Ao Diam: 3.1 cm (2.0 - 3.7) AV Cusp: 1.8 cm (1.5 - 2.6) MV EXCURSION: 13.189 mm (> 18.000) MV EF SLOPE: 53 mm/s (70 - 150) EPSS: 0.7 cm MV E Yvon: 1.10 m/s MV DecT: 259 ms MV A Yvon: 0.93 m/s MV E/A Ratio: 1.18 AV maxP.05 mmHg AV meanP.94 mmHg RAP: 5.00 mmHg RVSP: 34.97 mmHg TAPSE: 16.23 mm FINDINGS -------- Sinus rhythm. This was a technically good study. The left ventricular size is normal. There is mild concentric left ventricular hypertrophy. Overa ll left ventricular systolic function is normal with, an EF between 60 - 65 %. The right ventricle is normal in size. Normal LA size by volume 22+/-6 ml/m2. The right atrium is normal in size. Interatrial and interventricular septum intact. The aortic valve is trileaflet and appears structurally normal. Peak/mean gradient across the Aorti c Valve is 15.05mmHg / 6.94mmHg. Mild mitral regurgitation is present. Mild tricuspid regurgitation present. There is mild pulmonary hypertension. The right ventricular systolic pressure, as measured by Doppler, is 34.97mmHg. Trace/mild (physiologic) pulmonic regurgitation. The aortic root size is normal. Normal inferior vena cava with normal inspiratory collapse consistent with estimated right atrial pre ssure of 5 mmHg. There is no pericardial effusion. CONCLUSIONS -------- 1. Sinus rhythm. 2. This was a technically good study. 3. The left ventricular size is normal. 4. There is mild concentric left ventricular hypertrophy. 5. Overall left ventricular systolic function is normal with, an EF between 60 - 65 %. 6. The right ventricle is normal in size. 7. Normal LA size by volume 22+/-6 ml/m2. 8. The right atrium is normal in size. 9. Interatrial and interventricular septum intact. 10. The aortic valve is trileaflet and appears structurally normal. 11. Peak/mean gradient across the Aortic Valve is 15.05mmHg / 6.94mmHg. 12. Mild mitral regurgitation is present. 13. Mild tricuspid regurgitation present. 14. There is mild pulmonary hypertension. 15. The right ventricular systolic pressure, as measured by Doppler, is 34.97mmHg. 16. Trace/mild (physiologic) pulmonic regurgitation. 17. The aortic root size is normal. 18. Normal inferior vena cava with normal inspiratory collapse consistent with estimated right atrial pressure of 5 mmHg. 19. There is no pericardial effusion. CANAL SUPERINTENDENT: Elvia Pang RDCS
--- NOTE | 2019-08-01 21:24 | P.HPIM ---
History of Present Illness H&P Date: 07/30/19 Chief Complaint: chest pain Gina Phan is a 73-year-old -[place] female past medical history significant for hypertension, diabetes mellitus, dyslipidemia and obesity who presented to the ED for chest pain. She states approximately one week ago she was sleeping and she turned over aggressively in bed and felt something pull in her neck on the left side. Since that time she has been experiencing discomfort in the left neck with radiation into the left posterior shoulder and a full tight sensation in the left precordial region. She has also been coughing and feels as though her pain is intensified by cough. The discomfort in her chest, shoulder and neck is reproducible with palpation and with movement of her upper body. She denies palpitations, shortness of breath, nausea, vomiting or diaphoresis. She describes that she has been urinating much more frequently. She states overnight while sleeping she gets up at least 7 times used bathroom. Per the patient she underwent cardiac catheterization at [facility] approximately 6 years ago that was normal. In the ED, her vitals were normal, troponin negative, EKG with sinus rhythm. Review of Systems All systems: negative Constitutional: Denies chills, Denies fever Eyes: denies blurred vision, denies pain Ears, nose, mouth and throat: Denies headache, Denies sore throat Cardiovascular: Reports chest pain, Denies shortness of breath Respiratory: Denies cough Gastrointestinal: Denies abdominal pain, Denies diarrhea, Denies nausea, Denies vomiting Genitourinary: Denies dysuria, Denies hematuria Musculoskeletal: Denies myalgias Integumentary: Denies pruritus, Denies rash Neurological: Denies numbness, Denies weakness Psychiatric: Denies anxiety, Denies depression Endocrine: Denies fatigue, Denies weight change Past Medical History Past Medical History: Diabetes Mellitus, GERD/Reflux, Hyperlipidemia, Hypertension, Mitral Valve Prolapse (MVP), Osteoarthritis (OA) Additional Past Medical History / Comment(s): Hypertension, hyperlipidemia, diabetes mellitus, mitral valve prolapse, chronic back pain, varicose veins, migraines, chronic stage II kidney disease, iron deficiency anemia, lumbar disc disease with previous history of L4-L5 degenerative disc disease of the lumbar spine, osteoarthritis History of Any Multi-Drug Resistant Organisms: None Reported Past Surgical History: Back Surgery, Hysterectomy, Joint Replacement, Tonsillectomy Additional Past Surgical History / Comment(s): Spine surgery involving the lumbar spine related to herniated disc at the level of L4-L5, right temporal a rtery biopsy, ovarian cyst removal, pilonidal cyst, left knee replacement, tonsillectomy, hysterectomy Past Anesthesia/Blood Transfusion Reactions: Family Hisory of Malignant Hyperthermia Additional Past Anesthesia/Blood Transfusion Reaction / Comment(s): daughter had reaction to anesthesia age 7 with tonsilectomy called "chocolate anesthesia" per pt. "she had a rash and high fever of 105". daughter has had surgeries since with no problems. Past Psychological History: No Psychological Hx Reported Smoking Status: Former smoker Past Alcohol Use History: None Reported Past Drug Use History: None Reported - Past Family History Sister(s) Family Medical History: Cancer, Deep Vein Thrombosis (DVT) Brother(s) Family Medical History: Deep Vein Thrombosis (DVT) Father Family Medical History: Cancer, Deep Vein Thrombosis (DVT) Additional Family Medical History / Comment(s): QUADRUPLE BYPASS Mother Family Medical History: Deep Vein Thrombosis (DVT) Additional Family Medical History / Comment(s): PACEMAKER Medications and Allergies Home Medications Medication Instructions Recorded Confirmed Type Fenofibrate Nanocrystallized 145 mg PO DAILY 11/16/14 07/30/19 History [Tricor] metFORMIN HCL [Glucophage] 500 mg PO BID 11/16/14 07/30/19 History Ferrous Sulfate [Feosol] 325 mg PO DAILY 02/20/16 07/30/19 History amLODIPine [Norvasc] 10 mg PO DAILY 02/20/16 07/30/19 History Aspirin EC [Ecotrin Low Dose] 81 mg PO DAILY 07/12/18 07/30/19 History Cholecalciferol [Vitamin D3 (25 1,000 unit PO DAILY 07/30/19 07/30/19 History Mcg = 1000 Iu)] Cyanocobalamin (Vitamin B-12) 1 tab PO DAILY 07/30/19 07/30/19 History [Vitamin B-12] DULoxetine HCL [Cymbalta] 20 mg PO DAILY 07/30/19 07/30/19 History Diclofenac Sodium Gel [Voltaren 4 gm TOPICAL QID PRN #100 g 07/30/19 Rx Gel] Famotidine 40 mg PO DAILY 07/30/19 07/30/19 History Metoprolol Succinate (ER) [Toprol 25 mg PO DAILY 07/30/19 07/30/19 History XL] glipiZIDE XL [Glucotrol XL] 5 mg PO BID 07/30/19 07/30/19 History hydrALAZINE HCL 50 mg PO BID 07/30/19 07/30/19 History Allergies Allergy/AdvReac Type Severity Reaction Status Date / Time diflunisal [From Dolobid] Allergy Anaphylaxis Verified 07/30/19 08:36 hydrochlorothiazide Allergy Swelling Verified 07/30/19 08:36 [From Zestoretic] of face and throat ibuprofen [From Motrin] Allergy Abdominal Verified 07/30/19 08:36 Pain Iodine and Iodide Containing Allergy Anaphylaxis Verified 07/30/19 08:36 Produc lisinopril Allergy Rash/Hives Verified 07/30/19 08:36 morphine Allergy Rash/Hives Verified 07/30/19 08:36 prednisone Allergy Rash/Hives Verified 07/30/19 08:36 sulfamethoxazole Allergy Anaphylaxis Verified 07/30/19 08:36 [From Bactrim] tramadol Allergy Rash/Hives Verified 07/30/19 08:36 trimethoprim [From Bactrim] Allergy Anaphylaxis Verified 07/30/19 08:36 baclofen AdvReac Unknown LOW HEART Verified 07/30/19 08:36 RATE NSAIDS (Non-Steroidal AdvReac Unknown TOLD TO Verified 07/30/19 08:36 Anti-Inflamma AVOID NSAIDS DUE TO ABDOMINAL PAIN ondansetron AdvReac Itching Verified 07/30/19 08:36 [From Zofran (as hydrochloride)] Physical Exam General: well nourished, well developed, NAD. Vitals reviewed Eyes: PERRL, EOMI, conjunctiva normal HENT: normocephalic, mucus membranes moist Neck: supple, no JVD Lungs: normal respiratory effort, no wheezes or rales CV: Regular rate and rhythm, no murmur. Peripheral pulses 2+ Abdomen: soft, nondistended, no organomegaly Lymph: no cervical or axillary LAD Skin: warm and dry. Neuro: A&Ox3, normal mood and affect Results CBC & Chem 7: 07/29/19 21:25 07/30/19 08:41 Thrombosis Risk Factor Assmnt - Choose All That Apply Any of the Below Risk Factors Present?: Yes Each Factor Represents 1 point: Hx of IBD, Obesity (BMI >25), Varicose veins Other Risk Factors: No Other congenital or acquired thrombophilia - If yes, enter type in comment: No Thrombosis Risk Factor Assessment Total Risk Factor Score: 3 Thrombosis Risk Factor Assessment Level: Moderate Risk Assessment and Plan (1) Chest pain Status: Acute Code(s): R07.9 - CHEST PAIN, UNSPECIFIED SNOMED Code(s): 56936940 (2) Diabetes Status: Acute Code(s): E11.9 - TYPE 2 DIABETES MELLITUS WITHOUT COMPLICATIONS SNOMED Code(s): 89337933 (3) HTN (hypertension) Status: Acute Code(s): I10 - ESSENTIAL (PRIMARY) HYPERTENSION SNOMED Code(s): 43909984 (4) Hyperlipemia Status: Acute Code(s): E78.5 - HYPERLIPIDEMIA, UNSPECIFIED SNOMED Code(s): 05857213 (5) Costochondritis Status: Acute Code(s): M94.0 - CHONDROCOSTAL JUNCTION SYNDROME [TIETZE] SNOMED Code(s): 06522231 Plan: 1. Chest pain. ACS ruled out. Cardiology consulted for further evaluation. Pain control 2. HTN. Continue toprol, HCTZ 3. T2DM. Accucheck, sliding scale. hold metformin 4. HLD.
--- NOTE | 2019-08-01 21:27 | P.DS ---
Providers Date of admission: 07/30/19 00:14 Expected date of discharge: 07/30/19 Attending physician: Mustapha Barnett MD Consults: 07/30/19 00:13 Consult Physician Urgent Consulting Provider: Sofía Martinez Consult Reason/Comments: cp Do you want consulting provider notified?: Yes Primary care physician: Sissy Starr - Discharge Diagnosis(es) (1) Chest pain Status: Acute (2) Diabetes Status: Acute (3) HTN (hypertension) Status: Acute (4) Hyperlipemia Status: Acute (5) Costochondritis Status: Acute Hospital Course: Gina Phan is a 73-year-old -[place] female past medical history significant for hypertension, diabetes mellitus, dyslipidemia and obesity who presented to the ED for chest pain. She states approximately one week ago she was sleeping and she turned over aggressively in bed and felt something pull in her neck on the left side. Since that time she has been experiencing discomfort in the left neck with radiation into the left posterior shoulder and a full tight sensation in the left precordial region. She has also been coughing and feels as though her pain is intensified by cough. The discomfort in her chest, shoulder and neck is reproducible with palpation and with movement of her upper body. She denies palpitations, shortness of breath, nausea, vomiting or diaphoresis. She describes that she has been urinating much more frequently. She states overnight while sleeping she gets up at least 7 times used bathroom. Per the patient she underwent cardiac catheterization at [facility] approximately 6 years ago that was normal. In the ED, her vitals were normal, troponin negative, EKG with sinus rhythm. Pt was admitted to observation and seen by Cardiology. She underwent an Echo which was unremarkable and a stress test which was negative for ischemia. She is discharged in stable condition and recommended to use tylenol and follow up with her PCP. Patient Condition at Discharge: Good Plan - Discharge Summary New Discharge Prescriptions: New Diclofenac Sodium Gel [Voltaren Gel] 4 gm TOPICAL QID PRN #100 g PRN Reason: Pain Continue Fenofibrate Nanocrystallized [Tricor] 145 mg PO DAILY metFORMIN HCL [Glucophage] 500 mg PO BID amLODIPine [Norvasc] 10 mg PO DAILY Ferrous Sulfate [Feosol] 325 mg PO DAILY Aspirin EC [Ecotrin Low Dose] 81 mg PO DAILY Metoprolol Succinate (ER) [Toprol XL] 25 mg PO DAILY DULoxetine HCL [Cymbalta] 20 mg PO DAILY Cholecalciferol [Vitamin D3 (25 Mcg = 1000 Iu)] 1,000 unit PO DAILY Cyanocobalamin (Vitamin B-12) [Vitamin B-12] 1 tab PO DAILY Famotidine 40 mg PO DAILY glipiZIDE XL [Glucotrol XL] 5 mg PO BID hydrALAZINE HCL 50 mg PO BID Discharge Medication List Fenofibrate Nanocrystallized [Tricor] 145 mg PO DAILY 11/16/14 [History] metFORMIN HCL [Glucophage] 500 mg PO BID 11/16/14 [History] Ferrous Sulfate [Feosol] 325 mg PO DAILY 02/20/16 [History] amLODIPine [Norvasc] 10 mg PO DAILY 02/20/16 [History] Aspirin EC [Ecotrin Low Dose] 81 mg PO DAILY 07/12/18 [History] Cholecalciferol [Vitamin D3 (25 Mcg = 1000 Iu)] 1,000 unit PO DAILY 07/30/19 [History] Cyanocobalamin (Vitamin B-12) [Vitamin B-12] 1 tab PO DAILY 07/30/19 [History] DULoxetine HCL [Cymbalta] 20 mg PO DAILY 07/30/19 [History] Diclofenac Sodium Gel [Voltaren Gel] 4 gm TOPICAL QID PRN #100 g 07/30/19 [Rx] Famotidine 40 mg PO DAILY 07/30/19 [History] Metoprolol Succinate (ER) [Toprol XL] 25 mg PO DAILY 07/30/19 [History] glipiZIDE XL [Glucotrol XL] 5 mg PO BID 07/30/19 [History] hydrALAZINE HCL 50 mg PO BID 07/30/19 [History] Follow up Appointment(s)/Referral(s): Sofía Martinez MD [STAFF PHYSICIAN] - 08/10/19 9:15 am (With Savi POLK) Sissy Starr DO [Primary Care Provider] - 3 Days Patient Instructions/Handouts: Chest Pain (DC) Activity/Diet/Wound Care/Special Instructions: Use combination of Ibuprofen of Acetaminophen Extra Strength to control pain. Maximum 24 hour dosage of Acetaminophen is 4000mg. Discharge Disposition: HOME SELF-CARE
== END 2019-07-30 16:00 | disposition home or self-care (01) ==
LOC: EC 19:09 → 1SOBS 07-30 00:14
PROVIDERS: ADMIT Family Medicine; ATTEND Family Medicine
DX: R07.9 Chest pain, unspecified (principal); N18.2 Chronic kidney disease, stage 2 (mild); E11.22 Type 2 diabetes mellitus with diabetic chronic kidney disease; I12.9 Hypertensive chronic kidney disease with stage 1 through stage 4 chronic kidney disease, or unspecified chronic kidney disease; E78.5 Hyperlipidemia, unspecified; M94.0 Chondrocostal junction syndrome [Tietze]; E66.9 Obesity, unspecified; R00.1 Bradycardia, unspecified; Z68.37 Body mass index [BMI] 37.0-37.9, adult; K21.9 Gastro-esophageal reflux disease without esophagitis; I83.90 Asymptomatic varicose veins of unspecified lower extremity; G89.29 Other chronic pain; M54.9 Dorsalgia, unspecified; M51.36 Other intervertebral disc degeneration, lumbar region; G43.909 Migraine, unspecified, not intractable, without status migrainosus; I34.1 Nonrheumatic mitral (valve) prolapse; M19.90 Unspecified osteoarthritis, unspecified site; Z88.5 Allergy status to narcotic agent; Z88.2 Allergy status to sulfonamides; Z88.8 Allergy status to other drugs, medicaments and biological substances; Z79.84 Long term (current) use of oral hypoglycemic drugs; Z79.82 Long term (current) use of aspirin; Z79.899 Other long term (current) drug therapy; Z83.2 Family history of diseases of the blood and blood-forming organs and certain disorders involving the immune mechanism; Z80.9 Family history of malignant neoplasm, unspecified; Z90.710 Acquired absence of both cervix and uterus; Z96.652 Presence of left artificial knee joint; Z87.891 Personal history of nicotine dependence
CPT/HCPCS: 93005 ×2; 96361 ×3; 96376; 96374; 96375; 99285; 36415; 93306; 93351; 85379; 80061; 80053; 80048; 83605; 83735; 84100; 84484 ×2; 85025; 85610; 85730; 83036; 70360; 71046; 71275; G0378; J1250; J1200; J2930; J1170 ×3; Q9967

== ENCOUNTER 2019-11-05 01:30 | Emergency (ER) | payer MEDICARE, OTHER ==
[2019-11-05] MEDS ORDERED: HYDROmorphone 1 MG/ML 1 ML SYRINGE IM STA ×2 (02:14→03:51)
[2019-11-05 02:38] LABS: Appearance,Urine Clear (Clear); Bilirubin,Urine Negative (Negative); Blood,Urine Negative (Negative); Color,Urine Light Yellow; Glucose,Urine (UA) 3+ (Negative); Ketones,Urine Negative (Negative); Leukocyte Esterase,Urine Negative (Negative); Nitrite,Urine Negative (Negative); PH, Urine 7.5 (5.0-8.0); Protein,Urine Negative (Negative); Specific Gravity,Urine 1.013 (1.001-1.035); Urobilinogen,Urine <2.0 mg/dL (<2.0)
--- NOTE | 2019-11-05 02:46 | XR ---
EXAMINATION TYPE: XR lumbar spine 2 or 3V DATE OF EXAM: 11/05/2019 COMPARISON: NONE HISTORY: Low back pain TECHNIQUE: 3 views FINDINGS: There is mild lumbar levoscoliosis. There is some degenerative disc space narrowing at L3-4 and vacuum disc. There is some ankylotic change at L4-5. I see no compression fracture. Sacroiliac j oints are normal. IMPRESSION: Moderate spondylotic changes at L3-4 and L4-5. No fracture.
[2019-11-05] MEDS ORDERED: predniSONE 20 MG TAB PO STA (03:31)
[2019-11-05] MEDS ORDERED: HYDROmorphone 1 MG/ML 1 ML SYRINGE IVP STA (03:31)
--- NOTE | 2019-11-05 03:47 | ED ---
Back Pain [facility] - General Chief Complaint: Back Pain/Injury Stated Complaint: Back Pain Time Seen by Provider: 11/05/19 01:58 Source: patient Limitations: no limitations - History of Present Illness Initial Comments: This patient is 73-year-old woman with history of previous lumbar pain and previous back surgery. She presents with complaint of left lumbar back pain radiating to her leg. She states it is same similar to previous back pain that she has had. She believes that is been brought on as she is been having to drive her granddaughter around relatively frequently now. She has not had any weakness, numbness of the extremities. No change in bladder or bowel function. No saddle anesthesia. MD Complaint: back pain Onset/Timin -: days(s) Similar Symptoms Previously: Yes Place: home Radiation: left leg Severity: severe Quality: burning, aching Consistency: constant Worsens With: other (Driving) Associated Symptoms: denies other symptoms - Related Data Home Medications Medication Instructions Recorded Confirmed Fenofibrate Nanocrystallized 145 mg PO DAILY 11/16/14 07/30/19 [Tricor] metFORMIN HCL [Glucophage] 500 mg PO BID 11/16/14 07/30/19 Ferrous Sulfate [Feosol] 325 mg PO DAILY 02/20/16 07/30/19 amLODIPine [Norvasc] 10 mg PO DAILY 02/20/16 07/30/19 Aspirin EC [Ecotrin Low Dose] 81 mg PO DAILY 07/12/18 07/30/19 Cholecalciferol [Vitamin D3 (25 1,000 unit PO DAILY 07/30/19 07/30/19 Mcg = 1000 Iu)] Cyanocobalamin (Vitamin B-12) 1 tab PO DAILY 07/30/19 07/30/19 [Vitamin B-12] DULoxetine HCL [Cymbalta] 20 mg PO DAILY 07/30/19 07/30/19 Famotidine 40 mg PO DAILY 07/30/19 07/30/19 Metoprolol Succinate (ER) [Toprol 25 mg PO DAILY 07/30/19 07/30/19 XL] glipiZIDE XL [Glucotrol XL] 5 mg PO BID 07/30/19 07/30/19 hydrALAZINE HCL 50 mg PO BID 07/30/19 07/30/19 Previous Rx's Medication Instructions Recorded Diclofenac Sodium Gel [Voltaren 4 gm TOPICAL QID PRN #100 g 07/30/19 Gel] HYDROcodone/APAP 7.5-325MG [[place] 1 tab PO Q6HR PRN 3 Days #12 tab 11/05/19 7.5-325] predniSONE [Deltasone] 20 mg PO BID #8 tab 11/05/19 Allergies Allergy/AdvReac Type Severity Reaction Status Date / Time diflunisal [From Dolobid] Allergy Anaphylaxis Verified 11/05/19 01:39 hydrochlorothiazide Allergy Swelling Verified 11/05/19 01:39 [From Zestoretic] of face and throat ibuprofen [From Motrin] Allergy Abdominal Verified 11/05/19 01:39 Pain Iodine and Iodide Containing Allergy Anaphylaxis Verified 11/05/19 01:39 Produc lisinopril Allergy Rash/Hives Verified 11/05/19 01:39 morphine Allergy Rash/Hives Verified 11/05/19 01:39 prednisone Allergy Rash/Hives Verified 11/05/19 01:39 sulfamethoxazole Allergy Anaphylaxis Verified 11/05/19 01:39 [From Bactrim] tramadol Allergy Rash/Hives Verified 11/05/19 01:39 trimethoprim [From Bactrim] Allergy Anaphylaxis Verified 11/05/19 01:39 baclofen AdvReac Unknown LOW HEART Verified 11/05/19 01:39 RATE NSAIDS (Non-Steroidal AdvReac Unknown TOLD TO Verified 11/05/19 01:39 Anti-Inflamma AVOID NSAIDS DUE TO ABDOMINAL PAIN ondansetron AdvReac Itching Verified 11/05/19 01:39 [From Zofran (as hydrochloride)] Review of Systems ROS Statement: Those systems with pertinent positive or pertinent negative responses have been documented in the HPI. ROS Other: All systems not noted in ROS Statement are negative. Constitutional: Denies: fever, chills Respiratory: Denies: cough, dyspnea Cardiovascular: Denies: chest pain, palpitations, edema Gastrointestinal: Denies: abdominal pain, vomiting, diarrhea, constipation Genitourinary: Denies: dysuria, frequency, hematuria Musculoskeletal: Reports: as per HPI, back pain Skin: Denies: rash Neurological: Denies: weakness, numbness, paresthesias Past Medical History Past Medical History: Diabetes Mellitus, GERD/Reflux, Hyperlipidemia, Hyp ertension, Mitral Valve Prolapse (MVP), Osteoarthritis (OA) Additional Past Medical History / Comment(s): Hypertension, hyperlipidemia, diabetes mellitus, mitral valve prolapse, chronic back pain, varicose veins, migraines, chronic stage II kidney disease, iron deficiency anemia, lumbar disc disease with previous history of L4-L5 degenerative disc disease of the lumbar spine, osteoarthritis History of Any Multi-Drug Resistant Organisms: None Reported Past Surgical History: Back Surgery, Hysterectomy, Joint Replacement, Tonsillectomy Additional Past Surgical History / Comment(s): Spine surgery involving the lumbar spine related to herniated disc at the level of L4-L5, right temporal artery biopsy, ovarian cyst removal, pilonidal cyst, left knee replacement, tonsillectomy, hysterectomy Past Anesthesia/Blood Transfusion Reactions: Family Hisory of Malignant Hyperthe rmia Additional Past Anesthesia/Blood Transfusion Reaction / Comment(s): daughter had reaction to anesthesia age 7 with tonsilectomy called "chocolate anesthesia" per pt. "she had a rash and high fever of 105". daughter has had surgeries since with no problems. Past Psychological History: No Psychological Hx Reported Smoking Status: Former smoker Past Alcohol Use History: None Reported Past Drug Use History: None Reported - Past Family History Sister(s) Family Medical History: Cancer, Deep Vein Thrombosis (DVT) Brother(s) Family Medical History: Deep Vein Thrombosis (DVT) Father Family Medical History: Cancer, Deep Vein Thrombosis (DVT) Additional Family Medical History / Comment(s): QUADRUPLE BYPASS Mother Family Medical History: Deep Vein Thrombosis (DVT) Additional Family Medical History / Comment(s): PACEMAKER General Exam Limitations: no limitations General appearance: alert, in no apparent distress Head exam: Present: atraumatic Neck exam: Present: normal inspection, full ROM. Absent: tenderness Respiratory exam: Present: normal lung sounds bilaterally. Absent: respiratory distress, wheezes, rales, rhonchi, stridor Cardiovascular Exam: Present: regular rate, normal rhythm, normal heart sounds. Absent: systolic murmur, diastolic murmur, rubs, gallop GI/Abdominal exam: Present: soft. Absent: distended, tenderness, guarding, rebound, mass, pulsatile mass Extremities exam: Present: normal inspection, normal capillary refill. Absent: pedal edema, calf tenderness Back exam: Present: paraspinal tenderness. Absent: CVA tenderness (R), CVA tenderness (L), vertebral tenderness Neurological exam: Present: alert, reflexes normal. Absent: motor sensory deficit Skin exam: Present: warm, dry, intact, normal color. Absent: rash Course Vital Signs 11/05/19 11/05/19 01:36 03:49 Temperature 98.4 F 98.7 F Pulse Rate 90 81 Respiratory 18 20 Rate Blood Pressure 161/80 172/70 O2 Sat by Pulse 100 99 Oximetry Medical Decision Making - Medical Decision Making Patient is 73-year-old woman with symptoms consistent with lumbar radiculopathy. She has had this previously. She has had good relief with medication here and will follow with back specialist. Discussed possibility of requiring MRI and further follow-up. Also return parameters - Lab Data Lab Results 11/05/19 Range/Units 02:30 Urine Color Light Yellow Urine Appearance Clear (Clear) Urine pH 7.5 (5.0-8.0) Ur Specific [place] 1.013 (1.001-1.035) Urine Protein Negative (Negative) Urine Glucose (UA) 3+ H (Negative) Urine Ketones Negative (Negative) Urine Blood Negative (Negative) Urine Nitrite Negative (Negative) Urine Bilirubin Negative (Negative) Urine Urobilinogen <2.0 (<2.0) mg/dL Ur Leukocyte Esterase Negative (Negative) Disposition Clinical Impression: Lumbar radiculopathy Disposition: HOME SELF-CARE Condition: Good Instructions (If sedation given, give patient instructions): Lumbar Radiculopathy (ED) Prescriptions: predniSONE [Deltasone] 20 mg PO BID #8 tab HYDROcodone/APAP 7.5-325MG [[place] 7.5-325] 1 tab PO Q6HR PRN 3 Days #12 tab PRN Reason: Pain Is patient prescribed a controlled substance at d/c from ED?: Yes When asked, does pt state using other controlled substances?: No If prescribed controlled substance>3 days was MAPS reviewed?: Prescribed <3 Days If opioid is for acute pain is fill amount 7 days or less?: Yes If Rx opioid, was Start Talking consent form obtained?: Yes Referrals: Sissy Starr DO [Primary Care Provider] - 1-2 days Michelle Dawn DO [Doctor of Osteopathic Medicine] - 1-2 days
[2019-11-05 03:52] VITALS: BP 172/70; PULSE 81; RESP 20; TEMP 98.7
== END 2019-11-05 04:48 | disposition home or self-care (01) ==
LOC: EC 01:30
DX: M54.16 Radiculopathy, lumbar region (principal); E11.9 Type 2 diabetes mellitus without complications; I10 Essential (primary) hypertension; M19.90 Unspecified osteoarthritis, unspecified site; Z79.82 Long term (current) use of aspirin; Z79.84 Long term (current) use of oral hypoglycemic drugs; Z79.899 Other long term (current) drug therapy; Z88.8 Allergy status to other drugs, medicaments and biological substances; Z88.6 Allergy status to analgesic agent; Z91.041 Radiographic dye allergy status; Z88.1 Allergy status to other antibiotic agents; Z88.2 Allergy status to sulfonamides; Z88.5 Allergy status to narcotic agent; Z87.891 Personal history of nicotine dependence; Z96.652 Presence of left artificial knee joint
CPT/HCPCS: 81003; 72100; 99283; 96372 ×2; J1170; J7512

== ENCOUNTER 2021-06-22 06:24 | Emergency (ER) | payer MEDICARE, OTHER ==
[2021-06-22] MEDS ORDERED: HYDROmorphone 1 MG/ML 1 ML SYRINGE IM STA ×2 (06:38→08:47)
--- NOTE | 2021-06-22 07:48 | US ---
EXAMINATION TYPE: US venous doppler duplex LE LT DATE OF EXAM: 06/22/2021 7:11 AM COMPARISON: NONE CLINICAL HISTORY: pain. ankle pain x 1 week. On baby aspirin. No hx DVT. No swelling. SIDE PERFORMED: Left TECHNIQUE: The lower extremity deep venous system is examined utilizing real time linear array sonog candida with graded compression, doppler sonography and color-flow sonography. VESSELS IMAGED: Common Femoral Vein Deep Femoral Vein Greater Saphenous Vein * Femoral Vein Popliteal Vein Small Saphenous Vein * Proximal Calf Veins (* superficial vessels) Left Leg: Negative for DVT IMPRESSION: 1. Left lower extremity ultrasound negative for deep venous thrombosis.
--- NOTE | 2021-06-22 08:33 | ED ---
Back Pain HPI - General Chief Complaint: Back Pain/Injury Stated Complaint: Leg Pain,Chest Pain Time Seen by Provider: 06/22/21 06:32 Source: patient, RN notes reviewed Limitations: no limitations - History of Present Illness Initial Comments: Patient is a 75-year-old female that presents to the emergency department complaining of left lower back pain with radiculopathy to the left leg. She notes she is concern for DVT as it does hurt every time she takes a step. Patient is also claiming atraumatic left shoulder pain tender to the touch. She was well-appearing. She does have a history of diabetes and recently got a steroid shot. She notes she would rather avoid a steroid shot as does note that her sugars. She does take Watson at home for pain. Patient was otherwise well- appearing. She denied any chest pain shortness of breath headache nausea vomiting diarrhea constipation fever fatigue chills. - Related Data Home Medications Medication Instructions Recorded Confirmed Fenofibrate Nanocrystallized 145 mg PO DAILY 11/16/14 06/22/21 [Tricor] amLODIPine [Norvasc] 10 mg PO DAILY 02/20/16 06/22/21 Aspirin EC [Ecotrin Low Dose] 81 mg PO DAILY 07/12/18 06/22/21 Cholecalciferol [Vitamin D3 (25 25 mcg PO DAILY 07/30/19 06/22/21 Mcg = 1000 Iu)] Cyanocobalamin (Vitamin B-12) 1,000 mcg PO DAILY 07/30/19 06/22/21 [Vitamin B-12] Famotidine 40 mg PO BID 07/30/19 06/22/21 glipiZIDE XL [Glucotrol XL] 5 mg PO DAILY 07/30/19 06/22/21 Energy Vitamin 1 tab PO DAILY 06/22/21 06/22/21 Escitalopram [Lexapro] 10 mg PO DAILY 06/22/21 06/22/21 HYDROcodone/APAP 7.5-325MG [[place] 1 tab PO TID PRN 06/22/21 06/22/21 7.5-325] Ibuprofen [Motrin] 800 mg PO DAILY 06/22/21 06/22/21 Multivit with Calcium,Iron,Min 1 tab PO DAILY 06/22/21 06/22/21 [Women's Multivitamin] metFORMIN HCL [Glucophage] 1,000 mg PO BID 06/22/21 06/22/21 Allergies Allergy/AdvReac Type Severity Reaction Status Date / Time diflunisal [From Dolobid] Allergy Anaphylaxis Verified 06/22/21 08:27 hydrochlorothiazide Allergy Swelling Verified 06/22/21 08:27 [From Zestoretic] of face and throat ibuprofen [From Motrin] Allergy Abdominal Verified 06/22/21 08:27 Pain Iodine and Iodide Containing Allergy Anaphylaxis Verified 06/22/21 08:27 Produc lisinopril Allergy Rash/Hives Verified 06/22/21 08:27 morphine Allergy Rash/Hives Verified 06/22/21 08:27 prednisone Allergy Rash/Hives Verified 06/22/21 08:27 sulfamethoxazole Allergy Anaphylaxis Verified 06/22/21 08:27 [From Bactrim] tramadol Allergy Rash/Hives Verified 06/22/21 08:27 trimethoprim [From Bactrim] Allergy Anaphylaxis Verified 06/22/21 08:27 baclofen AdvReac Unknown LOW HEART Verified 06/22/21 08:27 RATE NSAIDS (Non-Steroidal AdvReac Unknown TOLD TO Verified 06/22/21 08:27 Anti-Inflamma AVOID NSAIDS DUE TO ABDOMINAL PAIN ondansetron AdvReac Itching Verified 06/22/21 08:27 [From Zofran (as hydrochloride)] Review of Systems ROS Statement: Those systems with pertinent positive or pertinent negative responses have been documented in the HPI. ROS Other: All systems not noted in ROS Statement are negative. Past Medical History Past Medical History: Diabetes Mellitus, GERD/Reflux, Hyperlipidemia, Hypertension, Mitral Valve Prolapse (MVP), Osteoarthritis (OA) Additional Past Medical History / Comment(s): Hypertension, hyperlipidemia, diabetes mellitus, mitral valve prolapse, chronic back pain, varicose veins, migraines, chronic stage II kidney disease, iron deficiency anemia, lumbar disc disease with previous history of L4-L5 degenerative disc disease of the lumbar spine, osteoarthritis History of Any Multi-Drug Resistant Organisms: None Reported Past Surgical History: Back Surgery, Hysterectomy, Joint Replacement, Tonsillectomy Additional Past Surgical History / Comment(s): Spine surgery involving the lumbar spine related to herniated disc at the level of L4-L5, right temporal artery biopsy, ovarian cyst removal, pilonidal cyst, left knee replacement, tonsillectomy, hysterectomy Past Anesthesia/Blood Transfusion Reactions: Family Hisory of Malignant Hyperthermia Additional Past Anesthesia/Blood Transfusion Reaction / Comment(s): daughter had reaction to anesthesia age 7 with tonsilectomy called "chocolate anesthesia" per pt. "she had a rash and high fever of 105". daughter has had surgeries since with no problems. Past Psychological History: No Psychological Hx Reported Smoking Status: Never smoker Past Alcohol Use History: None Reported Past Drug Use History: None Reported - Past Family History Sister(s) Family Medical History: Cancer, Deep Vein Thrombosis (DVT) Brother(s) Family Medical History: Deep Vein Thrombosis (DVT) Father Family Medical History: Cancer, Deep Vein Thrombosis (DVT) Additional Family Medical History / Comment(s): QUADRUPLE BYPASS Mother Family Medical History: Deep Vein Thrombosis (DVT) Additional Family Medical History / Comment(s): PACEMAKER General Exam Limitations: no limitations General appearance: alert, in no apparent distress, obese Head exam: Present: atraumatic, normocephalic, normal inspection Eye exam: Present: normal appearance, PERRL, EOMI. Absent: scleral icterus, conjunctival injection, periorbital swelling ENT exam: Present: normal exam, mucous membranes moist Neck exam: Present: normal inspection Respiratory exam: Present: normal lung sounds bilaterally. Absent: respiratory distress, wheezes, rales, rhonchi, stridor Cardiovascular Exam: Present: regular rate, normal rhythm, normal heart sounds. Absent: systolic murmur, diastolic murmur, rubs, gallop, clicks GI/Abdominal exam: Present: soft, normal bowel sounds. Absent: distended, tenderness, guarding, rebound, rigid Extremities exam: Present: normal inspection, full ROM, normal capillary refill. Absent: tenderness, pedal edema, joint swelling, calf tenderness Back exam: Present: normal inspection, tenderness (Over the left SI) Neurological exam: Present: alert, oriented X3 Psychiatric exam: Present: normal affect, normal mood Skin exam: Present: warm, dry, intact, normal color. Absent: rash Course Vital Signs 06/22/21 06:25 Temperature 97.9 F Pulse Rate 68 Respiratory 22 Rate Blood Pressure 206/82 O2 Sat by Pulse 100 Oximetry Medical Decision Making - Medical Decision Making 75-year-old female complaining of left lower back pain with radiculopathy and left shoulder pain. 1 mg of Dilaudid, ultrasound of the left lower extremity, x-ray of the left shoulder ordered. Ultrasound negative for any DVT. X-ray negative for any acute process does show osteoarthritis and rotator cuff tendinopathy. Case discussed with Dr. Garnett. - Radiology Data Radiology results: report reviewed, image reviewed Left shoulder x-ray: Bony changes the greater tuberosity suggest chronic rotator cuff tendinopathy. Moderate before meals joint away, mild away at the GI joint, no acute osseous abdomen seen. Ultrasound of the lower extremity: Negative for DVT. Disposition Clinical Impression: Sciatica, Lumbar radiculopathy, Tendinopathy of left rotator cuff Disposition: HOME SELF-CARE Condition: Stable Instructions (If sedation given, give patient instructions): Acute Low Back Pain (ED) Additional Instructions: Please return to the Emergency Department if symptoms worsen or any other concerns. Follow-up with primary care in 1-2 days. Is patient prescribed a controlled substance at d/c from ED?: No Referrals: Sissy Starr DO [Primary Care Provider] - 1-2 days Time of Disposition: 08:44
--- NOTE | 2021-06-22 08:40 | XR ---
EXAMINATION TYPE: XR shoulder complete LT, 3 views DATE OF EXAM: 06/22/2021 Comparison: None Clinical History: 75-year-old female pain Findings: Moderate degenerative joint space narrowing with marginal spurring and capsular hypertrophy of the ac romioclavicular joint. Subacromial space is preserved. Prominent bony irregularity and sclerosis at t he greater tuberosity. Mild degenerative spurring at the glenohumeral joint. No acute fracture, sublu xation, or dislocation seen. Impression: 1. Bony changes of the greater tuberosity suggest chronic rotator cuff tendinopathy. 2. Moderate AC joint OA. 3. Mild OA at the GH joint. 4. No acute osseous abnormality seen.
[2021-06-22 08:59] VITALS: BP 153/67; PULSE 58; RESP 18; TEMP 98.6
== END 2021-06-22 09:08 | disposition home or self-care (01) ==
LOC: EC 06:24
DX: M54.16 Radiculopathy, lumbar region (principal); M54.42 Lumbago with sciatica, left side; E11.9 Type 2 diabetes mellitus without complications; K21.9 Gastro-esophageal reflux disease without esophagitis; E78.5 Hyperlipidemia, unspecified; I10 Essential (primary) hypertension; Z88.8 Allergy status to other drugs, medicaments and biological substances; Z88.6 Allergy status to analgesic agent; Z88.5 Allergy status to narcotic agent; Z88.2 Allergy status to sulfonamides; Z79.82 Long term (current) use of aspirin; Z79.899 Other long term (current) drug therapy; Z79.84 Long term (current) use of oral hypoglycemic drugs
CPT/HCPCS: 73030; 93971; 99284; 96372; J1170

== ENCOUNTER → 2022-04-08 | Outpatient (CLI) | payer MEDICARE, OTHER ==
--- NOTE | 2022-04-08 15:53 | NM ---
EXAMINATION TYPE: NM bone scan whole body DATE OF EXAM: 04/08/2022 COMPARISON: Outside x-ray 03/19/2022 HISTORY: Pain Delayed whole-body scanning was performed following the injection of 23.4 mCi Tc 99m MDP. Images acq uired 4 hours post injection. FINDINGS: Photopenic defect involving the left knee compatible with previous surgery. Abnormal uptake involving the ankles, feet and right knee likely post arthritic. Abnormal uptake invo lving the shoulders typical post arthritic changes. Abnormal uptake is seen throughout the thoracic and lumbar spine which likely is related the patient' s history of prior surgery and multilevel degenerative disc disease. Abnormal uptake involving the mandible and nasal passages could been the basis of periodontal disease and chronic inflammatory sinusitis respectively. IMPRESSION: 1. Abnormal uptake throughout the thoracic and lumbar spine most compatible with degenerative disc di sease and postsurgical change involving the lower lumbar spine.
== END | disposition home or self-care (01) ==
LOC: RADNMMAIN 10:21
PROVIDERS: ATTEND Physical Medicine & Rehabilitation
DX: R93.7 Abnormal findings on diagnostic imaging of other parts of musculoskeletal system (principal)
CPT/HCPCS: 78306; A9503

== ENCOUNTER 2022-04-09 09:53 | Emergency (ER) | payer MEDICARE, OTHER ==
[2022-04-09 10:28] VITALS: BP 169/68; PULSE 65; RESP 20; TEMP 98.5
--- NOTE | 2022-04-09 11:23 | XR ---
EXAMINATION TYPE: XR knee complete RT DATE OF EXAM: 04/09/2022 CLINICAL HISTORY: Pain after fall injury. TECHNIQUE: Three views of the right knee are obtained. COMPARISON: Prior right knee x-ray 2014. FINDINGS: There is no acute fracture/dislocation evident in right knee. Moderate axial joint space l oss and spurring medial tibial femoral compartment redemonstrated. Moderate spurring and joint space loss patellofemoral compartment more prominent versus prior. Mild overlying subcutaneous edema curren t study. IMPRESSION: There is no acute fracture or dislocation in the right knee.
[2022-04-09] MEDS ORDERED: methocarbamoL 750 MG TAB PO STA (11:54)
[2022-04-09] MEDS ORDERED: ACETAMINOPHEN TAB 500 MG TAB PO STA (11:54)
--- NOTE | 2022-04-09 11:57 | ED ---
General Adult HPI - General Chief complaint: Extremity Injury, Lower Stated complaint: right knee pain Time Seen by Provider: 04/09/22 11:36 Source: patient, RN notes reviewed, old records reviewed Mode of arrival: ambulatory Limitations: no limitations - History of Present Illness Initial comments: Patient is a 76 her old female who presents emergency Department complaining of acute on chronic right knee pain. Has a history of chronic right knee pain. Has been bothering her more lately. Did receive a bone scan yesterday. Was walking into a store today with her son when she states that her knee suddenly became very painful and it "gave out on me." Denies any abnormal motion of the right knee when she stepped on it, but states it just suddenly began hurting. States she did not fall down. Is not on blood thinners. Did not lose consciousness or hit her head. She grabbed onto her son, who helped her sit down. Presents emergency department for further evaluation of this time. Does have a history of arthritis in both knees. Is status post left knee replacement. Denies any sensory deficits. States it hurts with severe flexion or extension. States it is mostly painful on the medial and lateral aspect of the knee. Denies any numbness. Denies weakness, but does endorse pain with movement. Presents for further evaluation at this time. - Related Data Home Medications Medication Instructions Recorded Confirmed Fenofibrate Nanocrystallized 145 mg PO DAILY 11/16/14 06/22/21 [Tricor] amLODIPine [Norvasc] 10 mg PO DAILY 02/20/16 06/22/21 Aspirin EC [Ecotrin Low Dose] 81 mg PO DAILY 07/12/18 06/22/21 Cholecalciferol [Vitamin D3 (25 25 mcg PO DAILY 07/30/19 06/22/21 Mcg = 1000 Iu)] Cyanocobalamin (Vitamin B-12) 1,000 mcg PO DAILY 07/30/19 06/22/21 [Vitamin B-12] Famotidine 40 mg PO BID 07/30/19 06/22/21 glipiZIDE XL [Glucotrol XL] 5 mg PO DAILY 07/30/19 06/22/21 Energy Vitamin 1 tab PO DAILY 06/22/21 06/22/21 Escitalopram [Lexapro] 10 mg PO DAILY 06/22/21 06/22/21 HYDROcodone/APAP 7.5-325MG [[place] 1 tab PO TID PRN 06/22/21 06/22/21 7.5-325] Ibuprofen [Motrin] 800 mg PO DAILY 06/22/21 06/22/21 Multivit with Calcium,Iron,Min 1 tab PO DAILY 06/22/21 06/22/21 [Women's Multivitamin] metFORMIN HCL [Glucophage] 1,000 mg PO BID 06/22/21 06/22/21 Previous Rx's Medication Instructions Recorded methocarbamoL [Robaxin-750] 750 mg PO BID PRN 7 Days #14 tab 04/09/22 Allergies Allergy/AdvReac Type Severity Reaction Status Date / Time diflunisal [From Dolobid] Allergy Anaphylaxis Verified 04/09/22 10:28 hydrochlorothiazide Allergy Swelling Verified 04/09/22 10:28 [From Zestoretic] of face and throat ibuprofen [From Motrin] Allergy Abdominal Verified 04/09/22 10:28 Pain Iodine and Iodide Containing Allergy Anaphylaxis Verified 04/09/22 10:28 Produc lisinopril Allergy Rash/Hives Verified 04/09/22 10:28 morphine Allergy Rash/Hives Verified 04/09/22 10:28 prednisone Allergy Rash/Hives Verified 04/09/22 10:28 sulfamethoxazole Allergy Anaphylaxis Verified 04/09/22 10:28 [From Bactrim] tramadol Allergy Rash/Hives Verified 04/09/22 10:28 trimethoprim [From Bactrim] Allergy Anaphylaxis Verified 04/09/22 10:28 baclofen AdvReac Unknown LOW HEART Verified 04/09/22 10:28 RATE NSAIDS (Non-Steroidal AdvReac Unknown TOLD TO Verified 04/09/22 10:28 Anti-Inflamma AVOID NSAIDS DUE TO ABDOMINAL PAIN ondansetron AdvReac Itching Verified 04/09/22 10:28 [From Zofran (as hydrochloride)] Review of Systems ROS Statement: Those systems with pertinent positive or pertinent negative responses have been documented in the HPI. Review of Systems: CONST: Denies fever EYES: Denies blurry vision ENT: Denies nasal congestion C/V: Denies Chest pain RESP: Denies shortness of breath GI: Denies abdominal pain : Denies dysuria SKIN: Denies rash. MSK: Endorses right knee pain NEURO: Denies headache ROS Other: All systems not noted in ROS Statement are negative. Past Medical History Past Medical History: Diabetes Mellitus, GERD/Reflux, Hyperlipidemia, Hypertension, Mitral Valve Prolapse (MVP), Osteoarthritis (OA) Additional Past Medical History / Comment(s): Hypertension, hyperlipidemia, diabetes mellitus, mitral valve prolapse, chronic back pain, varicose veins, migraines, chronic stage II kidney disease, iron deficiency anemia, lumbar disc disease with previous history of L4-L5 degenerative disc disease of the lumbar spine, osteoarthritis History of Any Multi-Drug Resistant Organisms: None Reported Past Surgical History: Back Surgery, Hysterectomy, Joint Replacement, Tonsillectomy Additional Past Surgical History / Comment(s): Spine surgery involving the lumbar spine related to herniated disc at the level of L4-L5, right temporal art amrtín biopsy, ovarian cyst removal, pilonidal cyst, left knee replacement, tonsillectomy, hysterectomy Past Anesthesia/Blood Transfusion Reactions: Family Hisory of Malignant Hy perthermia Additional Past Anesthesia/Blood Transfusion Reaction / Comment(s): daughter had reaction to anesthesia age 7 with tonsilectomy called "chocolate anesthesia" per pt. "she had a rash and high fever of 105". daughter has had surgeries since with no problems. Past Psychological History: No Psychological Hx Reported Smoking Status: Never smoker Past Alcohol Use History: None Reported Past Drug Use History: None Reported - Past Family History Sister(s) Family Medical History: Cancer, Deep Vein Thrombosis (DVT) Brother(s) Family Medical History: Deep Vein Thrombosis (DVT) Father Family Medical History: Cancer, Deep Vein Thrombosis (DVT) Additional Family Medical History / Comment(s): QUADRUPLE BYPASS Mother Family Medical History: Deep Vein Thrombosis (DVT) Additional Family Medical History / Comment(s): PACEMAKER General Exam - General Exam Comments Initial Comments: General: Appears in no acute distress. HEAD: Normal with no signs of head trauma. EYES: EOMI ENT: Hearing grossly intact RESPIRATORY: No respiratory distress C/V: Peripheral pulses 2+ and intact throughout ABD: Nondistended EXT:. Range of motion of the right knee secondary to pain. Tender to palpation over the medial and lateral joint line. Anterior drawer test negative. He will fold the knee in full extension as well as full flexion. Pain with bearing weight. Neurovascularly intact in the right lower extremity. SKIN: No rashes or lesions observed on exposed skin. NEURO: Alert and oriented 4. No focal sensory strength deficits. Limitations: no limitations Course Vital Signs 04/09/22 10:25 Temperature 98.5 F Pulse Rate 65 Respiratory 20 Rate Blood Pressure 169/68 O2 Sat by Pulse 100 Oximetry Medical Decision Making - Medical Decision Making Based on the patient's presentation and physical exam, concern for right knee sp rain versus pain. Exam is relatively unremarkable. X-ray was already obtained on the patient remained in triage and shows chronic degenerative changes and arthritis but no acute injury. I did discuss with the patient results for x-ray and my suspicion for possible knee sprain and soft tissue injury. Exam of the knee is relatively unremarkable otherwise. Did offer her knee immobilizer which she accepted. She does have a cane as well as a walker at home to help with ambulation. Is due to follow-up with her orthopedic surgeon on . She'll be has [place] at home for pain I will prescribe her Robaxin as needed. She was in agreement this plan. He will be discharged home at this time. I will provide the patient with a prescription for Robaxin. I instructed the patient to follow up with their PCP in the next 1-3 days. I explained that the patient should return to the emergency department if they experience any worsening symptoms. Strict return precautions were discussed with the patient. The patient expressed understanding of these instructions. I answered all questions that the patient had. The patient was discharged home in good condition with their prescriptions and follow up information. Disposition Clinical Impression: Right knee sprain, Arthritis Disposition: HOME SELF-CARE Condition: Good Instructions (If sedation given, give patient instructions): Knee Pain (ED), Knee Sprain (ED) Prescriptions: methocarbamoL [Robaxin-750] 750 mg PO BID PRN 7 Days #14 tab PRN Reason: Pain Is patient prescribed a controlled substance at d/c from ED?: No Referrals: Sissy Starr DO [Primary Care Provider] - 1-2 days Time of Disposition: 11:50
== END 2022-04-09 12:20 | disposition home or self-care (01) ==
LOC: EC 09:53
DX: S83.91XA Sprain of unspecified site of right knee, initial encounter (principal); M19.90 Unspecified osteoarthritis, unspecified site; E11.9 Type 2 diabetes mellitus without complications; K21.9 Gastro-esophageal reflux disease without esophagitis; E78.5 Hyperlipidemia, unspecified; I10 Essential (primary) hypertension; Z79.84 Long term (current) use of oral hypoglycemic drugs; Z79.811 Long term (current) use of aromatase inhibitors; Z79.83 Long term (current) use of bisphosphonates; Z79.899 Other long term (current) drug therapy; Z88.6 Allergy status to analgesic agent; Z88.5 Allergy status to narcotic agent; Z88.2 Allergy status to sulfonamides; Z88.8 Allergy status to other drugs, medicaments and biological substances; X58.XXXA Exposure to other specified factors, initial encounter
CPT/HCPCS: 73562; 99283; L1830 ×2

== ENCOUNTER 2022-04-09 17:02 | Emergency (ER) | payer MEDICARE, OTHER ==
[2022-04-09] MEDS ORDERED: HYDROmorphone 0.5 MG/0.5 ML SYRINGE IM STA (20:12)
[2022-04-09] MEDS ORDERED: CYCLOBENZAPRINE 5 MG TAB PO STA (20:14)
[2022-04-09] MEDS ORDERED: HYDROmorphone 1 MG/ML 1 ML SYRINGE IM STA (21:37)
--- NOTE | 2022-04-09 21:39 | US ---
EXAMINATION TYPE: US venous doppler duplex LE RT DATE OF EXAM: 04/09/2022 8:53 PM COMPARISON: NONE CLINICAL HISTORY: pain. pain in entire right leg SIDE PERFORMED: Right TECHNIQUE: The lower extremity deep venous system is examined utilizing real time linear array sonog candida with graded compression, doppler sonography and color-flow sonography. VESSELS IMAGED: Common Femoral Vein Deep Femoral Vein Greater Saphenous Vein * Femoral Vein Popliteal Vein Small Saphenous Vein * Proximal Calf Veins (* superficial vessels) Right Leg: Negative for DVT Grayscale, color doppler, spectral doppler imaging performed of the deep veins of the lower extremiti es. There is normal flow, compressibility, vascular waveforms. IMPRESSION: No evidence of right lower extremity deep vein thrombosis.
[2022-04-09] MEDS ORDERED: ACET/COD 300 MG/30 MG STARTER PACK 6 TAB BTL PO STA (22:33)
--- NOTE | 2022-04-09 22:34 | ED ---
Extremity Problem HPI - General Chief complaint: Extremity Problem,Nontraumatic Stated complaint: knee pain-revisit Time Seen by Provider: 04/09/22 20:04 Source: patient Mode of arrival: ambulatory Limitations: no limitations - History of Present Illness Initial comments: Patient is a 76-year-old female who presents to the emergency department for a second time today for evaluation of knee pain. Patient states she was walking today when she heard a pop in her right knee causing pain surrounding her knee cap. This is possibly chronic injury after a fall about a month ago. Patient states she did not have any significant pain until today when she heard the pop while walking. Cannot recall any specific twisting or injury to the knee. She was evaluated in the emergency department this morning where x-ray showed chronic changes. I did review this x-ray personally. Patient states she was discharged with Flexeril and told to take her home prescription of [place] however states she does not have any left. Patient reports severe right knee pain which has caused her to be very uncomfortable when trying to rest at home. Pain is worsened with movement of the knee. She denies history of DVT and PE. Does admit to family history of DVT. Denies use of blood thinners. - Related Data Home Medications Medication Instructions Recorded Confirmed Fenofibrate Nanocrystallized 145 mg PO DAILY 11/16/14 06/22/21 [Tricor] amLODIPine [Norvasc] 10 mg PO DAILY 02/20/16 06/22/21 Aspirin EC [Ecotrin Low Dose] 81 mg PO DAILY 07/12/18 06/22/21 Cholecalciferol [Vitamin D3 (25 25 mcg PO DAILY 07/30/19 06/22/21 Mcg = 1000 Iu)] Cyanocobalamin (Vitamin B-12) 1,000 mcg PO DAILY 07/30/19 06/22/21 [Vitamin B-12] Famotidine 40 mg PO BID 07/30/19 06/22/21 glipiZIDE XL [Glucotrol XL] 5 mg PO DAILY 07/30/19 06/22/21 Energy Vitamin 1 tab PO DAILY 06/22/21 06/22/21 Escitalopram [Lexapro] 10 mg PO DAILY 06/22/21 06/22/21 HYDROcodone/APAP 7.5-325MG [[place] 1 tab PO TID PRN 06/22/21 06/22/21 7.5-325] Ibuprofen [Motrin] 800 mg PO DAILY 06/22/21 06/22/21 Multivit with Calcium,Iron,Min 1 tab PO DAILY 06/22/21 06/22/21 [Women's Multivitamin] metFORMIN HCL [Glucophage] 1,000 mg PO BID 06/22/21 06/22/21 Previous Rx's Medication Instructions Recorded methocarbamoL [Robaxin-750] 750 mg PO BID PRN 7 Days #14 tab 04/09/22 Allergies Allergy/AdvReac Type Severity Reaction Status Date / Time diflunisal [From Dolobid] Allergy Anaphylaxis Verified 04/09/22 17:49 hydrochlorothiazide Allergy Swelling Verified 04/09/22 17:49 [From Zestoretic] of face and throat ibuprofen [From Motrin] Allergy Abdominal Verified 04/09/22 17:49 Pain Iodine and Iodide Containing Allergy Anaphylaxis Verified 04/09/22 17:49 Produc lisinopril Allergy Rash/Hives Verified 04/09/22 17:49 morphine Allergy Rash/Hives Verified 04/09/22 17:49 prednisone Allergy Rash/Hives Verified 04/09/22 17:49 sulfamethoxazole Allergy Anaphylaxis Verified 04/09/22 17:49 [From Bactrim] tramadol Allergy Rash/Hives Verified 04/09/22 17:49 trimethoprim [From Bactrim] Allergy Anaphylaxis Verified 04/09/22 17:49 baclofen AdvReac Unknown LOW HEART Verified 04/09/22 17:49 RATE NSAIDS (Non-Steroidal AdvReac Unknown TOLD TO Verified 04/09/22 17:49 Anti-Inflamma AVOID NSAIDS DUE TO ABDOMINAL PAIN ondansetron AdvReac Itching Verified 04/09/22 17:49 [From Zofran (as hydrochloride)] Review of Systems ROS Statement: Those systems with pertinent positive or pertinent negative responses have been documented in the HPI. ROS Other: All systems not noted in ROS Statement are negative. Past Medical History Past Medical History: Diabetes Mellitus, GERD/Reflux, Hyperlipidemia, Hypertension, Mitral Valve Prolapse (MVP), Osteoarthritis (OA) Additional Past Medical History / Comment(s): Hypertension, hyperlipidemia, diab etes mellitus, mitral valve prolapse, chronic back pain, varicose veins, migraines, chronic stage II kidney disease, iron deficiency anemia, lumbar disc disease with previous history of L4-L5 degenerative disc disease of the lumbar spine, osteoarthritis History of Any Multi-Drug Resistant Organisms: None Reported Past Surgical History: Back Surgery, Hysterectomy, Joint Replacement, Tonsillectomy Additional Past Surgical History / Comment(s): Spine surgery involving the lumbar spine related to herniated disc at the level of L4-L5, right temporal artery biopsy, ovarian cyst removal, pilonidal cyst, left knee replacement, tonsillectomy, hysterectomy Past Anesthesia/Blood Transfusion Reactions: Family Hisory of Malignant Hyperthermia Additional Past Anesthesia/Blood Transfusion Reaction / Comment(s): daughter had reaction to anesthesia age 7 with tonsilectomy called "chocolate anesthesia" per pt. "she had a rash and high fever of 105". daughter has had surgeries since with no problems. Past Psychological History: No Psychological Hx Reported Smoking Status: Never smoker Past Alcohol Use History: None Reported Past Drug Use History: None Reported - Past Family History Sister(s) Family Medical History: Cancer, Deep Vein Thrombosis (DVT) Brother(s) Family Medical History: Deep Vein Thrombosis (DVT) Father Family Medical History: Cancer, Deep Vein Thrombosis (DVT) Additional Family Medical History / Comment(s): QUADRUPLE BYPASS Mother Family Medical History: Deep Vein Thrombosis (DVT) Additional Family Medical History / Comment(s): PACEMAKER General Exam Limitations: no limitations General appearance: alert, in no apparent distress Head exam: Present: atraumatic, normocephalic, normal inspection Respiratory exam: Present: normal lung sounds bilaterally. Absent: respiratory distress, wheezes, rales, rhonchi, stridor Cardiovascular Exam: Present: regular rate, normal rhythm, normal heart sounds. Absent: systolic murmur, diastolic murmur, rubs, gallop, clicks Extremities exam: Present: calf tenderness (right ), other (tenderness of the medial and lateral knee without swelling, erythema, ecchmyosis, warmth. neurovascuarly intact ) Neurological exam: Present: alert, oriented X3, CN II-XII intact Psychiatric exam: Present: normal affect, normal mood Skin exam: Present: warm, dry, intact, normal color. Absent: rash Course Vital Signs 04/09/22 04/09/22 17:46 22:52 Temperature 98.4 F 98.7 F Pulse Rate 68 64 Respiratory 20 18 Rate Blood Pressure 194/107 177/70 O2 Sat by Pulse 100 99 Oximetry Medical Decision Making - Medical Decision Making This is a 76-year-old presenting with right knee pain. During physical exam I didn't appreciate right calf pain. Ultrasound with Doppler of right lower extremity was obtained and interpreted by me which showed no acute DVT. Patient has several allergies and decreased kidney function therefore pain medication was limited. She was given multiple doses of Dilaudid which eventually gave her relief. Patient has appointment with primary care provider tomorrow and orthopedic surgeon on . She will be discharged with Tylenol 3 starter pack to get her through for severe pain until she can be further evaluated. Dr. Hernandez is my attending. Disposition Clinical Impression: Right knee pain Disposition: HOME SELF-CARE Condition: Good Instructions (If sedation given, give patient instructions): Musculoskeletal Pain (ED) Additional Instructions: Take Tylenol 3 as needed every 3-4 hours for pain. Next dose of Tylenol 3 will be at 1 AM. Motrin dosing is every 6-8 hours as needed for pain. Next dose at 5 AM. Do not take home prescription of [place] while taking Tylenol 3. Continue muscle relaxer at home which you were previously prescribed this morning. Do not drink alcohol or operate machinery while taking Flexeril as it can make you sleepy. Follow-up with search marketing specialist as planned on . Keep knee immobilizer on until orthopedic evaluation. Return to the emergency department if you experience new, concerning, or worsening symptoms. Is patient prescribed a controlled substance at d/c from ED?: No Referrals: Sissy Starr DO [Primary Care Provider] - 1-2 days Time of Disposition: 22:36
[2022-04-09] MEDS ORDERED: IBUPROFEN 800 MG TAB PO STA (22:42)
[2022-04-09 22:53] VITALS: BP 177/70; PULSE 64; RESP 18; TEMP 98.7
== END 2022-04-09 22:53 | disposition home or self-care (01) ==
LOC: EC 17:02
DX: M25.561 Pain in right knee (principal); E11.9 Type 2 diabetes mellitus without complications; K21.9 Gastro-esophageal reflux disease without esophagitis; E78.5 Hyperlipidemia, unspecified; I10 Essential (primary) hypertension; M19.90 Unspecified osteoarthritis, unspecified site; Z79.84 Long term (current) use of oral hypoglycemic drugs; Z79.811 Long term (current) use of aromatase inhibitors; Z79.899 Other long term (current) drug therapy; Z88.1 Allergy status to other antibiotic agents; Z88.6 Allergy status to analgesic agent; Z88.2 Allergy status to sulfonamides; Z88.5 Allergy status to narcotic agent; Z91.041 Radiographic dye allergy status
CPT/HCPCS: 93971; 99283; 96372 ×2; J1170 ×2

== ENCOUNTER 2022-11-17 20:37 | Inpatient (IN) | payer MEDICARE, OTHER ==
--- NOTE | 2022-11-17 20:57 | ED ---
General Adult HPI - General Chief complaint: Shortness of Breath Stated complaint: Shortness of Breath, Swelling ankles Time Seen by Provider: 11/17/22 20:48 Source: patient, RN notes reviewed Mode of arrival: ambulatory Limitations: no limitations - History of Present Illness Initial comments: Patient is a pleasant 36-year-old female presenting to the emergency department with concerns for dyspnea. Symptoms have progressed over the past couple of da ys. Patient also has some leg edema. Symptoms are new for her. Patient does have exertional dyspnea. Patient also has orthopnea. Patient does have history of atrial fibrillation and only takes aspirin for this as directed by her valve and regulator repairer. No chest pain. - Related Data Home Medications Medication Instructions Recorded Confirmed Fenofibrate Nanocrystallized 145 mg PO DAILY 11/16/14 06/22/21 [Tricor] amLODIPine [Norvasc] 10 mg PO DAILY 02/20/16 06/22/21 Aspirin EC [Ecotrin Low Dose] 81 mg PO DAILY 07/12/18 06/22/21 Cholecalciferol [Vitamin D3 (25 25 mcg PO DAILY 07/30/19 06/22/21 Mcg = 1000 Iu)] Cyanocobalamin (Vitamin B-12) 1,000 mcg PO DAILY 07/30/19 06/22/21 [Vitamin B-12] Famotidine 40 mg PO BID 07/30/19 06/22/21 glipiZIDE XL [Glucotrol XL] 5 mg PO DAILY 07/30/19 06/22/21 Energy Vitamin 1 tab PO DAILY 06/22/21 06/22/21 Escitalopram [Lexapro] 10 mg PO DAILY 06/22/21 06/22/21 HYDROcodone/APAP 7.5-325MG [Cary 1 tab PO TID PRN 06/22/21 06/22/21 7.5-325] Ibuprofen [Motrin] 800 mg PO DAILY 06/22/21 06/22/21 Multivit with Calcium,Iron,Min 1 tab PO DAILY 06/22/21 06/22/21 [Women's Multivitamin] metFORMIN HCL [Glucophage] 1,000 mg PO BID 06/22/21 06/22/21 Previous Rx's Medication Instructions Recorded methocarbamoL [Robaxin-750] 750 mg PO BID PRN 7 Days #14 tab 04/09/22 Allergies Allergy/AdvReac Type Severity Reaction Status Date / Time diflunisal [From Dolobid] Allergy Anaphylaxis Verified 11/17/22 20:40 hydrochlorothiazide Allergy Swelling Verified 11/17/22 20:40 [From Zestoretic] of face and throat ibuprofen [From Motrin] Allergy Abdominal Verified 11/17/22 20:40 Pain Iodine and Iodide Containing Allergy Anaphylaxis Verified 11/17/22 20:40 Produc lisinopril Allergy Rash/Hives Verified 11/17/22 20:40 morphine Allergy Rash/Hives Verified 11/17/22 20:40 prednisone Allergy Rash/Hives Verified 11/17/22 20:40 sulfamethoxazole Allergy Anaphylaxis Verified 11/17/22 20:40 [From Bactrim] tramadol Allergy Rash/Hives Verified 11/17/22 20:40 trimethoprim [From Bactrim] Allergy Anaphylaxis Verified 11/17/22 20:40 baclofen AdvReac Unknown LOW HEART Verified 11/17/22 20:40 RATE NSAIDS (Non-Steroidal AdvReac Unknown TOLD TO Verified 11/17/22 20:40 Anti-Inflamma AVOID NSAIDS DUE TO ABDOMINAL PAIN ondansetron AdvReac Itching Verified 11/17/22 20:40 [From Zofran (as hydrochloride)] Review of Systems ROS Statement: Those systems with pertinent positive or pertinent negative responses have been documented in the HPI. ROS Other: All systems not noted in ROS Statement are negative. Constitutional: Denies: fever, chills Eyes: Denies: eye pain ENT: Denies: ear pain Respiratory: Reports: as per HPI, dyspnea. Denies: cough Cardiovascular: Reports: dyspnea on exertion, orthopnea. Denies: chest pain Endocrine: Denies: fatigue Gastrointestinal: Denies: abdominal pain Genitourinary: Denies: dysuria Musculoskeletal: Denies: back pain Skin: Denies: rash Neurological: Denies: weakness Past Medical History Past Medical History: Diabetes Mellitus, GERD/Reflux, Hyperlipidemia, Hypertension, Mitral Valve Prolapse (MVP), Osteoarthritis (OA) Additional Past Medical History / Comment(s): Hypertension, hyperlipidemia, diabetes mellitus, mitral valve prolapse, chronic back pain, varicose veins, migraines, chronic stage II kidney disease, iron deficiency anemia, lumbar disc disease with previous history of L4-L5 degenerative disc disease of the lumbar spine, osteoarthritis History of Any Multi-Drug Resistant Organisms: None Reported Past Surgical History: Back Surgery, Hysterectomy, Joint Replacement, Tonsillectomy Additional Past Surgical History / Comment(s): Spine surgery involving the lumbar spine related to herniated disc at the level of L4-L5, right temporal artery biopsy, ovarian cyst removal, pilonidal cyst, left knee replacement, tonsillectomy, hysterectomy Past Anesthesia/Blood Transfusion Reactions: Family Hisory of Malignant Hyperthermia Additional Past Anesthesia/Blood Transfusion Reaction / Comment(s): daughter had reaction to anesthesia age 7 with tonsilectomy called "chocolate anesthesia" per pt. "she had a rash and high fever of 105". daughter has had surgeries since with no problems. Past Psychological History: No Psychological Hx Reported Smoking Status: Never smoker Past Alcohol Use History: None Reported Past Drug Use History: None Reported - Past Family History Sister(s) Family Medical History: Cancer, Deep Vein Thrombosis (DVT) Brother(s) Family Medical History: Deep Vein Thrombosis (DVT) Father Family Medical History: Cancer, Deep Vein Thrombosis (DVT) Additional Family Medical History / Comment(s): [employer] Mother Family Medical History: Deep Vein Thrombosis (DVT) Additional Family Medical History / Comment(s): PACEMAKER General Exam Limitations: no limitations General appearance: alert, in no apparent distress Head exam: Present: normocephalic Eye exam: Present: normal appearance Neck exam: Present: normal inspection Respiratory exam: Present: normal lung sounds bilaterally Cardiovascular Exam: Present: irregular rhythm GI/Abdominal exam: Present: soft. Absent: tenderness Extremities exam: Present: pedal edema, calf tenderness (Mild right-sided) Back exam: Present: normal inspection Neurological exam: Present: alert Psychiatric exam: Present: normal affect, normal mood Skin exam: Present: normal color Course Vital Signs 11/17/22 11/17/22 11/17/22 20:38 21:00 21:06 Temperature 98.2 F Pulse Rate 76 70 Respiratory 20 18 Rate Blood Pressure 218/84 199/103 174/73 O2 Sat by Pulse 100 Oximetry 11/17/22 22:00 Temperature Pulse Rate Respiratory Rate Blood Pressure 189/87 O2 Sat by Pulse Oximetry EKG Findings - EKG Results: EKG: interpreted by ERMD (Supraventricular premature complexs present versus i rregularity), sinus rhythm, normal axis, normal QRS, normal ST/T Medical Decision Making - Medical Decision Making Was pt. sent in by a medical professional or institution (KASSIDY Tomlinson, PRINTED FORMS PROOFREADER, urgent care, hospital, or [facility]...) When possible be specific @ -No Did you speak to anyone other than the patient for history (EMS, parent, family, police, friend...)? What history was obtained from this source @ -No Did you review nursing and triage notes (agree or disagree)? Why? @ -I reviewed and agree with nursing and triage notes Were old charts reviewed (outside hosp., previous admission, EMS record, old EKG , old radiological studies, urgent care reports/EKG's, [facility] records)? Report findings @ -No old charts were reviewed Differential Diagnosis (chest pain, altered mental status, abdominal pain women, abdominal pain men, vaginal bleeding, weakness, fever, dyspnea, syncope, headache, dizziness, GI bleed, back pain, seizure, CVA, palpatations, mental health)? @ -Differential Dyspnea: Coronary syndrome, arrhythmia, tamponade, asthma, COPD, pulmonary embolism, pneumonia, pneumothorax, pulmonary effusion, anaphylaxis, diabetic ketoacidosis, flailed chest, pulmonary contusion, diaphragmatic rupture, anemia, neuromuscular, this is not meant to be an all-inclusive list. EKG interpreted by me (3pts min.). @ -As above X-rays interpreted by me (1pt min.). @ -Chest x-ray shows cardiac megaly and interstitial changes consistent with CHF CT interpreted by me (1pt min.). @ -None done U/S interpreted by me (1pt. min.). @ -None done What testing was considered but not performed or refused? (CT, X-rays, U/S, labs)? Why? @ -Patient has clinical signs symptoms as well as x-ray findings consistent with CHF. BNP is not consistent with this and d-dimer will be added. What meds were considered but not given or refused? Why? @ -None Did you discuss the management of the patient with other professionals (professionals i.e. KASSIDY Tomlinson, PR[employer]ED [employer] PROOFREADER, lab, RT, psych nurse, transition social worker, clinical operations specialist, teacher, chief digital officer, leather case finisher)? Give summary @ -Case was discussed with Dr. Gresham, who will admit covering Dr. Starr. Was smoking cessation discussed for >3mins.? @ -No Was critical care preformed (if so, how long)? @ -No Were there social determinants of health that impacted care today? How? (Homelessness, low income, unemployed, alcoholism, drug addiction, transportation, low edu. Level, literacy, decrease access to med. care, skilled nursing, rehab)? @ -No Was there de-escalation of care discussed even if they declined (Discuss DNR or withdrawal of care, Hospice)? DNR status @ -No What co-morbidities impacted this encounter? (DM, HTN, Smoking, COPD, CAD, Cancer, CVA, ARF, Chemo, Hep., AIDS, mental health diagnosis, sleep apnea, morbid obesity)? @ -None Was patient admitted / discharged? Hospital course, mention meds given and route, prescriptions, significant lab abnormalities, going to OR and other pertinent info. @ -Patient reevaluated and updated. Patient clinically and radiologically has symptoms consistent with CHF and will be treated accordingly as well as further investigation. Cardiology will be placed on consult. Undiagnosed new problem with uncertain prognosis? @ -No Drug Therapy requiring intensive monitoring for toxicity (Heparin, Nitro, Insulin, Cardizem)? @ -No Were any procedures done? @ -No Diagnosis/symptom? @ -CHF Acute, or Chronic, or Acute on Chronic? @ -Acute Uncomplicated (without systemic symptoms) or Complicated (systemic symptoms)? @ -default Side effects of treatment? @ -No Exacerbation, Progression, or Severe Exacerbation? @ -No Poses a threat to life or bodily function? How? (Chest pain, USA, GA, pneumonia, PE, COPD, DKA, ARF, appy, cholecystitis, CVA, Diverticulitis, Homicidal, Suicidal, threat to staff... and all critical care pts) @ -No - Lab Data Result diagrams: 11/17/22 20:56 11/17/22 20:56 Lab Results 11/17/22 11/17/22 11/17/22 Range/Units 20:56 20:56 20:56 WBC 5.3 (3.8-10.6) k/uL RBC 3.33 L (3.80-5.40) m/uL Hgb 10.8 L (11.4-16.0) gm/dL Hct 32.8 L (34.0-46.0) % MCV 98.4 (80.0-100.0) fL MCH 32.3 (25.0-35.0) pg MCHC 32.8 (31.0-37.0) g/dL RDW 13.8 (11.5-15.5) % Plt Count 204 (150-450) k/uL MPV 8.2 Neutrophils % (Manual) 53 % Band Neuts % (Manual) 1 % Lymphocytes % (Manual) 34 % Monocytes % (Manual) 10 % Eosinophils % (Manual) 2 % Neutrophils # (Manual) 2.80 (1.3-7.7) k/uL Lymphocytes # (Manual) 1.80 (1.0-4.8) k/uL Monocytes # (Manual) 0.53 (0-1.0) k/uL Eosinophils # (Manual) 0.11 (0-0.7) k/uL Nucleated RBCs 0 (0-0) /100 WBC Manual Slide Review Performed PT 9.6 (9.0-12.0) sec INR 0.9 (<1.2) APTT 22.1 (22.0-30.0) sec Sodium 141 (137-145) mmol/L Potassium 4.1 (3.5-5.1) mmol/L Chloride 108 H (98-107) mmol/L Carbon Dioxide 22 (22-30) mmol/L Anion Gap 11 mmol/L BUN 15 (7-17) mg/dL Creatinine 0.93 (0.52-1.04) mg/dL Est GFR (CKD-EPI)AfAm 70 (>60 ml/min/1.73 sqM) Est GFR (CKD-EPI)NonAf 60 (>60 ml/min/1.73 sqM) Glucose 99 (74-99) mg/dL Plasma Lactic Acid Epi (0.7-2.0) mmol/L Calcium 9.5 (8.4-10.2) mg/dL Magnesium 1.6 (1.6-2.3) mg/dL Total Bilirubin 0.4 (0.2-1.3) mg/dL AST 24 (14-36) U/L ALT 21 (4-34) U/L Alkaline Phosphatase 89 (38-126) U/L Troponin I (0.000-0.034) ng/mL NT-Pro-B Natriuret Pep pg/mL Total Protein 7.7 (6.3-8.2) g/dL Albumin 4.5 (3.5-5.0) g/dL 11/17/22 11/17/22 11/17/22 Range/Units 20:56 20:56 20:56 WBC (3.8-10.6) k/uL RBC (3.80-5.40) m/uL Hgb (11.4-16.0) gm/dL Hct (34.0-46.0) % MCV (80.0-100.0) fL MCH (25.0-35.0) pg MCHC (31.0-37.0) g/dL RDW (11.5-15.5) % Plt Count (150-450) k/uL MPV Neutrophils % (Manual) % Band Neuts % (Manual) % Lymphocytes % (Manual) % Monocytes % (Manual) % Eosinophils % (Manual) % Neutrophils # (Manual) (1.3-7.7) k/uL Lymphocytes # (Manual) (1.0-4.8) k/uL Monocytes # (Manual) (0-1.0) k/uL Eosinophils # (Manual) (0-0.7) k/uL Nucleated RBCs (0-0) /100 WBC Manual Slide Review PT (9.0-12.0) sec INR (<1.2) APTT (22.0-30.0) sec Sodium (137-145) mmol/L Potassium (3.5-5.1) mmol/L Chloride (98-107) mmol/L Carbon Dioxide (22-30) mmol/L Anion Gap mmol/L BUN (7-17) mg/dL Creatinine (0.52-1.04) mg/dL Est GFR (CKD-EPI)AfAm (>60 ml/min/1.73 sqM) Est GFR (CKD-EPI)NonAf (>60 ml/min/1.73 sqM) Glucose (74-99) mg/dL Plasma Lactic Acid Epi 1.3 (0.7-2.0) mmol/L Calcium (8.4-10.2) mg/dL Magnesium (1.6-2.3) mg/dL Total Bilirubin (0.2-1.3) mg/dL AST (14-36) U/L ALT (4-34) U/L Alkaline Phosphatase (38-126) U/L Troponin I <0.012 (0.000-0.034) ng/mL NT-Pro-B Natriuret Pep 288 pg/mL Total Protein (6.3-8.2) g/dL Albumin (3.5-5.0) g/dL Disposition Clinical Impression: Congestive heart failure Disposition: ADMITTED IP TO THIS HOSP Is patient prescribed a controlled substance at d/c from ED?: No Referrals: Sissy Starr DO [Primary Care Provider] - 1-2 days Time of Disposition: 23:32
[2022-11-17 21:38] LABS: HCT 32.8 % (34.0-46.0); HGB 10.8 gm/dL (11.4-16.0); MCH 32.3 pg (25.0-35.0); MCHC 32.8 g/dL (31.0-37.0); MCV 98.4 fL (80.0-100.0); Mean Platelet Volume 8.2; Platelet Count 204 k/uL (150-450); RBC 3.33 m/uL (3.80-5.40); RDW 13.8 % (11.5-15.5); WBC 5.3 k/uL (3.8-10.6)
[2022-11-17 21:44] LABS: INR 0.9 (<1.2); Partial Thromboplastin Time 22.1 sec (22.0-30.0); Prothrombin Time 9.6 sec (9.0-12.0)
[2022-11-17 21:57] LABS: ALT 21 U/L (4-34); AST 24 U/L (14-36); African American GFR (CKD) 70 (>60 ml/min/1.73 sqM); Albumin 4.5 g/dL (3.5-5.0); Alkaline Phosphatase 89 U/L (38-126); Anion Gap 11 mmol/L; Blood Urea Nitrogen 15 mg/dL (7-17); Calcium 9.5 mg/dL (8.4-10.2); Carbon Dioxide 22 mmol/L (22-30); Chloride 108 mmol/L (98-107); Glucose 99 mg/dL (74-99); Magnesium 1.6 mg/dL (1.6-2.3); Non-African American GFR(CKD) 60 (>60 ml/min/1.73 sqM); Potassium 4.1 mmol/L (3.5-5.1); Sodium 141 mmol/L (137-145); Total Bilirubin 0.4 mg/dL (0.2-1.3); Total Protein 7.7 g/dL (6.3-8.2)
--- NOTE | 2022-11-17 21:58 | XR ---
EXAMINATION TYPE: XR chest 2V DATE OF EXAM: 11/17/2022 9:31 PM COMPARISON: Chest radiographs from 07/29/2019 TECHNIQUE: XR chest 2V Frontal and lateral views of the chest. CLINICAL INDICATION:Female, 76 years old with history of difficulty breathing; FINDINGS: Lungs/Pleura: There is no evidence of pleural effusion, focal consolidation, or pneumothorax. Pulmonary vascularity: Unremarkable. Heart/mediastinum: Cardiomediastinal silhouette is enlarged and stable. Musculoskeletal: No acute osseous pathology. IMPRESSION: Cardiomegaly Correlate with BNP for congestive heart failure.
--- NOTE | 2022-11-17 22:04 | US ---
EXAMINATION TYPE: US venous doppler duplex LE RT DATE OF EXAM: 11/17/2022 9:55 PM COMPARISON: US 2021 CLINICAL INDICATION: Female, 76 years old with history of pain; Right leg pain and swelling x 2 days, patient taking aspirin SIDE PERFORMED: Right TECHNIQUE: The lower extremity deep venous system is examined utilizing real time linear array sonog candida with graded compression, doppler sonography and color-flow sonography. VESSELS IMAGED: Common Femoral Vein Deep Femoral Vein Greater Saphenous Vein * Femoral Vein Popliteal Vein Small Saphenous Vein * Proximal Calf Veins (* superficial vessels) Right Leg: Appears negative for DVT, Grayscale, color doppler, spectral doppler imaging performed of the deep veins of the lower extremities. There is normal flow, compressibility, vascular waveforms. Right popliteal fossa: 4.3 x 1.1 x 2.3 cm cyst IMPRESSION: 1. No evidence for the right lower extremity. 2. Right popliteal fossa: 4.3 x 1.1 x 2.3 cm cyst
[2022-11-17 22:05] LABS: Band Neutrophils % 1 %; Eosinophils # (M) 0.11 k/uL (0-0.7); Monocytes # (M) 0.53 k/uL (0-1.0); Neutrophils % (M) 53 %; Nucleated Red Blood Cells 0 /100 WBC (0-0); Total Cells Counted 100
[2022-11-17] MEDS ORDERED: ACETAMINOPHEN TAB 325 MG TAB PO STA (22:39)
[2022-11-17] MEDS ORDERED: HYDROcodone/APAP 7.5-325MG 1 EACH TAB PO ONE (23:38)
[2022-11-17] MEDS: NITROGLYCERIN OINT 1 INCH/GM PACKET TOPICAL SCH (23:48)
[2022-11-17] MEDS: FUROSEMIDE 10 MG/ML 4 ML VIAL IV SCH (23:49)
[2022-11-18 06:30] VITALS: TEMP 98.1
[2022-11-18] MEDS: FUROSEMIDE 10 MG/ML 4 ML VIAL IV SCH (08:09)
[2022-11-18] MEDS ORDERED: HYDROcodone/APAP 7.5-325MG 1 EACH TAB PO PRN (08:41)
[2022-11-18] MEDS ORDERED: amLODIPine 10 MG TAB PO SCH (09:00)
[2022-11-18] MEDS ORDERED: methylPREDNISolone SOD SUCCI 125 MG/2 ML VIAL IV STA (09:58)
[2022-11-18] MEDS ORDERED: FAMOTIDINE 20 MG/2 ML VIAL IV STA (09:58)
[2022-11-18] MEDS ORDERED: diphenhydrAMINE 50 MG/ML 1 ML VIAL IVP STA (09:58)
[2022-11-18] MEDS ORDERED: LOSARTAN-HCTZ 50-12.5 MG 1 EACH TAB PO SCH (10:00)
[2022-11-18] MEDS ORDERED: cloNIDine HCL 0.1 MG TAB PO SCH (10:00)
[2022-11-18] MEDS ORDERED: SODIUM CHLORIDE 0.9% 1,000 ML IV SCH (10:00)
[2022-11-18] MEDS: hydrALAZINE HCL 50 MG TAB PO SCH ×2 (10:09→16:44)
[2022-11-18] MEDS ORDERED: DEXTROSE 50% SYRINGE 50 ML IVP PRN ×2 (10:54)
--- NOTE | 2022-11-18 11:17 | CT ---
CT CHEST FOR PULMONARY EMBOLISM. EXAMINATION TYPE: CT angio chest DATE OF EXAM: 11/18/2022 INDICATION: elevated d-dimer CT DLP: 461.8 mGycm, Automated exposure control for dose reduction was used. CONTRAST: Patient injected with 80cc mL of Isovue 370. COMPARISON: 07/29/2019 TECHNIQUE: CT of the chest is performed on a spiral scan at 2 mm thick sections. Study is performed with intravenous contrast timed for evaluation for pulmonary embolism. This will limit additional po rtions of the evaluation. FINDINGS: No persistent filling defects are evident to suggest an acute pulmonary embolism. No mediastinal or hilar adenopathy enlarged by CT criteria is evident. The ascending aorta diameter at the level of the main pulmonary artery is 3.2 cm. The main pulmonary artery diameter at the bifur cation is 2.5 cm. Lung windows are clear. Limited CT section through the upper abdomen. There is some fatty infiltration within the pancreas. IMPRESSIONS: 1. No acute pulmonary embolism.
[2022-11-18] MEDS: NITROGLYCERIN OINT 1 INCH/GM PACKET TOPICAL SCH (11:48)
[2022-11-18 12:07] LABS: Glucose,Whole Blood 173 mg/dL (70-110)
[2022-11-18] MEDS ORDERED: INSULIN ASPART (NovoLOG) 100 UNIT/ML VIAL SQ SCH (12:30)
--- NOTE | 2022-11-18 13:45 | CONS ---
CONSULTATION HISTORY OF PRESENT ILLNESS: Ms. Phan came into the hospital complaining of some shortness of breath and also had some lower extremity edema. Her blood pressure was also quite elevated. She has a diagnosis of type 2 diabetes and hypertension. On arrival, her blood pressure was high. It was in between better, and again, it has gone up. She is resting comfortably without symptoms. At home, she takes metformin, glipizide, amlodipine 10 mg, ibuprofen, vitamin supplements, and aspirin. Her lower extremity edema could be related to the amlodipine. It is a nonpitting-type edema. She is not in heart failure. She is resting comfortably. Laboratory data reveal elevated D-dimer. Her venous Doppler is negative. There is a question of dye allergy. However, given her shortness of breath, sinus tachycardia initially when she came in, and abnormal D- dimer, I am recommending CT angiogram to be performed. We will first hydrate the patient, perform CT angiogram, and continue hydration for a few hours after the procedure as well. Regarding her elevated blood pressure, I am recommending that we discontinue amlodipine, and we will try clonidine and hydralazine combination along with losartan and hydrochlorothiazide. We will hydrate the patient. If the blood pressure is better controlled and CT angio is negative, she can be discharged. We will do an echo as well. Once blood pressure control is optimized, I am recommending a stress test to be performed as an outpatient. I discussed my thoughts in detail with the patient. I also spoke to Dr. Mustapha Barnett in this regard. PAST MEDICAL HISTORY: 1. Type 2 diabetes. 2. Hypertension. 3. Obesity. MEDICATIONS AT HOME: Include: 1. Metformin. 2. Glipizide. 3. Amlodipine. 4. Ibuprofen. 5. Aspirin. PHYSICAL EXAMINATION: VITAL SIGNS: Blood pressure last recording was about 170/80. Pulse rate is about 58 per minute. HEENT: Unremarkable. Fundus was not examined by me. NECK: Supple. No JVD. I do not hear a carotid bruit. HEART: Reveals S1 and S2 heard normally. Heart sounds heard distantly. No significant murmurs. LUNGS: Clear. ABDOMEN: Soft and nontender. EXTREMITIES: Lower extremities reveal palpable pulses. Nonpitting edema, mild, bilaterally. CENTRAL NERVOUS SYSTEM: Grossly, no focal deficits. IMPRESSION: 1. Shortness of breath of unclear etiology. 2. Lower extremity edema, probably related to amlodipine. 3. Uncontrolled hypertension. 4. Diabetes. RECOMMENDATIONS: I am adjusting her diabetes medications. We will hydrate her and perform CT angiogram, and after the CT angiogram also, she must be hydrated and then can be discharged if the blood pressure is normalized on the current regimen, and she should closely follow up with her PCP, Dr. Barnett and have a stress test as an outpatient. I discussed my thoughts in detail with the patient and also talked to Dr. Barnett. Thank you very much for the consult. SIMON / KAYLA: [id number] /
[2022-11-18 13:54] VITALS: PULSE 57; RESP 18
[2022-11-18 15:39] VITALS: BP 146/82
[2022-11-18 16:31] LABS: Glucose,Whole Blood 216 mg/dL (70-110)
--- NOTE | 2022-11-18 17:01 | P.HPIM ---
History of Present Illness H&P Date: 11/18/22 Chief Complaint: Hypertension, Shortness of breath History and Physical and Discharge Summary: This is a pleasant 76-year-old -[place] female with past medical history significant for hypertension, diabetes mellitus, dyslipidemia, obesity and multiple other medical issues. Presented to the ER with complaints of hypertension, blood pressures in the 200s, chest tightness, increased right lower extremity edema with right thigh edema and shortness of breath. Patient sleeps on 2 pillows. Denies increased salt intake in her diet, does not consume beer. On admission systolic blood pressures in the 190s /79, heart rate ranging 50s to 79, respiratory rate 18, maintaining O2 sat 100% on room air. Systolic blood pressure currently in the 200s. Afebrile, normal WBC. Hemoglobin 10.8, platelets 204, d-dimer 1.26. CTA of chest reported no acute pulmonary embolism, ascending aorta at the level of the main artery 3.2 cm, main pulmonary artery diameter at the bifurcation 2.5 cm, some fatty infiltration within the pancreas. Venous Doppler of right lower extremity reported no DVT; right popliteal fossa 4.3 x 1.1 x 2.3 cm cyst. The electrolytes and renal function stable. Lactic acid 1.3. Troponin negative Review of Systems Review of Systems All systems: negative Constitutional: Denies chills, Denies fever Eyes: denies blurred vision, denies pain Ears, nose, mouth and throat: Denies headache, Denies sore throat Cardiovascular: Reports chest tightness, shortness of breath Respiratory: Denies cough Gastrointestinal: Denies abdominal pain, Denies diarrhea, Denies nausea, Denies vomiting Genitourinary: Denies dysuria, Denies hematuria Musculoskeletal: Denies myalgias Integumentary: Denies pruritus, Denies rash Neurological: Denies numbness, Denies weakness Psychiatric: Denies anxiety, Denies depression Endocrine: Denies fatigue, Denies weight change Past Medical History Past Medical History: Diabetes Mellitus, GERD/Reflux, Hyperlipidemia, Hypertension, Mitral Valve Prolapse (MVP), Osteoarthritis (OA) Additional Past Medical History / Comment(s): Hypertension, hyperlipidemia, diabetes mellitus, mitral valve prolapse, chronic back pain, varicose veins, migraines, chronic stage II kidney disease, iron deficiency anemia, lumbar disc disease with previous history of L4-L5 degenerative disc disease of the lumbar spine, osteoarthritis History of Any Multi-Drug Resistant Organisms: None Reported Past Surgical History: Back Surgery, Hysterectomy, Joint Replacement, Tonsillectomy Additional Past Surgical History / Comment(s): Spine surgery involving the lumbar spine related to herniated disc at the level of L4-L5, right temporal artery biopsy, ovarian cyst removal, pilonidal cyst, left knee replacement, tons illectomy, hysterectomy Past Anesthesia/Blood Transfusion Reactions: Family Hisory of Malignant Hyperthermia Additional Past Anesthesia/Blood Transfusion Reaction / Comment(s): daughter had reaction to anesthesia age 7 with tonsilectomy called "chocolate anesthesia" per pt. "she had a rash and high fever of 105". daughter has had surgeries since wi th no problems. Past Psychological History: No Psychological Hx Reported Smoking Status: Never smoker Past Alcohol Use History: None Reported Past Drug Use History: None Reported - Past Family History Sister(s) Family Medical History: Cancer, Deep Vein Thrombosis (DVT) Brother(s) Family Medical History: Deep Vein Thrombosis (DVT) Father Family Medical History: Cancer, Deep Vein Thrombosis (DVT) Additional Family Medical History / Comment(s): [employer] Mother Family Medical History: Deep Vein Thrombosis (DVT) Additional Family Medical History / Comment(s): PACEMAKER Medications and Allergies Home Medications Medication Instructions Recorded Confirmed Type Aspirin EC [Ecotrin Low Dose] 81 mg PO DAILY 07/12/18 11/18/22 History Cyanocobalamin (Vitamin B-12) 1,000 mcg PO DAILY 07/30/19 11/18/22 History [Vitamin B-12] Famotidine 40 mg PO DAILY 07/30/19 11/18/22 History glipiZIDE XL [Glucotrol XL] 5 mg PO DAILY 07/30/19 11/18/22 History HYDROcodone/APAP 7.5-325MG [[place] 1 tab PO TID 06/22/21 11/18/22 History 7.5-325] Multivit with Calcium,Iron,Min 1 tab PO DAILY 06/22/21 11/18/22 History [Women's Multivitamin] metFORMIN HCL [Glucophage] 1,000 mg PO DAILY@1400 06/22/21 11/18/22 History Losartan-Hctz 50-12.5 mg [Hyzaar 2 each PO DAILY #30 tab 11/18/22 Rx 50-12.5] cloNIDine HCL [Catapres] 0.1 mg PO DAILY #30 tab 11/18/22 Rx hydrALAZINE HCL [Apresoline] 50 mg PO TID #90 tab 11/18/22 Rx Allergies Allergy/AdvReac Type Severity Reaction Status Date / Time diflunisal [From Dolobid] Allergy Anaphylaxis Verified 11/18/22 08:00 hydrochlorothiazide Allergy Swelling Verified 11/18/22 08:00 [From Zestoretic] of face and throat ibuprofen [From Motrin] Allergy Abdominal Verified 11/18/22 08:00 Pain Iodine and Iodide Containing Allergy Anaphylaxis Verified 11/18/22 08:00 Produc lisinopril Allergy Rash/Hives Verified 11/18/22 08:00 morphine Allergy Rash/Hives Verified 11/18/22 08:00 prednisone Allergy Rash/Hives Verified 11/18/22 08:00 sulfamethoxazole Allergy Anaphylaxis Verified 11/18/22 08:00 [From Bactrim] tramadol Allergy Rash/Hives Verified 11/18/22 08:00 trimethoprim [From Bactrim] Allergy Anaphylaxis Verified 11/18/22 08:00 baclofen AdvReac Unknown LOW HEART Verified 11/18/22 08:00 RATE NSAIDS (Non-Steroidal AdvReac Unknown TOLD TO Verified 11/18/22 08:00 Anti-Inflamma AVOID NSAIDS DUE TO ABDOMINAL PAIN ondansetron AdvReac Itching Verified 11/18/22 08:00 [From Zofran (as hydrochloride)] Physical Exam Vitals: Vital Signs Temp Pulse Resp BP Pulse Ox 11/18/22 10:10 72 20 204/97 98 11/18/22 08:17 53 L 18 207/85 100 11/18/22 06:29 98.1 F 58 L 16 170/82 96 11/18/22 05:34 60 18 174/84 98 11/18/22 04:54 63 18 192/71 98 11/18/22 01:00 79 16 137/84 98 11/17/22 23:00 97.9 F 97 16 180/87 97 11/17/22 22:00 189/87 11/17/22 21:06 174/73 11/17/22 21:00 70 18 199/103 11/17/22 20:38 98.2 F 76 20 218/84 100 Intake and Output 11/17/22 11/18/22 11/18/22 22:59 06:59 14:59 Other: Weight 102.058 kg General: well nourished, well developed, NAD. Vitals reviewed Eyes: PERRL, EOMI, conjunctiva normal HENT: normocephalic, mucus membranes moist Neck: supple, no JVD Lungs: normal respiratory effort, no wheezes or rales CV: Regular rate and rhythm, no murmur. Peripheral pulses 2+ Abdomen: soft, nondistended, no organomegaly Lymph: no cervical or axillary LAD Skin: warm and dry. Neuro: A&Ox3, normal mood and affect Results CBC & Chem 7: 11/17/22 20:56 11/17/22 20:56 Labs: Abnormal Lab Results - Last 24 Hours (Table) 11/17/22 11/17/22 11/17/22 Range/Units 20:56 20:56 20:56 RBC 3.33 L (3.80-5.40) m/uL Hgb 10.8 L (11.4-16.0) gm/dL Hct 32.8 L (34.0-46.0) % D-Dimer 1.26 H (<0.60) mg/L FEU Chloride 108 H (98-107) mmol/L Assessment and Plan Assessment: Shortness of breath, suspect related to the hypertension Uncontrolled hypertension Lower extremity edema, probably related to amlodipine. Amlodipine discontinued Diabetes mellitus Plan: Continue on current medication regime ,monitoring and symptomatic treatment. Evaluated by cardiology, antihypertensives adjusted. Workup benign. Blood pressure remains controlled now currently in the 140s , maintaining O2 sats in the high 90s on room air with controlled respiratory rate .Patient has been cleared by cardiology for discharge. Patient will be discharged home today in a stable condition with guarded prognosis. Further workup with cardiology outpatient as recommended per cardiology. Discharge Medication List Aspirin EC [Ecotrin Low Dose] 81 mg PO DAILY 07/12/18 [History] Cyanocobalamin (Vitamin B-12) [Vitamin B-12] 1,000 mcg PO DAILY 07/30/19 [History] Famotidine 40 mg PO DAILY 07/30/19 [History] glipiZIDE XL [Glucotrol XL] 5 mg PO DAILY 07/30/19 [History] HYDROcodone/APAP 7.5-325MG [[place] 7.5-325] 1 tab PO TID 06/22/21 [History] Multivit with Calcium,Iron,Min [Women's Multivitamin] 1 tab PO DAILY 06/22/21 [History] metFORMIN HCL [Glucophage] 1,000 mg PO DAILY@1400 06/22/21 [History] Losartan-Hctz 50-12.5 mg [Hyzaar 50-12.5] 2 each PO DAILY #30 tab 11/18/22 [Rx] cloNIDine HCL [Catapres] 0.1 mg PO DAILY #30 tab 11/18/22 [Rx] hydrALAZINE HCL [Apresoline] 50 mg PO TID #90 tab 11/18/22 [Rx] The impression and plan of care has been dictated as directed. : I performed a history and examination of this patient, discussed the same with the dictator. I agree with the dictator's note ,documented as a scribe. Any additional findings or plans will be noted.
[2022-11-19] MEDS ORDERED: PANTOPRAZOLE 40 MG/10 ML VIAL IVP SCH (09:00)
--- NOTE | 2022-11-19 11:45 | CA ---
Transthoracic Echo Report Name: Gina Phan Age: 76 Gender: F : 1945 Exam Date: 11/18/2022 07:33 Exam Location: [facility] Ht (in): Wt (lb): Ordering Physician: Michael Hanks DO Attending/Referring Phys: Pillowcase Cutter Procedure CPT: Indications: Heart failure Cardiac Hx: Technical Quality: Fair Contrast 1: Total Dose (mL): Contrast 2: Total Dose (mL): MEASUREMENTS (Male / Female) Normal Values 2D ECHO LV Diastolic Diameter PLAX 4.4 cm 4.2 - 5.9 / 3.9 - 5.3 cm LV Systolic Diameter PLAX 2.9 cm IVS Diastolic Thickness 1.3 cm 0.6 - 1.0 / 0.6 - 0.9 cm LVPW Diastolic Thickness 1.2 cm 0.6 - 1.0 / 0.6 - 0.9 cm LV Relative Wall Thickness 0.6 RV Internal Dim ED PLAX 3.0 cm LVOT Diameter 2.0 cm Aortic Root Diameter 2.6 cm LA Systolic Diameter LX 2.8 cm 3.0 - 4.0 / 2.7 - 3.8 cm LV Diastolic Volume MOD BP 69.2 cm??? 67 - 155 / 56 - 104 cm??? LV Systolic Volume MOD BP 21.5 cm??? 22 - 58 / 19 - 49 cm??? LV Ejection Fraction MOD BP 69.0 % >= 55 % LV Diastolic Volume MOD 4C 94.9 cm??? LV Systolic Volume MOD 4C 34.8 cm??? LV Ejection Fraction MOD 4C 63.3 % LV Diastolic Length 4C 7.5 cm LV Systolic Length 4C 6.3 cm LV Diastolic Volume MOD 2C 41.0 cm??? LV Systolic Volume MOD 2C 12.2 cm??? LV Ejection Fraction MOD 2C 70.3 % LV Diastolic Length 2C 6.0 cm LV Systolic Length 2C 5.7 cm LA Volume 53.5 cm??? 18 - 58 / 22 - 52 cm??? Ascending Aorta Diameter 2.9 cm DOPPLER AV Peak Velocity 202.1 cm/s AV Peak Gradient 16.3 mmHg LVOT Peak Velocity 102.9 cm/s LVOT Peak Gradient 4.2 mmHg AV Area Cont Eq pk 1.6 cm??? MV Peak Velocity 144.3 cm/s MV Peak Gradient 8.3 mmHg MV Mean Velocity 59.8 cm/s MV Mean Gradient 1.9 mmHg MV Velocity Time Integral 49.6 cm MR Peak Velocity 355.1 cm/s MR Peak Gradient 50.4 mmHg Mitral E Point Velocity 126.4 cm/s Mitral A Point Velocity 89.6 cm/s Mitral E to A Ratio 1.4 MV Deceleration Time 443.3 ms TR Peak Velocity 293.9 cm/s TR Peak Gradient 34.6 mmHg Right Ventricular Systolic Press 39.6 mmHg PV Peak Velocity 112.8 cm/s PV Peak Gradient 5.1 mmHg FINDINGS Left Ventricle Left ventricular ejection fraction is estimated at 55-60 %.left ventricular cavity size normal. Normal left ventricular wall motion. Mildly increased left ventricular wall thickness. Right Ventricle Normal right ventricular size. Right Atrium Normal right atrial size. Left Atrium Normal left atrial size. Mitral Valve Structurally normal mitral valve. Mild mitral regurgitation. Aortic Valve Trileaflet aortic valve. No aortic valve stenosis or regurgitation. Tricuspid Valve Structurally normal tricuspid valve. Mild TR. RVSP= 40 mmhg Pulmonic Valve Structurally normal pulmonic valve. Trace pulmonic regurgitation. Pericardium Normal pericardium. Aorta Normal size aortic root and proximal ascending aorta. CONCLUSIONS 1. Normal left ventricle size and systolic function with left ventricular hypertrophy 2. Mild mitral and tricuspid regurgitation with mild pulmonary hypertension Previewed by: Dr. Sofía Martinez MD (Electronically Signed) Final Date: 19 November 2022 11:45
--- NOTE | 2022-11-19 12:44 | CDI ---
Documentation Clarification Form Date: 11/19/22 From: Carlie Delaney Admit Date: 11/17/2022 11:33:00 PM Patient Name: Gina Phan Visit Number: [id number] Discharge Date: 11/18/2022 05:31:00 PM ATTENTION: The Clinical Documentation Specialists (CDI) and [facility] Coding Staff appreciate your assistance in clarifying documentation. Please respond to the clarification below the line at the bottom and electronically sign. The CDI & [facility] Coding staff will review the response and follow-up if needed. Please note: Queries are made part of the Legal Health Record. If you have any questions, please contact the author of this message via ITS. Dr. Mustapha Barnett, Your patient has the documented diagnosis of unspecified CHF in the ED note Additional information regarding the [type, acuity] of CHF is requested. History/Risk Factors: Past medical history significant forhypertension,diabetes mellitus,dyslipidemia andobesity. Clinical Indicators: Presented to the ER with complaints of hypertension, bloodpressuresin the 200s,chest tightness, increasedright lower extremity edemawith rightthigh edemaandshortness of breath. VS/Pulse OX: T 98.2, P 76, R 20, BP 218/84, O2 Sat 100 BNP: 288 Echocardiogram Results: Left ventricular ejection fraction is estimated at 55- 60 %.left ventricular cavitysize normal. Normal left ventricular wall motion. Mildly increased left ventricular wall thickness. Normal right ventricular size. Chest X Ray: CardiomegalyCorrelate with BNP forcongestive heart failure. Treatment: IV Furosemide 10 mg In your professional opinion, can you please clarify the [acuity and type] of CHF if known? [ ] Acute Systolic Heart Failure (reduced EF) [ ] Chronic Systolic Heart Failure (reduced EF) [ ] Acute on Chronic Systolic Heart Failure (reduced EF) [ X ] Acute Diastolic Heart Failure (preserved EF) [ ] Chronic Diastolic Heart Failure (preserved EF) [ ] Acute on Chronic Diastolic Heart Failure (preserved EF) [ ] Acute Systolic & Diastolic Heart Failure [ ] Chronic Systolic & Diastolic Heart Failure [ ] Acute on Chronic Heart Failure Systolic & Diastolic Heart Failure [ ] Other, please specify [ ] Unable to determine MTDD
== END 2022-11-18 17:31 | disposition home or self-care (01) | DRG 291 ==
LOC: EC 20:37 → 3SCARD 23:33
PROVIDERS: ADMIT Family Medicine; ATTEND Family Medicine
DX: I13.0 Hypertensive heart and chronic kidney disease with heart failure and stage 1 through stage 4 chronic kidney disease, or unspecified chronic kidney disease (principal); I50.31 Acute diastolic (congestive) heart failure; E11.22 Type 2 diabetes mellitus with diabetic chronic kidney disease; E66.9 Obesity, unspecified; E78.5 Hyperlipidemia, unspecified; D50.9 Iron deficiency anemia, unspecified; I48.91 Unspecified atrial fibrillation; Z20.822 Contact with and (suspected) exposure to COVID-19; N18.2 Chronic kidney disease, stage 2 (mild); G89.29 Other chronic pain; M51.36 Other intervertebral disc degeneration, lumbar region; I34.1 Nonrheumatic mitral (valve) prolapse; K21.9 Gastro-esophageal reflux disease without esophagitis; I83.90 Asymptomatic varicose veins of unspecified lower extremity; M19.90 Unspecified osteoarthritis, unspecified site; Z79.82 Long term (current) use of aspirin; Z79.84 Long term (current) use of oral hypoglycemic drugs; Z79.1 Long term (current) use of non-steroidal anti-inflammatories (NSAID); Z79.899 Other long term (current) drug therapy; Z96.652 Presence of left artificial knee joint
CPT/HCPCS: 36415; 71046; 71275; 80053; 83605; 83735; 83880; 84484; 85025; 85379; 85610; 85730; 87636; 93005; 93306; 96374; 96375; 96376; 99285

== ENCOUNTER 2022-12-05 07:06 | Observation (INO) | payer MEDICARE, OTHER ==
[2022-12-05] MEDS ORDERED: IPRATROPIUM-ALBUTEROL 3 ML NEB INHALATION STA (07:28)
--- NOTE | 2022-12-05 07:30 | ED ---
General Adult HPI - General Chief complaint: Shortness of Breath Stated complaint: SOB Time Seen by Provider: 12/05/22 07:20 Source: patient, RN notes reviewed, old records reviewed Mode of arrival: wheelchair Limitations: no limitations - History of Present Illness Initial comments: This is a 77-year-old female who presents emergency Department complaining that for the last couple of days she's feeling short of breath. Patient states she feels like she is taking deep breath and she is not sure if it's associated with smoking. Patient states that she has had some short of breath for 2 weeks and it started when she was put on 2 new blood pressure medications. Since then wanted the blood pressure medications is been reduced. Patient states last 2 days however she feels as though her shortness of breath is worse. Patient states she has no underlying breathing problems. Patient denies any chest pain. Patient states she has a little bit of lower left back pain it is reproducible she states. Patient denies any worsening of the pain when she takes a deep breath however. Patient denies any recent fever chills or cough per patient denies any abdominal pain. Patient denies any palpitations. Patient denies any lightheadedness or dizziness. Patient denies any swelling in legs or calf tenderness - Related Data Home Medications Medication Instructions Recorded Confirmed Aspirin EC [Ecotrin Low Dose] 81 mg PO DAILY 07/12/18 11/18/22 Cyanocobalamin (Vitamin B-12) 1,000 mcg PO DAILY 07/30/19 11/18/22 [Vitamin B-12] Famotidine 40 mg PO DAILY 07/30/19 11/18/22 glipiZIDE XL [Glucotrol XL] 5 mg PO DAILY 07/30/19 11/18/22 HYDROcodone/APAP 7.5-325MG [[place] 1 tab PO TID 06/22/21 11/18/22 7.5-325] Multivit with Calcium,Iron,Min 1 tab PO DAILY 06/22/21 11/18/22 [Women's Multivitamin] metFORMIN HCL [Glucophage] 1,000 mg PO DAILY@1400 06/22/21 11/18/22 Previous Rx's Medication Instructions Recorded Losartan-Hctz 50-12.5 mg [Hyzaar 2 each PO DAILY #30 tab 11/18/22 50-12.5] cloNIDine HCL [Catapres] 0.1 mg PO DAILY #30 tab 11/18/22 hydrALAZINE HCL [Apresoline] 50 mg PO TID #90 tab 11/18/22 Allergies Allergy/AdvReac Type Severity Reaction Status Date / Time diflunisal [From Dolobid] Allergy Anaphylaxis Verified 12/05/22 07:17 hydrochlorothiazide Allergy Swelling Verified 12/05/22 07:17 [From Zestoretic] of face and throat ibuprofen [From Motrin] Allergy Abdominal Verified 12/05/22 07:17 Pain Iodine and Iodide Containing Allergy Anaphylaxis Verified 12/05/22 07:17 Produc lisinopril Allergy Rash/Hives Verified 12/05/22 07:17 morphine Allergy Rash/Hives Verified 12/05/22 07:17 prednisone Allergy Rash/Hives Verified 12/05/22 07:17 sulfamethoxazole Allergy Anaphylaxis Verified 12/05/22 07:17 [From Bactrim] tramadol Allergy Rash/Hives Verified 12/05/22 07:17 trimethoprim [From Bactrim] Allergy Anaphylaxis Verified 12/05/22 07:17 baclofen AdvReac Unknown LOW HEART Verified 12/05/22 07:17 RATE NSAIDS (Non-Steroidal AdvReac Unknown TOLD TO Verified 12/05/22 07:17 Anti-Inflamma AVOID NSAIDS DUE TO ABDOMINAL PAIN ondansetron AdvReac Itching Verified 12/05/22 07:17 [From Zofran (as hydrochloride)] Review of Systems ROS Statement: Those systems with pertinent positive or pertinent negative responses have been documented in the HPI. ROS Other: All systems not noted in ROS Statement are negative. Past Medical History Past Medical History: Diabetes Mellitus, GERD/Reflux, Hyperlipidemia, Hypertension, Mitral Valve Prolapse (MVP), Osteoarthritis (OA) Additional Past Medical History / Comment(s): Hypertension, hyperlipidemia, diabetes mellitus, mitral valve prolapse, chronic back pain, varicose veins, migraines, chronic stage II kidney disease, iron deficiency anemia, lumbar disc disease with previous history of L4-L5 degenerative disc disease of the lumbar spine, osteoarthritis History of Any Multi-Drug Resistant Organisms: None Reported Past Surgical History: Back Surgery, Hysterectomy, Joint Replacement, Tonsillectomy Additional Past Surgical History / Comment(s): Spine surgery involving the lumbar spine related to herniated disc at the level of L4-L5, right temporal artery biopsy, ovarian cyst removal, pilonidal cyst, left knee replacement, tonsillectomy, hysterectomy Past Anesthesia/Blood Transfusion Reactions: Family Hisory of Malignant Hyperthermia Additional Past Anesthesia/Blood Transfusion Reaction / Comment(s): daughter had reaction to anesthesia age 7 with tonsilectomy called "chocolate anesthesia" per pt. "she had a rash and high fever of 105". daughter has had surgeries since with no problems. Past Psychological History: No Psychological Hx Reported Smoking Status: Never smoker Past Alcohol Use History: None Reported Past Drug Use History: None Reported - Past Family History Sister(s) Family Medical History: Cancer, Deep Vein Thrombosis (DVT) Brother(s) Family Medical History: Deep Vein Thrombosis (DVT) Father Family Medical History: Cancer, Deep Vein Thrombosis (DVT) Additional Family Medical History / Comment(s): QUADRUPLE BYPASS Mother Family Medical History: Deep Vein Thrombosis (DVT) Additional Family Medical History / Comment(s): PACEMAKER General Exam - General Exam Comments Initial Comments: GENERAL: Patient is well-developed and well-nourished. Patient is nontoxic and well- hydrated and is in mild distress. ENT: Neck is soft and supple. No significant lymphadenopathy is noted. Oropharynx is clear. Moist mucous membranes. Neck has full range of motion without eliciting any pain. EYES: The sclera were anicteric and conjunctiva were pink and moist. Extraocular movements were intact and pupils were equal round and reactive to light. Eyelids were unremarkable. PULMONARY: Unlabored respirations. Good breath sounds bilaterally. No audible rales rhonchi or wheezing was noted. CARDIOVASCULAR: There is a regular rate and rhythm without any murmurs gallops or rubs. ABDOMEN: Soft and nontender with normal bowel sounds. SKIN: Skin is clear with no lesions or rashes and otherwise unremarkable. NEUROLOGIC: Patient is alert and oriented x3. Cranial nerves II through XII are grossly intact. Motor and sensory are also intact. Normal speech, volume and content. Symmetrical smile. MUSCULOSKELETAL: Normal extremities with adequate strength and full range of motion. LYMPHATICS: No significant lymphadenopathy is noted PSYCHIATRIC: Normal psychiatric evaluation. Limitations: no limitations Course Vital Signs 12/05/22 12/05/22 12/05/22 07:17 07:39 07:46 Temperature 98.6 F Pulse Rate 55 L 46 L 51 L Respiratory 16 37 H Rate Blood Pressure 156/88 O2 Sat by Pulse 99 Oximetry 12/05/22 12/05/22 12/05/22 07:50 07:57 08:00 Temperature Pulse Rate 60 53 L Respiratory 15 23 Rate Blood Pressure O2 Sat by Pulse Oximetry 12/05/22 09:00 Temperature Pulse Rate 80 Respiratory 18 Rate Blood Pressure 175/84 O2 Sat by Pulse Oximetry Medical Decision Making - Medical Decision Making EKG is interpreted by myself. EKG shows sinus bradycardia with occasional PAC at 51 bpm MT interval 145 QRSs 81 Q-T intervals 472 QTC 448. Patient's EKG shows no ST segment elevation or depression. Was pt. sent in by a medical professional or institution (, PA, HELPDESK MANAGER, urgent care, hospital, or assisted...) When possible be specific @ -No Did you speak to anyone other than the patient for history (EMS, parent, family, police, friend...)? What history was obtained from this source @ -No Did you review nursing and triage notes (agree or disagree)? Why? @ -I reviewed and agree with nursing and triage notes Were old charts reviewed (outside hosp., previous admission, EMS record, old EKG, old radiological studies, urgent care reports/EKG's, assisted records)? Report findings @ -I reviewed prior charts of her labwork on this patient Differential Diagnosis (chest pain, altered mental status, abdominal pain women, abdominal pain men, vaginal bleeding, weakness, fever, dyspnea, syncope, headache, dizziness, GI bleed, back pain, seizure, CVA, palpatations, mental health, musculoskeletal)? @ -Differential Dyspnea: Coronary syndrome, arrhythmia, tamponade, asthma, COPD, pulmonary embolism, pneumonia, pneumothorax, pulmonary effusion, anaphylaxis, diabetic ketoacidosis, flailed chest, pulmonary contusion, diaphragmatic rupture, anemia, neuromuscular, this is not meant to be an all-inclusive list. EKG interpreted by me (3pts min.). @ -As above X-rays interpreted by me (1pt min.). @ -Chest x-ray shows no acute abnormality CT interpreted by me (1pt min.). @ -None done U/S interpreted by me (1pt. min.). @ -None done What testing was considered but not performed or refused? (CT, X-rays, U/S, labs)? Why? @ -None What meds were considered but not given or refused? Why? @ -None Did you discuss the management of the patient with other professionals (professionals i.e. , PA, HELPDESK MANAGER, lab, RT, psych nurse, social welfare research worker, vp marketing, teacher, surface to air weapons officer, lining caser)? Give summary @ -I spoke with Dr. Rushing and he agreed to admit the patient admitted the patient wrote admitting orders Was smoking cessation discussed for >3mins.? @ -No Was critical care preformed (if so, how long)? @ -35 minutes Were there social determinants of health that impacted care today? How? (Homelessness, low income, unemployed, alcoholism, drug addiction, transportation, low edu. Level, literacy, decrease access to med. care, usp, rehab)? @ -No Was there de-escalation of care discussed even if they declined (Discuss DNR or withdrawal of care, Hospice)? DNR status @ -No What co-morbidities impacted this encounter? (DM, HTN, Smoking, COPD, CAD, Cancer, CVA, ARF, Chemo, Hep., AIDS, mental health diagnosis, sleep apnea, morbid obesity)? @ -None Was patient admitted / discharged? Hospital course, mention meds given and route, prescriptions, significant lab abnormalities, going to OR and other pertinent info. @ -Patient came in and a second EKG was done and it looked like patient was in atrial fibrillation as I suspect he wanted the patient in one cardiology see him I placed the patient on heparin and admitted the patient . Patient also had a breathing treatment which she thinks helped her a little bit. Undiagnosed new problem with uncertain prognosis? @ -No Drug Therapy requiring intensive monitoring for toxicity (Heparin, Nitro, Insulin, Cardizem)? @ -No Were any procedures done? @ -No Diagnosis/symptom? @ -New-onset A. fib Acute, or Chronic, or Acute on Chronic? @ -Acute Uncomplicated (without systemic symptoms) or Complicated (systemic symptoms)? @ -Complicated Side effects of treatment? @ -No Exacerbation, Progression, or Severe Exacerbation? @ -No Poses a threat to life or bodily function? How? (Chest pain, USA, MD, pneumonia, PE, COPD, DKA, ARF, appy, cholecystitis, CVA, Diverticulitis, Homicidal, Suicidal, threat to staff... and all critical care pts) @ -Yes this could lead to poor perfusion and end organ dysfunction Repeat EKG was done EKG was interpreted by myself shows atrial fibrillation at 85 bpm QRS is 84 QT interval 36 QTC is 420. Patient's EKG shows no ST segment elevation. - Lab Data Result diagrams: 12/05/22 09:05 12/05/22 08:12 Lab Results 12/05/22 12/05/22 12/05/22 Range/Units 08:12 08:12 09:05 WBC 5.6 (3.8-10.6) k/uL RBC 3.39 L (3.80-5.40) m/uL Hgb 11.1 L (11.4-16.0) gm/dL Hct 33.3 L (34.0-46.0) % MCV 98.3 (80.0-100.0) fL MCH 32.6 (25.0-35.0) pg MCHC 33.2 (31.0-37.0) g/dL RDW 13.7 (11.5-15.5) % Plt Count 217 (150-450) k/uL MPV 8.4 Neutrophils % 52 % Lymphocytes % 39 % Monocytes % 3 % Eosinophils % 3 % Basophils % 0 % Neutrophils # 2.9 (1.3-7.7) k/uL Lymphocytes # 2.2 (1.0-4.8) k/uL Monocytes # 0.2 (0-1.0) k/uL Eosinophils # 0.2 (0-0.7) k/uL Basophils # 0.0 (0-0.2) k/uL PT (9.0-12.0) sec INR (<1.2) APTT (22.0-30.0) sec D-Dimer (<0.60) mg/L FEU Sodium 142 (137-145) mmol/L Potassium 3.6 (3.5-5.1) mmol/L Chloride 112 H (98-107) mmol/L Carbon Dioxide 18 L (22-30) mmol/L Anion Gap 12 mmol/L BUN 17 (7-17) mg/dL Creatinine 1.00 (0.52-1.04) mg/dL Est GFR (CKD-EPI)AfAm 63 (>60 ml/min/1.73 sqM) Est GFR (CKD-EPI)NonAf 55 (>60 ml/min/1.73 sqM) Glucose 122 H (74-99) mg/dL Calcium 9.4 (8.4-10.2) mg/dL Magnesium 1.6 (1.6-2.3) mg/dL Total Bilirubin 0.3 (0.2-1.3) mg/dL AST 18 (14-36) U/L ALT 17 (4-34) U/L Alkaline Phosphatase 76 (38-126) U/L Troponin I <0.012 (0.000-0.034) ng/mL Total Protein 7.3 (6.3-8.2) g/dL Albumin 4.3 (3.5-5.0) g/dL 12/05/22 Range/Units 09:05 WBC (3.8-10.6) k/uL RBC (3.80-5.40) m/uL Hgb (11.4-16.0) gm/dL Hct (34.0-46.0) % MCV (80.0-100.0) fL MCH (25.0-35.0) pg MCHC (31.0-37.0) g/dL RDW (11.5-15.5) % Plt Count (150-450) k/uL MPV Neutrophils % % Lymphocytes % % Monocytes % % Eosinophils % % Basophils % % Neutrophils # (1.3-7.7) k/uL Lymphocytes # (1.0-4.8) k/uL Monocytes # (0-1.0) k/uL Eosinophils # (0-0.7) k/uL Basophils # (0-0.2) k/uL PT 9.6 (9.0-12.0) sec INR 0.9 (<1.2) APTT 19.9 L (22.0-30.0) sec D-Dimer 1.25 H (<0.60) mg/L FEU Sodium (137-145) mmol/L Potassium (3.5-5.1) mmol/L Chloride (98-107) mmol/L Carbon Dioxide (22-30) mmol/L Anion Gap mmol/L BUN (7-17) mg/dL Creatinine (0.52-1.04) mg/dL Est GFR (CKD-EPI)AfAm (>60 ml/min/1.73 sqM) Est GFR (CKD-EPI)NonAf (>60 ml/min/1.73 sqM) Glucose (74-99) mg/dL Calcium (8.4-10.2) mg/dL Magnesium (1.6-2.3) mg/dL Total Bilirubin (0.2-1.3) mg/dL AST (14-36) U/L ALT (4-34) U/L Alkaline Phosphatase (38-126) U/L Troponin I (0.000-0.034) ng/mL Total Protein (6.3-8.2) g/dL Albumin (3.5-5.0) g/dL Disposition Clinical Impression: New onset a-fib Disposition: ADMITTED IP TO THIS HOSP Referrals: Sissy Starr DO [Primary Care Provider] - 1-2 days Time of Disposition: 09:45
[2022-12-05 08:56] LABS: ALT 17 U/L (4-34); AST 18 U/L (14-36); African American GFR (CKD) 63 (>60 ml/min/1.73 sqM); Albumin 4.3 g/dL (3.5-5.0); Alkaline Phosphatase 76 U/L (38-126); Anion Gap 12 mmol/L; Blood Urea Nitrogen 17 mg/dL (7-17); Calcium 9.4 mg/dL (8.4-10.2); Carbon Dioxide 18 mmol/L (22-30); Chloride 112 mmol/L (98-107); Glucose 122 mg/dL (74-99); Magnesium 1.6 mg/dL (1.6-2.3); Non-African American GFR(CKD) 55 (>60 ml/min/1.73 sqM); Potassium 3.6 mmol/L (3.5-5.1); Sodium 142 mmol/L (137-145); Total Bilirubin 0.3 mg/dL (0.2-1.3); Total Protein 7.3 g/dL (6.3-8.2)
--- NOTE | 2022-12-05 09:00 | XR ---
EXAMINATION TYPE: XR chest 2V DATE OF EXAM: 12/05/2022 8:56 AM COMPARISON: Chest radiographs from 11/17/2022, CTA chest 11/18/2022 TECHNIQUE: XR chest 2V Frontal and lateral views of the chest. CLINICAL INDICATION:Female, 77 years old with history of difficulty breathing; FINDINGS: Patient is rotated which limits evaluation. Lungs/Pleura: There is no evidence of pleural effusion, focal consolidation, or pneumothorax. Chronic senescent parenchymal change. Pulmonary vascularity: Unremarkable. Heart/mediastinum: Cardiomediastinal silhouette is unremarkable. Musculoskeletal: No acute osseous pathology. Bilateral shoulder arthropathy. IMPRESSION: No acute cardiopulmonary disease/process.
[2022-12-05 09:21] LABS: Basophils % (A) 0 %; Eosinophils # (A) 0.2 k/uL (0-0.7); Eosinophils % (A) 3 %; HCT 33.3 % (34.0-46.0); HGB 11.1 gm/dL (11.4-16.0); Lymphocytes # (A) 2.2 k/uL (1.0-4.8); Lymphocytes % (A) 39 %; MCH 32.6 pg (25.0-35.0); MCHC 33.2 g/dL (31.0-37.0); MCV 98.3 fL (80.0-100.0); Mean Platelet Volume 8.4; Monocytes # (A) 0.2 k/uL (0-1.0); Monocytes % (A) 3 %; Neutrophils # (A) 2.9 k/uL (1.3-7.7); Neutrophils % (A) 52 %; Platelet Count 217 k/uL (150-450); RBC 3.39 m/uL (3.80-5.40); RDW 13.7 % (11.5-15.5); WBC 5.6 k/uL (3.8-10.6)
[2022-12-05 09:54] LABS: INR 0.9 (<1.2); Prothrombin Time 9.6 sec (9.0-12.0)
[2022-12-05] MEDS ORDERED: HEPARIN SODIUM 1,000 UN/ML (10ML VL) IV ONE (09:57)
[2022-12-05] MEDS ORDERED: NITROGLYCERIN SL TABS 0.4 MG TAB SUBLINGUAL PRN (09:57)
[2022-12-05 10:10] LABS: Partial Thromboplastin Time 19.9 sec (22.0-30.0)
[2022-12-05] MEDS ORDERED: cloNIDine HCL 0.1 MG TAB PO ONE (10:14)
[2022-12-05] MEDS ORDERED: hydrALAZINE HCL 50 MG TAB PO ONE (10:14)
[2022-12-05] MEDS: FAMOTIDINE 20 MG/2 ML VIAL IV STA ×2 (10:21→10:25)
[2022-12-05] MEDS: diphenhydrAMINE 50 MG/ML 1 ML VIAL IVP STA ×2 (10:22→10:25)
[2022-12-05] MEDS: methylPREDNISolone SOD SUCCI 125 MG/2 ML VIAL IV STA ×2 (10:24→10:26)
[2022-12-05] MEDS: HEPARIN SOD,PORK IN 0.45% NACL 25,000 UNIT in 0.45% NACL 1 250ML.BAG IV SCH (10:26)
[2022-12-05] MEDS ORDERED: HYDROcodone/APAP 7.5-325MG 1 EACH TAB PO ONE (10:56)
[2022-12-05] MEDS ORDERED: LOSARTAN-HCTZ 50-12.5 MG 1 EACH TAB PO SCH (11:00)
[2022-12-05] MEDS ORDERED: methylPREDNISolone SOD SUCCI 125 MG/2 ML VIAL IV STA (13:51)
[2022-12-05] MEDS ORDERED: FAMOTIDINE 20 MG/2 ML VIAL IV STA (13:51)
[2022-12-05] MEDS ORDERED: diphenhydrAMINE 50 MG/ML 1 ML VIAL IVP STA (13:51)
--- NOTE | 2022-12-05 13:59 | P.CRDCN ---
History of Present Illness History of present illness: HISTORY OF PRESENT ILLNESS: This is a 77-year-old female with a past medical history significant for hypertension, hyperlipidemia, and diabetes. Patient does not follow with a demand manager. We have been asked to see the patient in consultation for chest pain. Patient examined at the bedside. Patient presented to the emergency room a chief complaint of chest pain. She also reports feeling short of breath for the past couple days. She denies any dizziness or lightheadedness. Denies nausea or vomiting. At the time of examination, the patient denies chest pain or pressure. It was some discussion about the possibility of atrophic relation. However EKGs in the computer and bedside telemetry monitoring reveals sinus mechanism with PACs. It is noted that the patient presented to the hospital a couple weeks ago due to shortness of breath. She was evaluated by Dr. Moody at that time. Patient was found to have an elevated d-dimer and she underwent a CTA which was negative for pulmonary embolism. * EKG reveals sinus mechanism with PACs * Chest xray negative for acute process * Laboratory data: WBC 5.6. Hemoglobin 11.1. Platelet count 217. D-dimer 1. 25. Sodium 142. Potassium 3.6. BUN 17. Creatinine 1.0. * Current home cardiac medications include aspirin 81 mg daily, fenofibrate 145 mg daily, losartan-hydrochlorothiazide 50-12.5mg 2 tablets daily, and hydralazine 50 mg 3 times a day * Most recent echocardiogram obtained in November 2022 revealed ejection fraction 55-60%. REVIEW OF SYSTEMS: At the time of my exam: CONSTITUTIONAL: Denies fever or chills. HEENT: Denies blurred vision, vision changes, or eye pain. Denies hemoptysis CARDIOVASCULAR: Denies chest pain. Denies orthopnea. Denies PND. Denies palpit ations RESPIRATORY: Denies shortness of breath. GASTROINTESTINAL: Denies abdominal pain. Denies nausea or vomiting. HEMATOLOGIC: Denies bleeding disorders. GENITOURINARY: Denies any blood in urine. SKIN: Denies pruitis. Denies rash. PHYSICAL EXAM: VITAL SIGNS: Reviewed. GENERAL: Well-developed in no acute distress. HEENT: Head is normocephalic. Pupils are equal, round. Sclerae anicteric. Mucous membranes of the mouth are moist. Neck supple. No JVD or thyromegaly LUNGS: Respirations even and unlabored. Lungs essentially clear to auscultation bilaterally. HEART: Regular rate and rhythm. S1 and S2 heard. ABDOMEN: Soft. Nondistended. Nontender. EXTREMITIES: Normal range of motion. No clubbing or cyanosis. Peripheral pulses intact. No lower extremity edema NEUROLOGIC: Awake and alert. Oriented x 3. ASSESSMENT: Chest pain, coronary negative 2 Shortness of breath Elevated d-dimer, patient had CTA of the chest 11/18/2022 which was negative for PE Hypertension Hyperlipidemia Diabetes PLAN: Continue to trend troponins Obtain 2-D echo to assess cardiac structure and function Continue IV heparin Add Nitropaste Resume home cardiac medications Nothing by mouth at midnight Possible cardiac catheterization tomorrow Further recommendations pending patient course Nurse practitioner note has been reviewed by physician. Signing provider agrees with the documented findings, assessment, and plan of care. Past Medical History Past Medical History: Diabetes Mellitus, GERD/Reflux, Hyperlipidemia, Hypertension, Mitral Valve Prolapse (MVP), Osteoarthritis (OA) Additional Past Medical History / Comment(s): Hypertension, hyperlipidemia, diabetes mellitus, mitral valve prolapse, chronic back pain, varicose veins, migraines, chronic stage II kidney disease, iron deficiency anemia, lumbar disc disease with previous history of L4-L5 degenerative disc disease of the lumbar spine, osteoarthritis History of Any Multi-Drug Resistant Organisms: None Reported Past Surgical History: Back Surgery, Hysterectomy, Joint Replacement, Tonsillectomy Additional Past Surgical History / Comment(s): Spine surgery involving the lumbar spine related to herniated disc at the level of L4-L5, right temporal artery biopsy, ovarian cyst removal, pilonidal cyst, left knee replacement, tonsillectomy, hysterectomy Past Anesthesia/Blood Transfusion Reactions: Family Hisory of Malignant Hyperthermia Additional Past Anesthesia/Blood Transfusion Reaction / Comment(s): daughter had reaction to anesthesia age 7 with tonsilectomy called "chocolate anesthesia" per pt. "she had a rash and high fever of 105". daughter has had surgeries since with no problems. Past Psychological History: No Psychological Hx Reported Smoking Status: Never smoker Past Alcohol Use History: None Reported Past Drug Use History: None Reported - Past Family History Sister(s) Family Medical History: Cancer, Deep Vein Thrombosis (DVT) Brother(s) Family Medical History: Deep Vein Thrombosis (DVT) Father Family Medical History: Cancer, Deep Vein Thrombosis (DVT) Additional Family Medical History / Comment(s): QUADRUPLE BYPASS Mother Family Medical History: Deep Vein Thrombosis (DVT) Additional Family Medical History / Comment(s): PACEMAKER Medications and Allergies Home Medications Medication Instructions Recorded Confirmed Type Aspirin EC [Ecotrin Low Dose] 81 mg PO DAILY 07/12/18 12/05/22 History Cyanocobalamin (Vitamin B-12) 1,000 mcg PO DAILY 07/30/19 12/05/22 History [Vitamin B-12] Famotidine 40 mg PO DAILY 07/30/19 12/05/22 History glipiZIDE XL [Glucotrol XL] 5 mg PO DAILY 07/30/19 12/05/22 History HYDROcodone/APAP 7.5-325MG [[place] 1 tab PO TID 06/22/21 12/05/22 History 7.5-325] Multivit with Calcium,Iron,Min 1 tab PO DAILY 06/22/21 12/05/22 History [Women's Multivitamin] metFORMIN HCL [Glucophage] 1,000 mg PO DAILY@1400 06/22/21 12/05/22 History hydrALAZINE HCL [Apresoline] 50 mg PO TID #90 tab 11/18/22 12/05/22 Rx Fenofibrate Nanocrystallized 145 mg PO DAILY 12/05/22 12/05/22 History [Fenofibrate] Losartan-Hctz 50-12.5 mg [Hyzaar 2 tab PO DAILY 12/05/22 12/05/22 History 50-12.5] Allergies Allergy/AdvReac Type Severity Reaction Status Date / Time diflunisal [From Dolobid] Allergy Anaphylaxis Verified 12/05/22 11:02 hydrochlorothiazide Allergy Swelling Verified 12/05/22 11:02 [From Zestoretic] of face and throat ibuprofen [From Motrin] Allergy Abdominal Verified 12/05/22 11:02 Pain Iodine and Iodide Containing Allergy Anaphylaxis Verified 12/05/22 11:02 Produc lisinopril Allergy Rash/Hives Verified 12/05/22 11:02 morphine Allergy Rash/Hives Verified 12/05/22 11:02 prednisone Allergy Rash/Hives Verified 12/05/22 11:02 sulfamethoxazole Allergy Anaphylaxis Verified 12/05/22 11:02 [From Bactrim] tramadol Allergy Rash/Hives Verified 12/05/22 11:02 trimethoprim [From Bactrim] Allergy Anaphylaxis Verified 12/05/22 11:02 baclofen AdvReac Unknown LOW HEART Verified 12/05/22 11:02 RATE NSAIDS (Non-Steroidal AdvReac Unknown TOLD TO Verified 12/05/22 11:02 Anti-Inflamma AVOID NSAIDS DUE TO ABDOMINAL PAIN ondansetron AdvReac Itching Verified 12/05/22 11:02 [From Zofran (as hydrochloride)] Physical Exam Vitals: Vital Signs Temp Pulse Pulse Resp BP BP Pulse Ox 12/05/22 13:45 62 142/75 12/05/22 12:00 98.0 F 64 18 178/78 95 12/05/22 09:00 80 18 175/84 12/05/22 08:00 53 L 23 12/05/22 07:57 60 12/05/22 07:50 15 12/05/22 07:46 51 L 12/05/22 07:39 46 L 37 H 12/05/22 07:17 98.6 F 55 L 16 156/88 99 Intake and Output 12/04/22 12/05/22 12/05/22 22:59 06:59 14:59 Other: Weight 97.069 kg Results 12/05/22 09:05 12/05/22 08:12 Cardiac Enzymes 12/05/22 12/05/22 12/05/22 Range/Units 08:12 08:12 11:56 AST 18 (14-36) U/L Troponin I <0.012 <0.012 (0.000-0.034) ng/mL Coagulation 12/05/22 Range/Units 09:05 PT 9.6 (9.0-12.0) sec APTT 19.9 L (22.0-30.0) sec CBC 12/05/22 Range/Units 09:05 WBC 5.6 (3.8-10.6) k/uL RBC 3.39 L (3.80-5.40) m/uL Hgb 11.1 L (11.4-16.0) gm/dL Hct 33.3 L (34.0-46.0) % Plt Count 217 (150-450) k/uL Comprehensive Metabolic Panel 12/05/22 Range/Units 08:12 Sodium 142 (137-145) mmol/L Potassium 3.6 (3.5-5.1) mmol/L Chloride 112 H (98-107) mmol/L Carbon Dioxide 18 L (22-30) mmol/L BUN 17 (7-17) mg/dL Creatinine 1.00 (0.52-1.04) mg/dL Glucose 122 H (74-99) mg/dL Calcium 9.4 (8.4-10.2) mg/dL AST 18 (14-36) U/L ALT 17 (4-34) U/L Alkaline Phosphatase 76 (38-126) U/L Total Protein 7.3 (6.3-8.2) g/dL Albumin 4.3 (3.5-5.0) g/dL Current Medications Generic Name Dose Route Start Last Admin Trade Name Freq PRN Reason Stop Dose Admin HCTZ/Losartan Potassium 1 each 12/05/22 11:00 12/05/22 10:39 Losartan-Hctz 50-12.5 Mg 1 Each Tab PO 1 each DAILY JEANNA Administration Heparin Sodium/Sodium Chloride 250 mls @ 9.998 mls/hr 12/05/22 10:00 12/05/22 10:26 25,000 unit/ Sodium Chloride IV 10.3 units/kg/hr .Q24H JEANNA 9.998 mls/hr Administration Protocol 10.3 UNITS/KG/HR Nitroglycerin 0.4 mg 12/05/22 09:57 12/05/22 13:24 Nitroglycerin Sl Tabs 0.4 Mg Tab SUBLINGUAL 0.4 mg Q5M PRN Administration Chest Pain Nitroglycerin 1 inch 12/05/22 13:45 Nitroglycerin Oint 1 Inch/Gm Packet TOPICAL Q8HR JEANNA Intake and Output 12/04/22 12/05/22 12/05/22 22:59 06:59 14:59 Other: Weight 97.069 kg Patient Weight 12/06/22 06:59 Weight 97.069 kg 12/05/22 09:05 12/05/22 08:12
[2022-12-05] MEDS: NITROGLYCERIN OINT 1 INCH/GM PACKET TOPICAL SCH ×3 (14:12→23:15)
[2022-12-05] MEDS: hydrALAZINE HCL 50 MG TAB PO SCH ×2 (16:43→22:24)
[2022-12-05] MEDS ORDERED: HEPARIN SODIUM 1,000 UN/ML (10ML VL) IV PRN (16:58)
[2022-12-05] MEDS ORDERED: FAMOTIDINE 20 MG TAB PO STA (19:33)
[2022-12-05] MEDS: HYDROcodone/APAP 7.5-325MG 1 EACH TAB PO PRN (20:22)
[2022-12-05] MEDS: ATORVASTATIN 80 MG TAB PO SCH ×2 (22:24→22:31)
[2022-12-05] MEDS ORDERED: amLODIPine 5 MG TAB PO STA (22:39)
[2022-12-05] MEDS ORDERED: HYDROmorphone 0.5 MG/0.5 ML SYRINGE IVP STA (22:39)
[2022-12-05] MEDS ORDERED: PANTOPRAZOLE 40 MG/10 ML VIAL IVP ONE (22:41)
[2022-12-06 01:46] LABS: Glucose,Whole Blood 128 mg/dL (70-110)
[2022-12-06] MEDS: ASPIRIN 81 MG PO SCH (05:00)
[2022-12-06] MEDS: HYDROcodone/APAP 7.5-325MG 1 EACH TAB PO PRN ×3 (05:00→23:30)
[2022-12-06] MEDS: FAMOTIDINE 20 MG TAB PO SCH (05:00)
[2022-12-06] MEDS: FENOFIBRATE 160 MG TAB PO SCH (05:00)
[2022-12-06] MEDS: hydrALAZINE HCL 50 MG TAB PO SCH ×3 (05:00→20:22)
[2022-12-06] MEDS: HEPARIN SOD,PORK IN 0.45% NACL 25,000 UNIT in 0.45% NACL 1 250ML.BAG IV SCH (05:01)
[2022-12-06] MEDS: NITROGLYCERIN OINT 1 INCH/GM PACKET TOPICAL SCH ×2 (05:01→15:42)
[2022-12-06 06:06] LABS: Glucose,Whole Blood 123 mg/dL (70-110)
[2022-12-06] MEDS ORDERED: ATORVASTATIN 80 MG TAB PO STA (08:04)
[2022-12-06] MEDS ORDERED: ALPRAZolam 0.5 MG TAB PO PRN (08:04)
[2022-12-06] MEDS ORDERED: NITROGLYCERIN SL TABS 0.4 MG TAB SUBLINGUAL PRN (08:04)
[2022-12-06] MEDS ORDERED: ALPRAZolam 0.25 MG TAB PO PRN (08:04)
[2022-12-06] MEDS ORDERED: ASPIRIN 325 MG TAB PO STA (08:04)
[2022-12-06] MEDS: LOSARTAN-HCTZ 50-12.5 MG 1 EACH TAB PO SCH (08:12)
[2022-12-06] MEDS ORDERED: VERAPAMIL 2.5 MG/ML 2 ML AMP ONE (08:28)
[2022-12-06] MEDS ORDERED: methylPREDNISolone SOD SUCCI 125 MG/2 ML VIAL ONE (08:44)
[2022-12-06] MEDS ORDERED: diphenhydrAMINE 50 MG/ML 1 ML VIAL ONE (08:44)
[2022-12-06] MEDS ORDERED: ASPIRIN 81 MG ONE (08:45)
[2022-12-06] MEDS ORDERED: methylPREDNISolone SOD SUCCI 125 MG/2 ML VIAL IV ONE (08:47)
[2022-12-06] MEDS ORDERED: diphenhydrAMINE 50 MG/ML 1 ML VIAL IVP ONE (08:47)
[2022-12-06] MEDS ORDERED: SODIUM CHLORIDE 0.9% 1,000 ML IV ONE (08:48)
[2022-12-06] MEDS ORDERED: ASPIRIN 81 MG PO ONE (08:48)
[2022-12-06] MEDS ORDERED: ASPIRIN 325 MG TAB PO SCH (09:00)
[2022-12-06] MEDS ORDERED: MIDAZOLAM 2 MG/2 ML VIAL IVP ONE ×2 (09:03)
[2022-12-06] MEDS ORDERED: HEPARIN SODIUM 1,000 UN/ML (10ML VL) ONE (09:03)
[2022-12-06] MEDS ORDERED: LIDOCAINE 1% INJ 10MG/ML (5 ML VIAL-PF) SQ ONE (09:06)
[2022-12-06] MEDS ORDERED: VERAPAMIL SYRINGE (5 MG/10 ML) INTRAARTER ONE (09:08)
[2022-12-06] MEDS ORDERED: HEPARIN SODIUM 1,000 UN/ML (10ML VL) IVP ONE (09:11)
[2022-12-06] MEDS ORDERED: IOPAMIDOL-370 100ML BTL INJ ONE (09:19)
[2022-12-06] MEDS: SODIUM CHLORIDE 0.9% 1,000 ML in EMPTY BAG 1 BAG IV SCH ×2 (09:42→15:42)
--- NOTE | 2022-12-06 10:14 | P.HPIM ---
History of Present Illness H&P Date: 12/05/22 Chief Complaint: Chest pain This is a 76-year-old -[place] female , recently a couple weeks ago with uncontrolled hypertension, shortness of breath , negative CTA ,with past medical history significant for hypertension, diabetes mellitus, dyslipidemia, obesity and multiple other medical issues, presented to the ER with complaints of chest pain accompanied by shortness of breath over the last couple of days. Denies lightheadedness dizziness or focal deficits. Denies nausea vomiting or diarrhea. Denies abdominal pain. EKG reporting sinus with PACs. Troponins negative 2. Recent echo 11/29, reporting EF 55-60%. Chest x- ray reporting nonacute. Afebrile, normal WBC, hemoglobin 11.1, platelets 217, d- dimer 1.25. Sodium 142, potassium 3.6 chloride 112, bicarbonate 18 BUN 17, creatinine 1. Review of Systems Constitutional: Denies chills, Denies fever Eyes: denies blurred vision, denies pain Ears, nose, mouth and throat: Denies headache, Denies sore throat Cardiovascular: Reports chest tightness, shortness of breath Respiratory: Denies cough Gastrointestinal: Denies abdominal pain, Denies diarrhea, Denies nausea, Denies vomiting Genitourinary: Denies dysuria, Denies hematuria Musculoskeletal: Denies myalgias Integumentary: Denies pruritus, Denies rash Neurological: Denies numbness, Denies weakness Psychiatric: Denies anxiety, Denies depression Endocrine: Denies fatigue, Denies weight change Past Medical History Past Medical History: Diabetes Mellitus, GERD/Reflux, Hyperlipidemia, Hypertension, Mitral Valve Prolapse (MVP), Osteoarthritis (OA) Additional Past Medical History / Comment(s): Hypertension, hyperlipidemia, diabetes mellitus, mitral valve prolapse, chronic back pain, varicose veins, migraines, chronic stage II kidney disease, iron deficiency anemia, lumbar disc disease with previous history of L4-L5 degenerative disc disease of the lumbar spine, osteoarthritis History of Any Multi-Drug Resistant Organisms: None Reported Past Surgical History: Back Surgery, Hysterectomy, Joint Replacement, Tonsillectomy Additional Past Surgical History / Comment(s): Spine surgery involving the lumbar spine related to herniated disc at the level of L4-L5, right temporal artery biopsy, ovarian cyst removal, pilonidal cyst, left knee replacement, to nsillectomy, hysterectomy Past Anesthesia/Blood Transfusion Reactions: Family Hisory of Malignant Hyperthermia Additional Past Anesthesia/Blood Transfusion Reaction / Comment(s): daughter had reaction to anesthesia age 7 with tonsilectomy called "chocolate anesthesia" per pt. "she had a rash and high fever of 105". daughter has had surgeries since with no problems. Past Psychological History: No Psychological Hx Reported Smoking Status: Never smoker Past Alcohol Use History: None Reported Past Drug Use History: None Reported - Past Family History Sister(s) Family Medical History: Cancer, Deep Vein Thrombosis (DVT) Brother(s) Family Medical History: Deep Vein Thrombosis (DVT) Father Family Medical History: Cancer, Deep Vein Thrombosis (DVT) Additional Family Medical History / Comment(s): [employer] Mother Family Medical History: Deep Vein Thrombosis (DVT) Additional Family Medical History / Comment(s): PACEMAKER Medications and Allergies Home Medications Medication Instructions Recorded Confirmed Type Aspirin EC [Ecotrin Low Dose] 81 mg PO DAILY 07/12/18 12/05/22 History Cyanocobalamin (Vitamin B-12) 1,000 mcg PO DAILY 07/30/19 12/05/22 History [Vitamin B-12] Famotidine 40 mg PO DAILY 07/30/19 12/05/22 History glipiZIDE XL [Glucotrol XL] 5 mg PO DAILY 07/30/19 12/05/22 History HYDROcodone/APAP 7.5-325MG [[place] 1 tab PO TID 06/22/21 12/05/22 History 7.5-325] Multivit with Calcium,Iron,Min 1 tab PO DAILY 06/22/21 12/05/22 History [Women's Multivitamin] metFORMIN HCL [Glucophage] 1,000 mg PO DAILY@1400 06/22/21 12/05/22 History hydrALAZINE HCL [Apresoline] 50 mg PO TID #90 tab 11/18/22 12/05/22 Rx Fenofibrate Nanocrystallized 145 mg PO DAILY 12/05/22 12/05/22 History [Fenofibrate] Losartan-Hctz 50-12.5 mg [Hyzaar 2 tab PO DAILY 12/05/22 12/05/22 History 50-12.5] Allergies Allergy/AdvReac Type Severity Reaction Status Date / Time diflunisal [From Dolobid] Allergy Anaphylaxis Verified 12/05/22 11:02 hydrochlorothiazide Allergy Swelling Verified 12/05/22 11:02 [From Zestoretic] of face and throat ibuprofen [From Motrin] Allergy Abdominal Verified 12/05/22 11:02 Pain Iodine and Iodide Containing Allergy Anaphylaxis Verified 12/05/22 11:02 Produc lisinopril Allergy Rash/Hives Verified 12/05/22 11:02 morphine Allergy Rash/Hives Verified 12/05/22 11:02 prednisone Allergy Rash/Hives Verified 12/05/22 11:02 sulfamethoxazole Allergy Anaphylaxis Verified 12/05/22 11:02 [From Bactrim] tramadol Allergy Rash/Hives Verified 12/05/22 11:02 trimethoprim [From Bactrim] Allergy Anaphylaxis Verified 12/05/22 11:02 baclofen AdvReac Unknown LOW HEART Verified 12/05/22 11:02 RATE NSAIDS (Non-Steroidal AdvReac Unknown TOLD TO Verified 12/05/22 11:02 Anti-Inflamma AVOID NSAIDS DUE TO ABDOMINAL PAIN ondansetron AdvReac Itching Verified 12/05/22 11:02 [From Zofran (as hydrochloride)] Physical Exam Vitals: Vital Signs Temp Pulse Pulse Resp BP BP Pulse Ox 12/05/22 13:45 62 142/75 12/05/22 12:00 98.0 F 64 18 178/78 95 12/05/22 09:00 80 18 175/84 12/05/22 08:00 53 L 23 12/05/22 07:57 60 12/05/22 07:50 15 12/05/22 07:46 51 L 12/05/22 07:39 46 L 37 H 12/05/22 07:17 98.6 F 55 L 16 156/88 99 Intake and Output 12/04/22 12/05/22 12/05/22 22:59 06:59 14:59 Other: Weight 97.069 kg General: well nourished, well developed, NAD. Vitals reviewed Eyes: PERRL, EOMI, conjunctiva normal HENT: normocephalic, Neck: supple, no JVD Lungs: normal respiratory effort, no wheezes or rales CV: Regular rate and rhythm, no murmur. Peripheral pulses 2+ Abdomen: soft, nondistended, nontender no organomegaly Lymph: no cervical or axillary LAD Skin: warm and dry. Neuro: A&Ox3, normal mood and affect Results CBC & Chem 7: 12/05/22 09:05 12/05/22 08:12 Labs: Abnormal Lab Results - Last 24 Hours (Table) 12/05/22 12/05/22 12/05/22 Range/Units 08:12 09:05 09:05 RBC 3.39 L (3.80-5.40) m/uL Hgb 11.1 L (11.4-16.0) gm/dL Hct 33.3 L (34.0-46.0) % APTT 19.9 L (22.0-30.0) sec D-Dimer 1.25 H (<0.60) mg/L FEU Chloride 112 H (98-107) mmol/L Carbon Dioxide 18 L (22-30) mmol/L Glucose 122 H (74-99) mg/dL Assessment and Plan Assessment: Chest pain, troponins negative 2 Shortness of breath Elevated d-dimer, recent negative chest CTA 11/18/22 Diabetes mellitus Hypertension Hyperlipidemia Plan: Continue on current medication regime ,monitoring and symptomatic treatment. Anticoagulated on heparin drip. Evaluated by cardiology, echo kenya chowdary, cardiac cath tomorrow. The impression and plan of care has been dictated as directed. : I performed a history and examination of this patient, discussed the same with the dictator. I agree with the dictator's note ,documented as a scribe. Any additional findings or plans will be noted.
--- NOTE | 2022-12-06 10:15 | P.PN ---
Subjective Progress Note Date: 12/06/22 Patient not seen, off the floor for cardiac catheterization. Objective - Vital Signs Vital signs: Vital Signs Temp 98.8 F 12/06/22 08:08 Pulse 99 12/06/22 08:08 Resp 17 12/06/22 08:08 BP 160/71 12/06/22 10:05 Pulse Ox 98 12/06/22 10:05 FiO2 Intake & Output 12/05/22 12/06/22 12/06/22 18:59 06:59 18:59 Intake Total 311.821 108.048 200 Balance 311.821 108.048 200 Weight 97.069 kg 97.069 kg Intake: IV 200 Intake, IV Titration 61.821 108.048 Amount Heparin Sod,Pork in 0.45% 61.821 108.048 NaCl 25,000 unit In 0.45 % NaCl 1 250ml.bag @ 10.3 UNITS/KG/HR 9.998 mls/hr IV .Q24H [facility] Rx#: [id number] Oral 250 Other: Voiding Method Toilet # Voids 2 - Labs CBC & Chem 7: 12/05/22 09:05 12/05/22 08:12 Labs: Abnormal Lab Results - Last 24 Hours (Table) 12/05/22 12/05/22 12/06/22 Range/Units 15:09 23:28 01:44 APTT 35.4 H 68.0 H (22.0-30.0) sec POC Glucose (mg/dL) 128 H (70-110) mg/dL 12/06/22 12/06/22 Range/Units 06:04 07:25 APTT 21.5 L (22.0-30.0) sec POC Glucose (mg/dL) 123 H (70-110) mg/dL
--- NOTE | 2022-12-06 10:23 | CC ---
CARDIAC CATHETERIZATION REPORT REFERRING PHYSICIAN: Mustapha Barnett MD INDICATION: Unstable angina. PROCEDURE NOTE: After obtaining informed consent, left heart catheterization and coronary angiogram were performed via the right radial artery using standard Rick catheters. The patient tolerated the procedure well without any obvious immediate complications. A TR band was used for hemostasis at the end of the procedure. Next, the patient received moderate conscious sedation. Total sedation time was 16 minutes. Right radial artery access was obtained using Seldinger technique. A 6-[place] sheath was placed. Catheters and wires were floated into the ascending aorta under fluoroscopic guidance. The patient received verapamil and heparin per protocol. FINDINGS: HEMODYNAMICS: 1. Left ventricular end-diastolic pressure is 16 mm. There is no significant gradient across the aortic valve. 2. Left ventriculogram: Left ventriculogram is not performed. ANGIOGRAPHIC DATA: Right coronary artery: Right coronary artery is a nondominant vessel that was subselectively engaged and did not reveal significant disease. The left coronary system appears calcified. Left main coronary artery is a normal- sized vessel and is free of significant stenosis. It divides into left anterior descending coronary artery and circumflex coronary artery. LAD appears calcified without focal areas of significant stenosis. There is a mild nonobstructive disease in the proximal LAD. LAD branches are free of significant disease. Circumflex coronary artery appears calcified but is free of significant stenosis. It gives off a large- caliber OM branch and a secondary vessel 40% to 50% stenosis. CONCLUSION: [id number] nonobstructive coronary artery disease. PLAN: The patient's management is going to be in the form of risk factor modification, optimal medical therapy with aspirin 81 mg daily, statins, beta-blockers and optimal control of blood pressure, regular exercise and weight loss. MMODL / IJN: [id number] /
[2022-12-06 11:49] LABS: Glucose,Whole Blood 183 mg/dL (70-110)
[2022-12-06 11:52] LABS: Chol/HDL Ratio 3.85 Ratio
--- NOTE | 2022-12-06 13:17 | CA ---
Transthoracic Echo Report Name: Gina Phan Age: 77 Gender: F : 1945 Exam Date: 12/06/2022 11:24 Exam Location: [facility] Ht (in): 64 Wt (lb): 214 Ordering Physician: Deanna Muller Attending/Referring Phys: [id number], Yohana [employer] Copy Editor Mikayla Gloria [facility] Procedure CPT: Indications: CP Cardiac Hx: Technical Quality: Fair Contrast 1: Total Dose (mL): Contrast 2: Total Dose (mL): MEASUREMENTS (Male / Female) Normal Values 2D ECHO LV Diastolic Diameter PLAX 4.6 cm 4.2 - 5.9 / 3.9 - 5.3 cm LV Systolic Diameter PLAX 3.0 cm IVS Diastolic Thickness 0.8 cm 0.6 - 1.0 / 0.6 - 0.9 cm LVPW Diastolic Thickness 0.8 cm 0.6 - 1.0 / 0.6 - 0.9 cm LV Relative Wall Thickness 0.4 DOPPLER Mitral E Point Velocity 88.2 cm/s Mitral A Point Velocity 85.7 cm/s Mitral E to A Ratio 1.0 MV Deceleration Time 312.3 ms LV E' Lateral Velocity 6.9 cm/s Mitral E to LV E' Lateral Ratio 12.8 LV E' Septal Velocity 6.3 cm/s Mitral E to LV E' Septal Ratio 14.0 TR Peak Velocity 308.0 cm/s TR Peak Gradient 37.9 mmHg Right Atrial Pressure 8.0 mmHg Pulmonary Artery Systolic Pressu 45.9 mmHg Right Ventricular Systolic Press 42.9 mmHg FINDINGS Left Ventricle Normal Left ventricular size, wall thickness, systolic function with no obvious regional wall motion abnormalities. Left ventricular ejection fraction is estimated at 55-60%. Right Ventricle Moderate right ventricular dilatation. Moderate pulmonary hypertension. Normal right ventricular global systolic function. Right Atrium Left Atrium Mitral Valve Aortic Valve Tricuspid Valve Structurally normal tricuspid valve. Mild tricuspid regurgitation. Pulmonic Valve Pericardium No pericardial effusion. Aorta CONCLUSIONS Limited study normal systolic function without wall motion abnormality. Moderate pulmonary hypertension. No pericardial effusion Previewed by: Dr. Noel Moody MD (Electronically Signed) Final Date: 06 December 2022 13:16
[2022-12-06 15:32] VITALS: RESP 16
[2022-12-06 16:48] LABS: Glucose,Whole Blood 253 mg/dL (70-110)
[2022-12-06] MEDS ORDERED: DEXTROSE 50% SYRINGE 50 ML IVP PRN ×2 (17:19)
[2022-12-06] MEDS: INSULIN ASPART (NovoLOG) 100 UNIT/ML VIAL SQ SCH ×2 (17:27→20:22)
[2022-12-06 20:16] LABS: Glucose,Whole Blood 210 mg/dL (70-110)
[2022-12-06] MEDS: ATORVASTATIN 80 MG TAB PO SCH (20:22)
[2022-12-06 23:28] VITALS: TEMP 98.3
[2022-12-07] MEDS: NITROGLYCERIN OINT 1 INCH/GM PACKET TOPICAL SCH ×2 (01:04→08:23)
[2022-12-07 06:04] LABS: Glucose,Whole Blood 144 mg/dL (70-110)
[2022-12-07] MEDS: SODIUM CHLORIDE 0.9% 1,000 ML in EMPTY BAG 1 BAG IV SCH ×2 (06:06→12:16)
[2022-12-07] MEDS: INSULIN ASPART (NovoLOG) 100 UNIT/ML VIAL SQ SCH ×3 (06:07→14:18)
[2022-12-07] MEDS ORDERED: HEPARIN SODIUM,PORCINE 2,500 UNIT in SODIUM CHLORIDE 0.9% 250 ML IRRIGATION PRN (07:00)
[2022-12-07] MEDS ORDERED: HEPARIN SODIUM,PORCINE 10,000 UNIT in SODIUM CHLORIDE 0.9% 1,000 ML IRRIGATION PRN (07:00)
[2022-12-07] MEDS: LOSARTAN-HCTZ 50-12.5 MG 1 EACH TAB PO SCH (08:25)
[2022-12-07] MEDS: FENOFIBRATE 160 MG TAB PO SCH (08:25)
[2022-12-07] MEDS: hydrALAZINE HCL 50 MG TAB PO SCH (08:25)
[2022-12-07] MEDS: HYDROcodone/APAP 7.5-325MG 1 EACH TAB PO PRN (08:26)
[2022-12-07] MEDS: FAMOTIDINE 20 MG TAB PO SCH (08:26)
[2022-12-07] MEDS: ASPIRIN 81 MG PO SCH (08:26)
[2022-12-07] MEDS ORDERED: hydrALAZINE HCL 25 MG TAB PO ONE (09:00)
[2022-12-07] MEDS ORDERED: ISOSORBIDE MONONITRATE ER 30 MG TAB.ER.24H PO SCH (09:00)
--- NOTE | 2022-12-07 09:53 | P.PN ---
Subjective HISTORY OF PRESENT ILLNESS: This is a 77-year-old female with a past medical history significant for hypertension, hyperlipidemia, and diabetes. 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 We have been asked to see the patient in consultation for chest pain. Patient examined at the bedside. Patient presented to the emergency room a chief complaint of chest pain. She also reports feeling short of breath for the past couple days. She denies any dizziness or lightheadedness. Denies nausea or vomiting. At the time of examination, the patient denies chest pain or pressure. It was some discussion about the possibility of atrophic relation. However EKGs in the computer and bedside telemetry monitoring reveals sinus mechanism with PACs. It is noted that the patient presented to the hospital a couple weeks ago due to shortness of breath. She was evaluated by Dr. Moody at that time. Patient was found to have an elevated d-dimer and she underwent a CTA which was negative for pulmonary embolism. * EKG reveals sinus mechanism with PACs * Chest xray negative for acute process * Laboratory data: WBC 5.6. Hemoglobin 11.1. Platelet count 217. D-dimer 1.25. Sodium 142. Potassium 3.6. BUN 17. Creatinine 1.0. * Current home cardiac medications include aspirin 81 mg daily, fenofibrate 145 mg daily, losartan-hydrochlorothiazide 50-12.5mg 2 tablets daily, and hydralazine 50 mg 3 times a day * Most recent echocardiogram obtained in November 2022 revealed ejection fraction 55-60%. 12/07/2022 Patient examined this morning at the bedside. She is status post cardiac catheterization revealing mild to moderate nonobstructive coronary artery disease. Echocardiogram performed revealing ejection fraction 55-60%, moderate pulmonary hypertension, mild tricuspid regurgitation. Patient denies any further episodes of chest pain or pressure. She denies shortness of breath. Blood pressure slightly elevated overnight with a systolic of 166. PHYSICAL EXAM: VITAL SIGNS: Reviewed. GENERAL: Well-developed in no acute distress. HEENT: Head is normocephalic. Pupils are equal, round. Sclerae anicteric. Mucous membranes of the mouth are moist. Neck supple. No JVD or thyromegaly LUNGS: Respirations even and unlabored. Lungs essentially clear to auscultation bilaterally. HEART: Regular rate and rhythm. S1 and S2 heard. ABDOMEN: Soft. Nondistended. Nontender. EXTREMITIES: Normal range of motion. No clubbing or cyanosis. Peripheral pulses intact. No lower extremity edema NEUROLOGIC: Awake and alert. Oriented x 3. ASSESSMENT: Chest pain, coronary negative 2 Mild to moderate nonobstructive coronary artery disease Shortness of breath Elevated d-dimer, patient had CTA of the chest 11/18/2022 which was negative for PE Hypertension Hyperlipidemia Diabetes PLAN: Discontinue Nitropaste Increase hydralazine to 75 mg 3 times a day Continue to monitor blood pressure Patient is stable for discharge home today from a cardiac standpoint Nurse practitioner note has been reviewed by physician. Signing provider agrees with the documented findings, assessment, and plan of care. Objective - Vital Signs Vital signs: Vital Signs Temp 98.3 F 12/07/22 08:00 Pulse 92 12/07/22 08:00 Resp 16 12/07/22 08:00 BP 134/74 12/07/22 08:00 Pulse Ox 97 12/07/22 08:00 FiO2 Intake & Output 12/06/22 12/07/22 12/07/22 18:59 06:59 18:59 Intake Total 858 Balance 858 Intake: IV 200 Oral 658 Other: Voiding Method Toilet Toilet Toilet # Voids 2 1 # Bowel Movements 1 - Labs CBC & Chem 7: 12/05/22 09:05 12/05/22 08:12 Labs: Abnormal Lab Results - Last 24 Hours (Table) 12/06/22 12/06/22 12/06/22 Range/Units 07:25 11:35 16:43 POC Glucose (mg/dL) 183 H 253 H (70-110) mg/dL Triglycerides 153.00 H (0.00-149.00) mg/dL 12/06/22 12/07/22 Range/Units 20:15 06:03 POC Glucose (mg/dL) 210 H 144 H (70-110) mg/dL Triglycerides (0.00-149.00) mg/dL
[2022-12-07 12:01] VITALS: BP 114/67; PULSE 77
[2022-12-07 12:05] LABS: Glucose,Whole Blood 170 mg/dL (70-110)
--- NOTE | 2022-12-07 13:44 | P.DS ---
Providers Date of admission: 12/05/22 09:59 Expected date of discharge: 12/07/22 Attending physician: Mustapha Barnett MD Consults: 12/05/22 09:57 Consult Physician Urgent Consulting Provider: [facility] Consult Reason/Comments: New-onset A. fib Do you want consulting provider notified?: Yes Primary care physician: Sissy Starr [facility] Hospital Course: Discharge diagnoses; Chest pain, coronary negative 2 Mild to moderate nonobstructive coronary artery disease Shortness of breath Hypertension Hyperlipidemia Diabetes Hospital course; This is a 77-year-old female with a past medical history significant for hypertension, hyperlipidemia, and diabetes. Patient presented to the emergency room a chief complaint of chest pain. She also reports feeling short of breath for the past couple days. It was some discussion about the possibility of atrophic relation. However EKGs in the computer and bedside telemetry monitoring reveals sinus mechanism with PACs. She was admitted to medicine service, cardiology was consulted 12/07/2022 status post cardiac catheterization revealing mild to moderate nonobstructive coronary artery disease. Echocardiogram performed revealing ejection fraction 55-60%, moderate pulmonary hypertension, mild tricuspid regurgitation. Cardiology cleared the patient for discharge PHYSICAL EXAMINATION: GENERAL: The patient is alert and oriented x3, not in any acute distress. Well developed, well nourished. HEENT: Pupils are round and equally reacting to light. EOMI. No scleral icterus. No conjunctival pallor. Normocephalic, atraumatic. No pharyngeal erythema. No thyromegaly. CARDIOVASCULAR: S1 and S2 present. No murmurs, rubs, or gallops. PULMONARY: Chest is clear to auscultation, no wheezing or crackles. ABDOMEN: Soft, nontender, nondistended, normoactive bowel sounds. No palpable organomegaly. MUSCULOSKELETAL: No joint swelling or deformity. EXTREMITIES: No cyanosis, clubbing, or pedal edema. NEUROLOGICAL: Gross neurological examination did not reveal any focal deficits. SKIN: No rashes. Patient Condition at Discharge: Good Plan - Discharge Summary Discharge Rx Participant: No New Discharge Prescriptions: New hydrALAZINE HCL [Apresoline] 75 mg PO TID #30 tab Atorvastatin [Lipitor] 80 mg PO HS #30 tab Continue Aspirin EC [Ecotrin Low Dose] 81 mg PO DAILY Cyanocobalamin (Vitamin B-12) [Vitamin B-12] 1,000 mcg PO DAILY Famotidine 40 mg PO DAILY glipiZIDE XL [Glucotrol XL] 5 mg PO DAILY metFORMIN HCL [Glucophage] 1,000 mg PO DAILY@1400 Fenofibrate Nanocrystallized [Fenofibrate] 145 mg PO DAILY Losartan-Hctz 50-12.5 mg [Hyzaar 50-12.5] 2 tab PO DAILY Multivit with Calcium,Iron,Min [Women's Multivitamin] 1 tab PO DAILY HYDROcodone/APAP 7.5-325MG [[place] 7.5-325] 1 tab PO TID Discontinued hydrALAZINE HCL [Apresoline] 50 mg PO TID #90 tab Discharge Medication List Aspirin EC [Ecotrin Low Dose] 81 mg PO DAILY 07/12/18 [History] Cyanocobalamin (Vitamin B-12) [Vitamin B-12] 1,000 mcg PO DAILY 07/30/19 [History] Famotidine 40 mg PO DAILY 07/30/19 [History] glipiZIDE XL [Glucotrol XL] 5 mg PO DAILY 07/30/19 [History] HYDROcodone/APAP 7.5-325MG [[place] 7.5-325] 1 tab PO TID 06/22/21 [History] Multivit with Calcium,Iron,Min [Women's Multivitamin] 1 tab PO DAILY 06/22/21 [History] metFORMIN HCL [Glucophage] 1,000 mg PO DAILY@1400 06/22/21 [History] Fenofibrate Nanocrystallized [Fenofibrate] 145 mg PO DAILY 12/05/22 [History] Losartan-Hctz 50-12.5 mg [Hyzaar 50-12.5] 2 tab PO DAILY 12/05/22 [History] Atorvastatin [Lipitor] 80 mg PO HS #30 tab 12/07/22 [Rx] hydrALAZINE HCL [Apresoline] 75 mg PO TID #30 tab 12/07/22 [Rx] Follow up Appointment(s)/Referral(s): Noel Moody MD [STAFF PHYSICIAN] - 1 Week (Offices are closed at this time. Please call to make a follow up appointment.) Sissy Starr DO [Primary Care Provider] - 1-2 days (Offices are closed at this time. Please call to make a follow up appointment.) Patient Instructions/Handouts: Heart Palpitations (DC), Hypertension (DC), After Radial Heart Catheterization (GEN) Activity/Diet/Wound Care/Special Instructions: Start taking metformin from 12/09/22. Because of recent contrast exposure during cardiac cath, patient needs to be off metformin for 48-72 hours Discharge Disposition: HOME SELF-CARE
[2022-12-07] MEDS ORDERED: hydrALAZINE HCL 25 MG TAB PO SCH (16:00)
== END 2022-12-07 14:24 | disposition home or self-care (01) ==
LOC: EC 07:06 → INTOOBSV 09:59 → 3SCARD 09:59
PROVIDERS: ADMIT Family Medicine; ATTEND Family Medicine
DX: I25.110 Atherosclerotic heart disease of native coronary artery with unstable angina pectoris (principal); E78.5 Hyperlipidemia, unspecified; R79.1 Abnormal coagulation profile; E11.9 Type 2 diabetes mellitus without complications; K21.9 Gastro-esophageal reflux disease without esophagitis; I34.1 Nonrheumatic mitral (valve) prolapse; M19.90 Unspecified osteoarthritis, unspecified site; G89.29 Other chronic pain; M54.9 Dorsalgia, unspecified; I83.90 Asymptomatic varicose veins of unspecified lower extremity; G43.909 Migraine, unspecified, not intractable, without status migrainosus; I12.9 Hypertensive chronic kidney disease with stage 1 through stage 4 chronic kidney disease, or unspecified chronic kidney disease; E11.22 Type 2 diabetes mellitus with diabetic chronic kidney disease; N18.2 Chronic kidney disease, stage 2 (mild); D50.9 Iron deficiency anemia, unspecified; Z96.652 Presence of left artificial knee joint; Z98.890 Other specified postprocedural states; Z90.710 Acquired absence of both cervix and uterus; Z84.89 Family history of other specified conditions; Z82.49 Family history of ischemic heart disease and other diseases of the circulatory system; Z80.9 Family history of malignant neoplasm, unspecified; Z79.84 Long term (current) use of oral hypoglycemic drugs; Z79.82 Long term (current) use of aspirin; Z79.899 Other long term (current) drug therapy; Z88.6 Allergy status to analgesic agent; Z88.8 Allergy status to other drugs, medicaments and biological substances; Z91.048 Other nonmedicinal substance allergy status; Z88.5 Allergy status to narcotic agent; Z88.2 Allergy status to sulfonamides
CPT/HCPCS: 96366 ×2; 96376; 96365; 96375; 99291; 36415; 94640; 94760; 93005; 93308; 93458; 85379; 80061; 80053; 83735; 84484; 85025; 85610; 85730 ×2; 71046; G0378 ×2; C1769; C1894; J2250; J1200; J2930; J2001; J1644 ×3; C9113; J1170; Q9967

== ENCOUNTER → 2023-04-07 | Outpatient (CLI) | payer MEDICARE, OTHER ==
--- NOTE | 2023-04-07 21:46 | MR ---
EXAMINATION TYPE: MR lumbar spine wo/w con DATE OF EXAM: 04/07/2023 COMPARISON: 09/04/2019 HISTORY: Low back pain that radiates down left leg, pain into right buttocks. History of surgeries. CONTRAST: 9.5 mL intravenous Gadavist. TECHNIQUE: Multiplanar, multisequence images of the lumbar spine were acquired. FINDINGS: L5-S1: No significant disc bulge or disc herniation. No spinal canal stenosis. Moderate bilateral f oraminal stenosis is present. Facet hypertrophy is present greater on the left. . L4-L5: There is loss of disc height is level. No spinal canal stenosis or neural foraminal stenosis p resent. Facet degenerative changes present. L3-L4: There is a moderate-sized central disc herniation. Facet hypertrophy is present. This has righ t posterior lateral thecal sac impressions. Spinal canal stenosis is present. Severe right foraminal stenosis is present. L2-L3: Disc bulge is present. Anterior thecal sac flattening is present. The sagittal plane there is increased signal on T2-weighted sequences within the disc space compatible with an annular tear. Face t hypertrophy is present on the right. No AP spinal canal stenosis present. There is a focal area of enhancement within the inferior right L3 level. L1-L2: Mild disc bulge is present with anterior thecal sac contact. This has mild anterior thecal sac compression. No AP spinal canal stenosis is present. Mild foraminal narrowing is present. T12-L1: No spinal canal stenosis is present. Small left paracentral focal bulge is present with mild anterior thecal sac compression. Cord terminates at the L1 level. No abnormal enhancement. IMPRESSION: 1. Moderate bilateral foraminal stenosis L5-S1. 2. Loss of disc height at L4-5. 3. Moderate central disc herniation L3-4. Right posterior lateral thecal sac compression from facet h ypertrophy is present contributing to spinal canal stenosis and severe right foraminal stenosis. 4. Annular tear at L2-L3 mild disc bulging. 5. Enhancing area within the L3 vertebral body. This was present in 2019.
== END | disposition home or self-care (01) ==
LOC: RADMRIMAIN 14:43
PROVIDERS: ATTEND Physical Medicine & Rehabilitation
DX: M47.817 Spondylosis without myelopathy or radiculopathy, lumbosacral region (principal); M96.1 Postlaminectomy syndrome, not elsewhere classified; E11.9 Type 2 diabetes mellitus without complications; M48.062 Spinal stenosis, lumbar region with neurogenic claudication; M41.26 Other idiopathic scoliosis, lumbar region; M25.551 Pain in right hip; M70.61 Trochanteric bursitis, right hip; M51.36 Other intervertebral disc degeneration, lumbar region; M47.816 Spondylosis without myelopathy or radiculopathy, lumbar region; Z68.36 Body mass index [BMI] 36.0-36.9, adult
CPT/HCPCS: 72158; A9585

== ENCOUNTER 2023-04-15 15:35 | Inpatient (IN) | payer MEDICARE, OTHER ==
[2023-04-15] MEDS ORDERED: FAMOTIDINE 20 MG/2 ML VIAL IV STA (16:01)
[2023-04-15] MEDS ORDERED: NITROGLYCERIN SL TABS 0.4 MG TAB SUBLINGUAL STA ×3 (16:01)
[2023-04-15] MEDS ORDERED: METOCLOPRAMIDE 5 MG/ML 2 ML VIAL IVP STA (16:02)
--- NOTE | 2023-04-15 16:05 | ED ---
General Adult HPI - General Chief complaint: Chest Pain Stated complaint: Chest Pain Time Seen by Provider: 04/15/23 15:53 Source: patient, RN notes reviewed Mode of arrival: ambulatory Limitations: no limitations - History of Present Illness Initial comments: Patient is a pleasant 77-year-old female presenting to the emergency department with concerns for chest discomfort. Onset of symptoms was about half an hour prior to arrival. Discomfort is severe at this time. Discomfort feels like a pinching. There is associated nausea and vomiting, patient is vomited 3 times. No dyspnea or diaphoresis. No history of similar symptoms previously. No leg pain or leg swelling. No abdominal pain or back pain. - Related Data Home Medications Medication Instructions Recorded Confirmed Aspirin EC [Ecotrin Low Dose] 81 mg PO DAILY 07/12/18 04/15/23 Cyanocobalamin (Vitamin B-12) 1,000 mcg PO DAILY 07/30/19 04/15/23 [Vitamin B-12] Famotidine 40 mg PO DAILY 07/30/19 04/15/23 glipiZIDE XL [Glucotrol XL] 5 mg PO DAILY 07/30/19 04/15/23 HYDROcodone/APAP 7.5-325MG [Bronson 1 tab PO TID 06/22/21 04/15/23 7.5-325] Multivit with Calcium,Iron,Min 1 tab PO DAILY 06/22/21 04/15/23 [Women's Multivitamin] metFORMIN HCL [Glucophage] 1,000 mg PO DAILY@1400 06/22/21 04/15/23 Fenofibrate Nanocrystallized 145 mg PO DAILY 12/05/22 04/15/23 [Fenofibrate] Losartan-Hctz 50-12.5 mg [Hyzaar 2 tab PO DAILY 12/05/22 04/15/23 50-12.5] Ibuprofen [Motrin] 800 mg PO DAILY 04/15/23 04/15/23 Isosorbide Mononitrate ER [Imdur] 30 mg PO DAILY 04/15/23 04/15/23 amLODIPine [Norvasc] 10 mg PO DAILY 04/15/23 04/15/23 hydrALAZINE HCL [Apresoline] 50 mg PO TID 04/15/23 04/15/23 Allergies Allergy/AdvReac Type Severity Reaction Status Date / Time diflunisal [From Dolobid] Allergy Anaphylaxis Verified 04/15/23 17:35 hydrochlorothiazide Allergy Swelling Verified 04/15/23 17:35 [From Zestoretic] of face and throat ibuprofen [From Motrin] Allergy Abdominal Verified 04/15/23 17:35 Pain Iodine and Iodide Containing Allergy Anaphylaxis Verified 04/15/23 17:35 Produc lisinopril Allergy Rash/Hives Verified 04/15/23 17:35 morphine Allergy Rash/Hives Verified 04/15/23 17:35 prednisone Allergy Rash/Hives Verified 04/15/23 17:35 sulfamethoxazole Allergy Anaphylaxis Verified 04/15/23 17:35 [From Bactrim] tramadol Allergy Rash/Hives Verified 04/15/23 17:35 trimethoprim [From Bactrim] Allergy Anaphylaxis Verified 04/15/23 17:35 baclofen AdvReac Unknown LOW HEART Verified 04/15/23 17:35 RATE NSAIDS (Non-Steroidal AdvReac Unknown TOLD TO Verified 04/15/23 17:35 Anti-Inflamma AVOID NSAIDS DUE TO ABDOMINAL PAIN ondansetron AdvReac Itching Verified 04/15/23 17:35 [From Zofran (as hydrochloride)] Review of Systems ROS Statement: Those systems with pertinent positive or pertinent negative responses have been documented in the HPI. ROS Other: All systems not noted in ROS Statement are negative. Constitutional: Denies: fever Eyes: Denies: eye pain ENT: Denies: ear pain Respiratory: Denies: cough Cardiovascular: Reports: as per HPI, chest pain Endocrine: Denies: fatigue Gastrointestinal: Reports: nausea, vomiting. Denies: abdominal pain Genitourinary: Denies: dysuria Musculoskeletal: Denies: back pain Skin: Denies: rash Past Medical History Past Medical History: Diabetes Mellitus, GERD/Reflux, Hyperlipidemia, Hypertension, Mitral Valve Prolapse (MVP), Osteoarthritis (OA) Additional Past Medical History / Comment(s): Hypertension, hyperlipidemia, diabetes mellitus, mitral valve prolapse, chronic back pain, varicose veins, migraines, chronic stage II kidney disease, iron deficiency anemia, lumbar disc disease with previous history of L4-L5 degenerative disc disease of the lumbar spine, osteoarthritis History of Any Multi-Drug Resistant Organisms: None Reported Past Surgical History: Back Surgery, Hysterectomy, Joint Replacement, Tonsillectomy Additional Past Surgical History / Comment(s): Spine surgery involving the lumbar spine related to herniated disc at the level of L4-L5, right temporal artery biopsy, ovarian cyst removal, pilonidal cyst, left knee replacement, tonsillectomy, hysterectomy Past Anesthesia/Blood Transfusion Reactions: Family Hisory of Malignant Hyperthermia Additional Past Anesthesia/Blood Transfusion Reaction / Comment(s): daughter had reaction to anesthesia age 7 with tonsilectomy called "chocolate anesthesia" per pt. "she had a rash and high fever of 105". daughter has had surgeries since with no problems. Past Psychological History: No Psychological Hx Reported Smoking Status: Never smoker Past Alcohol Use History: None Reported Past Drug Use History: None Reported - Past Family History Sister(s) Family Medical History: Cancer, Deep Vein Thrombosis (DVT) Brother(s) Family Medical History: Deep Vein Thrombosis (DVT) Father Family Medical History: Cancer, Deep Vein Thrombosis (DVT) Additional Family Medical History / Comment(s): [employer]ADRUPLE [employer]PASS Mother Family Medical History: Deep Vein Thrombosis (DVT) Additional Family Medical History / Comment(s): PACEMAKER General Exam Limitations: no limitations General appearance: alert, in no apparent distress Head exam: Present: normocephalic Eye exam: Present: normal appearance Neck exam: Present: normal inspection Respiratory exam: Present: normal lung sounds bilaterally. Absent: chest wall tenderness Cardiovascular Exam: Present: regular rate, normal rhythm Expanded Peripheral pulses: 2+: Radial (R), Radial (L), Dorsalis Pedis (R), Dorsalis Pedis (L) GI/Abdominal exam: Present: soft. Absent: tenderness Extremities exam: Present: normal inspection. Absent: pedal edema, calf tenderness Neurological exam: Present: alert Psychiatric exam: Present: normal affect, normal mood Skin exam: Present: normal color Course Vital Signs 04/15/23 04/15/23 04/15/23 15:37 15:51 16:20 Temperature 97.3 F L Pulse Rate 44 L 74 Respiratory 20 27 H Rate Blood Pressure 223/94 190/138 O2 Sat by Pulse 98 Oximetry 04/15/23 04/15/23 04/15/23 16:27 16:30 17:30 Temperature Pulse Rate 75 68 Respiratory 11 L 16 Rate Blood Pressure 134/85 134/85 129/60 O2 Sat by Pulse 98 98 Oximetry 04/15/23 04/15/23 04/15/23 18:30 19:00 21:30 Temperature Pulse Rate 54 L 69 58 L Respiratory 25 H 30 H 14 Rate Blood Pressure 136/59 136/59 151/87 O2 Sat by Pulse 98 Oximetry EKG Findings - EKG Results: EKG: interpreted by MARIXAD (LVH criteria), sinus rhythm (With bigeminy pattern), normal axis, normal ST/T Medical Decision Making - Medical Decision Making Was pt. sent in by a medical professional or institution (, PA, PLATFORM LOADER, urgent care, hospital, or fci...) When possible be specific @ -No Did you speak to anyone other than the patient for history (EMS, parent, family, police, friend...)? What history was obtained from this source @ -No Did you review nursing and triage notes (agree or disagree)? Why? @ -I reviewed and agree with nursing and triage notes Were old charts reviewed (outside hosp., previous admission, EMS record, old EKG, old radiological studies, urgent care reports/EKG's, fci records)? Report findings @ -No old charts were reviewed Differential Diagnosis (chest pain, altered mental status, abdominal pain women, abdominal pain men, vaginal bleeding, weakness, fever, dyspnea, syncope, headache, dizziness, GI bleed, back pain, seizure, CVA, palpatations, mental health, musculoskeletal)? @ -Differential Chest Pain: Stable Angina, Unstable Angina, STEMI, NSTEMI Aortic Dissection, Pneumothorax, Musculoskeletal, Esophageal Spasm GERD, Cholecystitis, Pancreatitis, Zoster, this is not meant to be an all-inclusive list. EKG interpreted by me (3pts min.). @ -As above X-rays interpreted by me (1pt min.). @ -Chest x-ray shows some bibasilar airspace opacities which could represent pneumonia versus congestive heart failure. CT interpreted by me (1pt min.). @ -None done U/S interpreted by me (1pt. min.). @ -None done What testing was considered but not performed or refused? (CT, X-rays, U/S, labs)? Why? @ -Patient has questionable chest x-ray results and elevated d-dimer. Computed tomography scan ordered. What meds were considered but not given or refused? Why? @ -None Did you discuss the management of the patient with other professionals (professionals i.e. , PA, PLATFORM LOADER, lab, RT, psych nurse, social media marketing specialist, employment programs analyst, teacher, global chief experience officer, pillowcase cleaner)? Give summary @ -Case was discussed with Dr. Rushing, who will admit covering Dr. Starr Was smoking cessation discussed for >3mins.? @ -No Was critical care preformed (if so, how long)? @ -No Were there social determinants of health that impacted care today? How? (Homelessness, low income, unemployed, alcoholism, drug addiction, transportation, low edu. Level, literacy, decrease access to med. care, [place] [facility], rehab)? @ -No Was there de-escalation of care discussed even if they declined (Discuss DNR or withdrawal of care, Hospice)? DNR status @ -No What co-morbidities impacted this encounter? (DM, HTN, Smoking, COPD, CAD, Cancer, CVA, ARF, Chemo, Hep., AIDS, mental health diagnosis, sleep apnea, morb id obesity)? @ -None Was patient admitted / discharged? Hospital course, mention meds given and route, prescriptions, significant lab abnormalities, going to OR and other pertinent info. @ -Patient reevaluated and improved. Patient will be admitted for cardiac. Patient does have abnormal chest x-ray and d-dimer. Computed tomography scan will be ordered. Patient will be admitted. Orders written. Undiagnosed new problem with uncertain prognosis? @ -No Drug Therapy requiring intensive monitoring for toxicity (Heparin, Nitro, Insulin, Cardizem)? @ -No Were any procedures done? @ -No Diagnosis/symptom? @ -Chest pain Acute, or Chronic, or Acute on Chronic? @ -Acute Uncomplicated (without systemic symptoms) or Complicated (systemic symptoms)? @ -default Side effects of treatment? @ -No Exacerbation, Progression, or Severe Exacerbation? @ -No Poses a threat to life or bodily function? How? (Chest pain, [place], [place], pneumonia, PE, COPD, DKA, ARF, appy, cholecystitis, CVA, Diverticulitis, Homicidal, Suicidal, threat to staff... and all critical care pts) @ -No - Lab Data Result diagrams: 04/15/23 16:28 04/15/23 16:28 Lab Results 04/15/23 04/15/23 04/15/23 Range/Units 16:28 16:28 16:28 WBC 6.1 (3.8-10.6) k/uL RBC 3.86 (3.80-5.40) m/uL Hgb 12.4 (11.4-16.0) gm/dL Hct 36.9 (34.0-46.0) % MCV 95.6 (80.0-100.0) fL MCH 32.1 (25.0-35.0) pg MCHC 33.5 (31.0-37.0) g/dL RDW 13.6 (11.5-15.5) % Plt Count 173 (150-450) k/uL MPV 8.9 Neutrophils % 66 % Lymphocytes % 27 % Monocytes % 4 % Eosinophils % 1 % Basophils % 0 % Neutrophils # 4.0 (1.3-7.7) k/uL Lymphocytes # 1.6 (1.0-4.8) k/uL Monocytes # 0.2 (0-1.0) k/uL Eosinophils # 0.1 (0-0.7) k/uL Basophils # 0.0 (0-0.2) k/uL PT (10.0-12.5) sec INR (<1.2) APTT (22.0-30.0) sec D-Dimer (<0.60) mg/L FEU Sodium 141 (137-145) mmol/L Potassium 4.4 (3.5-5.1) mmol/L Chloride 106 (98-107) mmol/L Carbon Dioxide 21 L (22-30) mmol/L Anion Gap 14 mmol/L BUN 19 H (7-17) mg/dL Creatinine 1.00 (0.52-1.04) mg/dL Est GFR (CKD-EPI)AfAm 63 (>60 ml/min/1.73 sqM) Est GFR (CKD-EPI)NonAf 55 (>60 ml/min/1.73 sqM) Glucose 110 H (74-99) mg/dL Calcium 10.5 H (8.4-10.2) mg/dL Magnesium 1.6 (1.6-2.3) mg/dL Total Bilirubin 0.5 (0.2-1.3) mg/dL AST 17 (14-36) U/L ALT 16 (4-34) U/L Alkaline Phosphatase 97 (38-126) U/L Troponin I 0.023 (0.000-0.034) ng/mL Total Protein 8.1 (6.3-8.2) g/dL Albumin 4.8 (3.5-5.0) g/dL Amylase 70 (30-110) U/L Lipase 92 (23-300) U/L 04/15/23 Range/Units 20:17 WBC (3.8-10.6) k/uL RBC (3.80-5.40) m/uL Hgb (11.4-16.0) gm/dL Hct (34.0-46.0) % MCV (80.0-100.0) fL MCH (25.0-35.0) pg MCHC (31.0-37.0) g/dL RDW (11.5-15.5) % Plt Count (150-450) k/uL MPV Neutrophils % % Lymphocytes % % Monocytes % % Eosinophils % % Basophils % % Neutrophils # (1.3-7.7) k/uL Lymphocytes # (1.0-4.8) k/uL Monocytes # (0-1.0) k/uL Eosinophils # (0-0.7) k/uL Basophils # (0-0.2) k/uL PT 10.2 (10.0-12.5) sec INR 0.9 (<1.2) APTT 22.6 (22.0-30.0) sec D-Dimer 1.13 H (<0.60) mg/L FEU Sodium (137-145) mmol/L Potassium (3.5-5.1) mmol/L Chloride (98-107) mmol/L Carbon Dioxide (22-30) mmol/L Anion Gap mmol/L BUN (7-17) mg/dL Creatinine (0.52-1.04) mg/dL Est GFR (CKD-EPI)AfAm (>60 ml/min/1.73 sqM) Est GFR (CKD-EPI)NonAf (>60 ml/min/1.73 sqM) Glucose (74-99) mg/dL Calcium (8.4-10.2) mg/dL Magnesium (1.6-2.3) mg/dL Total Bilirubin (0.2-1.3) mg/dL AST (14-36) U/L ALT (4-34) U/L Alkaline Phosphatase (38-126) U/L Troponin I (0.000-0.034) ng/mL Total Protein (6.3-8.2) g/dL Albumin (3.5-5.0) g/dL Amylase (30-110) U/L Lipase (23-300) U/L Disposition Clinical Impression: Chest pain Disposition: ADMITTED IP TO THIS HOSP Is patient prescribed a controlled substance at d/c from ED?: No Referrals: Sissy Starr DO [Primary Care Provider] - 1-2 days Time of Disposition: 22:34
--- NOTE | 2023-04-15 17:00 | XR ---
EXAMINATION TYPE: XR chest 2V DATE OF EXAM: 04/15/2023 4:49 PM CLINICAL INDICATION:Female, 77 years old with history of Chest Pain; COMPARISON: Chest radiographs from 12/05/2022 TECHNIQUE: XR chest 2V Frontal and lateral views of the chest. FINDINGS: Lungs/Pleura: There is no evidence of pleural effusion, focal consolidation, or pneumothorax. Pulmonary vascularity: Pulmonary vascular congestion. Heart/mediastinum: Cardiomediastinal silhouette is enlarged and stable. Musculoskeletal: No acute osseous pathology. IMPRESSION: Bibasilar airspace opacities correlate for pneumonia versus congestive heart failure.
[2023-04-15 17:02] LABS: Basophils % (A) 0 %; Eosinophils # (A) 0.1 k/uL (0-0.7); Eosinophils % (A) 1 %; HCT 36.9 % (34.0-46.0); HGB 12.4 gm/dL (11.4-16.0); Lymphocytes # (A) 1.6 k/uL (1.0-4.8); Lymphocytes % (A) 27 %; MCH 32.1 pg (25.0-35.0); MCHC 33.5 g/dL (31.0-37.0); MCV 95.6 fL (80.0-100.0); Mean Platelet Volume 8.9; Monocytes # (A) 0.2 k/uL (0-1.0); Monocytes % (A) 4 %; Neutrophils % (A) 66 %; Platelet Count 173 k/uL (150-450); RBC 3.86 m/uL (3.80-5.40); RDW 13.6 % (11.5-15.5); WBC 6.1 k/uL (3.8-10.6)
[2023-04-15 17:09] LABS: Anion Gap 14 mmol/L; Blood Urea Nitrogen 19 mg/dL (7-17); Carbon Dioxide 21 mmol/L (22-30); Chloride 106 mmol/L (98-107); Glucose 110 mg/dL (74-99); Potassium 4.4 mmol/L (3.5-5.1); Sodium 141 mmol/L (137-145)
[2023-04-15 17:10] LABS: ALT 16 U/L (4-34); AST 17 U/L (14-36); African American GFR (CKD) 63 (>60 ml/min/1.73 sqM); Albumin 4.8 g/dL (3.5-5.0); Alkaline Phosphatase 97 U/L (38-126); Amylase 70 U/L (30-110); Calcium 10.5 mg/dL (8.4-10.2); Lipase 92 U/L (23-300); Magnesium 1.6 mg/dL (1.6-2.3); Non-African American GFR(CKD) 55 (>60 ml/min/1.73 sqM); Total Bilirubin 0.5 mg/dL (0.2-1.3); Total Protein 8.1 g/dL (6.3-8.2)
[2023-04-15 21:26] LABS: INR 0.9 (<1.2); Partial Thromboplastin Time 22.6 sec (22.0-30.0); Prothrombin Time 10.2 sec (10.0-12.5)
[2023-04-15] MEDS ORDERED: ACETAMINOPHEN TAB 500 MG TAB PO STA (21:34)
[2023-04-15] MEDS ORDERED: methylPREDNISolone SOD SUCCI 125 MG/2 ML VIAL IV STA (21:57)
[2023-04-15] MEDS ORDERED: diphenhydrAMINE 50 MG/ML 1 ML VIAL IVP STA (21:57)
[2023-04-15] MEDS ORDERED: NITROGLYCERIN SL TABS 0.4 MG TAB SUBLINGUAL PRN (22:35)
[2023-04-15] MEDS: ASPIRIN 81 MG PO SCH (23:44)
[2023-04-15] MEDS: NITROGLYCERIN OINT 1 INCH/GM PACKET TOPICAL SCH (23:53)
--- NOTE | 2023-04-16 00:14 | CT ---
EXAM: CT Angiography Chest With Intravenous Contrast CLINICAL HISTORY: ITS.REASON CT Reason: cp TECHNIQUE: Axial computed tomographic angiography images of the chest with intravenous contrast. CTDI is 19.3 mGy and DLP is 439.2 mGy-cm. This CT exam was performed using one or more of the following dose reduction techniques: automated exposure control, adjustment of the mA and/or kV according to patient size, and/or use of iterative reconstruction technique. MIP reconstructed images were created and reviewed. COMPARISON: No relevant prior studies available. FINDINGS: Pulmonary arteries: Unremarkable. No pulmonary embolism. Aorta: No acute findings. No thoracic aortic aneurysm. Lungs: Unremarkable. No mass. No consolidation. Pleural space: Unremarkable. No significant effusion. No pneumothorax. Heart: Unremarkable. No cardiomegaly. No significant pericardial effusion. No evidence of RV dysfunction. Bones/joints: No acute fracture. No dislocation. Soft tissues: Unremarkable. Lymph nodes: Unremarkable. No enlarged lymph nodes. Liver: Hepatic steatosis. Gallbladder and bile ducts: Gallbladder sludge. Pancreas: Action of the pancreas. IMPRESSION: No acute findings in the visualized arteries of the chest.
[2023-04-16] MEDS ORDERED: HEPARIN SODIUM 1,000 UN/ML (10ML VL) IV PRN (02:51)
[2023-04-16] MEDS ORDERED: HEPARIN SODIUM 1,000 UN/ML (10ML VL) IV ONE ×2 (02:51→12:34)
[2023-04-16] MEDS ORDERED: HEPARIN SOD,PORK IN 0.45% NACL 25,000 UNIT in 0.45% NACL 1 250ML.BAG IV SCH (03:00)
[2023-04-16] MEDS: ATORVASTATIN 80 MG TAB PO SCH ×2 (03:32→10:40)
[2023-04-16] MEDS ORDERED: MORPHINE SULFATE 4 MG/ML SYRINGE IVP STA (05:21)
[2023-04-16] MEDS: NITROGLYCERIN OINT 1 INCH/GM PACKET TOPICAL SCH ×2 (05:33→15:27)
[2023-04-16] MEDS ORDERED: HYDROmorphone 0.5 MG/0.5 ML SYRINGE IVP STA ×2 (05:56→20:14)
[2023-04-16] MEDS ORDERED: ALPRAZolam 0.25 MG TAB PO PRN (08:29)
[2023-04-16] MEDS ORDERED: NITROGLYCERIN SL TABS 0.4 MG TAB SUBLINGUAL PRN (08:29)
[2023-04-16] MEDS ORDERED: ATORVASTATIN 80 MG TAB PO STA (08:29)
[2023-04-16] MEDS ORDERED: ALPRAZolam 0.5 MG TAB PO PRN (08:29)
[2023-04-16] MEDS ORDERED: ASPIRIN 325 MG TAB PO STA (08:29)
[2023-04-16] MEDS ORDERED: FENOFIBRATE 160 MG TAB PO SCH (09:00)
[2023-04-16] MEDS ORDERED: FAMOTIDINE 20 MG TAB PO SCH (09:00)
[2023-04-16 09:21] LABS: Chol/HDL Ratio 3.26 Ratio; LDL Cholesterol,Calculated 109.2 mg/dL (0.0-131.0); VLDL Calculation 15.56 mg/dL (5.00-40.00)
--- NOTE | 2023-04-16 09:40 | CONS ---
CONSULTATION CHIEF COMPLAINT: Chest pain. HISTORY OF PRESENT ILLNESS: Gina is a 77-year-old lady with history of coronary artery disease, on medical therapy, hypertension, diabetes, dyslipidemia, who presented to hospital complaining of chest pain. She had an episode of chest discomfort that she describes as a pressure- like sensation associated with left arm pain, subsequently has had nausea and vomiting. She had 2 or 3 episodes of this following which she continued to have chest discomfort. She was concerned and came to the emergency room and is being admitted to hospital. An EKG on her shows sinus rhythm with frequent PVCs and nonspecific ST-T wave changes. She had 3 sets of troponins that are mildly elevated at 0.02, 0.1, and 0.1. She is being treated with intravenous heparin, and the chest discomfort has resolved. Her D- dimer was elevated at 1.[address] scan of the chest that was negative for pulmonary embolism. Following her cardiac catheterization in November, the patient had a stress test in the office that revealed a reversible perfusion defect involving the anteroapical and anterolateral wall suggestive of stress-induced ischemia in LAD distribution. Given her symptomatology, elevated troponin and the recent abnormal stress test, I advised the patient to undergo cardiac catheterization. Dr. Martinez, her primary occupational work experience teacher, will perform the same. Her labs today showed that the creatinine is normal at 1. Hemoglobin is 12.4, platelet count is 170. PAST MEDICAL HISTORY: Significant for coronary artery disease, hypertension, diabetes, dyslipidemia. CURRENT MEDICATIONS: Include: 1. Aspirin. 2. Norvasc. 3. Lipitor. 4. Pepcid. 5. Lofibra. 6. Hyzaar. 7. Piperacillin. 8. Imdur. 9. Glucophage. 10.Lopressor. 11.Nitravet. ALLERGIES: There are multiple drug allergies, I reviewed them. FAMILY HISTORY: Significant for coronary artery disease. SOCIAL HISTORY: Negative for current smoking, EtOH abuse, or drug abuse. REVIEW OF SYSTEMS: HEENT: Unremarkable. CARDIAC: As described above. RESPIRATORY: Negative. GI: As described above. GENITOURINARY: Negative. ALLERGY/IMMUNOLOGY: Negative. SKIN: Negative. MUSCULOSKELETAL: Negative. ENDOCRINE: Negative. DERMATOLOGIC: Negative. CONSTITUTIONAL: Negative. ONCOLOGICAL: Negative. MEDICAL RECORDS AUDITOR: Negative. Rest of the system review is not relevant. PHYSICAL EXAMINATION: GENERAL: She is comfortable at rest. VITAL SIGNS: Stable. NECK: There is no jugular venous distention. Carotid upstroke is normal. There is no bruit. CHEST: Exam reveals good air entry bilaterally. HEART: Reveals first and second heart sounds. S4 is heard. ABDOMEN: Soft. EXTREMITIES: Exam of extremities did not reveal any edema. Peripheral pulses are felt. ASSESSMENT: Acute [id number] elevation myocardial infarction in a patient with known coronary artery disease on medical therapy and recent abnormal stress test in left anterior descending distribution. PLAN: I advised the patient to undergo cardiac catheterization. She had been explained of risks, benefits, and alternatives, understood and accepted. This will be done sometime today. MMODL / IJN: [id number] /
[2023-04-16] MEDS: FAMOTIDINE 20 MG TAB PO SCH (10:01)
[2023-04-16] MEDS: CYANOCOBALAMIN 500 MCG TAB PO SCH (10:01)
[2023-04-16] MEDS: MULTIVITAMINS, THERA 1 EACH TAB PO SCH (10:01)
[2023-04-16] MEDS: hydrALAZINE HCL 50 MG TAB PO SCH ×3 (10:02→20:43)
[2023-04-16] MEDS: ISOSORBIDE MONONITRATE ER 30 MG TAB.ER.24H PO SCH (10:02)
[2023-04-16] MEDS: amLODIPine 10 MG TAB PO SCH (10:02)
[2023-04-16] MEDS: METOPROLOL TARTRATE 25 MG TAB PO SCH (10:02)
[2023-04-16] MEDS: LOSARTAN-HCTZ 50-12.5 MG 1 EACH TAB PO SCH (10:03)
[2023-04-16] MEDS: HYDROcodone/APAP 7.5-325MG 1 EACH TAB PO SCH ×3 (10:15→23:30)
[2023-04-16] MEDS ORDERED: diphenhydrAMINE 25 MG CAP PO STA (10:23)
[2023-04-16] MEDS: ASPIRIN 81 MG PO SCH (10:40)
[2023-04-16 11:22] LABS: African American GFR (CKD) 65 (>60 ml/min/1.73 sqM); Anion Gap 14 mmol/L; Blood Urea Nitrogen 20 mg/dL (7-17); Calcium 10.1 mg/dL (8.4-10.2); Carbon Dioxide 19 mmol/L (22-30); Chloride 105 mmol/L (98-107); Glucose 246 mg/dL (74-99); Magnesium 1.5 mg/dL (1.6-2.3); Non-African American GFR(CKD) 57 (>60 ml/min/1.73 sqM); Potassium 4.5 mmol/L (3.5-5.1); Sodium 138 mmol/L (137-145)
[2023-04-16] MEDS ORDERED: VERAPAMIL 2.5 MG/ML 2 ML AMP ONE (12:02)
[2023-04-16] MEDS ORDERED: LIDOCAINE 1% INJ 10MG/ML (20 ML MDV) ONE (12:02)
[2023-04-16] MEDS ORDERED: IV FLUID CONTINUATION 1,000 ML IV ONE (12:05)
[2023-04-16] MEDS ORDERED: fentaNYL (PF) 50 MCG/ML 2 ML AMP ONE (12:11)
[2023-04-16] MEDS ORDERED: methylPREDNISolone SOD SUCCI 125 MG/2 ML VIAL ONE (12:11)
[2023-04-16] MEDS ORDERED: HEPARIN SODIUM 1,000 UN/ML (10ML VL) ONE (12:12)
[2023-04-16] MEDS ORDERED: FAMOTIDINE 20 MG/2 ML VIAL IV STA (12:18)
[2023-04-16] MEDS ORDERED: methylPREDNISolone SOD SUCCI 125 MG/2 ML VIAL IV ONE (12:20)
[2023-04-16] MEDS ORDERED: fentaNYL (PF) 50 MCG/ML 2 ML AMP IVP ONE (12:26)
[2023-04-16] MEDS ORDERED: LIDOCAINE 1% INJ 10MG/ML (20 ML MDV) SQ ONE (12:26)
[2023-04-16] MEDS ORDERED: VERAPAMIL SYRINGE (5 MG/10 ML) INTRAARTER ONE (12:28)
[2023-04-16] MEDS ORDERED: DEXTROSE 50% SYRINGE 50 ML IVP PRN ×2 (12:38)
[2023-04-16] MEDS ORDERED: MIDAZOLAM 2 MG/2 ML VIAL IVP ONE (12:46)
[2023-04-16] MEDS ORDERED: IOPAMIDOL-370 100ML BTL INJ ONE ×2 (12:50→13:00)
[2023-04-16] MEDS ORDERED: Magnesium Replacement Protocol 1 EACH MISC MISCELLANE PRN (12:52)
--- NOTE | 2023-04-16 13:00 | P.HPIM ---
History of Present Illness H&P Date: 04/16/23 Chief Complaint: Chest Pain This is a 77-year-old -[place] female , with past medical history significant for CAD, reports recent abnormal stress test, hypertension, diabetes mellitus, dyslipidemia, obesity and multiple other medical issues, presented to the ER with complaints of chest pain /pressure radiating to left shoulder and left shoulder blade accompanied by shortness of breath, since 2 PM yesterday and persisted until after she arrived into the ER. Reports she had 4 episodes of nausea and vomiting with chest pain developing after the third episode. Denies diaphoresis. Denies further nausea or vomiting. Denies abdominal pain, denies heartburn Denies lightheadedness dizziness or focal deficits. Troponins mildly elevated, 0.023, 0.132, 0.102. EKG reporting sinus rhythm, PVCs, nonspecific ST-T wave changes. Afebrile, normal WBC. Hemoglobin 12.4 complete is 173. Anticoagulated on heparin drip. Chest pain currently resolved. BUN 19, creatinine 1. Sodium 141, potassium 4.4, bicarb 21, magnesium 1.6-replacement protocol ordered. Evaluated by cardiology and patient is scheduled for cardiac catheterization. Review of Systems Constitutional: Denies chills, Denies fever Eyes: denies blurred vision, denies pain Ears, nose, mouth and throat: Denies headache, Denies sore throat Cardiovascular: Reports chest tightness, shortness of breath Respiratory: Denies cough Gastrointestinal: Denies abdominal pain, Denies diarrhea, reports 4 episodes of nausea and vomiting, currently subsided Genitourinary: Denies dysuria, Denies hematuria Musculoskeletal: Denies myalgias Integumentary: Denies pruritus, Denies rash Neurological: Denies numbness, Denies weakness Psychiatric: Denies anxiety, Denies depression Endocrine: Denies fatigue, Denies weight change Past Medical History Past Medical History: Diabetes Mellitus, GERD/Reflux, Hyperlipidemia, Hypertension, Mitral Valve Prolapse (MVP), Osteoarthritis (OA) Additional Past Medical History / Comment(s): Hypertension, hyperlipidemia, diabetes mellitus, mitral valve prolapse, chronic back pain, varicose veins, migraines, chronic stage II kidney disease, iron deficiency anemia, lumbar disc disease with previous history of L4-L5 degenerative disc disease of the lumbar spine, osteoarthritis History of Any Multi-Drug Resistant Organisms: None Reported Past Surgical History: Back Surgery, Hysterectomy, Joint Replacement, Tonsillectomy Additional Past Surgical History / Comment(s): Spine surgery involving the lumbar spine related to herniated disc at the level of L4-L5, right temporal artery biopsy, ovarian cyst removal, pilonidal cyst, left knee replacement, tonsillectomy, hysterectomy Past Anesthesia/Blood Transfusion Reactions: Family Hisory of Malignant Hyperthermia Additional Past Anesthesia/Blood Transfusion Reaction / Comment(s): daughter had reaction to anesthesia age 7 with tonsilectomy called "chocolate anesthesia" per pt. "she had a rash and high fever of 105". daughter has had surgeries since with no problems. Past Psychological History: No Psychological Hx Reported Smoking Status: Never smoker Past Alcohol Use History: None Reported Past Drug Use History: None Reported - Past Family History Sister(s) Family Medical History: Cancer, Deep Vein Thrombosis (DVT) Brother(s) Family Medical History: Deep Vein Thrombosis (DVT) Father Family Medical History: Cancer, Deep Vein Thrombosis (DVT) Additional Family Medical History / Comment(s): [employer] Mother Family Medical History: Deep Vein Thrombosis (DVT) Additional Family Medical History / Comment(s): PACEMAKER Medications and Allergies Home Medications Medication Instructions Recorded Confirmed Type Aspirin EC [Ecotrin Low Dose] 81 mg PO DAILY 07/12/18 04/15/23 History Cyanocobalamin (Vitamin B-12) 1,000 mcg PO DAILY 07/30/19 04/15/23 History [Vitamin B-12] Famotidine 40 mg PO DAILY 07/30/19 04/15/23 History glipiZIDE XL [Glucotrol XL] 5 mg PO DAILY 07/30/19 04/15/23 History HYDROcodone/APAP 7.5-325MG [[place] 1 tab PO TID 06/22/21 04/15/23 History 7.5-325] Multivit with Calcium,Iron,Min 1 tab PO DAILY 06/22/21 04/15/23 History [Women's Multivitamin] metFORMIN HCL [Glucophage] 1,000 mg PO DAILY@1400 06/22/21 04/15/23 History Fenofibrate Nanocrystallized 145 mg PO DAILY 12/05/22 04/15/23 History [Fenofibrate] Losartan-Hctz 50-12.5 mg [Hyzaar 2 tab PO DAILY 12/05/22 04/15/23 History 50-12.5] Ibuprofen [Motrin] 800 mg PO DAILY 04/15/23 04/15/23 History Isosorbide Mononitrate ER [Imdur] 30 mg PO DAILY 04/15/23 04/15/23 History amLODIPine [Norvasc] 10 mg PO DAILY 04/15/23 04/15/23 History hydrALAZINE HCL [Apresoline] 50 mg PO TID 04/15/23 04/15/23 History Allergies Allergy/AdvReac Type Severity Reaction Status Date / Time diflunisal [From Dolobid] Allergy Anaphylaxis Verified 04/15/23 17:35 hydrochlorothiazide Allergy Swelling Verified 04/15/23 17:35 [From Zestoretic] of face and throat ibuprofen [From Motrin] Allergy Abdominal Verified 04/15/23 17:35 Pain Iodine and Iodide Containing Allergy Anaphylaxis Verified 04/15/23 17:35 Produc lisinopril Allergy Rash/Hives Verified 04/15/23 17:35 morphine Allergy Rash/Hives Verified 04/15/23 17:35 prednisone Allergy Rash/Hives Verified 04/15/23 17:35 sulfamethoxazole Allergy Anaphylaxis Verified 04/15/23 17:35 [From Bactrim] tramadol Allergy Rash/Hives Verified 04/15/23 17:35 trimethoprim [From Bactrim] Allergy Anaphylaxis Verified 04/15/23 17:35 baclofen AdvReac Unknown LOW HEART Verified 04/15/23 17:35 RATE NSAIDS (Non-Steroidal AdvReac Unknown TOLD TO Verified 04/15/23 17:35 Anti-Inflamma AVOID NSAIDS DUE TO ABDOMINAL PAIN ondansetron AdvReac Itching Verified 04/15/23 17:35 [From Zofran (as hydrochloride)] Physical Exam Vitals: Vital Signs Temp Pulse Resp BP Pulse Ox 04/16/23 08:00 98.0 F 52 L 16 145/89 96 04/16/23 05:00 98.3 F 92 18 187/78 100 04/16/23 04:00 98.3 F 61 18 192/73 99 04/15/23 23:52 97.8 F 58 L 18 170/65 99 04/15/23 23:00 165/63 04/15/23 22:00 54 L 21 151/87 99 04/15/23 21:30 58 L 14 151/87 04/15/23 19:00 69 30 H 136/59 04/15/23 18:30 54 L 25 H 136/59 98 04/15/23 17:30 68 16 129/60 98 04/15/23 16:30 75 11 L 134/85 98 04/15/23 16:27 134/85 04/15/23 16:20 190/138 04/15/23 15:51 74 27 H 04/15/23 15:37 97.3 F L 44 L 20 223/94 98 Intake and Output 04/15/23 04/16/23 04/16/23 22:59 06:59 14:59 Other: Voiding Method Toilet Weight 95.254 kg General: well nourished, well developed, NAD. Vitals reviewed Eyes: PERRL, EOMI, conjunctiva normal HENT: normocephalic, Neck: supple, no JVD Lungs: normal respiratory effort, no wheezes or rales CV: Regular rate and rhythm, Peripheral pulses 2+ Abdomen: soft, nondistended, nontender no organomegaly Lymph: no cervical or axillary LAD Skin: warm and dry. Neuro: A&Ox3, normal mood and affect Results CBC & Chem 7: 04/15/23 16:28 04/16/23 10:45 Labs: Abnormal Lab Results - Last 24 Hours (Table) 04/15/23 04/15/23 04/16/23 Range/Units 16:28 20:17 01:36 D-Dimer 1.13 H (<0.60) mg/L FEU Carbon Dioxide 21 L (22-30) mmol/L BUN 19 H (7-17) mg/dL Glucose 110 H (74-99) mg/dL Calcium 10.5 H (8.4-10.2) mg/dL Troponin I 0.132 H* (0.000-0.034) ng/mL 04/16/23 Range/Units 03:54 D-Dimer (<0.60) mg/L FEU Carbon Dioxide (22-30) mmol/L BUN (7-17) mg/dL Glucose (74-99) mg/dL Calcium (8.4-10.2) mg/dL Troponin I 0.102 H* (0.000-0.034) ng/mL Assessment and Plan Assessment: Chest pain, acute NSTEMI. CAD, recent abnormal stress test Gastroesophageal reflux disease Hiatal hernia Diabetes mellitus Hypertension Hyperlipidemia Morbid obesity, BMI 36 Hypomagnesemia Plan: Continue on current medication regime ,monitoring and symptomatic treatment. Anticoagulated on heparin drip. Cardiac catheterization pending. Close monitoring of renal function, electrolytes with repeat labs ordered for a.m. Magnesium supplementation as per replacement protocol ordered. NovoLog sliding scale ordered. GI prophylaxis with Pepcid. The impression and plan of care has been dictated as directed. : I performed a history and examination of this patient, discussed the same with the dictator. I agree with the dictator's note ,documented as a scribe. Any additional findings or plans will be noted.
[2023-04-16] MEDS ORDERED: RX INFO: IV CONTRAST WAS GIVEN 1 EACH MISC MISCELLANE PRN (13:07)
[2023-04-16] MEDS ORDERED: SODIUM CHLORIDE 0.9% 1,000 ML IV SCH (13:15)
--- NOTE | 2023-04-16 13:16 | P.CARDCATH ---
Date of Procedure: 04/16/23 Description of Procedure: Cardiac Catheterization: The patient is a 77-year-old female with known history of hypertension, hyperlipidemia, diabetes mellitus and history of CAD who presented with nausea and vomiting, chest discomfort and mild troponin elevation. Recommendations were made regarding cardiac catheterization, the risks and the complications were discussed with the patient who is in full understanding and agreement. Procedure Description: Patient was brought to blender laborer in fasting semi-sedated state after receiving Fentanyl and Benadryl achieiving moderate conscious sedated state. Using Xylocaine Anesthesia and modified Seldinger technique, a 6-Mosotho sheath was introduced in the right radial artery . Subsequently, selective coronary angiography was performed using a 5-Mosotho 3.5 bend Rick catheter. Multiple views of the coronary artery including hemiaxial views were obtained. The 6-Mosotho pigtail catheter was used to cross the aortic valve and LVEDP was calculated. After removing the catheter a 6-Mosotho EBU 3.75 guiding catheter was introduced in the system and subsequently exchanged to a 6-Mosotho 3.5FL guiding catheter. After cannulating the left main an Omni Doppler flow wire was introduced in the LAD and IFR was measured. Following that, catheter and sheath were removed. Hemostasis was obtained with deployment of vascular band . There was no immediate complication. Patient was returned to room in stable condition. Of note, the patient received a total of 5000 units of intravenous heparin as well as intra-arterial verapamil. Findings: Fluoroscopy: Calcifications of the LAD was noted. Left main: This is a large-size vessel, bifurcating into LAD and left circumflex, left main has no high-grade stenosis LAD: This is a large-size vessel, reaching to the apex, giving rise to 2 moderately-sized diagonal branch. The proximal LAD has a tubular lesion of 40- 50%, the rest of the vessel has no high-grade stenosis Left circumflex: This is a large dominant vessel, bifurcating distally to PDA and PLV. The left circumflex gives rise to a large obtuse marginal branch in the mid segment. The left circumflex has no evidence of high-grade stenosis RCA: This is a small nondominant vessel giving rise to an acute marginal branch that has no evidence of high-grade stenosis Left Ventriculogram: Not performed Hemodynamics: There was no gradient across the aortic valve , LVEDP was 12-14 mmHg Conclusion: 1. Calcified LAD 2. Moderate disease in the proximal LAD 3. Nonhemodynamically significant LAD lesion with IFR of 94% 4. Left dominance Recommendations: In view of the results of her testing I will recommend to continue medical therapy with aggressive ordinary risks modifications an attempt to maintain LDL less than 70 mg/dL. The findings and the recommendations were discussed with the patient and the family and they were in full understanding and agreement. Duration of sedation is 34 minutes.
[2023-04-16] MEDS ORDERED: metFORMIN 500 MG TAB PO SCH (14:00)
[2023-04-16 14:27] LABS: Glucose,Whole Blood 258 mg/dL (70-110)
[2023-04-16] MEDS: CLOPIDOGREL 75 MG TAB PO SCH (14:28)
[2023-04-16] MEDS: INSULIN ASPART (NovoLOG) 100 UNIT/ML VIAL SQ SCH ×3 (14:29→20:43)
[2023-04-16] MEDS: EZETIMIBE 10 MG TAB PO SCH (14:29)
[2023-04-16] MEDS ORDERED: MAG HYDROX/AL HYDROX/SIMETH 30 ML CUP PO PRN (15:32)
[2023-04-16 16:36] LABS: Glucose,Whole Blood 251 mg/dL (70-110)
--- NOTE | 2023-04-16 18:37 | CA ---
Transthoracic Echo Report Name: Gina Phan Age: 77 Gender: F : 1945 Exam Date: 04/16/2023 15:47 Exam Location: [facility] Ht (in): 64 Wt (lb): 210 Ordering Physician: Michael Hanks DO Attending/Referring Phys: [employer] Truck Driver Lindsey Wong RDCS Procedure CPT: Indications: CP Cardiac Hx: Technical Quality: Fair Contrast 1: Total Dose (mL): Contrast 2: Total Dose (mL): MEASUREMENTS (Male / Female) Normal Values 2D ECHO LV Diastolic Diameter PLAX 4.1 cm 4.2 - 5.9 / 3.9 - 5.3 cm LV Systolic Diameter PLAX 3.0 cm IVS Diastolic Thickness 1.4 cm 0.6 - 1.0 / 0.6 - 0.9 cm LVPW Diastolic Thickness 1.4 cm 0.6 - 1.0 / 0.6 - 0.9 cm LV Relative Wall Thickness 0.7 RV Internal Dim ED PLAX 3.9 cm LA Volume 73.8 cm??? 18 - 58 / 22 - 52 cm??? LA Volume Index 34.9 cm???/m??? 16 - 28 cm???/m??? M-MODE Aortic Root Diameter MM 2.7 cm LA Systolic Diameter MM 5.1 cm LA Ao Ratio MM 1.9 AV Cusp Separation MM 1.7 cm DOPPLER AV Peak Velocity 227.7 cm/s AV Peak Gradient 20.7 mmHg AV Mean Velocity 132.5 cm/s AV Mean Gradient 8.3 mmHg AV Velocity Time Integral 44.4 cm LVOT Peak Velocity 122.8 cm/s LVOT Peak Gradient 6.0 mmHg LVOT Velocity Time Integral 25.5 cm MV Area PHT 3.4 cm??? Mitral E Point Velocity 127.6 cm/s Mitral A Point Velocity 117.9 cm/s Mitral E to A Ratio 1.1 MV Deceleration Time 221.2 ms MV E' Velocity 5.4 cm/s Mitral E to MV E' Ratio 23.5 TR Peak Velocity 281.4 cm/s TR Peak Gradient 31.7 mmHg Right Ventricular Systolic Press 36.2 mmHg FINDINGS Left Ventricle Moderately increased left ventricular wall thickness. Left ventricular cavity size normal. Normal left ventricular systolic function with no obvious regional wall motion abnormalities. Left ventricular ejection fraction is estimated at 55-60 %. Right Ventricle Right ventricular dilatation. Mild pulmonary hypertension. Right Atrium Normal right atrial size. Left Atrium Moderately increased left atrial volume. Mildly increased left atrial area. Mitral Valve Structurally normal mitral valve. Mild mitral annular calcification. Mild mitral regurgitation. Aortic Valve No aortic valve stenosis or regurgitation. Tricuspid Valve Structurally normal tricuspid valve. Mild tricuspid regurgitation. Pulmonic Valve Trace pulmonic regurgitation.pulmonic valve not well visualized. Pericardium No pericardial effusion. Aorta Normal size aortic root and proximal ascending aorta. CONCLUSIONS 1. Normal left ventricular size and systolic function 2. Mild mitral and tricuspid regurgitation with mild pulmonary hypertension Previewed by: Dr. Sofía Martinez MD (Electronically Signed) Final Date: 16 April 2023 18:36
[2023-04-16 19:55] LABS: Glucose,Whole Blood 348 mg/dL (70-110)
[2023-04-17 00:31] VITALS: RESP 18
[2023-04-17 05:46] LABS: Glucose,Whole Blood 246 mg/dL (70-110)
[2023-04-17] MEDS: INSULIN ASPART (NovoLOG) 100 UNIT/ML VIAL SQ SCH (06:27)
[2023-04-17] MEDS ORDERED: HEPARIN SODIUM,PORCINE 10,000 UNIT in SODIUM CHLORIDE 0.9% 1,000 ML IRRIGATION PRN (07:00)
[2023-04-17] MEDS ORDERED: HEPARIN SODIUM,PORCINE (1 ML) 2,500 UNIT in SODIUM CHLORIDE 0.9% 250 ML IRRIGATION PRN (07:00)
[2023-04-17 08:18] LABS: African American GFR (CKD) 58 (>60 ml/min/1.73 sqM); Anion Gap 8 mmol/L; Blood Urea Nitrogen 27 mg/dL (7-17); Calcium 9.3 mg/dL (8.4-10.2); Carbon Dioxide 22 mmol/L (22-30); Chloride 107 mmol/L (98-107); Glucose 167 mg/dL (74-99); Magnesium 2.1 mg/dL (1.6-2.3); Non-African American GFR(CKD) 51 (>60 ml/min/1.73 sqM); Potassium 4.3 mmol/L (3.5-5.1); Sodium 137 mmol/L (137-145)
[2023-04-17] MEDS: hydrALAZINE HCL 50 MG TAB PO SCH (08:24)
[2023-04-17] MEDS: EZETIMIBE 10 MG TAB PO SCH (08:24)
[2023-04-17] MEDS: ATORVASTATIN 80 MG TAB PO SCH (08:24)
[2023-04-17] MEDS: ASPIRIN 81 MG PO SCH (08:24)
[2023-04-17] MEDS: METOPROLOL TARTRATE 25 MG TAB PO SCH (08:24)
[2023-04-17] MEDS: CLOPIDOGREL 75 MG TAB PO SCH (08:24)
[2023-04-17 08:25] VITALS: BP 130/62; PULSE 53; TEMP 96.1
[2023-04-17] MEDS: amLODIPine 10 MG TAB PO SCH (08:25)
[2023-04-17] MEDS: HYDROcodone/APAP 7.5-325MG 1 EACH TAB PO SCH (08:25)
[2023-04-17] MEDS: ISOSORBIDE MONONITRATE ER 30 MG TAB.ER.24H PO SCH (08:25)
[2023-04-17] MEDS: CYANOCOBALAMIN 500 MCG TAB PO SCH (08:25)
[2023-04-17] MEDS: FAMOTIDINE 20 MG TAB PO SCH (08:25)
[2023-04-17] MEDS: LOSARTAN-HCTZ 50-12.5 MG 1 EACH TAB PO SCH (08:25)
[2023-04-17] MEDS: MULTIVITAMINS, THERA 1 EACH TAB PO SCH (08:25)
[2023-04-17] MEDS ORDERED: MAGNESIUM SULFATE-D5W PMX 1 GM in DEXTROSE/WATER 1 100ML.BAG IVPB SCH (08:30)
--- NOTE | 2023-04-17 09:57 | P.PN ---
Subjective Progress Note Date: 04/17/23 History of present illness: This is a 77-year-old female patient of Dr. Martinez with past medical history of coronary artery disease on medical therapy, hypertension, diabetes, dyslipidemia. Patient presented with chest discomfort pressure type sensation with left arm pain nausea and vomiting. Her EKG showed sinus rhythm with frequent PVCs and nonspecific ST wave changes. She was started on heparin drip and taken to the laborer cement gun placing by Dr. Martinez. Cardiac catheterization revealed calcified LAD, moderate disease in the proximal LAD, non-hemodynamically significant LAD lesion with IFR of 94%, left dominance. Recommendations were for medical management. Patient is seen today in follow-up on the cardiac stepdown unit. She states she is feeling much better from yesterday. She denies having any chest pain, no shortness of breath. She has been started on Plavix, atorvastatin and Lopressor. Echocardiogram reveals EF of 50-60% with mild MR and TR, mild pulmonary hypertension Physical examination: Gen: This is a 77-year-old female sitting on the edge of the bed, no acute distress VS: reviewed, heart rate in the 50s, blood pressure 130/62, pulse ox 100% on room air. HEENT: Head is atraumatic, normocephalic. Pupils equal, round. Sclerae is anicteric. LUNGS: Clear to auscultation. No wheezes or rhonchi. No intercostal retractions. HEART: Regular rate and rhythm. No murmur. ABDOMEN: Soft No tenderness. EXTREMITIES: No pedal edema. No calf tenderness. NEUROLOGICAL: Patient is awake, alert and oriented x3. Assessment: Non-ST elevated myocardial infarction Known coronary artery disease on medical therapy Hypertension Diabetes Dyslipidemia Plan: Patient is cleared for discharge from cardiology and may follow with Dr. Martinez the office in one week. New cardiac prescriptions have been sent to her pharmacy. Nurse practitioner note has been reviewed, I agree with documented findings and plan of care. Patient was seen and examined. Objective - Vital Signs Vital signs: Vital Signs Temp 96.1 F L 04/17/23 08:00 Pulse 53 L 04/17/23 08:00 Resp 18 04/17/23 08:00 BP 130/62 04/17/23 08:00 Pulse Ox 100 04/17/23 08:00 FiO2 Intake & Output 04/16/23 04/17/23 04/17/23 18:59 06:59 18:59 Intake Total 1076 480 Balance 1076 480 Weight 95.254 kg Intake: IV 600 Oral 476 480 Other: # Voids 1 2 - Labs CBC & Chem 7: 04/15/23 16:28 04/17/23 07:40 Labs: Abnormal Lab Results - Last 24 Hours (Table) 04/16/23 04/16/23 04/16/23 Range/Units 10:45 10:45 14:26 APTT 44.8 H (22.0-30.0) sec Carbon Dioxide 19 L (22-30) mmol/L BUN 20 H (7-17) mg/dL Glucose 246 H (74-99) mg/dL POC Glucose (mg/dL) 258 H (70-110) mg/dL Magnesium 1.5 L (1.6-2.3) mg/dL 04/16/23 04/16/23 04/17/23 Range/Units 16:35 19:54 05:44 APTT (22.0-30.0) sec Carbon Dioxide (22-30) mmol/L BUN (7-17) mg/dL Glucose (74-99) mg/dL POC Glucose (mg/dL) 251 H 348 H 246 H (70-110) mg/dL Magnesium (1.6-2.3) mg/dL
--- NOTE | 2023-04-17 11:11 | P.DS ---
Providers Date of admission: 04/15/23 22:37 Expected date of discharge: 04/17/23 Attending physician: Mustapha Barnett MD Consults: 04/15/23 22:35 Consult Physician Urgent Consulting Provider: Fred Carrillo Consult Reason/Comments: cp Do you want consulting provider notified?: Yes Primary care physician: Sissy Starr Hospital Course: Final diagnoses Acute NSTEMI. Mild pulmonary hypertension CAD, recent abnormal stress test Gastroesophageal reflux disease Hiatal hernia Diabetes mellitus Hypertension Hyperlipidemia Morbid obesity, BMI 36 Hypomagnesemia, resolved with supplementation Hospital course:This is a 77-year-old -[place] female , with past medical history significant for CAD, reports recent abnormal stress test, hypertension, diabetes mellitus, dyslipidemia, obesity and multiple other medical issues, presented to the ER with complaints of chest pain /pressure radiating to left shoulder and left shoulder blade accompanied by shortness of breath, since 2 PM yesterday and persisted until after she arrived into the ER. Reports she had 4 episodes of nausea and vomiting with chest pain developing after the third episode. Denies diaphoresis. Denies further nausea or vomiting. Denies abdominal pain, denies heartburn Denies lightheadedness dizziness or focal deficits. Troponins mildly elevated, 0.023, 0.132, 0.102. EKG reporting sinus rhythm, PVCs, nonspecific ST-T wave changes. Afebrile, normal WBC. Hemoglobin 12.4 complete is 173. Anticoagulated on heparin drip. Chest pain currently resolved. BUN 19, creatinine 1. Sodium 141, potassium 4.4, bicarb 21, magnesium 1.6-replacement protocol ordered. Evaluated by cardiology and patient is scheduled for cardiac catheterization. Echo reported normal LV function with mild mitral and tricuspid regurgitation, mild pulmonary hypertension. Underwent cardiac catheterization yesterday reporting calcified LAD, moderate disease in the proximal LAD, non-hemodynamic significant LAD lesion with INR of 94%, left dominance with recommendations of medical management. Significant clinical improvement. Denies chest pain, palpitations or shortness of breath. Cleared by cardiology for discharge. Patient will be discharged home today in stable condition with guarded prognosis. The impression and plan of care has been dictated as directed. : I performed a history and examination of this patient, discussed the same with the dictator. I agree with the dictator's note ,documented as a scribe. Any additional findings or plans will be noted. Patient Condition at Discharge: Stable Plan - Discharge Summary New Discharge Prescriptions: New Atorvastatin [Lipitor] 80 mg PO DAILY #90 tab Metoprolol Tartrate [Lopressor] 25 mg PO DAILY #180 tab Nitroglycerin Sl Tabs [Nitrostat] 0.4 mg SUBLINGUAL Q5M PRN #25 tab PRN Reason: Chest Pain Clopidogrel [Plavix] 75 mg PO DAILY #90 tab Ezetimibe [Zetia] 10 mg PO DAILY #30 tab Continue Aspirin EC [Ecotrin Low Dose] 81 mg PO DAILY Cyanocobalamin (Vitamin B-12) [Vitamin B-12] 1,000 mcg PO DAILY Famotidine 40 mg PO DAILY glipiZIDE XL [Glucotrol XL] 5 mg PO DAILY metFORMIN HCL [Glucophage] 1,000 mg PO DAILY@1400 Fenofibrate Nanocrystallized [Fenofibrate] 145 mg PO DAILY Losartan-Hctz 50-12.5 mg [Hyzaar 50-12.5] 2 tab PO DAILY amLODIPine [Norvasc] 10 mg PO DAILY hydrALAZINE HCL [Apresoline] 50 mg PO TID Multivit with Calcium,Iron,Min [Women's Multivitamin] 1 tab PO DAILY Isosorbide Mononitrate ER [Imdur] 30 mg PO DAILY No Action HYDROcodone/APAP 7.5-325MG [[place] 7.5-325] 1 tab PO TID Ibuprofen [Motrin] 800 mg PO DAILY Discharge Medication List Aspirin EC [Ecotrin Low Dose] 81 mg PO DAILY 07/12/18 [History] Cyanocobalamin (Vitamin B-12) [Vitamin B-12] 1,000 mcg PO DAILY 07/30/19 [History] Famotidine 40 mg PO DAILY 07/30/19 [History] glipiZIDE XL [Glucotrol XL] 5 mg PO DAILY 07/30/19 [History] HYDROcodone/APAP 7.5-325MG [[place] 7.5-325] 1 tab PO TID 06/22/21 [History] Multivit with Calcium,Iron,Min [Women's Multivitamin] 1 tab PO DAILY 06/22/21 [History] metFORMIN HCL [Glucophage] 1,000 mg PO DAILY@1400 06/22/21 [History] Fenofibrate Nanocrystallized [Fenofibrate] 145 mg PO DAILY 12/05/22 [History] Losartan-Hctz 50-12.5 mg [Hyzaar 50-12.5] 2 tab PO DAILY 12/05/22 [History] Ibuprofen [Motrin] 800 mg PO DAILY 04/15/23 [History] Isosorbide Mononitrate ER [Imdur] 30 mg PO DAILY 04/15/23 [History] amLODIPine [Norvasc] 10 mg PO DAILY 04/15/23 [History] hydrALAZINE HCL [Apresoline] 50 mg PO TID 04/15/23 [History] Atorvastatin [Lipitor] 80 mg PO DAILY #90 tab 04/17/23 [Rx] Clopidogrel [Plavix] 75 mg PO DAILY #90 tab 04/17/23 [Rx] Ezetimibe [Zetia] 10 mg PO DAILY #30 tab 04/17/23 [Rx] Metoprolol Tartrate [Lopressor] 25 mg PO DAILY #180 tab 04/17/23 [Rx] Nitroglycerin Sl Tabs [Nitrostat] 0.4 mg SUBLINGUAL Q5M PRN #25 tab 04/17/23 [Rx] Follow up Appointment(s)/Referral(s): Sofía Martinez MD [STAFF PHYSICIAN] - 1 Week (office will call you to schedule. ) Mustapha Barnett MD [STAFF PHYSICIAN] - 04/21/23 10:45 am (with tasia hendrix NP at [facility]. ) Ambulatory/Diagnostic Orders: Basic Metabolic Panel [LAB.AMB] Time Frame: 3 Days, Location: None Selected Patient Instructions/Handouts: *Surgery [facility] - After Heart Catheterization - Telephone Clerk Instructions Activity/Diet/Wound Care/Special Instructions: Hemoglobin A1c results pending, to be faxed to PCPs office Discharge Disposition: HOME SELF-CARE
== END 2023-04-17 11:04 | disposition home or self-care (01) | DRG 282 ==
LOC: EC 15:35 → 6NMEDSUR 22:36 → OBSVTOIN 22:37 → 3SCARD 04-16 02:29
PROVIDERS: ADMIT Family Medicine; ATTEND Family Medicine
PROC: 4A023N7 Measurement of Cardiac Sampling and Pressure, Left Heart, Percutaneous Approach (ICD-10-PCS; principal; 2023-04-16 12:00)
PROC: B2111ZZ Fluoroscopy of Multiple Coronary Arteries using Low Osmolar Contrast (ICD-10-PCS; 2023-04-16 12:00)
DX: I21.4 Non-ST elevation (NSTEMI) myocardial infarction (principal); I25.10 Atherosclerotic heart disease of native coronary artery without angina pectoris; I25.84 Coronary atherosclerosis due to calcified coronary lesion; I10 Essential (primary) hypertension; E78.5 Hyperlipidemia, unspecified; E11.9 Type 2 diabetes mellitus without complications; E66.01 Morbid (severe) obesity due to excess calories; Z68.36 Body mass index [BMI] 36.0-36.9, adult; E11.22 Type 2 diabetes mellitus with diabetic chronic kidney disease; N18.2 Chronic kidney disease, stage 2 (mild); E83.42 Hypomagnesemia; I12.9 Hypertensive chronic kidney disease with stage 1 through stage 4 chronic kidney disease, or unspecified chronic kidney disease; K21.9 Gastro-esophageal reflux disease without esophagitis; I27.20 Pulmonary hypertension, unspecified; I34.1 Nonrheumatic mitral (valve) prolapse; K44.9 Diaphragmatic hernia without obstruction or gangrene; Z96.652 Presence of left artificial knee joint; Z79.82 Long term (current) use of aspirin; Z79.84 Long term (current) use of oral hypoglycemic drugs; Z79.899 Other long term (current) drug therapy; Z90.710 Acquired absence of both cervix and uterus; Z82.49 Family history of ischemic heart disease and other diseases of the circulatory system
CPT/HCPCS: 36415; 71046; 71275; 80048; 80053; 80061; 82150; 83036; 83690; 83735; 83880; 84145; 84484; 85025; 85379; 85610; 85730; 93005; 93306; 93458; 93799; 96365; 96366; 96375; 99285

== ENCOUNTER 2024-05-16 02:29 | Observation (INO) | payer MEDICARE, OTHER ==
[2024-05-16] MEDS: NITROGLYCERIN SL TABS 0.4 MG TAB SUBLINGUAL STA (03:12)
[2024-05-16 03:19] LABS: Basophils % (A) 0 %; Eosinophils # (A) 0.1 k/uL (0-0.7); Eosinophils % (A) 2 %; HCT 30.4 % (34.0-46.0); HGB 9.9 gm/dL (11.4-16.0); Lymphocytes # (A) 1.4 k/uL (1.0-4.8); Lymphocytes % (A) 28 %; MCH 32.2 pg (25.0-35.0); MCHC 32.5 g/dL (31.0-37.0); Mean Platelet Volume 7.9; Monocytes # (A) 0.3 k/uL (0-1.0); Monocytes % (A) 7 %; Neutrophils # (A) 2.9 k/uL (1.3-7.7); Neutrophils % (A) 59 %; Platelet Count 291 k/uL (150-450); RBC 3.07 m/uL (3.80-5.40); WBC 4.9 k/uL (3.8-10.6)
[2024-05-16 03:27] LABS: ALT 19 U/L (4-34); AST 24 U/L (14-36); African American GFR (CKD) 40 (>60 ml/min/1.73 sqM); Albumin 4.2 g/dL (3.5-5.0); Alkaline Phosphatase 43 U/L (38-126); Anion Gap 5 mmol/L; Blood Urea Nitrogen 27 mg/dL (7-17); Calcium 9.9 mg/dL (8.4-10.2); Carbon Dioxide 25 mmol/L (22-30); Chloride 111 mmol/L (98-107); Glucose 106 mg/dL (74-99); Magnesium 1.8 mg/dL (1.6-2.3); Non-African American GFR(CKD) 35 (>60 ml/min/1.73 sqM); Potassium 3.9 mmol/L (3.5-5.1); Sodium 141 mmol/L (137-145); Total Bilirubin 0.4 mg/dL (0.2-1.3); Total Protein 7.1 g/dL (6.3-8.2)
[2024-05-16 03:38] LABS: Partial Thromboplastin Time 23.3 sec (22.0-30.0); Prothrombin Time 10.7 sec (10.0-12.5)
[2024-05-16] MEDS: hydrALAZINE HCL 20 MG/ML 1 ML VIAL IVP STA (04:15)
[2024-05-16] MEDS: HYDROmorphone 0.5 MG/0.5 ML SYRINGE IVP STA ×2 (04:15→05:50)
[2024-05-16] MEDS: NITROGLYCERIN OINT 1 INCH/GM PACKET TOPICAL STA (04:30)
[2024-05-16] MEDS: ONDANSETRON 4 MG/2 ML VIAL IVP STA (04:30)
[2024-05-16] MEDS ORDERED: NALOXONE 0.4 MG/ML 1 ML VIAL IV PRN (04:50)
--- NOTE | 2024-05-16 04:50 | ED ---
Chest Pain HPI - General Chief Complaint: Chest Pain Stated Complaint: Chest Pain Time Seen by Provider: 05/16/24 02:38 Source: patient Mode of arrival: ambulatory Limitations: no limitations - History of Present Illness Initial Comments: 78-year-old female with history of diabetes, hyperlipidemia, hypertension presenting with chief complaint of chest pain. States that she woke up from her sleep this evening with this chest pain. Feels like a pressure-like sensation in the center of her chest with some radiation to the right side. Initially she had some radiation to the left shoulder. Admits to shortness of breath. Worse on exertion. Admits to nausea. No cough congestion or sore throat. Admits to some lower extremity swelling. She had a cardiac cath performed about a year ago showing calcified LAD and moderate disease in the proximal LAD. - Related Data Home Medications Medication Instructions Recorded Confirmed Famotidine 40 mg PO DAILY 07/30/19 05/16/24 HYDROcodone/APAP 7.5-325MG [[place] 1 tab PO TID PRN 06/22/21 05/16/24 7.5-325] metFORMIN HCL [Glucophage] 1,000 mg PO BID-W/MEALS 06/22/21 05/16/24 Fenofibrate Nanocrystallized 145 mg PO DAILY 12/05/22 05/16/24 [Fenofibrate] Losartan-Hctz 50-12.5 mg [Hyzaar 2 tab PO DAILY 12/05/22 05/16/24 50-12.5] Ibuprofen [Motrin] 800 mg PO DAILY 04/15/23 05/16/24 amLODIPine [Norvasc] 10 mg PO DAILY 04/15/23 05/16/24 hydrALAZINE HCL [Apresoline] 50 mg PO BID 04/15/23 05/16/24 Isosorbide Mononitrate ER [Imdur] 60 mg PO DAILY 05/16/24 05/16/24 glipiZIDE [Glucotrol] 5 mg PO DAILY 05/16/24 05/16/24 Previous Rx's Medication Instructions Recorded Atorvastatin [Lipitor] 80 mg PO DAILY #90 tab 04/17/23 Metoprolol Tartrate [Lopressor] 25 mg PO DAILY #180 tab 04/17/23 Nitroglycerin Sl Tabs [Nitrostat] 0.4 mg SUBLINGUAL Q5M PRN #25 tab 04/17/23 Allergies Allergy/AdvReac Type Severity Reaction Status Date / Time diflunisal [From Dolobid] Allergy Anaphylaxis Verified 05/16/24 09:45 hydrochlorothiazide Allergy Swelling Verified 05/16/24 09:45 [From Zestoretic] of face and throat ibuprofen [From Motrin] Allergy Abdominal Verified 05/16/24 09:45 Pain Iodine and Iodide Containing Allergy Anaphylaxis Verified 05/16/24 09:45 Produc lisinopril Allergy Rash/Hives Verified 05/16/24 09:45 morphine Allergy Rash/Hives Verified 05/16/24 09:45 prednisone Allergy Rash/Hives Verified 05/16/24 09:45 Sulfa (Sulfonamide Allergy Anaphylaxis Verified 05/16/24 09:49 Antibiotics) sulfamethoxazole Allergy Anaphylaxis Verified 05/16/24 09:45 [From Bactrim] tramadol Allergy Rash/Hives Verified 05/16/24 09:45 trimethoprim [From Bactrim] Allergy Anaphylaxis Verified 05/16/24 09:45 baclofen AdvReac Unknown LOW HEART Verified 05/16/24 09:45 RATE NSAIDS (Non-Steroidal AdvReac Unknown TOLD TO Verified 05/16/24 09:45 Anti-Inflamma AVOID NSAIDS DUE TO ABDOMINAL PAIN ondansetron AdvReac Itching Verified 05/16/24 09:45 [From Zofran (as hydrochloride)] Review of Systems ROS Statement: Those systems with pertinent positive or pertinent negative responses have been documented in the HPI. ROS Other: All systems not noted in ROS Statement are negative. Past Medical History Past Medical History: Diabetes Mellitus, GERD/Reflux, Hyperlipidemia, Hypertension, Mitral Valve Prolapse (MVP), Osteoarthritis (OA) Additional Past Medical History / Comment(s): Hypertension, hyperlipidemia, diabetes mellitus, mitral valve prolapse, chronic back pain, varicose veins, migraines, chronic stage II kidney disease, iron deficiency anemia, lumbar disc disease with previous history of L4-L5 degenerative disc disease of the lumbar spine, osteoarthritis History of Any Multi-Drug Resistant Organisms: None Reported Past Surgical History: Back Surgery, Hysterectomy, Joint Replacement, Tonsillectomy Additional Past Surgical History / Comment(s): Spine surgery involving the lumbar spine related to herniated disc at the level of L4-L5, right temporal artery biopsy, ovarian cyst removal, pilonidal cyst, left knee replacement, tonsillectomy, hysterectomy Past Anesthesia/Blood Transfusion Reactions: Family Hisory of Malignant Hyperthermia Additional Past Anesthesia/Blood Transfusion Reaction / Comment(s): daughter had reaction to anesthesia age 7 with tonsilectomy called "chocolate anesthesia" per pt. "she had a rash and high fever of 105". daughter has had surgeries since with no problems. Past Psychological History: No Psychological Hx Reported Smoking Status: Former smoker Past Alcohol Use History: None Reported Past Drug Use History: None Reported - Past Family History Sister(s) Family Medical History: Cancer, Deep Vein Thrombosis (DVT) Brother(s) Family Medical History: Deep Vein Thrombosis (DVT) Father Family Medical History: Cancer, Deep Vein Thrombosis (DVT) Additional Family Medical History / Comment(s): QUADRUPLE BYPASS Mother Family Medical History: Deep Vein Thrombosis (DVT) Additional Family Medical History / Comment(s): PACEMAKER General Exam Limitations: no limitations General appearance: alert, in no apparent distress Head exam: Present: atraumatic, normocephalic, normal inspection Eye exam: Present: normal appearance, EOMI Neck exam: Present: normal inspection. Absent: meningismus Respiratory exam: Present: normal lung sounds bilaterally. Absent: respiratory distress, wheezes, rales, rhonchi, stridor Cardiovascular Exam: Present: regular rate, normal rhythm, normal heart sounds. Absent: systolic murmur, diastolic murmur, rubs, gallop, clicks Extremities exam: Present: pedal edema Neurological exam: Present: alert, oriented X3 Psychiatric exam: Present: normal affect, normal mood Skin exam: Present: warm, dry Course Vital Signs 05/16/24 05/16/24 05/16/24 02:32 03:16 04:17 Temperature 98.5 F Pulse Rate 83 73 64 Respiratory 18 18 Rate Blood Pressure 196/98 173/79 182/97 O2 Sat by Pulse 99 99 Oximetry 05/16/24 05/16/24 05/16/24 04:34 05:46 06:38 Temperature Pulse Rate 65 68 54 L Respiratory 18 18 16 Rate Blood Pressure 145/67 141/59 119/55 O2 Sat by Pulse 100 98 96 Oximetry 05/16/24 05/16/24 05/16/24 07:48 09:19 10:36 Temperature Pulse Rate 54 L 58 L 51 L Respiratory 14 18 16 Rate Blood Pressure 121/49 107/65 121/56 O2 Sat by Pulse 98 96 96 Oximetry 05/16/24 05/16/24 05/16/24 11:44 12:42 15:37 Temperature Pulse Rate 56 L 50 L 51 L Respiratory 18 16 16 Rate Blood Pressure 121/54 121/51 O2 Sat by Pulse 98 97 100 Oximetry 05/16/24 16:22 Temperature 97.8 F Pulse Rate 71 Respiratory 18 Rate Blood Pressure 142/61 O2 Sat by Pulse 94 L Oximetry Chest Pain MDM - MDM Was pt. sent in by a medical professional or institution (, PA, ACCOUNT EXECUTIVE, urgent care, hospital, or shelter...) When possible be specific @ -No Did you speak to anyone other than the patient for history (EMS, parent, family, police, friend...)? What history was obtained from this source @ -No Did you review nursing and triage notes (agree or disagree)? Why? @ -I reviewed and agree with nursing and triage notes Were old charts reviewed (outside hosp., previous admission, EMS record, old EKG, old radiological studies, urgent care reports/EKG's, shelter records)? Report findings @ -No old charts were reviewed Differential Diagnosis (chest pain, altered mental status, abdominal pain women, abdominal pain men, vaginal bleeding, weakness, fever, dyspnea, syncope, headache, dizziness, GI bleed, back pain, seizure, CVA, palpatations, mental health, musculoskeletal)? @ -[facility] Differential Chest Pain: Stable Angina, Unstable Angina, STEMI, NSTEMI Aortic Dissection, Pneumothorax, Musculoskeletal, Esophageal Spasm GERD, Cholecystitis, Pancreatitis, Zoster This is not meant to be an all-inclusive list. EKG interpreted by me (3pts min.). @ -EKG shows sinus rhythm with occasional supraventricular premature complexes. Ventricular rate 76. CO interval 156. QRS 84. QT 372. QTc 403. X-rays interpreted by me (1pt min.). @ -Chest x-ray shows no acute findings CT interpreted by me (1pt min.). @ -None done U/S interpreted by me (1pt. min.). @ -None done What testing was considered but not performed or refused? (CT, X-rays, U/S, labs)? Why? @ -None What meds were considered but not given or refused? Why? @ -None Did you discuss the management of the patient with other professionals (professionals i.e. DrLalo, PA, ACCOUNT EXECUTIVE, lab, RT, psych nurse, rn social services, golf ball inspector, teacher, radiological defense officer, case technician)? Give summary @ -My attending spoke with the [facility] provider on-call who accepted admission Was smoking cessation discussed for >3mins.? @ -No Was critical care preformed (if so, how long)? @ -No Were there social determinants of health that impacted care today? How? (Homelessness, low income, unemployed, alcoholism, drug addiction, transportation, low edu. Level, literacy, decrease access to med. care, fdc, rehab)? @ -No Was there de-escalation of care discussed even if they declined (Discuss DNR or withdrawal of care, Hospice)? DNR status @ -No What co-morbidities impacted this encounter? (DM, HTN, Smoking, COPD, CAD, Cancer, CVA, ARF, Chemo, Hep., AIDS, mental health diagnosis, sleep apnea, morbid obesity)? @ -Diabetes, hypertension, hyperlipidemia, CAD Was patient admitted / discharged? Hospital course, mention meds given and route, prescriptions, significant lab abnormalities, going to OR and other pertinent info. @ -78-year-old female presenting with chief complaint of chest pain. History and physical examination are conducted. Negative troponin. Chest x-ray shows no acute process and EKG shows no acute ischemic changes. BNP 393. Patient was given nitro sublingual, Nitropaste, and pain medication for her discomfort. She will be admitted for evaluation by cardiology in the morning. She is agreeable with this plan. I discussed this case with my attending Dr. Garnett Undiagnosed new problem with uncertain prognosis? @ -No Drug Therapy requiring intensive monitoring for toxicity (Heparin, Nitro, Insulin, Cardizem)? @ -No Were any procedures done? @ -No Diagnosis/symptom? @ -Chest pain Acute, or Chronic, or Acute on Chronic? @ -Acute Uncomplicated (without systemic symptoms) or Complicated (systemic symptoms)? @ -Complicated Side effects of treatment? @ -No Exacerbation, Progression, or Severe Exacerbation? @ -No Poses a threat to life or bodily function? How? (Chest pain, [place], [place], pneumonia, PE, COPD, DKA, ARF, appy, cholecystitis, CVA, Diverticulitis, Homicidal, Suicidal, threat to staff... and all critical care pts) @ -Yes Disposition Clinical Impression: Chest pain Disposition: ADMITTED IP TO THIS HOSP Condition: Fair Time of Disposition: 04:52
--- NOTE | 2024-05-16 04:56 | XR ---
EXAM: XR Chest, 2 Views CLINICAL HISTORY: ITS.REASON XR Reason: Chest Pain TECHNIQUE: Frontal and lateral views of the chest. COMPARISON: XR Chest dated 04/15/23 FINDINGS: Lungs: Unremarkable. No consolidation. Pleural space: Unremarkable. No pneumothorax. Heart: Borderline cardiomegaly, stable. Mediastinum: Unremarkable. Normal mediastinal contour. Bones/joints: Unremarkable. No acute fracture. IMPRESSION: No acute findings in the chest.
[2024-05-16] MEDS: amLODIPine 10 MG TAB PO SCH (09:34)
[2024-05-16] MEDS: METOPROLOL TARTRATE 25 MG TAB PO SCH (09:42)
[2024-05-16] MEDS: ISOSORBIDE MONONITRATE ER 60 MG TAB.ER.24H PO SCH (09:42)
[2024-05-16] MEDS: ASPIRIN 81 MG PO SCH (09:42)
[2024-05-16] MEDS: hydroCHLOROthiazide 12.5 MG CAP PO SCH (09:44)
[2024-05-16] MEDS: LOSARTAN 50 MG TAB PO SCH (10:25)
--- NOTE | 2024-05-16 10:28 | P.HPIM ---
History of Present Illness 78-year-old pleasant female came in with complaints of severe chest pressure started yesterday improved slightly with nitroglycerin. Patient still has minimal pain chest pain is radiating to the left shoulder not associated with diaphoresis. Patient admits to some shortness of breath radiating to the left shoulder. Patient had a cardiac catheterization 6 months ago which showed calcified LAD moderate disease in proximal LAD patient also received stents as per the patient patient had a stress test 2 months ago which was negative. EKG did not show any acute ST-T wave changes. Chest x-ray within normal notes patient blood pressure is low patient had elevated creatinine of 1.44 baseline is within normal limits patient also takes losartan hydrochlorothiazide at home patient blood pressure is low.. REVIEW OF SYSTEMS: All other systems are negative except those mentioned in the HPI PHYSICAL EXAMINATION: GENERAL: The patient is alert and oriented x3, not in any acute distress. Well developed, well nourished. HEENT: Pupils are round and equally reacting to light. EOMI. No scleral icterus. No conjunctival pallor. Normocephalic, atraumatic. No pharyngeal erythema. No thyromegaly. CARDIOVASCULAR: S1 and S2 present. No murmurs, rubs, or gallops. PULMONARY: Chest is clear to auscultation, no wheezing or crackles. ABDOMEN: Soft, nontender, nondistended, normoactive bowel sounds. No palpable organomegaly. MUSCULOSKELETAL: No joint swelling or deformity. EXTREMITIES: No cyanosis, clubbing, or pedal edema. NEUROLOGICAL: Gross neurological examination did not reveal any focal deficits. SKIN: No rashes. Assessment and plan -Chest pain rule out acute coronary syndromes cardiology evaluate the patient they wanted to monitor the patient 1 more night. No further workup is being recommended at this time -Acute renal failure secondary to hypotension hold off on hydrochlorothiazide and losartan -Hypertension patient is presently hypotensive but patient can be resumed on metoprolol and Imdur. BMP will be obtained tomorrow -Coronary artery disease -Type 2 diabetes mellitus -Hyperlipidemia -History of mitral valve prolapse -Gastroesophageal reflux disease DVT prophylaxis: Ambulation Past Medical History Past Medical History: Diabetes Mellitus, GERD/Reflux, Hyperlipidemia, Hypertension, Mitral Valve Prolapse (MVP), Osteoarthritis (OA) Additional Past Medical History / Comment(s): Hypertension, hyperlipidemia, diabetes mellitus, mitral valve prolapse, chronic back pain, varicose veins, migraines, chronic stage II kidney disease, iron deficiency anemia, lumbar disc disease with previous history of L4-L5 degenerative disc disease of the lumbar spine, osteoarthritis History of Any Multi-Drug Resistant Organisms: None Reported Past Surgical History: Back Surgery, Hysterectomy, Joint Replacement, Tonsillectomy Additional Past Surgical History / Comment(s): Spine surgery involving the lumbar spine related to herniated disc at the level of L4-L5, right temporal artery biopsy, ovarian cyst removal, pilonidal cyst, left knee replacement, to nsillectomy, hysterectomy Past Anesthesia/Blood Transfusion Reactions: Family Hisory of Malignant Hyperthermia Additional Past Anesthesia/Blood Transfusion Reaction / Comment(s): daughter had reaction to anesthesia age 7 with tonsilectomy called "chocolate anesthesia" per pt. "she had a rash and high fever of 105". daughter has had surgeries since with no problems. Past Psychological History: No Psychological Hx Reported Smoking Status: Former smoker Past Alcohol Use History: None Reported Past Drug Use History: None Reported - Past Family History Sister(s) Family Medical History: Cancer, Deep Vein Thrombosis (DVT) Brother(s) Family Medical History: Deep Vein Thrombosis (DVT) Father Family Medical History: Cancer, Deep Vein Thrombosis (DVT) Additional Family Medical History / Comment(s): QUADRUPLE BYPASS Mother Family Medical History: Deep Vein Thrombosis (DVT) Additional Family Medical History / Comment(s): PACEMAKER Medications and Allergies Home Medications Medication Instructions Recorded Confirmed Type Famotidine 40 mg PO DAILY 07/30/19 05/16/24 History HYDROcodone/APAP 7.5-325MG [[place] 1 tab PO TID PRN 06/22/21 05/16/24 History 7.5-325] metFORMIN HCL [Glucophage] 1,000 mg PO BID-W/MEALS 06/22/21 05/16/24 History Fenofibrate Nanocrystallized 145 mg PO DAILY 12/05/22 05/16/24 History [Fenofibrate] Losartan-Hctz 50-12.5 mg [[place] 2 tab PO DAILY 12/05/22 05/16/24 History 50-12.5] Ibuprofen [Motrin] 800 mg PO DAILY 04/15/23 05/16/24 History amLODIPine [Norvasc] 10 mg PO DAILY 04/15/23 05/16/24 History hydrALAZINE HCL [Apresoline] 50 mg PO BID 04/15/23 05/16/24 History Atorvastatin [Lipitor] 80 mg PO DAILY #90 tab 04/17/23 05/16/24 Rx Metoprolol Tartrate [Lopressor] 25 mg PO DAILY #180 tab 04/17/23 05/16/24 Rx Nitroglycerin Sl Tabs [Nitrostat] 0.4 mg SUBLINGUAL Q5M PRN #25 tab 04/17/23 05/16/24 Rx Isosorbide Mononitrate ER [Imdur] 60 mg PO DAILY 05/16/24 05/16/24 History glipiZIDE [Glucotrol] 5 mg PO DAILY 05/16/24 05/16/24 History Allergies Allergy/AdvReac Type Severity Reaction Status Date / Time diflunisal [From Dolobid] Allergy Anaphylaxis Verified 05/16/24 09:45 hydrochlorothiazide Allergy Swelling Verified 05/16/24 09:45 [From Zestoretic] of face and throat ibuprofen [From Motrin] Allergy Abdominal Verified 05/16/24 09:45 Pain Iodine and Iodide Containing Allergy Anaphylaxis Verified 05/16/24 09:45 Produc lisinopril Allergy Rash/Hives Verified 05/16/24 09:45 morphine Allergy Rash/Hives Verified 05/16/24 09:45 prednisone Allergy Rash/Hives Verified 05/16/24 09:45 Sulfa (Sulfonamide Allergy Anaphylaxis Verified 05/16/24 09:49 Antibiotics) sulfamethoxazole Allergy Anaphylaxis Verified 05/16/24 09:45 [From Bactrim] tramadol Allergy Rash/Hives Verified 05/16/24 09:45 trimethoprim [From Bactrim] Allergy Anaphylaxis Verified 05/16/24 09:45 baclofen AdvReac Unknown LOW HEART Verified 05/16/24 09:45 RATE NSAIDS (Non-Steroidal AdvReac Unknown TOLD TO Verified 05/16/24 09:45 Anti-Inflamma AVOID NSAIDS DUE TO ABDOMINAL PAIN ondansetron AdvReac Itching Verified 05/16/24 09:45 [From Zofran (as hydrochloride)] Physical Exam Vitals: Vital Signs Temp Pulse Resp BP Pulse Ox 05/16/24 09:19 58 L 18 107/65 96 05/16/24 07:48 54 L 14 121/49 98 05/16/24 06:38 54 L 16 119/55 96 05/16/24 05:46 68 18 141/59 98 05/16/24 04:34 65 18 145/67 100 05/16/24 04:17 64 182/97 05/16/24 03:16 73 18 173/79 99 05/16/24 02:32 98.5 F 83 18 196/98 99 Intake and Output 05/15/24 05/16/24 05/16/24 22:59 06:59 14:59 Other: Weight 94.347 kg Results CBC & Chem 7: 05/16/24 03:11 05/16/24 03:11 Labs: Abnormal Lab Results - Last 24 Hours (Table) 05/16/24 05/16/24 Range/Units 03:11 03:11 RBC 3.07 L (3.80-5.40) m/uL Hgb 9.9 L (11.4-16.0) gm/dL Hct 30.4 L (34.0-46.0) % Chloride 111 H (98-107) mmol/L BUN 27 H (7-17) mg/dL Creatinine 1.44 H (0.52-1.04) mg/dL Glucose 106 H (74-99) mg/dL
[2024-05-16] MEDS: SODIUM CHLORIDE 0.9% 1,000 ML IV SCH (10:34)
--- NOTE | 2024-05-16 10:44 | P.CRDCN ---
History of Present Illness History of present illness: HISTORY OF PRESENT ILLNESS: This is a 78-year-old male with a past medical history significant for mild nonobstructive CAD, hypertension, hyperlipidemia, and diabetes. Patient follows in the office with Dr. Martinez. We have been asked to see the patient in consultation for chest pain. Patient examined at the bedside in the emergency room. She states yesterday she was in bed sleeping and when she woke up she began to have chest pain. She states that her chest felt heavy and she also felt short of breath. She states that she did have some aspirin in her nightstand so she took aspirin and then came to the hospital for further evaluation. At the time of examination, she denies chest pain or pressure. Denies shortness of breath. Vital signs are stable. DIAGNOSTICS: - EKG reveals sinus mechanism with no signs of acute ischemia - Chest xray negative for acute process - Laboratory data: WBC 4.9. Hemoglobin 9.9. Platelet count 291. Sodium 141. Potassium 3.9. BUN 27. Creatinine 1.44. Troponin negative x 2. proBNP 393. - Current home cardiac medications include atorvastatin 80 mg daily, fenofibrate 145 mg daily, Imdur 60 mg daily, losartanhydrochlorothiazide 50-12.5 mg 2 tablets daily, metoprolol tartrate 25 mg daily, amlodipine 10 mg daily, hydralazine 50 mg twice a day - Most recent echocardiogram obtained in April 2023 revealed ejection fraction 55 to 60%, mild mitral and tricuspid regurgitation, mild pulm hypertension - Cardiac catheterization history: April 2023 revealing 50% proximal LAD, left dominant system, calcified coronary arteries with mild disease in the left circumflex, LAD IFR 94% - Patient also had a previous cardiac catheterization in November 2022 revealing mild to moderate CAD in the LAD and circumflex - Patient underwent Lexiscan stress testing in the office in February 2024 which revealed fixed small apical wall defect and normal gated SPECT images consistent with normal variant. No evidence of stress-induced ischemia. REVIEW OF SYSTEMS: At the time of my exam: CONSTITUTIONAL: Denies fever or chills. HEENT: Denies blurred vision, vision changes, or eye pain. Denies hemoptysis CARDIOVASCULAR: Denies chest pain. Denies orthopnea. Denies PND. Denies palpitations RESPIRATORY: Denies shortness of breath. GASTROINTESTINAL: Denies abdominal pain. Denies nausea or vomiting. HEMATOLOGIC: Denies bleeding disorders. GENITOURINARY: Denies any blood in urine. SKIN: Denies pruitis. Denies rash. PHYSICAL EXAM: VITAL SIGNS: Reviewed. GENERAL: Well-developed in no acute distress. HEENT: Head is normocephalic. Pupils are equal, round. Sclerae anicteric. Mucous membranes of the mouth are moist. Neck supple. No JVD or thyromegaly LUNGS: Respirations even and unlabored. Lungs essentially clear to auscultation bilaterally. HEART: Regular rate and rhythm. S1 and S2 heard. ABDOMEN: Soft. Nondistended. Nontender. EXTREMITIES: Normal range of motion. No clubbing or cyanosis. Peripheral pulses intact. No lower extremity edema NEUROLOGIC: Awake and alert. Oriented x 3. ASSESSMENT: Chest pain, troponin negative x 2 Mild nonobstructive CAD, per cath in April 2023 Mild acute kidney injury Hypertension Hyperlipidemia Diabetes PLAN: An acute coronary event has been ruled out Patient had normal stress test in the office in February 2024 and had 2 cardiac catheterizations performed last year Resume home cardiac medications Patient with mild RJ and soft blood pressures this morning. Hold losartan, hydrochlorothiazide, hydralazine and amlodipine Continue to monitor blood pressure If patient remains stable, she may be discharged home tomorrow from a cardiac standpoint Further recommendations pending patient course Nurse practitioner note has been reviewed by physician. Signing provider agrees with the documented findings, assessment, and plan of care documented by RESTA[employer]ANT DELIVERY DRIVER as a scribe. Past Medical History Past Medical History: Diabetes Mellitus, GERD/Reflux, Hyperlipidemia, Hypertension, Mitral Valve Prolapse (MVP), Osteoarthritis (OA) Additional Past Medical History / Comment(s): Hypertension, hyperlipidemia, diabetes mellitus, mitral valve prolapse, chronic back pain, varicose veins, migraines, chronic stage II kidney disease, iron deficiency anemia, lumbar disc disease with previous history of L4-L5 degenerative disc disease of the lumbar spine, osteoarthritis History of Any Multi-Drug Resistant Organisms: None Reported Past Surgical History: Back Surgery, Hysterectomy, Joint Replacement, Tonsillectomy Additional Past Surgical History / Comment(s): Spine surgery involving the lumbar spine related to herniated disc at the level of L4-L5, right temporal artery biopsy, ovarian cyst removal, pilonidal cyst, left knee replacement, tonsillectomy, hysterectomy Past Anesthesia/Blood Transfusion Reactions: Family Hisory of Malignant Hyperthermia Additional Past Anesthesia/Blood Transfusion Reaction / Comment(s): daughter had reaction to anesthesia age 7 with tonsilectomy called "chocolate anesthesia" per pt. "she had a rash and high fever of 105". daughter has had surgeries since with no problems. Past Psychological History: No Psychological Hx Reported Smoking Status: Former smoker Past Alcohol Use History: None Reported Past Drug Use History: None Reported - Past Family History Sister(s) Family Medical History: Cancer, Deep Vein Thrombosis (DVT) Brother(s) Family Medical History: Deep Vein Thrombosis (DVT) Father Family Medical History: Cancer, Deep Vein Thrombosis (DVT) Additional Family Medical History / Comment(s): [employer] Mother Family Medical History: Deep Vein Thrombosis (DVT) Additional Family Medical History / Comment(s): PACEMAKER Medications and Allergies Home Medications Medication Instructions Recorded Confirmed Type Famotidine 40 mg PO DAILY 07/30/19 05/16/24 History HYDROcodone/APAP 7.5-325MG [[place] 1 tab PO TID PRN 06/22/21 05/16/24 History 7.5-325] metFORMIN HCL [Glucophage] 1,000 mg PO BID-W/MEALS 06/22/21 05/16/24 History Fenofibrate Nanocrystallized 145 mg PO DAILY 12/05/22 05/16/24 History [Fenofibrate] Losartan-Hctz 50-12.5 mg [Hyzaar 2 tab PO DAILY 12/05/22 05/16/24 History 50-12.5] Ibuprofen [Motrin] 800 mg PO DAILY 04/15/23 05/16/24 History amLODIPine [Norvasc] 10 mg PO DAILY 04/15/23 05/16/24 History hydrALAZINE HCL [Apresoline] 50 mg PO BID 04/15/23 05/16/24 History Atorvastatin [Lipitor] 80 mg PO DAILY #90 tab 04/17/23 05/16/24 Rx Metoprolol Tartrate [Lopressor] 25 mg PO DAILY #180 tab 04/17/23 05/16/24 Rx Nitroglycerin Sl Tabs [Nitrostat] 0.4 mg SUBLINGUAL Q5M PRN #25 tab 04/17/23 05/16/24 Rx Isosorbide Mononitrate ER [Imdur] 60 mg PO DAILY 05/16/24 05/16/24 History glipiZIDE [Glucotrol] 5 mg PO DAILY 05/16/24 05/16/24 History Allergies Allergy/AdvReac Type Severity Reaction Status Date / Time diflunisal [From Dolobid] Allergy Anaphylaxis Verified 05/16/24 09:45 hydrochlorothiazide Allergy Swelling Verified 05/16/24 09:45 [From Zestoretic] of face and throat ibuprofen [From Motrin] Allergy Abdominal Verified 05/16/24 09:45 Pain Iodine and Iodide Containing Allergy Anaphylaxis Verified 05/16/24 09:45 Produc lisinopril Allergy Rash/Hives Verified 05/16/24 09:45 morphine Allergy Rash/Hives Verified 05/16/24 09:45 prednisone Allergy Rash/Hives Verified 05/16/24 09:45 Sulfa (Sulfonamide Allergy Anaphylaxis Verified 05/16/24 09:49 Antibiotics) sulfamethoxazole Allergy Anaphylaxis Verified 05/16/24 09:45 [From Bactrim] tramadol Allergy Rash/Hives Verified 05/16/24 09:45 trimethoprim [From Bactrim] Allergy Anaphylaxis Verified 05/16/24 09:45 baclofen AdvReac Unknown LOW HEART Verified 05/16/24 09:45 RATE NSAIDS (Non-Steroidal AdvReac Unknown TOLD TO Verified 05/16/24 09:45 Anti-Inflamma AVOID NSAIDS DUE TO ABDOMINAL PAIN ondansetron AdvReac Itching Verified 05/16/24 09:45 [From Zofran (as hydrochloride)] Physical Exam Vitals: Vital Signs Temp Pulse Resp BP Pulse Ox 05/16/24 09:19 58 L 18 107/65 96 05/16/24 07:48 54 L 14 121/49 98 05/16/24 06:38 54 L 16 119/55 96 05/16/24 05:46 68 18 141/59 98 05/16/24 04:34 65 18 145/67 100 05/16/24 04:17 64 182/97 05/16/24 03:16 73 18 173/79 99 05/16/24 02:32 98.5 F 83 18 196/98 99 Intake and Output 05/15/24 05/16/24 05/16/24 22:59 06:59 14:59 Other: Weight 94.347 kg Results 05/16/24 03:11 05/16/24 03:11 Cardiac Enzymes 05/16/24 05/16/24 05/16/24 Range/Units 03:11 03:11 09:53 AST 24 (14-36) U/L Troponin I <0.012 <0.012 (0.000-0.034) ng/mL Coagulation 05/16/24 Range/Units 03:11 PT 10.7 (10.0-12.5) sec APTT 23.3 (22.0-30.0) sec CBC 05/16/24 Range/Units 03:11 WBC 4.9 (3.8-10.6) k/uL RBC 3.07 L (3.80-5.40) m/uL Hgb 9.9 L (11.4-16.0) gm/dL Hct 30.4 L (34.0-46.0) % Plt Count 291 (150-450) k/uL Comprehensive Metabolic Panel 05/16/24 Range/Units 03:11 Sodium 141 (137-145) mmol/L Potassium 3.9 (3.5-5.1) mmol/L Chloride 111 H (98-107) mmol/L Carbon Dioxide 25 (22-30) mmol/L BUN 27 H (7-17) mg/dL Creatinine 1.44 H (0.52-1.04) mg/dL Glucose 106 H (74-99) mg/dL Calcium 9.9 (8.4-10.2) mg/dL AST 24 (14-36) U/L ALT 19 (4-34) U/L Alkaline Phosphatase 43 (38-126) U/L Total Protein 7.1 (6.3-8.2) g/dL Albumin 4.2 (3.5-5.0) g/dL Current Medications Generic Name Dose Route Start Last Admin Trade Name Freq PRN Reason Stop Dose Admin Aspirin 81 mg 05/16/24 09:00 05/16/24 09:42 Aspirin 81 Mg PO 81 mg DAILY JEANNA Administration Atorvastatin Calcium 80 mg 05/16/24 21:00 Atorvastatin 80 Mg Tab PO HS JEANNA Sodium Chloride 1,000 mls @ 75 mls/hr 05/16/24 10:30 Saline 0.9% IV .[id number] [facility] Isosorbide Mononitrate 60 mg 05/16/24 09:00 05/16/24 09:42 Isosorbide Mononitrate Er 60 Mg Tab.Er.24h PO 60 mg DAILY JEANNA Administration Metoprolol Tartrate 25 mg 05/16/24 09:00 05/16/24 09:42 Metoprolol Tartrate 25 Mg Tab PO 25 mg BID JEANNA Administration Naloxone HCl 0.2 mg 05/16/24 04:50 Naloxone 0.4 Mg/Ml 1 Ml Vial IV Q2M PRN Opioid Reversal Ondansetron HCl 4 mg 05/16/24 04:50 Ondansetron 4 Mg/2 Ml Vial IVP Q8HR PRN Nausea And Vomiting Intake and Output 05/15/24 05/16/24 05/16/24 22:59 06:59 14:59 Other: Weight 94.347 kg 05/16/24 03:11 05/16/24 03:11
[2024-05-16] MEDS: ONDANSETRON 4 MG/2 ML VIAL IVP PRN (13:47)
[2024-05-16] MEDS: HYDROcodone/APAP 7.5-325MG 1 EACH TAB PO PRN (20:06)
[2024-05-16] MEDS: ATORVASTATIN 80 MG TAB PO SCH (20:07)
[2024-05-17 07:34] VITALS: BP 133/67; PULSE 45; RESP 15; TEMP 97.8
[2024-05-17 08:42] LABS: BUN/Creat Ratio 17.25 Ratio (12.00-20.00); Blood Urea Nitrogen 27.6 mg/dL (9.0-27.0); Calcium 9.7 mg/dL (8.7-10.3); Carbon Dioxide 22.4 mmol/L (21.6-31.8); Chloride 108 mmol/L (96-109); Glucose 116 mg/dL (70-110); Potassium 4.9 mmol/L (3.5-5.5); Sodium 142 mmol/L (135-145)
[2024-05-17] MEDS ORDERED: hydrALAZINE HCL 25 MG TAB PO SCH (09:00)
[2024-05-17] MEDS: METOPROLOL TARTRATE 12.5 MG TAB PO SCH (10:08)
[2024-05-17] MEDS: hydrALAZINE HCL 50 MG TAB PO SCH (10:08)
--- NOTE | 2024-05-17 10:40 | P.PN ---
Subjective Progress Note Date: 05/17/24 HISTORY OF PRESENT ILLNESS: This is a 78-year-old male with a past medical history significant for mild nonobstructive CAD, hypertension, hyperlipidemia, and diabetes. Patient follows in the office with Dr. Martinez. We have been asked to see the patient in consultation for chest pain. Patient examined at the bedside in the emergency room. She states yesterday she was in bed sleeping and when she woke up she began to have chest pain. She states that her chest felt heavy and she also felt short of breath. She states that she did have some aspirin in her nightstand so she took aspirin and then came to the hospital for further evaluation. At the time of examination, she denies chest pain or pressure. Denies shortness of breath. Vital signs are stable. DIAGNOSTICS: - EKG reveals sinus mechanism with no signs of acute ischemia - Chest xray negative for acute process - Laboratory data: WBC 4.9. Hemoglobin 9.9. Platelet count 291. Sodium 141. Potassium 3.9. BUN 27. Creatinine 1.44. Troponin negative x 2. proBNP 393. - Current home cardiac medications include atorvastatin 80 mg daily, fenofibrate 145 mg daily, Imdur 60 mg daily, losartanhydrochlorothiazide 50-12.5 mg 2 tablets daily, metoprolol tartrate 25 mg daily, amlodipine 10 mg daily, hydralazine 50 mg twice a day - Most recent echocardiogram obtained in April 2023 revealed ejection fraction 55 to 60%, mild mitral and tricuspid regurgitation, mild pulm hypertension - Cardiac catheterization history: April 2023 revealing 50% proximal LAD, left dominant system, calcified coronary arteries with mild disease in the left circumflex, LAD IFR 94% - Patient also had a previous cardiac catheterization in November 2022 revealing mild to moderate CAD in the LAD and circumflex - Patient underwent Lexiscan stress testing in the office in February 2024 which revealed fixed small apical wall defect and normal gated SPECT images consistent with normal variant. No evidence of stress-induced ischemia. 05/17/2024 Patient seen and examined. Blood pressure 133/67-173/62, heart rate this morning at 45 and usually in the 60s. Pulse ox 95% on room air. Repeat blood work reveals BUN 27 and creatinine 1.6. Patient remains off losartan, hydrochlorothiazide, hydralazine and amlodipine. Medication adjustments will be made. PHYSICAL EXAM: VITAL SIGNS: Reviewed. GENERAL: Well-developed in no acute distress. HEENT: Head is normocephalic. Pupils are equal, round. Sclerae anicteric. Mucous membranes of the mouth are moist. Neck supple. No JVD or thyromegaly LUNGS: Respirations even and unlabored. Lungs essentially clear to auscultation bilaterally. HEART: Regular rate and rhythm. S1 and S2 heard. ABDOMEN: Soft. Nondistended. Nontender. EXTREMITIES: Normal range of motion. No clubbing or cyanosis. Peripheral pul ses intact. No lower extremity edema NEUROLOGIC: Awake and alert. Oriented x 3. ASSESSMENT: Chest pain, troponin negative x 2 Mild nonobstructive CAD, per cath in April 2023 Mild acute kidney injury Hypertension Hyperlipidemia Diabetes PLAN: An acute coronary event has been ruled out Patient had normal stress test in the office in February 2024 and had 2 cardiac catheterizations performed last year Resume home cardiac medications but continue to hold losartan, hydrochlorothiazide, due to acute kidney injury Continue to monitor blood pressure Start patient back on hydralazine 50 mg twice daily Decrease Lopressor to 12.5 mg twice daily due to bradycardia Further recommendations pending patient course Nurse practitioner note has been reviewed by physician. Signing provider agrees with the documented findings, assessment, and plan of care documented by DOUGH MIXER as a scribe. Objective - Vital Signs Vital signs: Vital Signs Temp 97.8 F 05/17/24 07:00 Pulse 45 L 05/17/24 07:00 Resp 15 05/17/24 07:00 BP 133/67 05/17/24 07:00 Pulse Ox 95 05/17/24 07:00 FiO2 Intake & Output 05/16/24 05/17/24 05/17/24 18:59 06:59 18:59 Intake Total 118 Balance 118 Weight 94.347 kg Intake: Oral 118 Other: # Voids 3 - Labs CBC & Chem 7: 05/16/24 03:11 05/17/24 04:24 Labs: Abnormal Lab Results - Last 24 Hours (Table) 05/17/24 Range/Units 04:24 BUN 27.6 H (9.0-27.0) mg/dL Creatinine 1.6 H (0.6-1.5) mg/dL Est GFR (CKD-EPI) 33 L (>=60) Glucose 116 H (70-110) mg/dL
--- NOTE | 2024-05-21 10:45 | P.DS ---
Providers Date of admission: 05/16/24 04:50 Expected date of discharge: 05/17/24 Attending physician: Uche Friedman MD Consults: 05/16/24 04:50 Consult Physician Urgent Consulting Provider: Sofía Martinez Consult Reason/Comments: chest pain Do you want consulting provider notified?: Yes, Notify in am Primary care physician: Sissy Starr Hospital Course: Final diagnosis -Chest pain ruled out acute coronary syndrome -Acute renal failure secondary to hypotension, hold off on hydrochlorothiazide and losartan -Hypertension history -Coronary artery disease -Type 2 diabetes mellitus -Hyperlipidemia -Obesity with a BMI 35.7 -History of mitral valve prolapse -Gastroesophageal reflux disease -DVT prophylaxis: Ambulation -GI prophylaxis -Full code Discharge Full codedisposition Patient is being discharged in a stable condition with guarded prognosis to go home. Patient will follow-up with Dr. Starr in the outpatient setting upon discharge. Patient is to continue with current medications while holding hydrochlorothiazide and outpatient follow-up with cardiology as scheduled. Total time taken is greater than 35 minutes. Hospital course This is a 78-year-old female who was recently admitted with chest pain, ruled out ACS being evaluated by cardiology. No further workup warranted at this time as she recently had testing that was negative. Adjustments to medications made due to acute renal failure along with hypotension with a chronic history of hypertension. Patient will continue current medication regimen as mentioned below and close outpatient follow-up with cardiology. Patient has been instructed to follow-up with her primary care provider this week. Please refer to other consultation notes for further HPI. Currently no reports of chest pain, shortness of breath, or palpitations. Patient is afebrile. No reports of nausea or vomiting and patient is tolerating diet. Patient will be discharged home today. Physical exam: Gen: This is a 78-year-old female who is awake, alert and oriented x 3, well- developed, elderly appearing, obese HEENT: Head is atraumatic, normocephalic. Pupils equal, round. Sclerae is anicteric. NECK: Supple. No JVD. No lymphadenopathy. No thyromegaly. LUNGS: Diminished breath sounds bilaterally otherwise clear to auscultation. No wheezes or rhonchi. No intercostal retractions. HEART: Regular rate and rhythm. No murmur. ABDOMEN: Soft. Obese. Bowel sounds are present. No masses. No tenderness. EXTREMITIES: No pedal edema. No calf tenderness. NEUROLOGICAL: Patient is awake, alert and oriented x3. Cranial nerves 2 through 12 are grossly intact. Please refer to medication reconciliation sheet for a list of medications. The impression and plan of care has been dictated by Tamia Puente, Nurse Practitioner as directed. Dr. Karen MD I have performed a history and examination and MDM of this patient, discussed the same with the dictator, and agree with the dictator's assessment and plan as written ,documented as a scribe. Based on total visit time, I have performed more than 50% of the visit. Patient Condition at Discharge: Fair Plan - Discharge Summary New Discharge Prescriptions: New Aspirin 81 mg PO DAILY #30 tab Metoprolol Tartrate [Lopressor] 12.5 mg PO BID #60 tab Continue Famotidine 40 mg PO DAILY metFORMIN HCL [Glucophage] 1,000 mg PO BID-W/MEALS Fenofibrate Nanocrystallized [Fenofibrate] 145 mg PO DAILY amLODIPine [Norvasc] 10 mg PO DAILY hydrALAZINE HCL [Apresoline] 50 mg PO BID Atorvastatin [Lipitor] 80 mg PO DAILY #90 tab HYDROcodone/APAP 7.5-325MG [[place] 7.5-325] 1 tab PO TID PRN PRN Reason: Pain Nitroglycerin Sl Tabs [Nitrostat] 0.4 mg SUBLINGUAL Q5M PRN #25 tab PRN Reason: Chest Pain glipiZIDE [Glucotrol] 5 mg PO DAILY Isosorbide Mononitrate ER [Imdur] 60 mg PO DAILY Discontinued Losartan-Hctz 50-12.5 mg [Hyzaar 50-12.5] 2 tab PO DAILY Ibuprofen [Motrin] 800 mg PO DAILY Metoprolol Tartrate [Lopressor] 25 mg PO DAILY #180 tab Discharge Medication List Famotidine 40 mg PO DAILY 07/30/19 [History] HYDROcodone/APAP 7.5-325MG [[place] 7.5-325] 1 tab PO TID PRN 06/22/21 [History] metFORMIN HCL [Glucophage] 1,000 mg PO BID-W/MEALS 06/22/21 [History] Fenofibrate Nanocrystallized [Fenofibrate] 145 mg PO DAILY 12/05/22 [History] amLODIPine [Norvasc] 10 mg PO DAILY 04/15/23 [History] hydrALAZINE HCL [Apresoline] 50 mg PO BID 04/15/23 [History] Atorvastatin [Lipitor] 80 mg PO DAILY #90 tab 04/17/23 [Rx] Nitroglycerin Sl Tabs [Nitrostat] 0.4 mg SUBLINGUAL Q5M PRN #25 tab 04/17/23 [Rx] Isosorbide Mononitrate ER [Imdur] 60 mg PO DAILY 05/16/24 [History] glipiZIDE [Glucotrol] 5 mg PO DAILY 05/16/24 [History] Aspirin 81 mg PO DAILY #30 tab 05/17/24 [Rx] Metoprolol Tartrate [Lopressor] 12.5 mg PO BID #60 tab 05/17/24 [Rx] Follow up Appointment(s)/Referral(s): Sofía Martinez MD [STAFF PHYSICIAN] - 2 Weeks Sissy Starr DO [Primary Care Provider] - 1-2 days Patient Instructions/Handouts: Chest Pain (DC) Activity/Diet/Wound Care/Special Instructions: Activity limited until follow-up Follow-up with primary care provider on discharge Continue taking medications as prescribed Continue holding losartan/hydrochlorothiazide for now Follow-up with cardiology in 1 to 2 weeks Monitor blood pressure daily and keep a diary of all readings and bring with you to primary as well as cardiology follow-up Discharge Disposition: HOME SELF-CARE
== END 2024-05-17 15:06 | disposition home or self-care (01) ==
LOC: EC 02:29 → 6NMEDSUR 04:50
PROVIDERS: ADMIT Internal Medicine; ATTEND Internal Medicine
DX: R07.89 Other chest pain (principal); N17.9 Acute kidney failure, unspecified; I95.9 Hypotension, unspecified; I12.9 Hypertensive chronic kidney disease with stage 1 through stage 4 chronic kidney disease, or unspecified chronic kidney disease; N18.2 Chronic kidney disease, stage 2 (mild); E11.9 Type 2 diabetes mellitus without complications; I08.1 Rheumatic disorders of both mitral and tricuspid valves; I25.10 Atherosclerotic heart disease of native coronary artery without angina pectoris; I27.20 Pulmonary hypertension, unspecified; E78.5 Hyperlipidemia, unspecified; K21.9 Gastro-esophageal reflux disease without esophagitis; M25.512 Pain in left shoulder; R00.1 Bradycardia, unspecified; E66.9 Obesity, unspecified; Z68.35 Body mass index [BMI] 35.0-35.9, adult; Z79.84 Long term (current) use of oral hypoglycemic drugs; Z79.899 Other long term (current) drug therapy; Z88.1 Allergy status to other antibiotic agents; Z88.6 Allergy status to analgesic agent; Z88.5 Allergy status to narcotic agent; Z88.2 Allergy status to sulfonamides; Z88.8 Allergy status to other drugs, medicaments and biological substances; Z91.048 Other nonmedicinal substance allergy status
CPT/HCPCS: 96361 ×2; 96376; 96374; 96375; 99285; 36415; 93005; 83880; 80053; 80048; 83735 ×2; 84484; 85025; 85610; 85730; 71046; G0378 ×2; J0360; J2405; J1171